=== PATIENT | female | born 1950 | race Caucasian/White ===

== ENCOUNTER → 2018-03-29 10:09 | Outpatient (CLI) | payer MEDICARE, OTHER, SELFPAY ==
--- NOTE | 2018-03-29 10:12 | BD_ITS ---
STUDY: DUAL ENERGY X-RAY ABSORPTIOMETRY / DXA REASON FOR EXAM: Female, 67 years old. The patient is postmenopausal. No loss of height. TECHNIQUE: Bone Mineral Density (BMD) measurements of lumbar spine and bilateral hips were obtained. COMPARISON: Comparison is made with prior study dated January 29, 2015. FINDINGS: Lumbar Spine (L1-L4): g/cm2 (1.207) / T-score (0.2) / Z-score (1.9) Findings are suggestive of normal bone density with a low fracture risk. Left Femur Total: g/cm2 (0.897) / T-score (-0.9) / Z-score (0.4) Left Femoral Neck: g/cm2 (0.870) / T-score (-1.2) / Z-score (0.4) Right Femur Total: g/cm2 (0.878) / T-score (-1.0) / Z-score (0.3) Right Femoral Neck: g/cm2 (0.858) / T-score (-1.3) / Z-score (0.3) The T-Scores on the most recent prior examination were: Lumbar Spine (L1-L4): There has been improvement of bone density since the previous examination. Left Femur Total: which represents a worsening of 10.2%. Right Femur Total: which represents a worsening of 1.1%. BD/Dexa Bone Density Study IMPRESSION: The patient is considered osteopenic as outlined below according to World Rigoberto Organization (WHO) criteria with a moderate fracture risk. There has been worsening of bone density since the previous examination. Reference Information: The T-score is the number of standard deviations above or below the standard which is normal for young adults at their peak bone mineral density. The World Health Organization (WHO) interprets the T-scores as follows: Above -1 Normal bone density Between -1 and -2.5 Osteopenia Equal to / or below -2.5 Osteoporosis As a practical clinical guideline, osteopenia may be graded as follows: Mild -1 through -1.5 Moderate -1.6 through -2.0 Severe -2.1 through -2.4 The Z-score is the number of standard deviations above or below age-matched controls. A Z-score of less than -1.5 would be considered abnormal. References: 1. NIH Osteoporosis and Related Bone Diseases http://www.osteo.org 2. International Society for Clinical Densitometry http://www.iscd.org 3. National Osteoporosis Foundation http://www.nof.org Electronically Signed: Thierry Long MD at 15:48 EDT Tel [phone], Service support ,
--- NOTE | 2018-03-29 10:12 | BI_ITS ---
MAMMOGRAPHY - UNILATERAL SCREENING: LEFT BREAST REASON FOR EXAM: Female, 67 years old. Routine annual screening examination (unilateral). PERTINENT HISTORY: Personal history of breast cancer. Grandmother with breast cancer. Aunt with breast cancer. Prior right mastectomy. TECHNIQUE: Digital unilateral breast sharon (3D mammographic acquisition) in the CC and MLO projections. 2-D mediolateral oblique (MLO) and craniocaudad (CC) views of both breasts were obtained. CAD: Full Field Digital Mammography with Computer Added Detection was performed. COMPARISON: Comparison is made with prior study dated March 22, 2017 and January 29, 2015. FINDINGS: Breast Composition: The breasts are almost entirely fatty. There are no dominant masses or suspicious calcifications. Stable benign-appearing left axillary lymph nodes. No other significant abnormalities are identified. There has been no significant change since the prior study. BI/UNILAT LT SCRN W/CAD IMPRESSION: Stable unilateral screening mammogram. Yearly follow-up mammogram recommended. (A) ASSESSMENT CATEGORY: BIRADS Category 2: Benign. A letter regarding these results will be sent to the patient by the facility within 30 days. Approximately 10% of breast cancers are not detected by mammography. A normal mammogram should not delay biopsy of a clinically suspicious abnormality. [id number] Electronically Signed: Thierry Long MD at 12:24 EDT Tel [phone], Service support ,
== END ==
PROVIDERS: Family Provider Internal Medicine; PCP Internal Medicine; Referring Provider Internal Medicine; Visit Provider Internal Medicine
DX: Z12.31 Encounter for screening mammogram for malignant neoplasm of breast (principal); Z78.0 Asymptomatic menopausal state; Z85.3 Personal history of malignant neoplasm of breast; Z80.3 Family history of malignant neoplasm of breast; Z90.11 Acquired absence of right breast and nipple
CPT/HCPCS: 77061; 77067; 77080; G0279

== ENCOUNTER 2018-05-26 20:54 | Observation (INO) | payer MEDICARE, OTHER, SELFPAY ==
[2018-05-26 20:55] VITALS: BP 156/89; PULSE 91; RESP 23; TEMP 36.8; O2SAT 95; BMI 33.3
[2018-05-26 21:08] VITALS: O2SAT 95
--- NOTE | 2018-05-26 21:08 | EKG12_ITS ---
Test Reason : CP Blood Pressure : / mmHG Vent. Rate : 088 BPM Atrial Rate : 088 BPM P-R Int : 152 ms QRS Dur : 090 ms QT Int : 366 ms P-R-T Axes : 028 002 007 degrees QTc Int : 442 ms Sinus rhythm with occasional Premature ventricular complexes Minimal voltage criteria for LVH, may be normal variant Inferior infarct , age undetermined Abnormal ECG Confirmed by IMELDA BENJAMIN, MATI ([id number]), restaurant expeditor KARISSA DONALDSON ([id number]) on 05/31/2018 3:34:15 PM Referred By: PETE/SILVANA Confirmed By:MATI SEGURA MD
--- NOTE | 2018-05-26 21:15 | RAD_ITS ---
STUDY: X-RAY CHEST REASON FOR EXAM: Female, 67 years old. Chest pain TECHNIQUE: Single frontal view of the chest. COMPARISON: 05/11/2014 FINDINGS: The lungs are clear and expanded. There is no demonstrated pleural abnormality. Normal size heart. Normal mediastinum and rochelle. Normal visualized pulmonary arteries. Normal visualized aortic arch and descending thoracic aorta. Normal visualized thoracic spine. Normal visualized ribs, clavicles, and shoulders. There is no demonstrated abnormality of the visualized soft tissue structures of the upper abdomen. RAD/Chest 1 View (Portable) IMPRESSION: Normal x-ray examination of the chest. Electronically Signed: Anthony Shaver MD at 22:08 EST Tel , Service support ,
--- NOTE | 2018-05-26 21:15 | ED.VISSUMM ---
- ER Visit Summary Date of Service: 05/26/18 Chief Complaint: Right-sided chest discomfort History of Present Illness: The patient is a 67 F past medical history of non-insulin dependent diabetes, hypertension, high cholesterol and known coronary disease. She states about 10 years ago she had a heart cath done at [facility] in [place] and at that time they told her she is about a 50% coronary blockage but she did not need stents at that time. Recently she has not been having chest pain. She denies exertional dyspnea. No history of DVT or PE. No recent travel, surgery or immobilization. No leg pain or swelling. No hemoptysis. She denies any pleuritic chest pain. Patient denies any back pain. At times does radiate to her neck. Physical Examination: 5% on room air. No hypoxia. HEENT exam unremarkable. Neck nontender. No lymphadenopathy. Lungs clear to auscultation bilaterally. Heart regular rate and rhythm no murmur. Patient had a right mastectomy. Chest wall is nontender. Abdomen soft nontender. Normal bowel sounds no peritoneal signs. Patient moving all 4 extremities. Normal slot floorman strength. Normal dorsi plantar flexion. Calves are nontender without edema or cords. Equal symmetrical radial pulses. Neurologically she is awake and alert with no focal motor deficits. Test Results: Patient will undergo cardiac workup and received p.o. aspirin. BC normal. BMP unremarkable. Troponin normal. Portable chest x-ray 1 view read both by myself and radiologist is unremarkable. EKG is a sinus rhythm with PVCs but no signs of acute [place] or ischemia. Emergency Department Course and Treatment: Patient with atypical right-sided chest pain. Has no history of DVT or PE. No DVT or PE risk factors. Pain is not reproducible. She is a known history of coronary disease and also has diabetes and hypertension. Treatment Plan: Patient doing well on repeat exam at 2240. Spoke to the hospitalist about admission. Patient currently symptom-free. Disposition: Admission Impression: Acute chest pain uncertain etiology History of CAD History of [id number] diabetes, hypertension This note was generated with Tactigaation software. It may contain incorrect words, spelling, and punctuation that were not noted in review of the chart prior to signing ED Disposition - Plan for ED Patient: Chief Complaint: Chest Pain
--- NOTE | 2018-05-26 21:19 | ED.DCSUM_ITS ---
- ER Visit Summary Date of Service: 05/26/18 Chief Complaint: Right-sided chest discomfort History of Present Illness: The patient is a 67 F past medical history of non- insulin dependent diabetes, hypertension, high cholesterol and known coronary disease. She states about 10 years ago she had a heart cath done at [facility] in [place] and at that time they told her she is about a 50% coronary blockage but she did not need stents at that time. Recently she has not been having chest pain. She denies exertional dyspnea. No history of DVT or PE. No recent travel, surgery or immobilization. No leg pain or swelling. No hemoptysis. She denies any pleuritic chest pain. Patient denies any back pain. At times does radiate to her neck. Physical Examination: 5% on room air. No hypoxia. HEENT exam unremarkable. Neck nontender. No lymphadenopathy. Lungs clear to auscultation bilaterally. Heart regular rate and rhythm no murmur. Patient had a right mastectomy. Chest wall is nontender. Abdomen soft nontender. Normal bowel sounds no peritoneal signs. Patient moving all 4 extremities. Normal blocker automatic strength. Normal dorsi plantar flexion. Calves are nontender without edema or cords. Equal symmetrical radial pulses. Neurologically she is awake and alert with no focal motor deficits. Test Results: Patient will undergo cardiac workup and received p.o. aspirin. BC normal. BMP unremarkable. Troponin normal. Portable chest x-ray 1 view read both by myself and radiologist is unremarkable. EKG is a sinus rhythm with PVCs but no signs of acute [place] or ischemia. Emergency Department Course and Treatment: Patient with atypical right-sided chest pain. Has no history of DVT or PE. No DVT or PE risk factors. Pain is not reproducible. She is a known history of coronary disease and also has diabetes and hypertension. Treatment Plan: Patient doing well on repeat exam at 2240. Spoke to the hospitalist about admission. Patient currently symptom-free. Disposition: Admission Impression: Acute chest pain uncertain etiology History of CAD History of [id number] diabetes, hypertension This note was generated with [employer] Enduranceation software. It may contain incorrect words, spelling, and punctuation that were not noted in review of the chart prior to signing ED Disposition - Plan for ED Patient: Chief Complaint: Chest Pain
[2018-05-26 21:31] LABS: Absolute Lymphocyte Count 2.13 X10^3/ul (0.83-4.51); Absolute Neutrophil Count 3.8 X10^3/uL (2.0-7.7); Basophil# 0.04 X10^3/uL; Basophil% 0.6 % (0-1); Eosinophil# 0.41 X10^3/uL; Eosinophils% 5.8 % (0-5); Hematocrit 40.6 % (37-47); Hemoglobin 13.7 g/dl (12.0-15.0); Lymphocyte # 2.13 X10^3/ul (4.0); Lymphocyte % 30.3 % (19-41); Mean Corp Hgb Conc 33.7 g/gl (32-36); Mean Corpuscular Hgb 30.9 pg (27.0-32.0); Mean Corpuscular Volume 91.6 fL (81-99); Mean Platelet Vol. 10.4 fl (6.2-12.0); Monocyte# 0.56 X10^3/uL; Neutrophil # 3.84 X10^3/uL (2.7-7.7); Neutrophil % 54.7 % (47-70); Platelet Count 347 K/mm3 (150-450); RBC Distribution Width CV 13.2 % (11.6-14.6); RBC Distribution Width SD 43.1 fl (35.1-43.9); Red Blood Count 4.43 M/mm3 (4.2-5.4)
[2018-05-26 21:33] LABS: POSITIVE COUNT NO; POSITIVE DIFFERENTIAL NO; POSITIVE MORPHOLOGY NO
[2018-05-26 21:43] LABS: BUN 18 mg/dL (7-18); Creatinine, Serum 0.99 mg/dL (0.55-1.02); Glucose 182 mg/dL (74-106)
[2018-05-26 21:44] LABS: Anion Gap 6 (5-15); BUN/Creat Ratio 18.2 RATIO (10-20); Calcium,Total 9.1 mg/dL (8.5-10.1); Chloride 105 mmol/L (98-107); EST Glomerular Filtration Rate 60 mL/min (>60); Est Glom Filt Rate - Afr Amer 72 mL/min (>60); Estimated Creatinine Clearance 43.61 ml/min; Potassium 3.7 mmol/L (3.5-5.1); Sodium Level 140 mmol/L (136-145)
[2018-05-26] MEDS: Aspirin 81 MG TAB.CHEW 324 MG PO (21:53)
[2018-05-26 21:54] VITALS: BP 146/88; PULSE 76; RESP 14; O2SAT 94
--- NOTE | 2018-05-26 22:38 | HP.PCM_ITS ---
Problem List (1) Chest pain Status: Acute (2) HTN (hypertension) Status: Chronic (3) Diabetes Status: Chronic History of Present Illness Date of Admission: 05/26/18 Chief Complaint: chest pain The patient is a 67 year old F with a significant history of right breast cancer status post radiation and chemotherapy; hypertension; diabetes; who presented with 1 day history of episodic right-sided chest pain that radiated to her right neck. She describes a severity as 5-6 on a scale of 1-10. Her pain was heavy in quality. Her chest pain began suddenly while she was a passenger in a car. Associated with her symptoms is belching and flatulence. Also she had warm feeling at her face. At emergency department chest x-ray was unremarkable. Her EKG showed sinus rhythm with PVCs. At emergency department patient was given 324 mg of aspirin. Of note 12-14 years ago patient had chest pain and follow-up cardiac catheter showed 50% lesion in one vessel. She does not remember which vessel had the 50% blockage. Past Medical History Past Medical History (Chronic Problems): Chronic Problems (Last Updated 05/26/18 @ 23:21 by Hoang Newton MD) HTN (hypertension) (Chronic) Diabetes (Chronic) Medical History: Medical History (Last Updated 05/26/18 @ 23:21 by Hoang Newton MD) Diabetes E11.9 HTN (hypertension) I10 Allergies No Known Allergies Allergy (Verified 05/26/18 20:55) Home Medications: Ambulatory Orders Medication Instructions Recorded Aspirin [Aspirin, Baby] 81 mg PO DAILY 05/11/14 Hydrochlorothiazide [Hctz] 25 mg PO DAILY 05/11/14 Lisinopril [Zestril] 20 mg PO DAILY 05/11/14 Metformin HCl [Glucophage] 1,000 mg PO BIDCM 05/11/14 Ubidecarenone [Coq10] 50 mg PO DAILY 05/11/14 Atenolol [Tenormin (beta shay)] 50 mg PO BID 05/26/18 Cholecalciferol (VIT D3) [Vitamin 1,000 unit PO BID 05/26/18 D] Fenofibrate Nanocrystallized 145 mg PO DAILY 05/26/18 [Fenofibrate] Linagliptin [Tradjenta] 5 mg PO DAILY 05/26/18 Vitamin E 400 unit PO DAILY 05/26/18 Surgical History: mastectomy, - - Kidney surgery-type unknown Psychiatric History: No pertinent psych hx 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 Denies: Palpitations Respiratory: Reports: Shortness of Breath - mild and transient. Denies: Cough, Sputum production Gastrointestinal: Denies: Abdominal Pain, Nausea, Vomiting Genitourinary: Denies: Dysuria Musculoskeletal: Denies: Joint Pain, Joint Tenderness Skin: Denies: Rash, Wounds Neurological: Denies: Numbness, Tingling, Focal weakness Psychiatric: Denies: Anxiety, Depression, Homicidal Ideations, Suicidal Ideations Hematologic/ Lymphatic: Denies: Easy Bruising, Easy Bleeding VTE Information - Inpt Only VTE Present on Admission: No VTE Mechan Device Prophylaxis: None VTE Pharm Prophylaxis ordered?: Yes - Physical Exam General: Alert, Oriented x3, Cooperative HEENT: Atraumatic, PERRLA, EOMI, Normocephalic Neck: Supple, No JVD, Negative Carotid Bruits Lungs: Clear to auscultation, Normal air movement, - - With no R breast Cardiovascular: Regular rate, No murmurs Abdomen: Bowel Sounds Present, Soft, Non Tender Extremities: No edema, Capillary Refill Less than 3 Seconds Skin: No rashes, No breakdown Musculoskeletal: No Tenderness to Palpation of Joints or Extremities Neurological: Cranial nerves II-XII grossly intact Psych/Mental Status: Normal Affect, Appropriate Vital Signs Temp Pulse Resp BP Pulse Ox 98.2 F 76 14 146/88 H 94 05/26/18 20:55 05/26/18 21:54 05/26/18 21:54 05/26/18 21:54 05/26/18 21:54 Oxygen Delivery Method Room Air Weight: 82.554 kg Body Mass Index (BMI) 33.3 Laboratory Tests Past 24 Hrs 05/26/18 05/26/18 21:00 21:00 WBC 7.0 RBC 4.43 Hgb 13.7 Hct 40.6 MCV 91.6 MCH 30.9 MCHC 33.7 RDW 13.2 RDW Differential 43.1 Plt Count 347 MPV 10.4 Immature Gran % (Auto) 0.600 Neut % (Auto) 54.7 Lymph % (Auto) 30.3 Gilchrist % (Auto) 8.0 Eos % (Auto) 5.8 H Baso % (Auto) 0.6 Absolute Neuts (auto) 3.8 Absolute Lymphs (auto) 2.13 Total Counted Not Reportable Sodium 140 Potassium 3.7 Chloride 105 Carbon Dioxide 29.0 Anion Gap 6 BUN 18 Creatinine 0.99 Estim Creat Clear Calc 43.61 Est GFR (MDRD) Af Amer 72 Est GFR (MDRD) Non-Af 60 BUN/Creatinine Ratio 18.2 Glucose 182 H Calcium 9.1 Troponin I < 0.015 Assessment/Plan All Active Problems (Last Updated 05/26/18 @ 23:21 by Hoang Newton MD) Chest pain (Acute) The patient is a 67 year old F with a significant history of right breast cancer status post radiation and chemotherapy;hypertension; diabetes; and with 50% blockage in his coronaries presenting with episodic right sided chest pain that had resolved at the time of examination. Chest pain At the time of examination her chest pain; belching and flatulence had resolved. Admit to a monitored bed on PCU CXR independently reviewed confirms no acute cardiopulmonary process EKG independently reviewed confirms sinus rhythm with PVCs Patient received 324 mg aspirin at emergency department. ASA 81 mg p.o. daily SL NTG 0.4 mg prn as needed for chest pain Fasting lipids ordered. High intensity statin ordered. Serial cardiac enzymes Stat EKG as needed for chest pain Although patient reported 50% blockage in a coronary vessel 12 to 14 years ago, her chest pain has resolved and she reports associated GI symptoms. Treadmill stress test in the AM if the cardiac enzymes are negative Diabetes mellitus On admission blood glucose was not within goal. Patient is on home metformin and Tradjenta. Since it is too early in her admission and cardiac cath can not be rule out at this time will hold metformin. Tradjenta continued. Would add a correction scale insulin. Hypertension On admission blood pressure was not within goal but was not excessively high Continue atenolol; lisinopril and hydrochlorothiazide.. Trend blood pressure and adjust blood pressure medication as necessary. Hyperlipidemia Fenofibrate continued. DVT prophylaxis Subcutaneous Lovenox ordered. Code Visit OBSV E&M: [id number] Initial observation care L3
--- NOTE | 2018-05-26 23:13 | EKG12_ITS ---
Test Reason : CP ADMISSION Blood Pressure : / mmHG Vent. Rate : 077 BPM Atrial Rate : 077 BPM P-R Int : 158 ms QRS Dur : 094 ms QT Int : 390 ms P-R-T Axes : 043 001 -02 degrees QTc Int : 441 ms Normal sinus rhythm Minimal voltage criteria for LVH, may be normal variant Inferior infarct , age undetermined, cannot be excluded Abnormal ECG Confirmed by IMELDA BENJAMIN, MATI ([id number]), editorial writer KARISSA DONALDSON ([id number]) on 05/31/2018 3:48:13 PM Referred By: ALBAN Confirmed By:MATI SEGURA MD
[2018-05-26 23:25] VITALS: PULSE 77
[2018-05-26 23:46] VITALS: BMI 32.3
[2018-05-26 23:50] VITALS: BMI 32.3
[2018-05-27] VITALS: BP 147/80; PULSE 89; RESP 16; TEMP 36.8; O2SAT 94
[2018-05-27] LABS: Bedside Glucose 140 mg/dL (70-110)
[2018-05-27 03:00] VITALS: PULSE 77
[2018-05-27 03:34] LABS: Prothrombin Time (Protime)PT. 13.1 SECONDS (11.7-14.9)
[2018-05-27 03:46] LABS: Partial Thromboplast Time 23.6 Seconds (24.1-36.2)
[2018-05-27 04:35] LABS: Cholesterol 212 mg/dL (200); High Density Lipoprotein 43 mg/dL; Triglycerides 122 mg/dL; Very Low Density Lipoprotein 24 mg/dL (5-40)
[2018-05-27 04:39] LABS: Anion Gap 10 (5-15); BUN 15 mg/dL (7-18); BUN/Creat Ratio 19.6 RATIO (10-20); Calcium,Total 8.9 mg/dL (8.5-10.1); Chloride 108 mmol/L (98-107); Creatinine, Serum 0.76 mg/dL (0.55-1.02); EST Glomerular Filtration Rate 80 mL/min (>60); Est Glom Filt Rate - Afr Amer 97 mL/min (>60); Estimated Creatinine Clearance 43.18 ml/min; Glucose 151 mg/dL (74-106); Potassium 3.6 mmol/L (3.5-5.1); Sodium Level 145 mmol/L (136-145)
--- NOTE | 2018-05-27 05:55 | EKG12_ITS ---
Test Reason : AM EKG Blood Pressure : / mmHG Vent. Rate : 080 BPM Atrial Rate : 080 BPM P-R Int : 144 ms QRS Dur : 092 ms QT Int : 372 ms P-R-T Axes : 049 006 002 degrees QTc Int : 429 ms Sinus rhythm with Premature atrial complexes Minimal voltage criteria for LVH, may be normal variant Cannot rule out Inferior infarct , age undetermined Abnormal ECG Confirmed by IMELDA BENJAMIN, MATI ([id number]), video editor KARISSA DONALDSON ([id number]) on 05/31/2018 3:47:08 PM Referred By: ALBAN Confirmed By:MATI SEGURA MD
[2018-05-27 06:00] VITALS: BP 127/75; PULSE 77; RESP 16; TEMP 36.3; O2SAT 95
[2018-05-27] MEDS: Aspirin E.C. 81 MG Tablet PO (06:08)
[2018-05-27] MEDS: Lisinopril 20 MG Tablet PO (06:08)
[2018-05-27 06:19] VITALS: PULSE 76
[2018-05-27 07:00] LABS: Bedside Glucose 149 mg/dL (70-110)
[2018-05-27 10:54] VITALS: PULSE 91
--- NOTE | 2018-05-27 11:27 | STRESSREP ---
Stress Test Report Date: 05/27/2018 Procedure: Exercise tolerance test/imaging study Indications: Chest pain Consent: Per the patient Procedure: The patient exercised on a Hero protocol for 6 minutes completing Stage II achieving a peak heart rate of 166 bpm (108 % predicted maximal heart rate) with a peak blood pressure 220/80 mmHg and a peak MET capacity of 7 METs. The baseline ECG demonstrated normal sinus rhythm. The peak exercise ECG demonstrated no obvious ECG changes. There was a rare PVC during recovery. The functional capacity was considered average. There was no complaint of chest discomfort during exercise or recovery. The examination was discontinued secondary to dyspnea. Impression: 1. Technically adequate (percent predicted maximal heart rate greater than 85%) exercise tolerance test 2. Peak exercise ECG with no obvious ECG changes 3. There was a rare PVC during recovery 4. Nuclear images pending Myocardial perfusion imaging study: Technique: The patient was injected with 11.8 mCi of technetium 99m Cardiolite and subsequently rest SPECT Cardiolite nuclear imaging was obtained in the horizontal long, vertical long, and short axis views. The patient exercised on a Hero protocol for 6 minutes completing Stage II achieving a peak heart rate of 166 bpm (108 % predicted maximal heart rate) with a peak blood pressure 220/80 mmHg and a peak MET capacity of 7 METs. The patient was injected with 33.1 mCi of technetium 99m Cardiolite and subsequently stress SPECT Cardiolite nuclear imaging was obtained in the horizontal long, vertical long, and short axis views. A gated Cardiolite study at peak stress was obtained. Interpretation: Rest and stress SPECT Cardiolite nuclear imaging status post realignment, normalization, and attenuation correction, demonstrates the appearance of relative uniform tracer uptake and myocardial perfusion appearing within normal limits. There is end systolic thickening and brightening. The gated Cardiolite study demonstrates myocardial thickening and inward wall motion. The reported LVEF is 70 %. Impression: 1. Rest and stress SPECT Cardiolite nuclear imaging demonstrate relative uniform tracer uptake and myocardial perfusion appearing within normal limits. 2. The gated Cardiolite study reports an LVEF of 70 %. This note was generated with [employer] software. It may contain incorrect words, spelling, and punctuation that were not noted in checking the note before signing.
[2018-05-27 11:51] VITALS: BP 134/86; PULSE 85; RESP 16; TEMP 36.7; O2SAT 96
[2018-05-27] MEDS: hydroCHLOROthiazide 25 MG Tablet PO (12:13)
[2018-05-27] MEDS: Enoxaparin 40 MG/0.4 ML Syringe SC (12:14)
[2018-05-27] MEDS: Atenolol 50 MG Tablet PO (12:14)
[2018-05-27 12:15] LABS: Bedside Glucose 154 mg/dL (70-110)
--- NOTE | 2018-05-27 12:15 | DCINST_ITS ---
- Discharge Diagnoses Current Active Problems: Current Active and Chronic Problems (Last Updated 05/26/18 @ 23:21 by Hoang Newton MD) HTN (hypertension) (Chronic) Diabetes (Chronic) You will use the following diet at home:: Cardiac Your food should be the consistency of: Regular Your liquids should be the consistency of: Regular/Thin Discharge Activity: No Restrictions Call your doctor if you observe: Shortness of breath, Dizziness, Fainting spells, Chest pain, Increased palpitations (irregular heartbeat) Allergies/Adverse Reactions: Allergies No Known Allergies Allergy (Verified 05/26/18 20:55) Medications to take at Discharge Aspirin [Aspirin, Baby] 81 mg PO DAILY 05/11/14 Hydrochlorothiazide [Hctz] 25 mg PO DAILY 05/11/14 Lisinopril [Zestril] 20 mg PO DAILY 05/11/14 Metformin HCl [Glucophage] 1,000 mg PO BIDCM 05/11/14 Ubidecarenone [Coq10] 50 mg PO DAILY 05/11/14 Atenolol [Tenormin (beta shay)] 50 mg PO BID 05/26/18 Cholecalciferol (VIT D3) [Vitamin D3] 1,000 unit PO BID 05/26/18 Fenofibrate Nanocrystallized [Fenofibrate] 145 mg PO DAILY 05/26/18 Linagliptin [Tradjenta] 5 mg PO DAILY 05/26/18 Vitamin E 400 unit PO DAILY 05/26/18 Primary Care Physician: Annamarie Carvajal DO [Primary Care Provider] - Please follow up with your Primary Care Physician in: In 3-5 days Test Results: Test results from this visit will be discussed in further detail at your follow- up appointment, if applicable.
[2018-05-27] MEDS: LINAGLIPTIN 5 MG TABLET PO (12:16)
[2018-05-27] MEDS: Vitamin E 400 UNITS Capsule PO (12:16)
[2018-05-27] MEDS: Fenofibrate 145 MG Tablet PO (12:16)
--- NOTE | 2018-05-27 12:16 | PCM.DC.SUM ---
Discharge Date and Diagnosis Date of Admission: 05/26/18 Date of Discharge: 05/27/18 - Secondary Discharge Diagnosis Chronic Problems (Last Updated 05/26/18 @ 23:21 by Hoang Newton MD) HTN (hypertension) (Chronic) Diabetes (Chronic) Hospital Course and Treatment Imaging Results: CXR: IMPRESSION: Normal x-ray examination of the chest. Consults: None Operations: None Procedures: Nuclear stress test - Impression: 1. Technically adequate (percent predicted maximal heart rate greater than 85%) exercise tolerance test 2. Peak exercise ECG with no obvious ECG changes 3. There was a rare PVC during recovery 4. Nuclear images pending Interpretation: Rest and stress SPECT Cardiolite nuclear imaging status post realignment, normalization, and attenuation correction, demonstrates the appearance of relative uniform tracer uptake and myocardial perfusion appearing within normal limits. There is end systolic thickening and brightening. The gated Cardiolite study demonstrates myocardial thickening and inward wall motion. The reported LVEF is 70 %. Impression: 1. Rest and stress SPECT Cardiolite nuclear imaging demonstrate relative uniform tracer uptake and myocardial perfusion appearing within normal limits. 2. The gated Cardiolite study reports an LVEF of 70 %. Summary of Care Provided: Per HPI: The patient is a 67 year old F with a significant history of right breast cancer status post radiation and chemotherapy; hypertension; diabetes; who presented with 1 day history of episodic right-sided chest pain that radiated to her right neck. She describes a severity as 5-6 on a scale of 1-10. Her pain was heavy in quality. Her chest pain began suddenly while she was a passenger in a car. Associated with her symptoms is belching and flatulence. Also she had warm feeling at her face. At emergency department chest x-ray was unremarkable. Her EKG showed sinus rhythm with PVCs. At emergency department patient was given 324 mg of aspirin. Of note 12-14 years ago patient had chest pain and follow-up cardiac catheter showed 50% lesion in one vessel. She does not remember which vessel had the 50% blockage. Vital Signs - 24 hr Temp Pulse Resp BP Pulse Ox 05/27/18 11:51 98.1 F 85 16 134/86 H 96 05/27/18 10:54 91 05/27/18 06:19 76 05/27/18 06:00 97.3 F L 77 16 127/75 H 95 05/27/18 03:00 77 05/27/18 00:00 98.2 F 89 16 147/80 H 94 05/26/18 23:25 77 05/26/18 21:54 76 14 146/88 H 94 05/26/18 21:08 95 05/26/18 20:55 98.2 F 91 23 H 156/89 H 95 General: Alert, Oriented x3, Cooperative, No apparent distress, obese HEENT: Atraumatic, EOMI, Normocephalic Oral: Moist Mucosa Neck: Supple, No JVD Lungs: Clear to auscultation, Normal air movement, No rhonchi, No wheeze, No rales Cardiovascular: Regular rate, Regular Rhythm, Normal S1, Normal S2, No murmurs Abdomen: Soft, Non Tender, Non-Distended, No Hepato-splenomegaly Extremities: No edema, Capillary Refill Less than 3 Seconds Skin: No rashes, No breakdown Hospital Course: 1. Chest pain with a h/o CAD based on prior cath with 50% stenosis/HTN/HLD - She presented with right sided chest pain. She was admitted as a chest pain r/o, her troponins remained negative and she had a nuclear stress test on the morning of discharge which was also negative. I discussed with her the necessity of being on a statin since her ASCVD risk is 18%, however she has a significant h/o mylagias and has been tried on multiple different medications. Therefore she is to f/u with her PCP and remain on an aspirin. We discussed that since she cannot tolerate a statin then if she would like to decrease her risk she will need to make modifications to other aspect of her life, mainly diet and exercise. 2. Her other diagnoses were evaluated and her home medications were continued were appropriate - Physical Exam Vital Signs Temp Pulse Resp BP Pulse Ox 98.1 F 85 16 134/86 H 96 05/27/18 11:51 05/27/18 11:51 05/27/18 11:51 05/27/18 11:51 05/27/18 11:51 Oxygen Delivery Method Room Air Weight: 176 lb 9.444 oz Body Mass Index (BMI) 32.3 Laboratory Tests Past 24 Hrs 05/26/18 05/26/18 05/27/18 21:00 21:00 00:22 WBC 7.0 RBC 4.43 Hgb 13.7 Hct 40.6 MCV 91.6 MCH 30.9 MCHC 33.7 RDW 13.2 RDW Differential 43.1 Plt Count 347 MPV 10.4 Immature Gran % (Auto) 0.600 Neut % (Auto) 54.7 Lymph % (Auto) 30.3 [place] % (Auto) 8.0 Eos % (Auto) 5.8 H Baso % (Auto) 0.6 Absolute Neuts (auto) 3.8 Absolute Lymphs (auto) 2.13 Total Counted Not Reportable PT INR APTT Sodium 140 Potassium 3.7 Chloride 105 Carbon Dioxide 29.0 Anion Gap 6 BUN 18 Creatinine 0.99 Estim Creat Clear Calc 43.61 Est GFR (MDRD) Af Amer 72 Est GFR (MDRD) Non-Af 60 BUN/Creatinine Ratio 18.2 Glucose 182 H Calcium 9.1 Troponin I < 0.015 < 0.015 Triglycerides Cholesterol LDL Cholesterol VLDL Cholesterol HDL Cholesterol 05/27/18 05/27/18 05/27/18 03:18 03:18 03:18 WBC RBC Hgb Hct MCV MCH MCHC RDW RDW Differential Plt Count MPV Immature Gran % (Auto) Neut % (Auto) Lymph % (Auto) [place] % (Auto) Eos % (Auto) Baso % (Auto) Absolute Neuts (auto) Absolute Lymphs (auto) Total Counted PT 13.1 INR 1.0 APTT Sodium Potassium Chloride Carbon Dioxide Anion Gap BUN Creatinine Estim Creat Clear Calc Est GFR (MDRD) Af Amer Est GFR (MDRD) Non-Af BUN/Creatinine Ratio Glucose Calcium Troponin I < 0.015 Triglycerides 122 Cholesterol 212 H LDL Cholesterol 145 H VLDL Cholesterol 24 HDL Cholesterol 43 05/27/18 05/27/18 03:18 03:18 WBC RBC Hgb Hct MCV MCH MCHC RDW RDW Differential Plt Count MPV Immature Gran % (Auto) Neut % (Auto) Lymph % (Auto) [place] % (Auto) Eos % (Auto) Baso % (Auto) Absolute Neuts (auto) Absolute Lymphs (auto) Total Counted PT INR APTT 23.6 L Sodium 145 Potassium 3.6 Chloride 108 H Carbon Dioxide 27.0 Anion Gap 10 BUN 15 Creatinine 0.76 Estim Creat Clear Calc 43.18 Est GFR (MDRD) Af Amer 97 Est GFR (MDRD) Non-Af 80 BUN/Creatinine Ratio 19.6 Glucose 151 H Calcium 8.9 Troponin I Triglycerides Cholesterol LDL Cholesterol VLDL Cholesterol HDL Cholesterol POC Glucose 05/27/18 05/27/18 05/26/18 11:53 06:03 23:44 POC Glucose 154 H 149 H 140 H Discharge Activity: No Restrictions Call your doctor if you observe: Shortness of breath, Dizziness, Fainting spells, Chest pain, Increased palpitations (irregular heartbeat) Home Medications: Medications to take at Discharge Aspirin [Aspirin, Baby] 81 mg PO DAILY 05/11/14 Hydrochlorothiazide [Hctz] 25 mg PO DAILY 05/11/14 Lisinopril [Zestril] 20 mg PO DAILY 05/11/14 Metformin HCl [Glucophage] 1,000 mg PO BIDCM 05/11/14 Ubidecarenone [Coq10] 50 mg PO DAILY 05/11/14 Atenolol [Tenormin (beta shay)] 50 mg PO BID 05/26/18 Cholecalciferol (VIT D3) [Vitamin D3] 1,000 unit PO BID 05/26/18 Fenofibrate Nanocrystallized [Fenofibrate] 145 mg PO DAILY 05/26/18 Linagliptin [Tradjenta] 5 mg PO DAILY 05/26/18 Vitamin E 400 unit PO DAILY 05/26/18 Primary Care Physician: Annamarie Carvajal DO [Primary Care Provider] - Please follow up with your Primary Care Physician in: In 3-5 days Disposition: Home Minutes spent on discharge:: 35 Patient Condition:: Good Medical Necessity - Tobacco Use Smoking Status: Never smoker Meaningful Use Info Meaningful Use Diagnoses (Choose all that apply): None applicable Code Visit OBSV E&M: 45011 Observation care discharge
--- OUTSIDE RECORDS SUMMARY | 2018-07-21 23:49 | XMS RPT_ITS | Continuity of Care Document ---
:1950 Author Organization [facility] Address [address] [place] [address] Phone Care Team Providers Name Role Phone Annamarie Carvajal DO Unavailable Bird Boyd DO Unavailable MONICA Govea Unavailable Unavailable Cece Amador Unavailable Unavailable Bhavya Robins Unavailable Unavailable Nolan Tripp Unavailable Unavailable Unavailable Unavailable Problems Name Dates Details Acute chest pain (R07.9, 786.50) Comments: substernal -- went to [facility] and had work up and ef 72% and ecg was good -- troponin unremarkable and cxr wnl Status: Active Allergic reaction, initial encounter (T78.40XA, 995.3) Comments: sting insect -- Status: Active Annual Medicare Phyiscal WITHOUT abnormal findings (Renamed from Encounter for general adult medical examination without abnormal findings) (Z00.00, V70.9) Status: Active Benign essential hypertension (I10, 401.1) Status: Active BMI 31.0-31.9,adult (Z68.31, V85.31) Status: Active BMI 32.0-32.9,adult (Z68.32, V85.32) Status: Active Controlled type 2 diabetes mellitus (E11.9, 250.00) Status: Active Deliveries (Parity) Comments: 4 Status: Active Diabetes mellitus type 2, uncontrolled, without complications (E11.65, 250.02) Comments: up bc of pred so pt doesnt want to chg meds -- will bring down with diet adn acitivity Status: Active Encounter for general adult medical examination w/o abnormal findings (Z00.00, V70.9) Status: Active Encounter for screening for malignant neoplasm of colon (Renamed from Special screening for malignant neoplasms, colon) (Z12.11, V76.51) Comments: ordered cologard 18pt refused scope Status: Active Encounter for screening mammogram for breast cancer (Renamed from Encounter for screening mammogram for malignant neoplasm of breast) (Z12.31, V76.12) Status: Active Essential hypertension, malignant (I10, 401.0) Comments: chronic stable-continue present regimen Status: Active Gastroesophageal reflux disease without esophagitis (K21.9, 530.81) Status: Active Hypercalcemia (E83.52, 275.42) Comments: better stay off calcium and vit d - likely from hctz Status: Active Hypertrophic and atrophic condition of skin (L91.9, 701.9) Comments: irritated Status: Active Hypokalemia (E87.6, 276.8) Comments: recheck Status: Active Influenza vaccination declined (Renamed from Refused influenza vaccine) (Z28.21, V64.06) Status: Active Itching (L29.9, 698.9) Status: Active Malignant neoplasm of breast (female) (C50.919, 174.9) Status: Active Mastectomy Status: Active Mixed hyperlipidemia (E78.2, 272.2) Status: Active Need for prophylactic vaccination and inoculation against influenza (Z23, V04.81) Status: Active Nonsmoker (Z78.9, V49.89) Status: Active Non-smoker (Z78.9, V49.89) Status: Active Nutritional counseling (Z71.3, V65.3) Status: Active Obstructive sleep apnea, adult (G47.33, 327.23) Comments: wears mask Status: Active Osteopenia (M85.80, 733.90) Status: Active Other and unspecified hyperlipidemia (E78.5, 272.4) Comments: on at least 7different statins in lifetime per patient and didnt tolerate them Status: Active Poison staci (L23.7, 692.6) Status: Active Poison staci (L23.7, 692.6) Status: Active Postmenopausal (Renamed from Postmenopausal status) (Z78.0, V49.81) Status: Active Pregnancies () Comments: 4 Status: Active screening Status: Active SOB (shortness of breath) on exertion (R06.02, 786.05) Status: Active Upper Respiratory Infection (J06.9, 465.9) Status: Active Vitamin D deficiency, unspecified (E55.9, 268.9) Status: Active Vitamin D deficiency, unspecified (E55.9, 268.9) Status: Active Medications Name Dates Details ASPIRIN LOW DOSE, 81MG (Oral Tablet) qd for 0 days Refills: 0 Ordered:05-Apr-2009 Gal Khan Atenolol 50 MG Oral Tablet 1 (one) Tablet BID for 0 days Quantity: 60 {Tablet} Refills: 3 Ordered:31-Mar-2018 Kiana Carvajal DO, DO, Kathleen Start : 31-Mar-2018 Active Calamine 8-8 % External Lotion 1 (one) Lotion bid for 0 days Quantity: 1 {Bottle} Refills: 0 Ordered:28-Oct-2017 Christine Hightower Start : 28-Oct-2017 Active CINNAMON, 500MG (Oral Capsule) 2 caps qd for 0 days Refills: 0 Ordered:05-Apr-2009 Gal Khan essiac tea 1 cup qd Active HydroCHLOROthiazide 25 MG Oral Tablet 1 Tablet QD for 0 days Quantity: 30 {Tablet} Refills: 3 Ordered:25-Nov-2017 Kiana Carvajal DO, DO, Kathleen Start : 25-Nov-2017 Active Lisinopril 20 MG Oral Tablet 1 (one) Tablet qd for 0 days Quantity: 30 {Tablet} Refills: 3 Ordered:10-Dec-2017 Kiana Carvajal DO, DO, Kathleen Start : 10-Dec-2017 Active MetFORMIN HCl 500 MG Oral Tablet 2 (two) Tablet bid for 0 days Quantity: 120 {Tablet} Refills: 3 Ordered:31-Mar-2018 Kiana Carvajal DO, DO, Kathleen Start : 31-Mar-2018 Active Tradjenta 5 MG Oral Tablet 1 Tablet qd for 0 days Quantity: 30 {Tablet} Refills: 3 Ordered:07-Apr-2017 Wei Kiana ECHAVARRIA DO Annamarie Start : 07-Apr-2017 Active Comments:4 bx Tricor 145 MG Oral Tablet 1 (one) Tablet qd for 0 days Quantity: 30 {Tablet} Refills: 3 Ordered:31-Mar-2018 WeiKiana allison DO, DO Annamarie Start : 31-Mar-2018 Active VITAMIN C, 1000MG (Oral Tablet) for 0 days Refills: 0 Ordered:05-Apr-2009 Zaina KhanActive VITAMIN D3, 2000UNIT (Oral Tablet Chewable) 1 Tablet Chewable qd for 0 days Quantity: 30 {Tablet_Chewable} Refills: 3 Ordered:25-Mar-2015 Zaina Khan Start : 18-Nov-2011 Active VITAMIN E, 1000UNIT (Oral Capsule) for 0 days Refills: 0 Ordered:05-Apr-2009 Zaina KhanActive ACIPHEX, 20MG (Oral Tablet Delayed Release) 1 (one) Tablet DR qd for 0 days Quantity: 30 {Tablet_DR} Refills: 3 Ordered:20-Aug-2008 Zaina Khan Start : 20-Aug-2008 End : 05-Apr-2009 Inactive Alendronate Sodium 35 MG Oral Tablet 1 (one) Tablet once a week for 0 days Quantity: 4 {Tablet} Refills: 3 Ordered:19-Aug-2017 Christine Govea LPN Start : 16-Mar-2014 End : 19-Aug-2017 Inactive ERGOCALCIFEROL, 47859FARK (Oral Capsule) 1 (one) Capsule q o week for 0 days Quantity: 4 {Capsule} Refills: 3 Ordered:04-Apr-2010 Zaina Khan Start : 05-Apr-2009 End : 04-Apr-2010 Inactive FEMARA, 2.5MG (Oral Tablet) 1 (one) Tablet qd for 0 days Quantity: 30 {Tablet} Refills: 3 Ordered:03-Jan-2008 Zaina Khan Start : 03-Jan-2008 End : 05-Apr-2009 Inactive Garlic 1000 MG Oral Capsule 2 caps qd for 0 days Refills: 0 Ordered:19-Aug-2017 Christine Govea LPN End : 19-Aug-2017 Inactive Jardiance 10 MG Oral Tablet 1 (one) Tablet Tablet qd for 0 days Quantity: 30 {Tablet} Refills: 3 Ordered:02-Dec-2017 Christine Govea LPN Start : 19-Aug-2017 End : 02-Dec-2017 Inactive PredniSONE 10 MG Oral Tablet 3 (three) Tablet daily for 7 days Quantity: 21 {Tablet} Refills: 0 Ordered:28-Oct-2017 Christine Hightower Start : 28-Oct-2017 End : 04-Nov-2017 Inactive Comments:take with food RED YEAST RICE, 600MG (Oral Capsule) 1 cap bid (600 MG) Inactive VITAMIN D, 37716KUUW (Oral Capsule) 1 cap Capsule once weekly for 90 days Quantity: 12 {Capsule} Refills: 0 Ordered:21-Nov-2009 Kash DO, Bird A Start : 21-Nov-2009 End : 19-Feb-2010 Inactive VYTORIN, 10-20MG (Oral Tablet) 1 (one) Tablet Daily for 0 days Quantity: 30 {Tablet} Refills: 3 Ordered:15-Oct-2006 Kash ECHAVARRIA, Bird A Start : 15-Oct-2006 End : 08-Mar-2007 Inactive ZETIA, 10MG (Oral Tablet) 1 (one) Tablet qd for 0 days Quantity: 30 {Tablet} Refills: 3 Ordered:18-Feb-2010 Zaina Khan Start : 21-Nov-2009 Inactive ACTONEL, 150MG (Oral Tablet) 1 Tablet pill once a month for 0 days Quantity: 1 {Tablet} Refills: 4 Ordered:09-Mar-2012 Zaina Khan Start : 09-Mar-2012 End : 09-Mar-2012 Discontinued ATELVIA, 35MG (Oral Tablet Delayed Release) [address] q week for 0 days Quantity: 4 {Tablet_DR} Refills: 3 Ordered:07-Jul-2011 Mast Andreina LOCKHART Start : 07-Jul-2011 End : 07-Jul-2011 Discontinued AUGMENTIN, 875-125MG (Oral Tablet) 1 (one) Tablet Tablet bid for 0 days Quantity: 20 {Tablet} Refills: 0 Ordered:21-Nov-2013 Zaina Khan Start : 26-Jul-2013 End : 21-Nov-2013 Discontinued Crestor 10 MG Oral Tablet 1/2 Tablet qd for 0 days Quantity: 30 {Tablet} Refills: 0 Ordered:25-Mar-2016 Kiana Carvajal DO, DO, Kathleen Start : 25-Mar-2016 End : 25-Mar-2016 Discontinued Comments:muscle aches CRESTOR, 5MG (Oral Tablet) 1 Tablet qod for 0 days Quantity: 42 {Tablet} Refills: 0 Ordered:31-Oct-2012 Bird Boyd DO A Start : 31-Oct-2012 End : 31-Oct-2012 Discontinued DRISDOL, 91827QVCB (Oral Capsule) 1 cap Capsule q o week for 90 days Quantity: 6 {Capsule} Refills: 1 Ordered:18-Nov-2011 Kash ECHAVARRIA Bird A Start : 18-Nov-2011 End : 18-Nov-2011 Discontinued FISH OIL CONCENTRATE, 1000MG (Oral Capsule) 1 cap qd (1000 MG) End : 20-Nov-2015 Discontinued FOSAMAX, 35MG (Oral Tablet) 1 Tablet Weekly for 0 days Quantity: 4 {Tablet} Refills: 3 Ordered:31-Aug-2012 Bird Boyd DO A Start : 31-Aug-2012 End : 19-Dec-2012 Discontinued Comments:This order discontinued per [employer]. LIVALO, 2MG (Oral Tablet) 1 Tablet qd for 0 days Quantity: 30 {Tablet} Refills: 3 Ordered:05-Aug-2012 Bird Boyd DO A Start : 05-Aug-2012 End : 05-Aug-2012 Discontinued PRAVACHOL, 20MG (Oral Tablet) 1 (one) Tablet qd for 0 days Quantity: 30 {Tablet} Refills: 3 Ordered:08-Mar-2007 Zaina Khan Start : 08-Mar-2007 End : 07-Jun-2007 Discontinued RED YEAST RICE EXTRACT, 600MG (Oral Capsule) 1 cap bid for 0 days Refills: 0 Ordered:07-Sep-2007 Zaina Khan End : 07-Sep-2007 Discontinued VYTORIN, 10-40MG (Oral Tablet) 1 Tablet QD for 0 days Refills: 0 Ordered:02-Jul-2006 Bird A Start : 02-Jul-2006 End : 02-Jul-2006 Discontinued WELCHOL, 625MG (Oral Tablet) 3 (three) Tablet bid for 0 days Quantity: 180 {Tablet} Refills: 3 Ordered:31-Dec-2008 Fast DO Bird A Start : 31-Dec-2008 End : 31-Dec-2008 Discontinued Xango End : 15-Oct-2006 Discontinued Allergies and Adverse Reactions Name Dates Details Darvocet-N 100 *ANALGESICS - OPIOID* (Allergy) Status: Active LIPITOR, 10MG (Oral Tablet) (Allergy) Status: Active Comments: myalgia PRAVACHOL, 10MG (Oral Tablet) (Allergy) Status: Active Comments: myalgias RED YEAST RICE (Powder) (Allergy) Status: Active Comments: myalgia Vytorin *ANTIHYPERLIPIDEMICS* (Allergy) Status: Active Comments: myalgias Past Medical History Name Dates Details Abnormal urine (R82.90, 791.9) Status: Inactive as of 20-Apr-2016 BMI 33.0-33.9,adult (Z68.33, V85.33) Status: Inactive as of 12-Oct-2017 Need for prophylactic vaccination with tetanus toxoid alone (Z23, V03.7) Status: Inactive as of 31-Dec-2008 Pain in limb (M79.609, 729.5) Status: Resolved as of 07-Sep-2007 Rash (R21, 782.1) Comments: cleaning leavews Status: Resolved as of 05-Aug-2012 screening Status: Inactive as of 01-Jul-2011 Unspecified Diagnosis Status: Inactive as of 31-Dec-2008 Unspecified Diagnosis Status: Inactive as of 31-Dec-2008 Unspecified Diagnosis Status: Inactive as of 31-Dec-2008 Procedures Date Value Details 29-Mar-2018 Dexa Bone Density Study Result: Comments: See Note; NOTES: [facility] [address] [place] [id number] Dexa Bone Density Study MR#: [id number] Acct: [id number] Name: JAN RODRIGUEZ Rep #: [id number] : 1950 F 67 From: Thierry Dunn MD PCP: Annamarie Carvajal DO Status: REG CLI Study: Dexa Bone Density Study Date of Exam: 03/29/18 Exam# [id number] Ordering Dr: Annamarie Carvajal DO STUDY: DUAL ENERGY X-RAY ABSORPTIOMETRY / DXA REASON FOR EXAM: Female, 67 years old. The patient is postmenopausal. No loss of height. TECHNIQUE: Bone Mineral Density (BMD) measurements of lumbar spin e and bilateral hips were obtained. COMPARISON: Comparison is made with prior study dated January 29, 2015. FINDINGS: Lumbar Spine (L1-L4): g/cm2 (1.207) / T-score ( 0.2) / Z-score (1.9) Findings are suggestive of normal bone density with a low fracture risk. Left Femur Total: g/cm2 (0.897) / T-score (-0.9) / Z-score (0.4) Left Femoral Neck: g/cm2 (0.870) / T-score (-1.2) / Z-score (0.4) Right Femur Total: g/cm2 (0.878) / T-score (-1.0) / Z- score (0.3) Right Femoral Neck: g/cm2 (0.858) / T-score (-1.3) / Z-score (0.3) The T-Scores on the most recent prior examin ation were: Lumbar Spine (L1-L4): There has been improvement of bone density since the previous examination. Left Femur Total: which represents a worsening of 10.2%. Right Femur Total: which represent s a worsening of 1.1%. BD/Dexa Bone Density Study IMPRESSION: The patient is considered osteopenic as outlined below according to World Rigoberto Org anization (WHO) criteria with a moderate fracture risk. There has been worsening of bone density since the previous examination. Reference Information: The T-score is the number of standard deviations above or below the standard which is normal for young adults at their peak bone mineral density. The World Health Organization (WHO) interprets the T-scores as follo ws: Above -1 Normal bone density Between -1 and -2.5 Osteopenia Equal to / or below -2.5 Osteoporosis As a practical clinical guideline, osteopenia may be graded as follows: Mild -1 through -1.5 Moder ate -1.6 through -2.0 Severe -2.1 through -2.4 The Z-score is the number of standard deviations above or below age-matched controls. A Z-score of less than -1.5 would be considered abnormal. Reference s: 1. NIH Osteoporosis and Related Bone Diseases http://www.osteo.org 2. International Society for Clinical Densitometry http://www.iscd.org 3. National Osteoporosis Foundation http://www.nof.org Elect ronically Signed: Thierry Dunn MD at 15:48 EDT Tel [phone], Service support , CC: Annamarie Carvajal DO Log Raft Worker: Signed 29-Mar-2018 UNILAT LT SCRN W/CAD Result: Comments: See Note; NOTES: [facility] [address] [place] [address] UNILAT LT SCRN W/CAD MR#: [id number] Acct: [id number] Name: JAN RODRIGUEZ Rep #: [id number] : 1950 F 67 From: Thierry Dunn MD PCP: Annamarie Carvajal DO Status: REG CLI Study: UNILWENDY QUACH SCRN W/CAD Date of Exam: 03/29/18 Exam# [id number] Ordering Dr: Annamarie Carvajal DO MAMMOG JERI - UNILATERAL SCREENING: LEFT BREAST REASON FOR EXAM: Female, 67 years old. Routine annual screening examination (unilateral). PERTINENT HISTORY: Personal history of breast cancer. Grandmother wi th breast cancer. Aunt with breast cancer. Prior right mastectomy. TECHNIQUE: Digital unilateral breast ted (3D mammographic acquisition) in the CC and MLO projections. 2-D mediolateral oblique (MLO) and craniocaudad (CC) views of both breasts were obtained. CAD: Full Field Digital Mammography with Computer Added Detection was performed. COMPARISON: Comparison is made with prior study dated 2016 and January 29, 2015. FINDINGS: Breast Composition: The breasts are almost entirely fatty. There are no dominant masses or suspicious calcifications. Stab le benign-appearing left axillary lymph nodes. No other significant abnormalities are identified. There has been no significant change since the prior study. BI/UNILAT LT SCRN W/CAD IMPRESSION: Stable unilateral screening mammogram. Yearly follow-up mammogram recommended. (A) ASSESSMENT CATEGORY: BIRADS Cat egory 2: Benign. A letter regarding these results will be sent to the patient by the facility within 30 days. Approximately 10% of breast cancers are not detected by mammography. A normal mammogram satish uld not delay biopsy of a clinically suspicious abnormality. [id number] Electronically Signed: Thierry Dunn MD at 12:24 EDT Tel [phone], Service support , Fax CC: Annamarie Carvajal DO Log Raft Worker: Signed 22-Mar-2017 Lt Brst Unilat Ted Add On Result: Comments: See Note; NOTES: [facility] [address] [place] [address] Lt Brst Unilat Ted Add On MR#: [id number] Acct: [id number] Name: JAN RODRIGUEZ Rep #: [id number] : 1950 F 66 From: Thierry Dunn MD PCP: Annamarie Carvajal DO Status: REG CLI Study: Lt Brst Unilat Ted Add On Date of Exam: 03/22/17 Exam# [id number] Ordering Dr: Amie Munoz MD MAMMOGRAPHY - UNILATERAL SCREENING: LEFT BREAST REASON FOR EXAM: Female, 66 years old. Routine annual screening examination (unilateral). PERTINENT HISTORY: Personal history of breast cancer. Gra ndmother with breast cancer. Prior right mastectomy. TECHNIQUE: Digital unilateral breast ted (3D mammographic acquisition) in the CC and MLO projections. 2-D mediolateral oblique (MLO) and craniocaud ad (CC) views of both breasts were obtained. CAD: Full Field Digital Mammography with Computer Added Detection was performed. COMPARISON: Comparison is made with prior study dated January 29, 2015 and 2013. FINDINGS: Breast Composition: The breasts are almost entirely fatty. There are no dominant masses or suspicious calcifications. Stable benign-appearing left axillary lymph nodes. No other significant abnormalities are identified. There has been no significant change since the prior study. BI/ Lt Brst Unilat Ted Add On IMPRESSION: Stable unilateral screening mammogram. Yearly follow-up mammogram recommended. (A) ASSESSMENT CATEGORY: BIRADS Category 2: Be nign. A letter regarding these results will be sent to the patient by the facility within 30 days. Approximately 10% of breast cancers are not detected by mammography. A normal mammogram should not del ay biopsy of a clinically suspicious abnormality. [id number] Electronically Signed: Thierry Dunn MD at 8:56 EDT Tel [phone], Service support , C C: Amie Munoz MD; Annamarie Carvajal DO Log Raft Worker: Signed 22-Mar-2017 UNILAT LT SCRN W/CAD Result: Comments: See Note; NOTES: [facility] [address] [place] [address] UNILAT LT SCRN W/CAD MR#: [id number] Acct: [id number] Name: JAN RODRIGUEZ Rep #: [id number] : 1950 F 66 From: Thierry Dunn MD PCP: Annamarie Carvajal DO Status: REG CLI Study: UNILAT LT SCRN W/CAD Date of Exam: 03/22/17 Exam# [id number] Ordering Dr: Amie Munoz MD MAMMOGR APHY - UNILATERAL SCREENING: LEFT BREAST REASON FOR EXAM: Female, 66 years old. Routine annual screening examination (unilateral). PERTINENT HISTORY: Personal history of breast cancer. Grandmother wit h breast cancer. Prior right mastectomy. TECHNIQUE: Digital unilateral breast ted (3D mammographic acquisition) in the CC and MLO projections. 2-D mediolateral oblique (MLO) and craniocaudad (CC) view s of both breasts were obtained. CAD: Full Field Digital Mammography with Computer Added Detection was performed. COMPARISON: Comparison is made with prior study dated January 29, 2015 and December 20, 2013. FINDINGS: Breast Composition: The breasts are almost entirely fatty. There are no dominant masses or suspicious calcifications. Stable benign-appearing left axilla ry lymph nodes. No other significant abnormalities are identified. There has been no significant change since the prior study. [facility] RN W/CAD IMPRESSION: Stable unilateral screening mammogram. Yearly follow-up mammogram recommended. (A) ASSESSMENT CATEGORY: BIRADS Category 2: Benign. A letter reg arding these results will be sent to the patient by the facility within 30 days. Approximately 10% of breast cancers are not detected by mammography. A normal mammogram should not delay biopsy of a cli nically suspicious abnormality. [id number] Electronically Signed: Thierry Dunn MD at 8:56 EDT Tel [phone], Service support , CC: Amie Sheldon; Annamarie Carvajal DO Log Raft Worker: Signed 20-Nov-2015 EKG ([id number]) Comments: ekg showed normal sinus rhythym, normal axis, no acute st/t wave changes Result: [MEASUREMENTS ANALYSIS] Date of Test: 11/20/2015 10:33:59; Heart Rate: 65; MO Interval: 138; QRS: 101; QT Interval: 398; Corrected QT Interval (QTc): 406; P Wave [place]: 27; QRS Wave [place]: 17; T Wave [place] : -1; Blood Pressure: 110/76 [ECG DIAGNOSTIC STATEMENTS] Date of Test: 11/20/2015 10:33:59; Summary: Sinus Rhythm WITHIN NORMAL LIMITS 29-Jan-2015 Dexa Bone Density Study (HP) Result: Comments: See Note; NOTES: [facility] [address] [place] [address] Bone Density Report MR#: [id number] Acct: [id number] Name: JAN RODRIGUEZ Rep #: [id number] : 1950 F 64 From: Thierry Dunn MD PCP: Bird Boyd DO Status: [facility] CLI Study: Dexa Bone Density Study (HP) Date of Exam: 01/29/15 Exam# [id number] Ordering Dr: Bird Boyd DO STUDY: DUAL ENERGY X-RAY ABSORPTIOMETRY / DXA REASON FOR EXAM: Female, 64 years old. Early menopause. History of breast cancer. TECHNIQUE: Bone Mineral Density (BMD) measurements of lumbar spi ne and bilateral hips were obtained. COMPARISON: Comparison is made with prior examination dated December 22, 2012. FINDINGS: Lumbar Spine (L1-L4): g/cm2 (1.158) / T-score (-0.2) / Z-score (1.4) Findings are suggestive of normal bone density with a low fracture risk. Left Femur Total: g/cm2 (0.999) / T-score (-0.1) / Z-score (1.1) Left Femoral Neck: g/cm2 ( 0.984) / T-score (-0.4) / Z-score (1.0) Right Femur Total: g/cm2 (0.888) / T- score (-1.0) / Z-score (0.2) Right Femoral Neck: g/cm2 (0.843) / T-score (-1.4) / Z-score (0.0) The T-Scores on the most recent prior examination were: Lumbar Spine (L1-L4): There has been improvement of bone density since the previous examination. Left Femur Total: which represents an improvement of 7.1%. Right Fem ur Total: which represents a worsening of 3.6%. IMPRESSION: The patient is considered osteopenic at the level of the right femoral neck as outlined below accordi ng to World Rigoberto Organization (WHO) criteria with a low fracture risk. There has been improvement of bone density since the previous examination. Reference Inf ormation: The T-score is the number of standard deviations above or below the standard which is normal for young adults at their peak bone mineral density. The World Health Organization (WHO) interpr ets the T-scores as follows: Above -1 Normal bone density Between -1 and - 2.5 Osteopenia Equal to / or below -2.5 Osteoporosis As a practical clinical guideline, osteopenia may be graded as follo ws: Mild -1 through -1.5 Moderate -1.6 through -2.0 Severe -2.1 through -2.4 The Z-score is the number of standard deviations above or below age-matched controls. A Z-score of less than -1.5 would be considered abnormal. References: 1. NIH Osteoporosis and Related Bone Diseases http://www.osteo.org 2. International Society for Clinical Densitometry http://www.iscd.org 3. National Osteoporos is Foundation http://www.nof.org Electronically Signed: Thierry Dunn MD at 9:40 EDT Tel [phone], Service support [phone], CC: Bird Boyd DO Log Raft Worker: Signed 29-Jan-2015 Unilat Lt Scrn Digital AND CAD Result: Comments: See Note; NOTES: [facility] [address] [place] [address] Breast Imaging Report MR#: [id number] Acct: [id number] Name: JAN RODRIGUEZ Rep #: [id number] : 1950 F 64 From: Thierry Dunn MD PCP: Bird Boyd DO Status: REG CLI Study: Unilat Lt Scrn Digital AND CAD Date of Exam: 01/29/15 Exam# [id number] Ordering Dr: Vernon Boyd DO MAMMOGRAPHY - UNILATERAL SCREENING: LEFT BREAST REASON FOR EXAM: Female, 64 years old. Routine annual screening examination (unilateral). PERTINENT HISTORY: Personal history of breast canc er. Grandmother with breast cancer. TECHNIQUE: Digital examination. Mediolateral oblique (MLO) and craniocaudad (CC) views of the breast were obtained. CAD: CAD was performed on this study. UNA RISON: Comparison is made with prior study dated December 20, 2013 and December 13, 2012. FINDINGS: Breast Composition: The breasts are almost entirely fatty. There ar e no dominant masses or suspicious calcifications. No other significant abnormalities are identified. There has been no significant change since the prior study. IMPRESSION: Stable unilateral screening mammogram. Yearly follow-up recommended. (A) ASSESSMENT CATEGORY: BIRADS Category 1: Negative. A letter regarding thes e results will be sent to the patient by the facility within 30 days. Approximately 10% of breast cancers are not detected by mammography. A normal mammogram should not delay biopsy of a clinically suspicious abnormality. Electronically Signed: Thierry Dunn MD at 9:04 EDT Tel [phone], Service support [phone], CC: Bird Boyd DO Log Raft Worker: Signed 01-Aug-2014 Sleep Study Report Result: Comments: See Note; NOTES: [facility] [address] [place] [address] Unattended Sleep Study MR#: [id number] Acct: [id number] Name: JAN RODRIGUEZ Rep #: [id number] : 1950 63 From: Reg Dupont MD PCP: Bird Boyd DO Status: REG CLI Ordering Dr.: Bird Boyd DO Date: 07/11/14 Sex: F C INTRODUCTION: This is a home sleep study. SCORING RULES: Respiratory events were acquired and scored in accordance with the Recommended Standards and Specifications as outlined in the AASM Manual for the Scoring of Sleep and Associated Ev ents (most recent version). Please note that a reference to [facility] AHI in this report is consistent with the current Hypopnea definition according to Medicare Criteria and an AAS AHI reference is consis tent with the current Hypopnea definition according to the AASM criteria. PROCEDURE: The study was unattended in the patient's home setting. Monitored parameters included airflow with nasal pressur e transducer, chest and abdominal plethysmography efforts, and oxygen saturation with heart rate. REPORT: The start time is 10:05. The end time is 5:05. The duration of the study is 7 hours. There is the flow period where recording maybe consistent with sleep was 5 hours and 56 minutes. There were 39 hypopneas and 2 apneas for an AHI of 7. See flow reduction at 2:06 a.m. The average saturation i s 92%. The lowest saturation is 85%. the pulse is recorded at 72. Time below 90% was 47 minutes. CLINICAL INTERPRETATION: The polysomnogram shows evidence of hypoxemia. The patient does have some v ariable flow, which could represent sleep disordered breathing, but an underlying respiratory problem could also be in the differential and further evaluation is warranted. An apnea index of 7 on a si [place] home study is suboptimal for confirmation of diagnosis of obstructive sleep apnea although it conforms hypoxemia. RECOMMENDATIONS: Further clinical evaluation is warranted to assess th is patient's underlying medical condition accurately. Reg Dupont M.D., [place] CC: Reg Dupont MD [phone] <Electronically signed by Reg Dupont MD> STEINER Date Reg Dupont MD Co-signature (if applicable) Date Signed 16-May-2014 Spirometry ([id number]) Comments: good effort and curve normal Result: 20-Dec-2013 [facility] Digital & CAD Result: Comments: See Note; NOTES: [facility] [address] [place] [address] Breast Imaging Report MR#: [id number] Acct: [id number] Name: JAN RODRIGUEZ Rep # : [id number] : 1950 F 63 From: Thierry Dunn MD PCP: Bird Boyd DO Status: REG CLI Exam# [id number] Ordering Dr: Bird Boyd DO MAMMOGRAPHY - UNILATERAL DIAGNOSTIC: LEFT BREAST RE ASON FOR EXAM: Female, 63 years old. Status post right mastectomy. PERTINENT HISTORY: Personal history of breast cancer. Aunt with breast cancer. TECHNIQUE: Digital examination. Mediolateral obliqu e (MLO) and craniocaudad (CC) views of the breast were obtained. CAD: CAD was performed on this study. COMPARISON: Comparison is made with prior study dated December 13, 2012 and December 07, 2011. FINDINGS: The breast composition is almost entirely fatty with glandular tissue comprising less than 25% of the total breast volume. There are no dominant masses or s uspicious calcifications. No other significant abnormalities are identified. There has been no significant change since the prior study. IMPRESSION: Stable uni lateral diagnostic mammogram. One year follow-up recommended. (A) ASSESSMENT CATEGORY: BIRADS Category 2: Benign finding(s). A letter regarding these results wi ll be sent to the patient by the facility within 30 days. Approximately 10% of breast cancers are not detected by mammography. A normal mammogram should not delay biopsy of a clinically suspicious a bnormality. Electronically Signed: Thierry Dunn MD at 8:38 EDT Tel [phone], Service support [phone], CC: Bird Boyd DO [employer] Worker: Signed Immunization Name Dates Details Tetanus on: 02-Dec-2007 Comments: Lot #: [id number] date: 11/03Amount given: 0.5 mlRoute: IMSite given: Left deltoidGiven by: Linh Lopez LPN Family History Unknown Family Member Name Dates Details Brother 1 Comments: Rare Cancer Status: Active Father Comments: HTN, DM, High Chol- deeased age 87- think heart related Status: Active Mother Comments: Brain Cancer Status: Active Social History Name Dates Details Caffeine Use Status: Active Non Drinker/No Alcohol Use Status: Active Non Smoker/No Tobacco Use Status: Active Tobacco use: Never smoker. Status: Active Smoking Status Name Dates Details Never smoker Vital Signs Date Test Result Details [id number] Pulse 66 /min Comments: Pattern: Regular Respiration Rate 18 /min Comments: Pattern: Unlabored O2 SAT 95 % Comments: Room air BP Systolic 130 mm[Hg] Comments: Patient Position: Sitting; Cuff Location: Left Arm; Cuff Size: Large BP Diastolic 78 mm[Hg] Comments: Patient Position: Sitting; Cuff Location: Left Arm; Cuff Size: Large Weight 173.5 lb Height 62 in Body Mass Index Calculated 31.73 kg/m2 Body Surface Area Calculated 1.8 m2 :17 Temperature 97 f Pulse 61 /min Comments: Pattern: Regular Respiration Rate 17 /min Comments: Pattern: Unlabored O2 SAT 96 % Comments: Room air BP Systolic 120 mm[Hg] Comments: Patient Position: Sitting; Cuff Location: Left Arm; Cuff Size: Standard BP Diastolic 76 mm[Hg] Comments: Patient Position: Sitting; Cuff Location: Left Arm; Cuff Size: Standard Weight 178.375 lb Height 62 in Body Mass Index Calculated 32.62 kg/m2 Body Surface Area Calculated 1.82 m2 :57 Temperature 97.7 f Comments: Method: Temporal Pulse 75 /min Comments: Pattern: Regular Respiration Rate 16 /min Comments: Pattern: Unlabored O2 SAT 96 % Comments: Room air BP Systolic 124 mm[Hg] Comments: Patient Position: Sitting; Cuff Location: Left Arm; Cuff Size: Standard BP Diastolic 76 mm[Hg] Comments: Patient Position: Sitting; Cuff Location: Left Arm; Cuff Size: Standard Weight 178.375 lb Height 62 in Body Mass Index Calculated 32.62 kg/m2 Body Surface Area Calculated 1.82 m2 :18 Comments: hearing wnlDrHali Tejeda and had a glaucoma test done Pulse 75 /min Comments: Pattern: Regular Respiration Rate 18 /min Comments: Pattern: Unlabored O2 SAT 97 % Comments: Room air BP Systolic 110 mm[Hg] Comments: Patient Position: Standing; Cuff Location: Left Arm; Cuff Size: Large BP Diastolic 80 mm[Hg] Comments: Patient Position: Standing; Cuff Location: Left Arm; Cuff Size: Large Weight 178.375 lb Height 62 in Body Mass Index Calculated 32.62 kg/m2 Body Surface Area Calculated 1.82 m2 :27 Pulse 65 /min Comments: Pattern: Regular Respiration Rate 18 /min Comments: Pattern: Unlabored O2 SAT 93 % Comments: Room air BP Systolic 118 mm[Hg] Comments: Patient Position: Sitting; Cuff Location: Left Arm; Cuff Size: Large BP Diastolic 74 mm[Hg] Comments: Patient Position: Sitting; Cuff Location: Left Arm; Cuff Size: Large Weight 176.125 lb Height 62 in Body Mass Index Calculated 32.21 kg/m2 Body Surface Area Calculated 1.81 m2 :32 Temperature 97.3 f Comments: Method: Tympanic Pulse 64 /min Comments: Pattern: Regular Respiration Rate 18 /min Comments: Pattern: Unlabored O2 SAT 96 % Comments: Room air BP Systolic 116 mm[Hg] Comments: Patient Position: Sitting; Cuff Location: Left Arm; Cuff Size: Standard BP Diastolic 68 mm[Hg] Comments: Patient Position: Sitting; Cuff Location: Left Arm; Cuff Size: Standard Weight 176.125 lb Height 62 in Body Mass Index Calculated 32.21 kg/m2 Body Surface Area Calculated 1.81 m2 :58 Pulse 72 /min Comments: Pattern: Regular Respiration Rate 16 /min Comments: Pattern: Unlabored O2 SAT 96 % Comments: Room air BP Systolic 122 mm[Hg] Comments: Patient Position: Sitting; Cuff Location: Left Arm; Cuff Size: Standard BP Diastolic 68 mm[Hg] Comments: Patient Position: Sitting; Cuff Location: Left Arm; Cuff Size: Standard Weight 181.125 lb Height 62 in Body Mass Index Calculated 33.13 kg/m2 Body Surface Area Calculated 1.83 m2 :02 Pulse 72 /min Comments: Pattern: Regular Respiration Rate 18 /min Comments: Pattern: Unlabored O2 SAT 95 % Comments: Room air BP Systolic 118 mm[Hg] Comments: Patient Position: Sitting; Cuff Location: Left Arm; Cuff Size: Large BP Diastolic 70 mm[Hg] Comments: Patient Position: Sitting; Cuff Location: Left Arm; Cuff Size: Large Weight 183.125 lb Height 62 in Body Mass Index Calculated 33.49 kg/m2 Body Surface Area Calculated 1.84 m2 :28 Temperature 96.5 f Comments: Method: Tympanic Pulse 75 /min Comments: Pattern: Regular Respiration Rate 18 /min Comments: Pattern: Unlabored O2 SAT 98 % Comments: Room air BP Systolic 124 mm[Hg] Comments: Patient Position: Sitting; Cuff Location: Left Arm; Cuff Size: Standard BP Diastolic 62 mm[Hg] Comments: Patient Position: Sitting; Cuff Location: Left Arm; Cuff Size: Standard Weight 182.125 lb Height 62 in Body Mass Index Calculated 33.31 kg/m2 Body Surface Area Calculated 1.84 m2 :59 Pulse 72 /min Comments: Pattern: Regular Respiration Rate 18 /min Comments: Pattern: Unlabored O2 SAT 96 % Comments: Room air BP Systolic 122 mm[Hg] Comments: Patient Position: Sitting; Cuff Location: Left Arm; Cuff Size: Large BP Diastolic 70 mm[Hg] Comments: Patient Position: Sitting; Cuff Location: Left Arm; Cuff Size: Large Weight 185.125 lb Height 62 in Body Mass Index Calculated 33.86 kg/m2 Body Surface Area Calculated 1.85 m2 :50 Temperature 97 f Comments: Method: Temporal Pulse 68 /min Comments: Pattern: Regular Respiration Rate 15 /min Comments: Pattern: Unlabored O2 SAT 96 % Comments: Room air BP Systolic 110 mm[Hg] Comments: Patient Position: Sitting; Cuff Location: Left Arm; Cuff Size: Standard BP Diastolic 76 mm[Hg] Comments: Patient Position: Sitting; Cuff Location: Left Arm; Cuff Size: Standard Weight 181 lb Height 62 in Body Mass Index Calculated 33.1 kg/m2 Body Surface Area Calculated 1.83 m2 :43 Temperature 98.4 f Comments: Method: Temporal Pulse 68 /min Comments: Pattern: Regular Respiration Rate 16 /min Comments: Pattern: Unlabored O2 SAT 95 % Comments: Room air BP Systolic 122 mm[Hg] Comments: Patient Position: Sitting; Cuff Location: Left Arm; Cuff Size: Large BP Diastolic 72 mm[Hg] Comments: Patient Position: Sitting; Cuff Location: Left Arm; Cuff Size: Large Weight 176 lb Height 62 in Body Mass Index Calculated 32.19 kg/m2 Body Surface Area Calculated 1.81 m2 :28 Temperature 97.8 f Comments: Method: Temporal Pulse 72 /min Comments: Pattern: Regular Respiration Rate 16 /min Comments: Pattern: Unlabored O2 SAT 96 % Comments: Room air BP Systolic 112 mm[Hg] Comments: Patient Position: Sitting; Cuff Location: Left Arm; Cuff Size: Large BP Diastolic 70 mm[Hg] Comments: Patient Position: Sitting; Cuff Location: Left Arm; Cuff Size: Large Weight 178 lb Height 62 in Body Mass Index Calculated 32.56 kg/m2 Body Surface Area Calculated 1.82 m2 :44 Temperature 97.6 f Pulse 72 /min Comments: Pattern: Regular Respiration Rate 16 /min Comments: Pattern: Unlabored BP Systolic 106 mm[Hg] Comments: Patient Position: Sitting; Cuff Location: Left Arm; Cuff Size: Large BP Diastolic 64 mm[Hg] Comments: Patient Position: Sitting; Cuff Location: Left Arm; Cuff Size: Large Weight 175 lb Height 62 in Body Mass Index Calculated 32.01 kg/m2 Body Surface Area Calculated 1.81 m2 :28 Temperature 97.6 f Pulse 68 /min Comments: Pattern: Regular Respiration Rate 16 /min Comments: Pattern: Unlabored BP Systolic 122 mm[Hg] Comments: Patient Position: Sitting; Cuff Location: Left Arm; Cuff Size: Large BP Diastolic 80 mm[Hg] Comments: Patient Position: Sitting; Cuff Location: Left Arm; Cuff Size: Large Weight 179 lb Height 62 in Body Mass Index Calculated 32.74 kg/m2 Body Surface Area Calculated 1.82 m2 :41 Temperature 97.6 f Comments: Method: Oral Pulse 64 /min Comments: Pattern: Regular Respiration Rate 18 /min Comments: Pattern: Unlabored O2 SAT 97 % Comments: Room air BP Systolic 110 mm[Hg] Comments: Patient Position: Sitting; Cuff Location: Left Arm; Cuff Size: Standard BP Diastolic 80 mm[Hg] Comments: Patient Position: Sitting; Cuff Location: Left Arm; Cuff Size: Standard Weight 179 lb Height 62 in Body Mass Index Calculated 32.74 kg/m2 Body Surface Area Calculated 1.82 m2 :32 Temperature 97.4 f Pulse 72 /min Comments: Pattern: Regular Respiration Rate 16 /min Comments: Pattern: Unlabored BP Systolic 134 mm[Hg] Comments: Patient Position: Sitting; Cuff Location: Left Arm; Cuff Size: Large BP Diastolic 80 mm[Hg] Comments: Patient Position: Sitting; Cuff Location: Left Arm; Cuff Size: Large Weight 180 lb Height 62 in Body Mass Index Calculated 32.92 kg/m2 Body Surface Area Calculated 1.83 m2 :00 Temperature 96.9 f Pulse 64 /min Comments: Pattern: Regular Respiration Rate 16 /min Comments: Pattern: Unlabored BP Systolic 126 mm[Hg] Comments: Patient Position: Sitting; Cuff Location: Left Arm; Cuff Size: Large BP Diastolic 76 mm[Hg] Comments: Patient Position: Sitting; Cuff Location: Left Arm; Cuff Size: Large Weight 180 lb Height 62 in Body Mass Index Calculated 32.92 kg/m2 Body Surface Area Calculated 1.83 m2 :15 Temperature 97.3 f Pulse 72 /min Comments: Pattern: Regular Respiration Rate 16 /min Comments: Pattern: Unlabored BP Systolic 122 mm[Hg] Comments: Patient Position: Sitting; Cuff Location: Left Arm; Cuff Size: Large BP Diastolic 78 mm[Hg] Comments: Patient Position: Sitting; Cuff Location: Left Arm; Cuff Size: Large Weight 183 lb Height 62 in Body Mass Index Calculated 33.47 kg/m2 Body Surface Area Calculated 1.84 m2 :04 Temperature 96.7 f Pulse 72 /min Comments: Pattern: Regular Respiration Rate 18 /min Comments: Pattern: Unlabored BP Systolic 118 mm[Hg] Comments: Patient Position: Sitting; Cuff Location: Left Arm; Cuff Size: Large BP Diastolic 80 mm[Hg] Comments: Patient Position: Sitting; Cuff Location: Left Arm; Cuff Size: Large Weight 184 lb Height 62 in Body Mass Index Calculated 33.65 kg/m2 Body Surface Area Calculated 1.85 m2 :00 Temperature 99.6 f Pulse 80 /min Comments: Pattern: Regular Respiration Rate 16 /min Comments: Pattern: Unlabored BP Systolic 112 mm[Hg] Comments: Patient Position: Sitting; Cuff Location: Left Arm; Cuff Size: Large BP Diastolic 70 mm[Hg] Comments: Patient Position: Sitting; Cuff Location: Left Arm; Cuff Size: Large Weight 188 lb Height 62 in Body Mass Index Calculated 34.39 kg/m2 Body Surface Area Calculated 1.86 m2 :00 Temperature 97.8 f Pulse 68 /min Comments: Pattern: Regular Respiration Rate 16 /min Comments: Pattern: Unlabored BP Systolic 118 mm[Hg] Comments: Patient Position: Sitting; Cuff Location: Left Arm; Cuff Size: Large BP Diastolic 86 mm[Hg] Comments: Patient Position: Sitting; Cuff Location: Left Arm; Cuff Size: Large Weight 189 lb Height 62 in Body Mass Index Calculated 34.57 kg/m2 Body Surface Area Calculated 1.87 m2 :02 Temperature 98.7 f Comments: Method: Oral Pulse 70 /min Comments: Pattern: Regular Respiration Rate 16 /min Comments: Pattern: Unlabored O2 SAT 98 % Comments: Room air BP Systolic 128 mm[Hg] Comments: Patient Position: Sitting; Cuff Location: Left Arm; Cuff Size: Standard BP Diastolic 78 mm[Hg] Comments: Patient Position: Sitting; Cuff Location: Left Arm; Cuff Size: Standard Weight 183 lb Height 62 in Body Mass Index Calculated 33.47 kg/m2 Body Surface Area Calculated 1.84 m2 :39 BP Systolic 122 mm[Hg] Comments: Patient Position: Sitting BP Diastolic 76 mm[Hg] Comments: Patient Position: Sitting :04 Temperature 96.6 f Pulse 72 /min Comments: Pattern: Regular Respiration Rate 16 /min Comments: Pattern: Unlabored BP Systolic 128 mm[Hg] Comments: Patient Position: Sitting; Cuff Location: Left Arm; Cuff Size: Standard BP Diastolic 90 mm[Hg] Comments: Patient Position: Sitting; Cuff Location: Left Arm; Cuff Size: Standard Weight 183 lb Height 62 in Body Mass Index Calculated 33.47 kg/m2 Body Surface Area Calculated 1.84 m2 :34 Temperature 97 f Pulse 72 /min Comments: Pattern: Regular Respiration Rate 18 /min Comments: Pattern: Unlabored BP Systolic 110 mm[Hg] Comments: Patient Position: Sitting; Cuff Location: Left Arm; Cuff Size: Large BP Diastolic 78 mm[Hg] Comments: Patient Position: Sitting; Cuff Location: Left Arm; Cuff Size: Large Weight 188 lb Height 62 in Body Mass Index Calculated 34.39 kg/m2 Body Surface Area Calculated 1.86 m2 :22 Temperature 96.9 f Pulse 72 /min Comments: Pattern: Regular Respiration Rate 16 /min Comments: Pattern: Unlabored BP Systolic 122 mm[Hg] Comments: Patient Position: Sitting; Cuff Location: Left Arm; Cuff Size: Large BP Diastolic 76 mm[Hg] Comments: Patient Position: Sitting; Cuff Location: Left Arm; Cuff Size: Large Weight 187 lb Height 62 in Body Mass Index Calculated 34.2 kg/m2 Body Surface Area Calculated 1.86 m2 :09 Temperature 98 f Pulse 68 /min Comments: Pattern: Regular Respiration Rate 16 /min Comments: Pattern: Unlabored BP Systolic 122 mm[Hg] Comments: Patient Position: Sitting; Cuff Location: Left Arm; Cuff Size: Large BP Diastolic 80 mm[Hg] Comments: Patient Position: Sitting; Cuff Location: Left Arm; Cuff Size: Large Weight 188 lb Height 62 in Body Mass Index Calculated 34.39 kg/m2 Body Surface Area Calculated 1.86 m2 :24 Temperature 97.6 f Comments: Method: Oral Pulse 76 /min Comments: Pattern: Regular Respiration Rate 16 /min Comments: Pattern: Unlabored BP Systolic 124 mm[Hg] Comments: Patient Position: Supine; Cuff Location: Left Arm; Cuff Size: Large BP Diastolic 76 mm[Hg] Comments: Patient Position: Supine; Cuff Location: Left Arm; Cuff Size: Large Weight 189.3125 lb Height 62 in Body Mass Index Calculated 34.63 kg/m2 Body Surface Area Calculated 1.87 m2 :08 Temperature 96.4 f Pulse 64 /min Comments: Pattern: Regular Respiration Rate 18 /min Comments: Pattern: Unlabored BP Systolic 116 mm[Hg] Comments: Patient Position: Sitting; Cuff Location: Left Arm; Cuff Size: Large BP Diastolic 84 mm[Hg] Comments: Patient Position: Sitting; Cuff Location: Left Arm; Cuff Size: Large Weight 185 lb :10 Temperature 97.6 f Pulse 76 /min Comments: Pattern: Regular Respiration Rate 18 /min Comments: Pattern: Unlabored BP Systolic 110 mm[Hg] Comments: Patient Position: Sitting; Cuff Location: Left Arm; Cuff Size: Standard BP Diastolic 76 mm[Hg] Comments: Patient Position: Sitting; Cuff Location: Left Arm; Cuff Size: Standard Weight 185 lb :20 Temperature 98.3 f Pulse 72 /min Comments: Pattern: Regular Respiration Rate 18 /min Comments: Pattern: Unlabored BP Systolic 116 mm[Hg] Comments: Patient Position: Sitting; Cuff Location: Left Arm; Cuff Size: Large BP Diastolic 64 mm[Hg] Comments: Patient Position: Sitting; Cuff Location: Left Arm; Cuff Size: Large Weight 187 lb :26 Temperature 97 f Comments: Method: Undefined Pulse 72 /min Comments: Pattern: Regular Respiration Rate 16 /min Comments: Pattern: Undefined BP Systolic 118 mm[Hg] Comments: Patient Position: Sitting; Cuff Location: Left Arm; Cuff Size: Large BP Diastolic 80 mm[Hg] Comments: Patient Position: Sitting; Cuff Location: Left Arm; Cuff Size: Large Weight 192 lb Height 0 in Head Circumference 0.00 cm :29 BP Systolic 134 mm[Hg] Comments: Patient Position: Sitting; Cuff Location: Undefined; Cuff Size: Undefined BP Diastolic 80 mm[Hg] Comments: Patient Position: Sitting; Cuff Location: Undefined; Cuff Size: Undefined Weight 0 lb Height 0 in Head Circumference 0.00 cm :58 Temperature 96.6 f Comments: Method: Undefined Pulse 72 /min Comments: Pattern: Regular Respiration Rate 18 /min Comments: Pattern: Undefined BP Systolic 132 mm[Hg] Comments: Patient Position: Sitting; Cuff Location: Right Arm; Cuff Size: Standard BP Diastolic 90 mm[Hg] Comments: Patient Position: Sitting; Cuff Location: Right Arm; Cuff Size: Standard Weight 193 lb Height 0 in Head Circumference 0.00 cm :08 Pulse 60 /min Comments: Pattern: Regular Respiration Rate 16 /min Comments: Pattern: Unlabored BP Systolic 130 mm[Hg] Comments: Patient Position: Sitting; Cuff Location: Left Arm; Cuff Size: Standard BP Diastolic 80 mm[Hg] Comments: Patient Position: Sitting; Cuff Location: Left Arm; Cuff Size: Standard Weight 193.375 lb Height 63 in Body Mass Index Calculated 34.25 kg/m2 Body Surface Area Calculated 1.91 m2 Head Circumference 0.00 cm :51 Temperature 97.1 f Comments: Method: Undefined Pulse 76 /min Comments: Pattern: Regular Respiration Rate 16 /min Comments: Pattern: Undefined BP Systolic 110 mm[Hg] Comments: Patient Position: Sitting; Cuff Location: Left Arm; Cuff Size: Standard BP Diastolic 82 mm[Hg] Comments: Patient Position: Sitting; Cuff Location: Left Arm; Cuff Size: Standard Weight 0 lb Height 0 in Head Circumference 0.00 cm :20 Temperature 98.1 f Comments: Method: Undefined Pulse 76 /min Comments: Pattern: Regular Respiration Rate 16 /min Comments: Pattern: Undefined BP Systolic 110 mm[Hg] Comments: Patient Position: Sitting; Cuff Location: Right Arm; Cuff Size: Large BP Diastolic 82 mm[Hg] Comments: Patient Position: Sitting; Cuff Location: Right Arm; Cuff Size: Large Weight 192 lb Height 62.25 in Body Mass Index Calculated 34.84 kg/m2 Body Surface Area Calculated 1.88 m2 Head Circumference 0.00 cm :08 Temperature 99.4 f Comments: Method: Undefined Pulse 72 /min Comments: Pattern: Regular Respiration Rate 16 /min Comments: Pattern: Undefined BP Systolic 118 mm[Hg] Comments: Patient Position: Sitting; Cuff Location: Left Arm; Cuff Size: Large BP Diastolic 86 mm[Hg] Comments: Patient Position: Sitting; Cuff Location: Left Arm; Cuff Size: Large Weight 183 lb Height 0 in Head Circumference 0.00 cm :06 Temperature 98 f Comments: Method: Oral Pulse 72 /min Comments: Pattern: Regular Respiration Rate 16 /min Comments: Pattern: Unlabored BP Systolic 108 mm[Hg] Comments: Patient Position: Sitting; Cuff Location: Left Arm; Cuff Size: Standard BP Diastolic 80 mm[Hg] Comments: Patient Position: Sitting; Cuff Location: Left Arm; Cuff Size: Standard Weight 183 lb Height 0 in Head Circumference 0.00 cm :11 Temperature 98.1 f Comments: Method: Oral Pulse 64 /min Comments: Pattern: Regular Respiration Rate 16 /min Comments: Pattern: Unlabored BP Systolic 120 mm[Hg] Comments: Patient Position: Sitting; Cuff Location: Left Arm; Cuff Size: Standard BP Diastolic 84 mm[Hg] Comments: Patient Position: Sitting; Cuff Location: Left Arm; Cuff Size: Standard Weight 185 lb Height 0 in Head Circumference 0.00 cm :24 Temperature 98.1 f Comments: Method: Oral Pulse 64 /min Comments: Pattern: Regular Respiration Rate 16 /min Comments: Pattern: Unlabored BP Systolic 116 mm[Hg] Comments: Patient Position: Sitting; Cuff Location: Left Arm; Cuff Size: Standard BP Diastolic 84 mm[Hg] Comments: Patient Position: Sitting; Cuff Location: Left Arm; Cuff Size: Standard Weight 190 lb Height 0 in Head Circumference 0.00 cm :30 Pulse 72 /min Comments: Pattern: Regular Respiration Rate 16 /min Comments: Pattern: Unlabored BP Systolic 128 mm[Hg] Comments: Patient Position: Sitting; Cuff Location: Left Arm; Cuff Size: Standard BP Diastolic 86 mm[Hg] Comments: Patient Position: Sitting; Cuff Location: Left Arm; Cuff Size: Standard Weight 187.4375 lb Height 62.75 in Body Mass Index Calculated 33.47 kg/m2 Body Surface Area Calculated 1.88 m2 Head Circumference 0.00 cm :13 Temperature 98.3 f Comments: Method: Oral Pulse 72 /min Comments: Pattern: Regular Respiration Rate 16 /min Comments: Pattern: Unlabored BP Systolic 128 mm[Hg] Comments: Patient Position: Sitting; Cuff Location: Left Arm; Cuff Size: Standard BP Diastolic 86 mm[Hg] Comments: Patient Position: Sitting; Cuff Location: Left Arm; Cuff Size: Standard Weight 187.4375 lb Height 62.75 in Body Mass Index Calculated 33.47 kg/m2 Body Surface Area Calculated 1.88 m2 Head Circumference 0.00 cm :00 Temperature 97.9 f Comments: Method: Oral Pulse 72 /min Comments: Pattern: Regular Respiration Rate 16 /min Comments: Pattern: Unlabored BP Systolic 118 mm[Hg] Comments: Patient Position: Sitting; Cuff Location: Right Arm; Cuff Size: Large BP Diastolic 86 mm[Hg] Comments: Patient Position: Sitting; Cuff Location: Right Arm; Cuff Size: Large Weight 190.5 lb Height 62 in Body Mass Index Calculated 34.84 kg/m2 Body Surface Area Calculated 1.87 m2 Head Circumference 0.00 cm :45 Temperature 97.9 f Comments: Method: Oral Pulse 72 /min Comments: Pattern: Regular Respiration Rate 16 /min Comments: Pattern: Unlabored BP Systolic 124 mm[Hg] Comments: Patient Position: Sitting; Cuff Location: Left Arm; Cuff Size: Standard BP Diastolic 84 mm[Hg] Comments: Patient Position: Sitting; Cuff Location: Left Arm; Cuff Size: Standard Weight 192.3125 lb Height 62 in Body Mass Index Calculated 35.17 kg/m2 Body Surface Area Calculated 1.88 m2 Head Circumference 0.00 cm Results Date Description Value Details :20 Microscopic Examination Comments: PATIENT WAS FASTINGPERFORMED BY: The Young TurksRobert Wood Johnson [facility] Hospital at HamiltonVvipai8637 [facility] [id number] Bacteria None seen (Normal) Epithelial Cells (non renal) 0-10 {/hpf} (Normal) Range: 0 - 10 RBC 0-2 {/hpf} (Normal) Range: 0 - 2 WBC 0-5 {/hpf} (Normal) Range: 0 - 5 :20 CALCIFIDIOL (30291) VIT D 25 Comments: PATIENT WAS FASTINGPERFORMED BY: The Young TurksRobert Wood Johnson University Hospital at HamiltonIzaazv5466 [facility] [id number] Vitamin D, 25-Hydroxy 45.4 ng/mL (Normal) Range: 30.0-100.0 Comments: Vitamin D deficiency has been defined by the [place] of[place]icine and an Endocrine Society practice guideline as alevel of serum 25-OH vitamin D less than 20 ng/mL (1,2).The Endocrine Society went on to further define vitamin Dinsufficiency as a level between 21 and 29 ng/mL (2).1. IOM ([place] of Medicine). 2010. Dietary reference intakes for calcium and D. [place]: The National Academies Press.2. Yashira MF, Radha DELGADO, Wally STEINER, et al. Evaluation, treatment, and prevention of vitamin D deficiency: an Endocrine Society clinical practice guideline. JCEM. 2010; 96(7):1911-30. :20 TSH (31943) Comments: PATIENT WAS FASTINGPERFORMED BY: [employer] Jlhbqs6179 [facility] [place] [id number] TSH 2.140 {uIU/mL} (Normal) Range: 0.450-4.500 29-Mar-20189:20 URINALYSIS, W/ MICRO (13079) Comments: PATIENT WAS FASTINGPERFORMED BY: [employer] Kvflng5047 [facility] [id number] Microscopic Examination See below: (Normal) Comments: Microscopic was indicated and was performed. Microscopic Examination MICRON (Normal) Comments: Microscopic follows if indicated. Nitrite, Urine Negative (Normal) Urobilinogen,Semi-Qn 0.2 mg/dL (Normal) Range: 0.2-1.0 Bilirubin Negative (Normal) Occult Blood Negative (Normal) Ketones Negative (Normal) Glucose Negative (Normal) Protein Negative (Normal) WBC Esterase Negative (Normal) Appearance Clear (Normal) Urine-Color Yellow (Normal) pH 6.5 (Normal) Range: 5.0-7.5 Specific Milfay 1.016 (Normal) Range: 1.005-1.030 :20 MICROALBUMIN: CREATININE RATIO Comments: PATIENT WAS FASTINGPERFORMED BY: [employer] Lrgagt1913 [facility] [id number] (59934) AND (08965) Alb/Creat Ratio 5.4 {mg/g_creat} (Normal) Range: 0.0-30.0 Comments: Normal: 0.0 - 30.0 Albuminuria: 31.0 - 300.0 Clinical albuminuria: >300.0 Albumin, Urine 3.8 ug/mL (Normal) Creatinine, Urine 70.3 mg/dL (Normal) :20 METABOLIC PANEL, COMPREHENSIVE Comments: PATIENT WAS FASTINGPERFORMED BY: LabCo Bnaowd0388 [facility] [place] [id number] (69605) ALT (SGPT) 22 [iU]/L (Normal) Range: 0-32 AST (SGOT) 21 [iU]/L (Normal) Range: 0-40 Alkaline Phosphatase 41 [iU]/L (Normal) Range: 39-117 Bilirubin, Total 0.3 mg/dL (Normal) Range: 0.0-1.2 A/G Ratio 1.8 (Normal) Range: 1.2-2.2 Globulin, Total 2.2 g/dL (Normal) Range: 1.5-4.5 Albumin 4.0 g/dL (Normal) Range: 3.6-4.8 Protein, Total 6.2 g/dL (Normal) Range: 6.0-8.5 Calcium 9.3 mg/dL (Normal) Range: 8.7-10.3 Carbon Dioxide, Total 25 mmol/L (Normal) Range: 20-29 Chloride 101 mmol/L (Normal) Range: 96-106 Potassium 4.1 mmol/L (Normal) Range: 3.5-5.2 Sodium 144 mmol/L (Normal) Range: 134-144 BUN/Creatinine Ratio 17 (Normal) Range: 12-28 eGFR If Africn Am 102 mL/min/1.73 (Normal) eGFR If NonAfricn Am 88 mL/min/1.73 (Normal) Creatinine 0.71 mg/dL (Normal) Range: 0.57-1.00 BUN 12 mg/dL (Normal) Range: 8-27 Glucose 149 mg/dL (Abnormal) Range: 65-99 29-Mar-20189:20 LIPID PANEL (62096) Comments: PATIENT WAS FASTINGPERFORMED BY: [facility]6370 [facility] [id number] LDL/HDL Ratio 3.4 {ratio} (Abnormal) Range: 0.0-3.2 Comments: LDL/HDL Ratio Men Women 1/2 Avg.Risk 1.0 1.5 Av g.Risk 3.6 3.2 2X Avg.Risk 6.2 5.0 3X Avg.Risk 8.0 6.1 LDL Cholesterol Calc 163 mg/dL (Abnormal) Range: 0-99 VLDL Cholesterol Jennifer 29 mg/dL (Normal) Range: 5-40 HDL Cholesterol 48 mg/dL (Normal) Triglycerides 145 mg/dL (Normal) Range: 0-149 Cholesterol, Total 240 mg/dL (Abnormal) Range: 100-199 :20 CBC W/AUTO DIFF WBC (13774) Comments: PATIENT WAS FASTINGPERFORMED BY: LabCoRobert Wood Johnson [facility] Hospital at HamiltonKgmjxm3394 [facility] [id number] Immature Grans (Abs) 0.0 {x10E3/uL} (Normal) Range: 0.0-0.1 Immature Granulocytes 0 % (Normal) Baso (Absolute) 0.0 {x10E3/uL} (Normal) Range: 0.0-0.2 Eos (Absolute) 0.1 {x10E3/uL} (Normal) Range: 0.0-0.4 Monocytes(Absolute) 0.4 {x10E3/uL} (Normal) Range: 0.1-0.9 Lymphs (Absolute) 1.6 {x10E3/uL} (Normal) Range: 0.7-3.1 Neutrophils (Absolute) 3.8 {x10E3/uL} (Normal) Range: 1.4-7.0 Basos 0 % (Normal) Eos 2 % (Normal) Monocytes 6 % (Normal) Lymphs 27 % (Normal) Neutrophils 65 % (Normal) Platelets 302 {x10E3/uL} (Normal) Range: 150-379 RDW 14.0 % (Normal) Range: 12.3-15.4 MCHC 34.5 g/dL (Normal) Range: 31.5-35.7 MCH 31.3 pg (Normal) Range: 26.6-33.0 MCV 91 fL (Normal) Range: 79-97 Hematocrit 37.7 % (Normal) Range: 34.0-46.6 Hemoglobin 13.0 g/dL (Normal) Range: 11.1-15.9 RBC 4.16 {x10E6/uL} (Normal) Range: 3.77-5.28 WBC 5.9 {x10E3/uL} (Normal) Range: 3.4-10.8 :17 HgA1C , Office (44129) HgA1C , Office 7.1 % (Normal) Range: 4.6 - 7.1 :17 Blood Glucose , Office (25625) Blood Glucose , Office 124 (Normal) :52 HgA1C , Office (68332) HgA1C , Office 6.6 % (Normal) Range: 4.6 - 7.1 02-Xjv-26435:52 Blood Glucose , Office (01941) Blood Glucose , Office 130 (Normal) 29-Jox-758136:55 Microscopic Examination Comments: PATIENT WAS FASTINGPERFORMED BY: [employer] [facility] [place] [id number] Bacteria Few (Normal) Mucus Threads Present (Normal) Crystal Type Calcium Oxalate (Normal) Crystals Present (Abnormal) Epithelial Cells (non renal) None seen {/hpf} (Normal) Range: 0 - 10 RBC None seen {/hpf} (Normal) Range: 0 - 2 WBC 0-5 {/hpf} (Normal) Range: 0 - 5 :55 CALCIFEDIOL (87440) Comments: PATIENT WAS FASTINGPERFORMED BY: Buzzient6370 Rodriguez [facility] HospitalEventstagr.amAtrium Health [facility] [id number] Vitamin D, 25-Hydroxy 59.4 ng/mL (Normal) Range: 30.0-100.0 Comments: Vitamin D deficiency has been defined by the [place] of[place] and an Endocrine Society practice guideline as alevel of serum 25-OH vitamin D less than 20 ng/mL (1,2).The Endocrine Society went on to further define vitamin Dinsufficiency as a level between 21 and 29 ng/mL (2).1. IOM ([place] of [place]). 2010. Dietary reference intakes for calcium and D. [place]: The National Academies Press.2. Yashira MF, Radha NC, Wally STEINER, et al. Evaluation, treatment, and prevention of vitamin D deficiency: an Endocrine Society clinical practice guideline. JCEM. 2010; 96(7):1911-30. 86-Tlz-861174:55 LIPID PANEL (88418) Comments: PATIENT WAS FASTINGPERFORMED BY: [employer] Knpfur4741 [facility] [id number] LDL/HDL Ratio 3.3 {ratio_units} (Abnormal) Range: 0.0-3.2 Comments: LDL/HDL Ratio Men Women 1/2 Avg.Risk 1.0 1.5 Av g.Risk 3.6 3.2 2X Avg.Risk 6.2 5.0 3X Avg.Risk 8.0 6.1 LDL Cholesterol Calc 163 mg/dL (Abnormal) Range: 0-99 VLDL Cholesterol Jennifer 21 mg/dL (Normal) Range: 5-40 HDL Cholesterol 49 mg/dL (Normal) Triglycerides 106 mg/dL (Normal) Range: 0-149 Cholesterol, Total 233 mg/dL (Abnormal) Range: 100-199 92-Oxy-907650:55 TSH (12337) Comments: PATIENT WAS FASTINGPERFORMED BY: [employer]Track [facility] [id number] TSH 2.190 {uIU/mL} (Normal) Range: 0.450-4.500 39-Fsx-216861:55 URINALYSIS, W/ MICRO (90173) Comments: PATIENT WAS FASTINGPERFORMED BY: [employer] [facility] [id number] Microscopic Examination See below: (Normal) Comments: Microscopic was indicated and was performed. Microscopic Examination MICRON (Normal) Comments: Microscopic follows if indicated. Nitrite, Urine Negative (Normal) Urobilinogen,Semi-Qn 0.2 mg/dL (Normal) Range: 0.2-1.0 Bilirubin Negative (Normal) Occult Blood Negative (Normal) Ketones Negative (Normal) Glucose Negative (Normal) Protein Negative (Normal) WBC Esterase Negative (Normal) Appearance Clear (Normal) Urine-Color Yellow (Normal) pH 5.5 (Normal) Range: 5.0-7.5 Specific Milfay 1.020 (Normal) Range: 1.005-1.030 82-Gqr-303069:55 MICROALBUMIN: CREATININE RATIO Comments: PATIENT WAS FASTINGPERFORMED BY: [employer] Jyjync5139 [facility] [id number] (43311) AND (16948) Alb/Creat Ratio 3.7 {mg/g_creat} (Normal) Range: 0.0-30.0 Albumin, Urine 3.8 ug/mL (Normal) Creatinine, Urine 102.1 mg/dL (Normal) 74-Ibi-990338:55 METABOLIC PANEL, COMPREHENSIVE Comments: PATIENT WAS FASTINGPERFORMED BY: [employer] [facility] [id number] (79942) ALT (SGPT) 13 [iU]/L (Normal) Range: 0-32 AST (SGOT) 15 [iU]/L (Normal) Range: 0-40 Alkaline Phosphatase, S 38 [iU]/L (Abnormal) Range: 39-117 Bilirubin, Total 0.3 mg/dL (Normal) Range: 0.0-1.2 A/G Ratio 1.6 (Normal) Range: 1.2-2.2 Globulin, Total 2.5 g/dL (Normal) Range: 1.5-4.5 Albumin, Serum 4.1 g/dL (Normal) Range: 3.6-4.8 Protein, Total, Serum 6.6 g/dL (Normal) Range: 6.0-8.5 Calcium, Serum 9.6 mg/dL (Normal) Range: 8.7-10.3 Carbon Dioxide, Total 25 mmol/L (Normal) Range: 18-29 Chloride, Serum 102 mmol/L (Normal) Range: 96-106 Potassium, Serum 4.6 mmol/L (Normal) Range: 3.5-5.2 Sodium, Serum 143 mmol/L (Normal) Range: 134-144 BUN/Creatinine Ratio 22 (Normal) Range: 12-28 eGFR If Africn Am 92 mL/min/1.73 (Normal) eGFR If NonAfricn Am 79 mL/min/1.73 (Normal) Creatinine, Serum 0.78 mg/dL (Normal) Range: 0.57-1.00 BUN 17 mg/dL (Normal) Range: 8-27 Glucose, Serum 134 mg/dL (Abnormal) Range: 65-99 95-Aox-109095:55 CBC W/AUTO DIFF WBC (35991) Comments: PATIENT WAS FASTINGPERFORMED BY: LabCoRobert Wood Johnson University Hospital at HamiltonCfxcrm1555 [facility] [id number] Immature Grans (Abs) 0.0 {x10E3/uL} (Normal) Range: 0.0-0.1 Immature Granulocytes 0 % (Normal) Baso (Absolute) 0.0 {x10E3/uL} (Normal) Range: 0.0-0.2 Eos (Absolute) 0.2 {x10E3/uL} (Normal) Range: 0.0-0.4 Monocytes(Absolute) 0.4 {x10E3/uL} (Normal) Range: 0.1-0.9 Lymphs (Absolute) 1.7 {x10E3/uL} (Normal) Range: 0.7-3.1 Neutrophils (Absolute) 3.5 {x10E3/uL} (Normal) Range: 1.4-7.0 Basos 1 % (Normal) Eos 3 % (Normal) Monocytes 7 % (Normal) Lymphs 28 % (Normal) Neutrophils 61 % (Normal) Platelets 348 {x10E3/uL} (Normal) Range: 150-379 RDW 13.8 % (Normal) Range: 12.3-15.4 MCHC 34.4 g/dL (Normal) Range: 31.5-35.7 MCH 30.5 pg (Normal) Range: 26.6-33.0 MCV 89 fL (Normal) Range: 79-97 Hematocrit 38.9 % (Normal) Range: 34.0-46.6 Hemoglobin 13.4 g/dL (Normal) Range: 11.1-15.9 RBC 4.39 {x10E6/uL} (Normal) Range: 3.77-5.28 WBC 5.8 {x10E3/uL} (Normal) Range: 3.4-10.8 :29 HgA1C , Office (22168) HgA1C , Office 6.8 % (Normal) Range: 4.6 - 7.1 :29 Blood Glucose , Office (00814) Blood Glucose , Office 137 (Normal) :11 LIPID PANEL (81376) Comments: PATIENT WAS FASTINGPERFORMED BY: [facility]6370 [facility] [id number] LDL/HDL Ratio 3.2 {ratio_units} (Normal) Range: 0.0-3.2 Comments: LDL/HDL Ratio Men Women 1/2 Avg.Risk 1.0 1.5 Av g.Risk 3.6 3.2 2X Avg.Risk 6.2 5.0 3X Avg.Risk 8.0 6.1 LDL Cholesterol Calc 147 mg/dL (Abnormal) Range: 0-99 VLDL Cholesterol Jennifer 24 mg/dL (Normal) Range: 5-40 HDL Cholesterol 46 mg/dL (Normal) Triglycerides 118 mg/dL (Normal) Range: 0-149 Cholesterol, Total 217 mg/dL (Abnormal) Range: 100-199 :59 HgA1C , Office (71949) HgA1C , Office 6.5 % (Normal) Range: 4.6 - 7.1 :35 Microscopic Examination Comments: PATIENT WAS FASTINGPERFORMED BY: [employer] Xmicru8531 [facility] [place] [id number] Bacteria Few (Normal) Mucus Threads Present (Normal) Epithelial Cells (non renal) 0-10 {/hpf} (Normal) Range: 0 - 10 RBC 0-2 {/hpf} (Normal) Range: 0 - 2 WBC 0-5 {/hpf} (Normal) Range: 0 - 5 :35 CALCIFIDIOL (39760) VIT D 25 Comments: PATIENT WAS FASTINGPERFORMED BY: Buzzient6370 Rodriguez STARFACEblin [place] [id number] Vitamin D, 25-Hydroxy 84.3 ng/mL (Normal) Range: 30.0-100.0 Comments: Vitamin D deficiency has been defined by the [place] of[place] and an Endocrine Society practice guideline as alevel of serum 25-OH vitamin D less than 20 ng/mL (1,2).The Endocrine Society went on to further define vitamin Dinsufficiency as a level between 21 and 29 ng/mL (2).1. IOM ([place] of [place]). 2010. Dietary reference intakes for calcium and D. [place]: The National Academies Press.2. Yashira MF, Radha NC, Wally STEINER, et al. Evaluation, treatment, and prevention of vitamin D deficiency: an Endocrine Society clinical practice guideline. JCEM. 2010; 96(7):1911-30. :35 LIPID PANEL (56700) Comments: PATIENT WAS FASTINGPERFORMED BY: [employer] Czysxp5514 [facility] [id number] LDL/HDL Ratio 3.5 {ratio_units} (Abnormal) Range: 0.0-3.2 Comments: LDL/HDL Ratio Men Women 1/2 Avg.Risk 1.0 1.5 Av g.Risk 3.6 3.2 2X Avg.Risk 6.2 5.0 3X Avg.Risk 8.0 6.1 LDL Cholesterol Calc 166 mg/dL (Abnormal) Range: 0-99 VLDL Cholesterol Jennifer 27 mg/dL (Normal) Range: 5-40 HDL Cholesterol 47 mg/dL (Normal) Triglycerides 137 mg/dL (Normal) Range: 0-149 Cholesterol, Total 240 mg/dL (Abnormal) Range: 100-199 :35 URINALYSIS, W/ MICRO (43227) Comments: PATIENT WAS FASTINGPERFORMED BY: Samba Ads Rodriguez [facility] [id number] Microscopic Examination See below: (Normal) Comments: Microscopic was indicated and was performed. Nitrite, Urine Negative (Normal) Urobilinogen,Semi-Qn 0.2 mg/dL (Normal) Range: 0.2-1.0 Bilirubin Negative (Normal) Occult Blood Negative (Normal) Ketones Negative (Normal) Glucose Negative (Normal) Protein Negative (Normal) WBC Esterase 2+ (Abnormal) Appearance Clear (Normal) Urine-Color Yellow (Normal) pH 7.0 (Normal) Range: 5.0-7.5 Specific Milfay 1.019 (Normal) Range: 1.005-1.030 :35 MICROALBUMIN: CREATININE RATIO Comments: PATIENT WAS FASTINGPERFORMED BY: BeFunky[address] [facility] [id number] (56299) AND (30471) Microalb/Creat Ratio 4.9 {mg/g_creat} (Normal) Range: 0.0-30.0 Microalbumin, Urine 5.8 ug/mL (Normal) Creatinine, Urine 118.5 mg/dL (Normal) :35 METABOLIC PANEL, COMPREHENSIVE Comments: PATIENT WAS FASTINGPERFORMED BY: [employer] [id number] [facility] [id number] (69097) ALT (SGPT) 15 [iU]/L (Normal) Range: 0-32 AST (SGOT) 20 [iU]/L (Normal) Range: 0-40 Alkaline Phosphatase, S 38 [iU]/L (Abnormal) Range: 39-117 Bilirubin, Total 0.4 mg/dL (Normal) Range: 0.0-1.2 A/G Ratio 1.9 (Normal) Range: 1.2-2.2 Globulin, Total 2.2 g/dL (Normal) Range: 1.5-4.5 Albumin, Serum 4.1 g/dL (Normal) Range: 3.6-4.8 Protein, Total, Serum 6.3 g/dL (Normal) Range: 6.0-8.5 Calcium, Serum 9.3 mg/dL (Normal) Range: 8.7-10.3 Carbon Dioxide, Total 25 mmol/L (Normal) Range: 18-29 Chloride, Serum 101 mmol/L (Normal) Range: 96-106 Potassium, Serum 3.8 mmol/L (Normal) Range: 3.5-5.2 Sodium, Serum 144 mmol/L (Normal) Range: 134-144 BUN/Creatinine Ratio 13 (Normal) Range: 12-28 eGFR If Africn Am 93 mL/min/1.73 (Normal) eGFR If NonAfricn Am 81 mL/min/1.73 (Normal) Creatinine, Serum 0.77 mg/dL (Normal) Range: 0.57-1.00 BUN 10 mg/dL (Normal) Range: 8-27 Glucose, Serum 159 mg/dL (Abnormal) Range: 65-99 89-Axg-88969:35 CBC W/AUTO DIFF WBC (77247) Comments: PATIENT WAS FASTINGPERFORMED BY: LabCoRobert Wood Johnson University Hospital at HamiltonXeapuv7527 [facility] [id number] Immature Grans (Abs) 0.0 {x10E3/uL} (Normal) Range: 0.0-0.1 Immature Granulocytes 0 % (Normal) Baso (Absolute) 0.0 {x10E3/uL} (Normal) Range: 0.0-0.2 Eos (Absolute) 0.1 {x10E3/uL} (Normal) Range: 0.0-0.4 Monocytes(Absolute) 0.4 {x10E3/uL} (Normal) Range: 0.1-0.9 Lymphs (Absolute) 1.3 {x10E3/uL} (Normal) Range: 0.7-3.1 Neutrophils (Absolute) 3.4 {x10E3/uL} (Normal) Range: 1.4-7.0 Basos 1 % (Normal) Eos 2 % (Normal) Monocytes 8 % (Normal) Lymphs 24 % (Normal) Neutrophils 65 % (Normal) Platelets 342 {x10E3/uL} (Normal) Range: 150-379 RDW 14.0 % (Normal) Range: 12.3-15.4 MCHC 35.5 g/dL (Normal) Range: 31.5-35.7 MCH 31.3 pg (Normal) Range: 26.6-33.0 MCV 88 fL (Normal) Range: 79-97 Hematocrit 34.9 % (Normal) Range: 34.0-46.6 Hemoglobin 12.4 g/dL (Normal) Range: 11.1-15.9 RBC 3.96 {x10E6/uL} (Normal) Range: 3.77-5.28 WBC 5.3 {x10E3/uL} (Normal) Range: 3.4-10.8 :59 HgA1C , Office (77729) HgA1C , Office 7.3 % (Abnormal) Range: 4.6 - 7.1 :59 Blood Glucose , Office (13806) Blood Glucose , Office 120 (Normal) :57 HgA1C , Office (72153) HgA1C , Office 7.1 % (Normal) Range: 4.6 - 7.1 :57 Blood Glucose , Office (66997) Blood Glucose , Office 137 (Normal) :06 Vitamin D Hydroxy (66866) Comments: PATIENT WAS FASTINGPERFORMED BY: [facility]6370 [facility] [id number] Vitamin D, 25-Hydroxy 79.5 ng/mL (Normal) Range: 30.0-100.0 Comments: Vitamin D deficiency has been defined by the [place] of[place] and an Endocrine Society practice guideline as alevel of serum 25-OH vitamin D less than 20 ng/mL (1,2).The Endocrine Society went on to further define vitamin Dinsufficiency as a level between 21 and 29 ng/mL (2).1. IOM ([place] of [place]). 2010. Dietary reference intakes for calcium and D. [place]: The National Academies Press.2. Yashira MF, Radha NC, Wally STEINER, et al. Evaluation, treatment, and prevention of vitamin D deficiency: an Endocrine Society clinical practice guideline. JCEM. 2010; 96(7):1911-30. :06 LIPID PANEL (20756) Comments: PATIENT WAS FASTINGPERFORMED BY: The Young TurksRobert Wood Johnson University Hospital at HamiltonEvknmk5927 [facility] [id number]; non-emergent till apt tomorrow LDL/HDL Ratio 3.1 {ratio_units} (Normal) Range: 0.0-3.2 Comments: LDL/HDL Ratio Men Women 1/2 Avg.Risk 1.0 1.5 Av g.Risk 3.6 3.2 2X Avg.Risk 6.2 5.0 3X Avg.Risk 8.0 6.1 LDL Cholesterol Calc 147 mg/dL (Abnormal) Range: 0-99 VLDL Cholesterol Jennifer 34 mg/dL (Normal) Range: 5-40 HDL Cholesterol 48 mg/dL (Normal) Comments: According to ATP-III Guidelines, HDL-C >59 mg/dL is considered anegative risk factor for CHD. Triglycerides 172 mg/dL (Abnormal) Range: 0-149 Cholesterol, Total 229 mg/dL (Abnormal) Range: 100-199 :06 CBC with auto diff (88136) Comments: PATIENT WAS FASTINGPERFORMED BY: [employer] Voqmto2578 [facility] [id number] Immature Grans (Abs) 0.0 {x10E3/uL} (Normal) Range: 0.0-0.1 Immature Granulocytes 0 % (Normal) Baso (Absolute) 0.0 {x10E3/uL} (Normal) Range: 0.0-0.2 Eos (Absolute) 0.1 {x10E3/uL} (Normal) Range: 0.0-0.4 Monocytes(Absolute) 0.4 {x10E3/uL} (Normal) Range: 0.1-0.9 Lymphs (Absolute) 1.2 {x10E3/uL} (Normal) Range: 0.7-3.1 Neutrophils (Absolute) 3.4 {x10E3/uL} (Normal) Range: 1.4-7.0 Basos 1 % (Normal) Eos 2 % (Normal) Monocytes 8 % (Normal) Lymphs 23 % (Normal) Neutrophils 66 % (Normal) Platelets 351 {x10E3/uL} (Normal) Range: 150-379 RDW 14.1 % (Normal) Range: 12.3-15.4 MCHC 32.7 g/dL (Normal) Range: 31.5-35.7 MCH 30.0 pg (Normal) Range: 26.6-33.0 MCV 92 fL (Normal) Range: 79-97 Hematocrit 38.8 % (Normal) Range: 34.0-46.6 Hemoglobin 12.7 g/dL (Normal) Range: 11.1-15.9 RBC 4.23 {x10E6/uL} (Normal) Range: 3.77-5.28 WBC 5.1 {x10E3/uL} (Normal) Range: 3.4-10.8 :06 METABOLIC PANEL, COMPREHENSIVE Comments: PATIENT WAS FASTINGPERFORMED BY: LabCoRobert Wood Johnson [facility] Hospital at HamiltonFaqkty1343 [facility] [id number] (60423) ALT (SGPT) 15 [iU]/L (Normal) Range: 0-32 AST (SGOT) 15 [iU]/L (Normal) Range: 0-40 Alkaline Phosphatase, S 42 [iU]/L (Normal) Range: 39-117 Bilirubin, Total 0.3 mg/dL (Normal) Range: 0.0-1.2 A/G Ratio 1.7 (Normal) Range: 1.1-2.5 Globulin, Total 2.4 g/dL (Normal) Range: 1.5-4.5 Albumin, Serum 4.1 g/dL (Normal) Range: 3.6-4.8 Protein, Total, Serum 6.5 g/dL (Normal) Range: 6.0-8.5 Calcium, Serum 9.4 mg/dL (Normal) Range: 8.7-10.3 Carbon Dioxide, Total 26 mmol/L (Normal) Range: 18-29 Chloride, Serum 99 mmol/L (Normal) Range: 97-108 Potassium, Serum 4.0 mmol/L (Normal) Range: 3.5-5.2 Sodium, Serum 145 mmol/L (Abnormal) Range: 134-144 BUN/Creatinine Ratio 15 (Normal) Range: 11-26 eGFR If Africn Am 92 mL/min/1.73 (Normal) eGFR If NonAfricn Am 80 mL/min/1.73 (Normal) Creatinine, Serum 0.78 mg/dL (Normal) Range: 0.57-1.00 BUN 12 mg/dL (Normal) Range: 8-27 Glucose, Serum 168 mg/dL (Abnormal) Range: 65-99 :42 HgA1C , Office (22425) HgA1C , Office 7.0 % (Normal) Range: 4.6 - 7.1 :32 Vitamin D Hydroxy (29642) Comments: PATIENT WAS FASTINGPERFORMED BY: LabShine Technologies CorpRobert Wood Johnson [facility] Hospital at HamiltonQvvdyg8759 [facility] [id number] Vitamin D, 25-Hydroxy 36.6 ng/mL (Normal) Range: 30.0-100.0 Comments: Vitamin D deficiency has been defined by the [place] of[place]icine and an Endocrine Society practice guideline as alevel of serum 25-OH vitamin D less than 20 ng/mL (1,2).The Endocrine Society went on to further define vitamin Dinsufficiency as a level between 21 and 29 ng/mL (2).1. IOM ([place] of [place]). 2010. Dietary reference intakes for calcium and D. [place]: The National Academies Press.2. Yashira MF, Radha NC, Wally STEINER, et al. Evaluation, treatment, and prevention of vitamin D deficiency: an Endocrine Society clinical practice guideline. JCEM. 2010; 96(7):1911-30. :32 LIPID PANEL (30313) Comments: PATIENT WAS FASTINGPERFORMED BY: LabShine Technologies CorpRobert Wood Johnson [facility] Hospital at HamiltonGzevbl8815 [facility] [id number] LDL/HDL Ratio 3.2 {ratio_units} (Normal) Range: 0.0-3.2 Comments: LDL/HDL Ratio Men Women 1/2 Avg.Risk 1.0 1.5 Av g.Risk 3.6 3.2 2X Avg.Risk 6.2 5.0 3X Avg.Risk 8.0 6.1 LDL Cholesterol Calc 165 mg/dL (Abnormal) Range: 0-99 VLDL Cholesterol Jennifer 28 mg/dL (Normal) Range: 5-40 HDL Cholesterol 51 mg/dL (Normal) Comments: According to ATP-III Guidelines, HDL-C >59 mg/dL is considered anegative risk factor for CHD. Triglycerides 142 mg/dL (Normal) Range: 0-149 Cholesterol, Total 244 mg/dL (Abnormal) Range: 100-199 19-Ypj-203521:32 CBC W/AUTO DIFF WBC Comments: PATIENT WAS FASTINGPERFORMED BY: [facility] [id number] Information: [id number] (31003) Immature Grans (Abs) 0.0 {x10E3/uL} (Normal) Range: 0.0-0.1 Immature Granulocytes 0 % (Normal) Baso (Absolute) 0.0 {x10E3/uL} (Normal) Range: 0.0-0.2 Eos (Absolute) 0.1 {x10E3/uL} (Normal) Range: 0.0-0.4 Monocytes(Absolute) 0.4 {x10E3/uL} (Normal) Range: 0.1-0.9 Lymphs (Absolute) 1.7 {x10E3/uL} (Normal) Range: 0.7-3.1 Neutrophils (Absolute) 4.4 {x10E3/uL} (Normal) Range: 1.4-7.0 Basos 1 % (Normal) Eos 2 % (Normal) Monocytes 7 % (Normal) Lymphs 25 % (Normal) Neutrophils 65 % (Normal) Platelets 347 {x10E3/uL} (Normal) Range: 150-379 RDW 14.0 % (Normal) Range: 12.3-15.4 MCHC 32.2 g/dL (Normal) Range: 31.5-35.7 MCH 29.9 pg (Normal) Range: 26.6-33.0 MCV 93 fL (Normal) Range: 79-97 Hematocrit 40.1 % (Normal) Range: 34.0-46.6 Hemoglobin 12.9 g/dL (Normal) Range: 11.1-15.9 RBC 4.31 {x10E6/uL} (Normal) Range: 3.77-5.28 WBC 6.7 {x10E3/uL} (Normal) Range: 3.4-10.8 80-Ekh-[id number]:32 MICROALBUMIN: CREATININE RATIO Comments: PATIENT WAS FASTINGPERFORMED BY: [id number] [facility] [id number] ([id number]) AND ([id number]) Microalb/Creat Ratio 5.8 {mg/g_creat} (Normal) Range: 0.0-30.0 Microalbumin, Urine 3.8 ug/mL (Normal) Comments: Please note reference interval change Creatinine, Urine 65.0 mg/dL (Normal) Comments: Please note reference interval change [id number]-[id number] METABOLIC PANEL, COMPREHENSIVE Comments: PATIENT WAS FASTINGPERFORMED BY: T[facility] [id number] [facility] [id number]; will review on 11/19 ([id number]) ALT (SGPT) 15 [iU]/L (Normal) Range: 0-32 AST (SGOT) 16 [iU]/L (Normal) Range: 0-40 Alkaline Phosphatase, S 39 [iU]/L (Normal) Range: 39-117 Bilirubin, Total 0.4 mg/dL (Normal) Range: 0.0-1.2 A/G Ratio 2.0 (Normal) Range: 1.1-2.5 Globulin, Total 2.1 g/dL (Normal) Range: 1.5-4.5 Albumin, Serum 4.3 g/dL (Normal) Range: 3.6-4.8 Protein, Total, Serum 6.4 g/dL (Normal) Range: 6.0-8.5 Calcium, Serum 9.9 mg/dL (Normal) Range: 8.7-10.3 Carbon Dioxide, Total 25 mmol/L (Normal) Range: 18-29 Chloride, Serum 101 mmol/L (Normal) Range: 97-108 Potassium, Serum 4.5 mmol/L (Normal) Range: 3.5-5.2 Sodium, Serum 144 mmol/L (Normal) Range: 134-144 BUN/Creatinine Ratio 20 (Normal) Range: 11-26 eGFR If Africn Am 91 mL/min/1.73 (Normal) eGFR If NonAfricn Am 79 mL/min/1.73 (Normal) Creatinine, Serum 0.79 mg/dL (Normal) Range: 0.57-1.00 BUN 16 mg/dL (Normal) Range: 8-27 Glucose, Serum 135 mg/dL (Abnormal) Range: 65-99 39-Hok-135105:40 Vitamin D Hydroxy (27063) Comments: PATIENT WAS FASTINGPERFORMED BY: [employer] Rgbtfj9782 [facility] [place] [id number] Vitamin D, 25-Hydroxy 43.0 ng/mL (Normal) Range: 30.0-100.0 Comments: Vitamin D deficiency has been defined by the [place] of[facility] and an Endocrine Society practice guideline as alevel of serum 25-OH vitamin D less than 20 ng/mL (1,2).The Endocrine Society went on to further define vitamin Dinsufficiency as a level between 21 and 29 ng/mL (2).1. IOM ([place] of Medicine). 2010. Dietary reference intakes for calcium and D. [place]: The National Academies Press.2. Yashira MF, Radha DELGADO, Wally STEINER, et al. Evaluation, treatment, and prevention of vitamin D deficiency: an Endocrine Society clinical practice guideline. JCEM. 2010; 96(7):1911-30. [id number]-Pkw-[id number]:40 LIPID PANEL (91693) Comments: PATIENT WAS FASTINGPERFORMED BY: [employer] Ioeymz2635 [facility] [id number] LDL/HDL Ratio 2.8 {ratio_units} (Normal) Range: 0.0-3.2 Comments: LDL/HDL Ratio Men Women 1/2 Avg.Risk 1.0 1.5 Av g.Risk 3.6 3.2 2X Avg.Risk 6.2 5.0 3X Avg.Risk 8.0 6.1 LDL Cholesterol Calc 138 mg/dL (Abnormal) Range: 0-99 VLDL Cholesterol Jennifer 18 mg/dL (Normal) Range: 5-40 HDL Cholesterol 50 mg/dL (Normal) Comments: According to ATP-III Guidelines, HDL-C >59 mg/dL is considered anegative risk factor for CHD. Triglycerides 91 mg/dL (Normal) Range: 0-149 Cholesterol, Total 206 mg/dL (Abnormal) Range: 100-199 34-Cac-584100:40 MICROALBUMIN: CREATININE RATIO Comments: PATIENT WAS FASTINGPERFORMED BY: [employer] [id number] [facility] [id number] (52274) AND (19187) Microalb/Creat Ratio 3.6 {mg/g_creat} (Normal) Range: 0.0-30.0 Microalbumin, Urine 4.8 ug/mL (Normal) Range: 0.0-17.0 Creatinine, Urine 132.8 mg/dL (Normal) Range: 15.0-278.0 :40 Hemoglobin Glyclated (HGB A1C) Comments: PATIENT WAS FASTINGPERFORMED BY: [employer]70 [facility] [id number] (27165) Hemoglobin A1c 6.6 % (Abnormal) Range: 4.8-5.6 Comments: . Pre-diabetes: 5.7 - 6.4 Diabetes: >6.4 Glycemic control for adults with diabetes: <7.0 :40 METABOLIC PANEL, Comments: PATIENT WAS FASTINGPERFORMED BY: [employer]6370 [facility] [id number] Information: [id number] [facility] (58793) ALT (SGPT) 15 [iU]/L (Normal) Range: 0-32 AST (SGOT) 16 [iU]/L (Normal) Range: 0-40 Alkaline Phosphatase, S 40 [iU]/L (Normal) Range: 39-117 Bilirubin, Total 0.4 mg/dL (Normal) Range: 0.0-1.2 A/G Ratio 1.9 (Normal) Range: 1.1-2.5 Globulin, Total 2.2 g/dL (Normal) Range: 1.5-4.5 Albumin, Serum 4.1 g/dL (Normal) Range: 3.6-4.8 Protein, Total, Serum 6.3 g/dL (Normal) Range: 6.0-8.5 Calcium, Serum 9.2 mg/dL (Normal) Range: 8.7-10.3 Carbon Dioxide, Total 25 mmol/L (Normal) Range: 18-29 Chloride, Serum 101 mmol/L (Normal) Range: 97-108 Potassium, Serum 3.8 mmol/L (Normal) Range: 3.5-5.2 Sodium, Serum 142 mmol/L (Normal) Range: 134-144 BUN/Creatinine Ratio 19 (Normal) Range: 11-26 eGFR If Africn Am 101 mL/min/1.73 (Normal) eGFR If NonAfricn Am 87 mL/min/1.73 (Normal) Creatinine, Serum 0.73 mg/dL (Normal) Range: 0.57-1.00 BUN 14 mg/dL (Normal) Range: 8-27 Glucose, Serum 108 mg/dL (Abnormal) Range: 65-99 :45 PAP I-G w/rfx hrHPV Comments: CYTOLOGY INFORMATION:- CLINICAL INFORMATION:- DATE LMP/MENOPAUSE: MENOPAUSE- COLLECTION VIAL: Thin Prep Vial- 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 of containers..01 CYTYC Thin Prep VialTest performed at:[facility] [address] [place] [address] HPV RFLX Comment (Normal) Comments: The HPV DNA reflex criteria were not met with this specimenresult therefore, no HPV testing was performed.Performed at: [address] [id number] Director: Linh Palafox MD, Phone: [phone] PAPSMR Comment (Normal) Comments: The Pap smear is a screening test designed to aid in thedetection of premalignant and malignant conditions of theuterine cervix. It is not a diagnostic procedure andshould not be used as the sole means of detecting cervicalcancer. Both false-positive and false-negative reports dooccur. COMM . (Normal) TEST METHOD Comment (Normal) Comments: This liquid based ThinPrep(R) pap test was screened withthe use of an image guided system. PERFORM Comment (Normal) Comments: Pk Sanchez, Waffle Machine Operator (ASCP) ADEQ Comment (Normal) Comments: Satisfactory for evaluation. Endocervical and/or squamous metaplasticcells (endocervical component) are present. DIAGN Comment (Normal) Comments: NEGATIVE FOR INTRAEPITHELIAL LESION AND MALIGNANCY.CELLULAR CHANGES ASSOCIATED WITH ATROPHY ARE PRESENT. :57 METABOLIC PANEL, Comments: PATIENT WAS FASTINGPERFORMED BY: [facility]6370 [facility] [id number] Information: [id number] COMPREHENSIVE (40806) ALT (SGPT) 16 [iU]/L (Normal) Range: 0-32 AST (SGOT) 13 [iU]/L (Normal) Range: 0-40 Alkaline Phosphatase, S 44 [iU]/L (Normal) Range: 39-117 Bilirubin, Total 0.4 mg/dL (Normal) Range: 0.0-1.2 A/G Ratio 1.8 (Normal) Range: 1.1-2.5 Globulin, Total 2.4 g/dL (Normal) Range: 1.5-4.5 Albumin, Serum 4.2 g/dL (Normal) Range: 3.6-4.8 Protein, Total, Serum 6.6 g/dL (Normal) Range: 6.0-8.5 Calcium, Serum 9.8 mg/dL (Normal) Range: 8.7-10.3 Carbon Dioxide, Total 26 mmol/L (Normal) Range: 18-29 Chloride, Serum 101 mmol/L (Normal) Range: 97-108 Potassium, Serum 4.5 mmol/L (Normal) Range: 3.5-5.2 Sodium, Serum 142 mmol/L (Normal) Range: 134-144 BUN/Creatinine Ratio 18 (Normal) Range: 11-26 eGFR If Africn Am 93 mL/min/1.73 (Normal) eGFR If NonAfricn Am 81 mL/min/1.73 (Normal) Creatinine, Serum 0.78 mg/dL (Normal) Range: 0.57-1.00 BUN 14 mg/dL (Normal) Range: 8-27 Glucose, Serum 177 mg/dL (Abnormal) Range: 65-99 90-Vyj-11312:57 LIPID PANEL (15981) Comments: PATIENT WAS FASTINGPERFORMED BY: [facility] [id number] [facility] [id number]; non-emergent till apt LDL/HDL Ratio 2.6 {ratio_units} (Normal) Range: 0.0-3.2 Comments: LDL/HDL Ratio Men Women 1/2 Avg.Risk 1.0 1.5 Av g.Risk 3.6 3.2 2X Avg.Risk 6.2 5.0 3X Avg.Risk 8.0 6.1 LDL Cholesterol Calc 142 mg/dL (Abnormal) Range: 0-99 VLDL Cholesterol Jennifer 31 mg/dL (Normal) Range: 5-40 HDL Cholesterol 55 mg/dL (Normal) Comments: According to ATP-III Guidelines, HDL-C >59 mg/dL is considered anegative risk factor for CHD. Triglycerides 153 mg/dL (Abnormal) Range: 0-149 Cholesterol, Total 228 mg/dL (Abnormal) Range: 100-199 :57 Vitamin D Hydroxy (42253) Comments: PATIENT WAS FASTINGPERFORMED BY: [employer]later [facility] HospitalEventstagr.amAtrium Health [facility] [id number] Vitamin D, 25-Hydroxy 34.9 ng/mL (Normal) Range: 30.0-100.0 Comments: Vitamin D deficiency has been defined by the [place] ofMedicine and an Endocrine Society practice guideline as alevel of serum 25-OH vitamin D less than 20 ng/mL (1,2).The Endocrine Society went on to further define vitamin Dinsufficiency as a level between 21 and 29 ng/mL (2).1. IOM ([place] of Medicine). 2010. Dietary reference intakes for calcium and D. [place]: The National Academies Press.2. Yashira MF, Radha DELGADO, Wally STEINER, et al. Evaluation, treatment, and prevention of vitamin D deficiency: an Endocrine Society clinical practice guideline. JCEM. 2010; 96(7):1911-30. :44 HgA1C , Office (10669) HgA1C , Office 7.4 % (Abnormal) Range: 4.6 - 7.1 :04 Vitamin D Hydroxy (85690) Comments: PERFORMED BY: [employer]6370 [facility] [id number] Vitamin D, 25-Hydroxy 34.6 ng/mL (Normal) Range: 30.0-100.0 Comments: Vitamin D deficiency has been defined by the [place] ofSpiralcatcine and an Endocrine Society practice guideline as alevel of serum 25-OH vitamin D less than 20 ng/mL (1,2).The Endocrine Society went on to further define vitamin Dinsufficiency as a level between 21 and 29 ng/mL (2).1. IOM ([place] of Medicine). 2010. Dietary reference intakes for calcium and D. [place]: The National Academies Press.2. Yashira MF, Radha NC, Wally STEINER, et al. Evaluation, treatment, and prevention of vitamin D deficiency: an Endocrine Society clinical practice guideline. JCEM. 2010; 96(7):1911-30. :04 CBC W/AUTO DIFF WBC (19350) Comments: PERFORMED BY: [email or web address].com70 [facility]imAtrium [facility] [id number] Immature Grans (Abs) 0.0 {x10E3/uL} (Normal) Range: 0.0-0.1 Immature Granulocytes 0 % (Normal) Baso (Absolute) 0.0 {x10E3/uL} (Normal) Range: 0.0-0.2 Eos (Absolute) 0.1 {x10E3/uL} (Normal) Range: 0.0-0.4 Monocytes(Absolute) 0.4 {x10E3/uL} (Normal) Range: 0.1-0.9 Lymphs (Absolute) 2.1 {x10E3/uL} (Normal) Range: 0.7-3.1 Neutrophils (Absolute) 2.8 {x10E3/uL} (Normal) Range: 1.4-7.0 Basos 1 % (Normal) Eos 2 % (Normal) Monocytes 7 % (Normal) Lymphs 39 % (Normal) Neutrophils 51 % (Normal) Platelets 337 {x10E3/uL} (Normal) Range: 150-379 RDW 14.1 % (Normal) Range: 12.3-15.4 MCHC 34.7 g/dL (Normal) Range: 31.5-35.7 MCH 31.1 pg (Normal) Range: 26.6-33.0 MCV 90 fL (Normal) Range: 79-97 Hematocrit 39.5 % (Normal) Range: 34.0-46.6 Hemoglobin 13.7 g/dL (Normal) Range: 11.1-15.9 RBC 4.40 {x10E6/uL} (Normal) Range: 3.77-5.28 WBC 5.4 {x10E3/uL} (Normal) Range: 3.4-10.8 :04 METABOLIC PANEL, COMPREHENSIVE Comments: PERFORMED BY: [email or web address] [facility] [id number] (29585) ALT (SGPT) 19 [iU]/L (Normal) Range: 0-32 AST (SGOT) 20 [iU]/L (Normal) Range: 0-40 Alkaline Phosphatase, S 47 [iU]/L (Normal) Range: 39-117 Bilirubin, Total 0.4 mg/dL (Normal) Range: 0.0-1.2 A/G Ratio 1.8 (Normal) Range: 1.1-2.5 Globulin, Total 2.4 g/dL (Normal) Range: 1.5-4.5 Albumin, Serum 4.3 g/dL (Normal) Range: 3.6-4.8 Protein, Total, Serum 6.7 g/dL (Normal) Range: 6.0-8.5 Calcium, Serum 9.6 mg/dL (Normal) Range: 8.7-10.3 Carbon Dioxide, Total 23 mmol/L (Normal) Range: 18-29 Chloride, Serum 102 mmol/L (Normal) Range: 97-108 Potassium, Serum 4.1 mmol/L (Normal) Range: 3.5-5.2 Sodium, Serum 142 mmol/L (Normal) Range: 134-144 BUN/Creatinine Ratio 20 (Normal) Range: 11-26 eGFR If Africn Am 89 mL/min/1.73 (Normal) eGFR If NonAfricn Am 77 mL/min/1.73 (Normal) Creatinine, Serum 0.81 mg/dL (Normal) Range: 0.57-1.00 BUN 16 mg/dL (Normal) Range: 8-27 Glucose, Serum 142 mg/dL (Abnormal) Range: 65-99 30-Taj-247575:04 MICROALBUMIN: CREATININE RATIO Comments: PERFORMED BY: TYREE LabCoRobert Wood Johnson [facility] Hospital at HamiltonMywgxp2215 [facility] [id number] (79002) AND (98321) Microalb/Creat Ratio 12.0 {mg/g_creat} (Normal) Range: 0.0-30.0 Microalbumin, Urine 14.3 ug/mL (Normal) Range: 0.0-17.0 Creatinine, Urine 119.0 mg/dL (Normal) Range: 15.0-278.0 :04 LIPID PANEL (43758) Comments: PERFORMED BY: TYREE The Young TurksRobert Wood Johnson University Hospital at HamiltonZniijg7668 [facility] [id number]; non-emergent till apt next week LDL/HDL Ratio 3.6 {ratio_units} (Abnormal) Range: 0.0-3.2 Comments: LDL/HDL Ratio Men Women 1/2 Avg.Risk 1.0 1.5 Av g.Risk 3.6 3.2 2X Avg.Risk 6.2 5.0 3X Avg.Risk 8.0 6.1 LDL Cholesterol Calc 172 mg/dL (Abnormal) Range: 0-99 VLDL Cholesterol Jennifer 35 mg/dL (Normal) Range: 5-40 HDL Cholesterol 48 mg/dL (Normal) Comments: According to ATP-III Guidelines, HDL-C >59 mg/dL is considered anegative risk factor for CHD. Triglycerides 173 mg/dL (Abnormal) Range: 0-149 Cholesterol, Total 255 mg/dL (Abnormal) Range: 100-199 :50 Lipid Panel With LDL/HDL Comments: PATIENT WAS FASTINGPERFORMED BY: The Young TurksRobert Wood Johnson [facility] Hospital at HamiltonXuhiyt8706 [facility] [id number] Information: [id number] Ratio LDL/HDL Ratio 3.0 {ratio_units} Range: 0.0-3.2 (Normal) Comments: LDL/HDL Ratio Men Women 1/2 Avg.Risk 1.0 1.5 Av g.Risk 3.6 3.2 2X Avg.Risk 6.2 5.0 3X Avg.Risk 8.0 6.1 LDL Cholesterol Calc 143 mg/dL (Abnormal) Range: 0-99 VLDL Cholesterol Jennifer 24 mg/dL (Normal) Range: 5-40 HDL Cholesterol 48 mg/dL (Normal) Comments: According to ATP-III Guidelines, HDL-C >59 mg/dL is considered anegative risk factor for CHD. Triglycerides 120 mg/dL (Normal) Range: 0-149 Cholesterol, Total 215 mg/dL (Abnormal) Range: 100-199 Written Authorization WAR (Normal) Comments: PATIENT WAS FASTINGPERFORMED BY: The Young TurksRobert Wood Johnson [facility] Hospital at HamiltonIjpyvg7769 [facility] [id number] :50 Comments: Written Authorization Received.Authorization received from DR. BIRD BOYD [id number] by Katia Mckinney :50 Vitamin D Hydroxy (72081) Comments: PATIENT WAS FASTINGPERFORMED BY: LabCoRobert Wood Johnson [facility] Hospital at HamiltonFmmcxz9103 [facility] [id number] Vitamin D, 25-Hydroxy 49.4 ng/mL (Normal) Range: 30.0-100.0 Comments: Vitamin D deficiency has been defined by the [place] ofMedicine and an Endocrine Society practice guideline as alevel of serum 25-OH vitamin D less than 20 ng/mL (1,2).The Endocrine Society went on to further define vitamin Dinsufficiency as a level between 21 and 29 ng/mL (2).1. IOM ([place] of Medicine). 2010. Dietary reference intakes for calcium and D. [place]: The National Academies Press.2. Yashira MF, Radha DELGADO, Wally STEINER, et al. Evaluation, treatment, and prevention of vitamin D deficiency: an Endocrine Society clinical practice guideline. JCEM. 2010; 96(7):1911-30. :50 METABOLIC PANEL, Comments: PATIENT WAS FASTINGPERFORMED BY: [facility] [id number] [facility] [id number] Information: [id number] COMPREHENSIVE (18434) ALT (SGPT) 14 [iU]/L (Normal) Range: 0-32 AST (SGOT) 12 [iU]/L (Normal) Range: 0-40 Alkaline Phosphatase, S 37 [iU]/L (Abnormal) Range: 39-117 Bilirubin, Total 0.4 mg/dL (Normal) Range: 0.0-1.2 A/G Ratio 2.0 (Normal) Range: 1.1-2.5 Globulin, Total 2.1 g/dL (Normal) Range: 1.5-4.5 Albumin, Serum 4.2 g/dL (Normal) Range: 3.6-4.8 Protein, Total, Serum 6.3 g/dL (Normal) Range: 6.0-8.5 Calcium, Serum 9.3 mg/dL (Normal) Range: 8.6-10.2 Carbon Dioxide, Total 24 mmol/L (Normal) Range: 18-29 Chloride, Serum 102 mmol/L (Normal) Range: 97-108 Potassium, Serum 4.1 mmol/L (Normal) Range: 3.5-5.2 Sodium, Serum 142 mmol/L (Normal) Range: 134-144 BUN/Creatinine Ratio 20 (Normal) Range: 11-26 eGFR If Africn Am 89 mL/min/1.73 (Normal) eGFR If NonAfricn Am 78 mL/min/1.73 (Normal) Creatinine, Serum 0.81 mg/dL (Normal) Range: 0.57-1.00 BUN 16 mg/dL (Normal) Range: 8-27 Glucose, Serum 150 mg/dL (Abnormal) Range: 65-99 :41 Blood Glucose , Office (84108) Blood Glucose , Office 181 (Normal) :41 HgA1C , Office (24741) HgA1C , Office 7.2 % (Abnormal) Range: 4.6 - 7.1 :55 HgA1C , Office (34381) HgA1C , Office 7.7 % (Abnormal) Range: 4.6 - 7.1 :11 CMP GAP 5 (Normal) Range: 5-15 CO2 30.0 mmol/L (Normal) Range: 21.0-32.0 CL 105 mmol/L (Normal) Range: 98-107 K 3.6 mmol/L (Normal) Range: 3.5-5.1 BIT 0.50 mg/dL (Normal) Range: 0.00-1.00 NA 140 mmol/L (Normal) Range: 136-145 ALT 30 U/L (Normal) Range: 12-78 ALK 37 U/L (Abnormal) Range: 45-117 AST 18 U/L (Normal) Range: 15-37 AG 1.2 {RATIO} (Normal) Range: 0.9-2.4 CA 9.0 mg/dL (Normal) Range: 8.5-10.1 ALB 3.8 g/dL (Normal) Range: 3.4-5.0 GLOB 3.2 g/dL (Normal) Range: 2.7-4.2 TPROT 7.0 g/dL (Normal) Range: 6.4-8.2 BC 16.7 {RATIO} (Normal) Range: 10-20 GFRAA 81 mL/min (Normal) CREAT 0.9 mg/dL (Normal) Range: 0.6-1.0 GFR 67 mL/min (Normal) BUN 15 mg/dL (Normal) Range: 7-18 GLU 155 mg/dL (Abnormal) Range: 70-110 Comments: Fasting Glucose result greater than or equal to 126 mg/dLsuggests DIABETES MELLITUS per A.D.A. criteria. :12 CUUR URC See Note (Normal) Comments: [place] Count 1000-10,000MIX CONTAM Mixed Contaminants. Submit new specimen if indicated. :11 LIPID Comments: non-emergent till f/u LDL 136 mg/dL (Abnormal) Range: 0-130 VLDL 31 mg/dL (Normal) Range: 5-40 CHOL 210 mg/dL (Abnormal) Comments: <200 mg/dL [id number] mg/dL Borderline>240 mg/dL High Risk HDL 43 mg/dL (Normal) Comments: Reference RangeHDL <40 mg/dL Low HDL CholesterolHDL >or= 60 mg/dL High HDL Cholesterol TRIG 156 mg/dL (Normal) Range: 0-199 Comments: Serum Triglycerides Reference IntervalNormal <150 mg/dLBorderline high 150 - 199 mg/dLHigh 200 - 499 mg/ dLVery High > or = 500 mg/dL :12 MIACRE MIALB 10.1 mg/L (Normal) tMICROCREAT 8.9 {mg/g_CRE} (Normal) CREU 113.1 mg/dL (Normal) :00 HgA1C , Office (89045) HgA1C , Office 7.9 % (Abnormal) Range: 4.6 - 7.1 :58 URINE KHANG CULTURE (LOGAN COL Comments: PATIENT NOT FASTINGPERFORMED BY: [facility] [id number] [facility] [id number] COUNT) (99425) Result 1 MUG (Normal) Comments: Mixed urogenital [id number] Colonies/mL Urine Culture,Comprehensive Final report (Normal) :57 Urinalysis, Office (35758) UA - LEUKOCYTE ESTERASE Trace (Normal) UA - NITRITE Negative (Normal) URINE UROBILINGN LOGAN TIMED Normal mg/dL (Normal) UA - PROTEIN Negative mg/dL (Normal) UA - PH 7 (Normal) UA - BLOOD Negative (Normal) UA - SPECIFIC GRAVITY 1.030 (Abnormal) UA - KETONES Negative mg/dL (Normal) UA - BILIRUBIN Negative (Normal) UA - GLUCOSE Negative (Normal) :58 MICROALBUMIN: CREATININE Comments: PATIENT NOT FASTINGPERFORMED BY: TYREE [facility] [id number] [facility] [id number] Information: ADD [id number] AND DRAW FEE 99 6660 RATIO (70947) AND (30135) Microalb/Creat Ratio 2.0 {mg/g_creat} (Normal) Range: 0.0-30.0 Microalbumin, Urine 1.5 ug/mL (Normal) Range: 0.0-17.0 Creatinine, Urine 76.1 mg/dL (Normal) Range: 15.0-278.0 :52 CBCD ANC 3.5 {X10_3/uL} (Normal) Range: 2.0-7.7 IG% 0.500 % (Normal) Range: 0.0-0.9 Comments: IG% - Immature Granulocytes (promyelocytes, myelocytes andmetamyelocytes) > 1% indicates that a LEFT SHIFT is Present. B% 0.7 % (Normal) Range: 0-1 E% 1.9 % (Normal) Range: 0-5 M% 8.7 % (Normal) Range: 0-10 L% 28.9 % (Normal) Range: 19-41 N% 59.3 % (Normal) Range: 47-70 MPV 10.3 fL (Normal) Range: 6.2-12.0 PLT 326 K/mm3 (Normal) Range: 150-450 RDWSD 42.3 fL (Normal) Range: 35.1-43.9 RDWCV 13.2 % (Normal) Range: 11.6-14.6 MCHC 34.0 {g/gl} (Normal) Range: 32-36 MCH 30.8 pg (Normal) Range: 27.0-32.0 MCV 90.5 fL (Normal) Range: 81-99 HCT 39.1 % (Normal) Range: 37-47 HGB 13.3 g/dL (Normal) Range: 12.0-15.0 RBC 4.32 {M/mm3} (Normal) Range: 4.2-5.4 WBC 5.8 K/mm3 (Normal) Range: 4.4-11.0 :52 CMP GAP 4 (Abnormal) Range: 5-15 CO2 31.0 mmol/L (Normal) Range: 21.0-32.0 CL 104 mmol/L (Normal) Range: 98-107 K 3.5 mmol/L (Normal) Range: 3.5-5.1 NA 139 mmol/L (Normal) Range: 136-145 BIT 0.50 mg/dL (Normal) Range: 0.00-1.00 ALT 31 U/L (Normal) Range: 12-78 ALK 48 U/L (Abnormal) Range: 50-136 AST 17 U/L (Normal) Range: 15-37 CA 9.8 mg/dL (Normal) Range: 8.5-10.1 AG 1.0 {RATIO} (Normal) Range: 0.9-2.4 GLOB 3.5 g/dL (Normal) Range: 2.7-4.2 ALB 3.6 g/dL (Normal) Range: 3.4-5.0 TPROT 7.1 g/dL (Normal) Range: 6.4-8.2 BC 18.8 {RATIO} (Normal) Range: 10-20 GFRAA 93 mL/min (Normal) GFR 77 mL/min (Normal) CREAT 0.8 mg/dL (Normal) Range: 0.6-1.0 BUN 15 mg/dL (Normal) Range: 7-18 GLU 131 mg/dL (Abnormal) Range: 70-110 Comments: Fasting Glucose result greater than or equal to 126 mg/dLsuggests DIABETES MELLITUS per A.D.A. criteria. :52 LIPID VLDL 32 mg/dL (Normal) Range: 5-40 LDL 135 mg/dL (Abnormal) Range: 0-130 HDL 47 mg/dL (Normal) Comments: Reference RangeHDL <40 mg/dL Low HDL CholesterolHDL >or= 60 mg/dL High HDL Cholesterol TRIG 162 mg/dL (Normal) Range: 0-199 Comments: Serum Triglycerides Reference IntervalNormal <150 mg/dLBorderline high 150 - 199 mg/dLHigh 200 - 499 mg/ dLVery High > or = 500 mg/dL CHOL 214 mg/dL (Abnormal) Comments: <200 mg/dL Fpqyppfpc989-481 mg/dL Borderline>240 mg/dL High Risk :51 UA Comments: How was Urine Obtained? CLEAN CATCH UMUC 0 SEEN {/hpf} (Normal) UBAC 1+ {/hpf} (Normal) UEPIS 0-5 SEEN {/hpf} (Normal) Range: 5-10 URBC 0 SEEN {/hpf} (Normal) Range: 0-5 UWBC 0-5 SEEN {/hpf} (Normal) Range: 0-5 CARLOS 25 /ul (Abnormal) UOB Negative /ul (Normal) BLAISE Negative (Normal) UROBU Normal mg/dL (Normal) uPROTU Negative mg/dL (Normal) VERNELL 7.0 (Normal) Range: 5.0 - 8.0 SGU 1.010 (Normal) Range: 1.002-1.030 KETU Negative mg/dL (Normal) BILIU Negative mg/dL (Normal) GLUR Normal mg/dL (Normal) UCLAR Clear (Normal) UCOL Yellow (Normal) :52 VITD 77.5 mg/mL (Normal) Comments: Vitamin D 25(OH) Status RangeDeficiency <20 ng/mL (50nmol/L)Insuffciency 20 - 30 ng/mL (50 - 75 nmol/L)Sufficiency 30 - 100 ng/mL (75 - 250 nmol/L)Toxicity >100 ng/mL (>250 nmol/L) :37 HgA1C , Office (16864) HgA1C , Office 7.8 % (Abnormal) Range: 4.6 - 7.1 25-Wnd-002492:17 CBCMD ANC 3.3 3/uL (Normal) Range: 2.0-7.7 IG% 0.40 % (Normal) Range: 0.0-0.9 Comments: IG% - Immature Granulocytes (promyelocytes, myelocytes,metamyelocytes) >1.0% indicates that a LEFT SHIFT ispresent. B% 0.5 % (Normal) Range: 0-1 E% 1.8 % (Normal) Range: 0-5 M% 9.0 % (Normal) Range: 0-10 L% 28.8 % (Normal) Range: 19-41 N% 59.5 % (Normal) Range: 47-70 MPV 10.2 fL (Normal) Range: 6.2-12.0 PLT 319 K/mm3 (Normal) Range: 150-450 RDWSD 41.8 fL (Normal) Range: 35.1-43.9 MCHC 34.5 g/dL (Normal) Range: 32-36 RDWCV 12.9 % (Normal) Range: 11.6-14.6 MCH 31.2 pg (Normal) Range: 27.0-32.0 MCV 90.5 fL (Normal) Range: 81-99 HCT 38.0 % (Normal) Range: 37-47 HGB 13.1 g/dL (Normal) Range: 12.0-15.0 RBC 4.20 {M/mm3} (Normal) Range: 4.2-5.4 WBC 5.6 {k/mm3} (Normal) Range: 4.4-11.0 43-Btr-375263:17 CMP CO2 28.0 mmol/L (Normal) Range: 21.0-32.0 GAP 8 (Normal) Range: 5-15 CL 104 mmol/L (Normal) Range: 98-107 K 3.8 mmol/L (Normal) Range: 3.5-5.1 NA 140 mmol/L (Normal) Range: 136-145 BIT 0.40 mg/dL (Normal) Range: 0.00-1.00 ALT 31 U/L (Normal) Range: 12-78 ALK 49 U/L (Abnormal) Range: 50-136 AST 20 U/L (Normal) Range: 15-37 CA 9.3 mg/dL (Normal) Range: 8.5-10.1 AG 1.1 {RATIO} (Normal) Range: 0.9-2.4 GLOB 3.4 g/dL (Normal) Range: 2.7-4.2 ALB 3.6 g/dL (Normal) Range: 3.4-5.0 TPROT 7.0 g/dL (Normal) Range: 6.4-8.2 BC 15.6 {RATIO} (Normal) Range: 10-20 GFRAA 81 mL/min (Normal) GFR 67 mL/min (Normal) CREAT 0.9 mg/dL (Normal) Range: 0.6-1.0 BUN 14 mg/dL (Normal) Range: 7-18 GLU 166 mg/dL (Abnormal) Range: 70-110 Comments: Fasting Glucose result greater than or equal to 126 mg/dLsuggests DIABETES MELLITUS per A.D.A. criteria. [id number] LIPID VLDL 40 mg/dL (Normal) Range: 5-40 LDL 143 mg/dL (Abnormal) Range: 0-130 HDL 45 mg/dL (Normal) Comments: Reference RangeHDL <40 mg/dL Low HDL CholesterolHDL >or= 60 mg/dL High HDL Cholesterol TRIG 199 mg/dL (Normal) Comments: Serum Triglycerides Reference IntervalNormal <150 mg/dLBorderline high 150 - 199 mg/dLHigh 200 - 499 mg/ dLVery High > or = 500 mg/dL CHOL 228 mg/dL (Abnormal) Comments: <200 mg/dL [id number] mg/dL Borderline>240 mg/dL High Risk [id number] MIACRE tMICROCREAT 16.4 {mg/g_CRE} (Normal) MIALB 10.1 mg/L (Normal) CREU 61.4 mg/dL (Normal) [id number] VITD 68.8 ng/mL (Normal) Comments: Vitamin D 25(OH) Status RangeDeficiency <20 ng/mL (50nmol/L)Insufficiency 20 - 30 ng/mL (50 - 75 nmol/L)Sufficiency 30 - 100 ng/mL (75 - 250 nm ol/L)Toxicity >100 ng/mL (250 nmol/L) [id number] DEXA BONE DENSITY STUDY (HP) Radiology Report See Note Comments: PROCEDURE: DUAL ENERGY X-RAY ABSORPTIOMETRY / DXA REASON FOR EXAM: Female, 62 years old. Early menopause. TECHNIQUE: Bone Mineral Density (BMD) measurements of lumbar spine andbilateral hips were (Normal) obtained. COMPARISON: Comparison is made with prior examination dated November. FINDINGS: Lumbar Spine (L1-L4): g/cm2 (1.329) / T-score (1.1) / Z-score (2.4) Findings are suggestive of normal bone density with a low fracture risk. Left Femur Total: g/cm2 (0.933) / T-score (-0.6) / Z-score (0.4)Left Femoral Neck: g/cm2 (0.917) / T-score (-0.9) / Z-s core (0.5)Right Femur Total: g/cm2 (0.921) / T-score (-0.7) / Z-score (0.3)Right Femoral Neck: g/cm2 (0.857) / T-score (-1.3) / Z-score (0.0) The T-Scores on the most recent prior examination were: Lumbar Spine (L1-L4): There has been improvement of bone density sincetheprevious examination. Left Femur Total: which represents an improvement of 2.3%.Right Femur Total: which represe nts an improvement of 0.7%. IMPRESSION:The patient is considered osteopenic as outlined below according to WorldHeath Organization (WHO) criteria with a moderate fract ure risk. Therehasbeen improvement of bone density since the previous examination. Reference Information:The T-score is the number of standard deviations above or be low thestandard which is normal for young adults at their peak bone mineraldensity. The World Health Organization (WHO) interprets the T-scores asfollows: Above - 1 Normal bone densityBetween - 1 and -2.5 OsteopeniaEqual to / or below -2.5 Osteoporosis As a practical clinical guideline, osteopenia may be graded as follows:Mild -1 through - 1.5Moderate -1.6 through -2.0Severe -2.1 through -2.4 The Z-score is the number of standard deviations above or below age- matchedcontrols. A Z-score of less than -1.5 would be considered abnormal. References:1. NIH Osteoporosis and Related Bone Dise ases http://www.osteo.org2. International Society for Clinical Densitometry http://www.iscd.org3. National Osteoporosis Foundation http://www.nof.org Signed:Thierry Dunn M.D.December 22, 2012 at 9: 13:06 AM [id number] Signed GP/GP If you are the referring physician and would like to consult with theradiologist who provided this interpretation, please contact Octavia Kim at [phone]. If this radiologist is unavailable, youwill be directed to another radiologist to assist. If you are a patient with a question regarding this report, pleasecontactyour referring junior vera directly. Professional Interpretation Provided By: [employer], Phone , These documents contain legally protected and confidential healthinformation intended only fo r the use of the individual or entity namedabove. If you are not the intended recipient, you are hereby notifiedthatany disclosure, copying, distribution, or other use of these documents isstrictly proh ibited. If you have received this information in error,pleasenotify the sender immediately and arrange for the return or destructionofthese documents. Dictated on 12/22/12912 by Sanjay Dunn MDbed on 12/22/1215 by ITS IMPORTSign by Thierry Dunn MD on 12/22/1216 Sign by: Thierry Dunn MD [id number]:17 UNILAT LT SCRN DIGITAL & CAD Radiology Report See Note Comments: MAMMOGRAPHY - UNILATERAL SCREENING: LEFT BREAST REASON FOR EXAM: Female, 62 years old. Routine annual screeningexamination (unilateral). PERTINENT HISTORY: Personal history of breast cancer. TECHNI (Normal) QUE: Digital examination. Mediolateral oblique (MLO) andcraniocaudad (CC) views of the breast were obtained. CAD: CAD wasperformed on this study. COMPARISON: 12/07/11 ____ FINDINGS:The breast composition is almost entirely fat. Glandular tissue is lessthan 25%. There are no dominant masses or suspicious calcifications. Tiny nodularasymmetric density in the outer rig ht breast is unchanged. This hasreniform configuration and has appearance of a benign intramammary lymphnode. No other significant abnormalities are identified. IMPRE SSION:Stable unilateral screening mammogram. Yearly follow-up recommended. (A) ASSESSMENT CATEGORY:BIRADS Category 2: Benign finding(s). A letter regarding these resultswill be sent to the patient by the facility within 30 days. Approximately 10% of breast cancers are not detected by mammography. Anormal mammogram should not delay biopsy of a clinically suspici ousabnormality. Signed:King Guzmán M.D.December 14, 2012 at 7:22:24 AM [id number] Signed RU/RU If you are the referring physician and would like to consult with theradiologist who pr ovided this interpretation, please contact Tonya Hernandez at [phone]. If this radiologist is unavailable, youwillbe directed to another radiologist to assist. If you are a patient with a ques tion regarding this report, pleasecontactyour referring physician directly. Professional Interpretation Provided By: [employer], Phone , These documents contain legally pr otected and confidential healthinformation intended only for the use of the individual or entity namedabove. If you are not the intended recipient, you are hereby notifiedthatany disclosure, copying, di stribution, or other use of these documents isstrictly prohibited. If you have received this information in error,pleasenotify the sender immediately and arrange for the return or destructionofthese doc uments. Dictated on 12/14/12721 by King GuzmánTranscribed on 12/14/12723 by ITS IMPORTSign by King Guzmán on 12/14/12 0725 Sign by: King Guzmán :31 LIPID PANEL ([id number]) Comments: PATIENT WAS FASTINGPERFORMED BY: M2G [id number] RoadDublin [place] [id number] LDL/HDL Ratio 2.4 {ratio_units} (Normal) Range: 0.0-3.2 LDL Cholesterol Calc 124 mg/dL (Abnormal) Range: 0-99 VLDL Cholesterol Jennifer 31 mg/dL (Normal) Range: 5-40 HDL Cholesterol 52 mg/dL (Normal) Comments: According to ATP-III Guidelines, HDL-C >59 mg/dL is considered anegative risk factor for CHD. Cholesterol, Total 207 mg/dL (Abnormal) Range: 100-199 Triglycerides 156 mg/dL (Abnormal) Range: 0-149 :31 Vitamin D Hydroxy (48220) Comments: PATIENT WAS FASTINGPERFORMED BY: [employer] Ufteou[address] RoadDublin [place] [id number] Vitamin D, 25-Hydroxy 58.4 ng/mL (Normal) Range: 30.0-100.0 Comments: Vitamin D deficiency has been defined by the [place] ofMedicine and an Endocrine Society practice guideline as alevel of serum 25-OH vitamin D less than 20 ng/mL (1,2).The Endocrine Society went on to further define vitamin Dinsufficiency as a level between 21 and 29 ng/mL (2).1. IOM ([place] of Medicine). 2010. Dietary reference intakes for calcium and D. [place]: The National Academies Press.2. Yashira MF, Radha NC, Wally STEINER, et al. Evaluation, treatment, and prevention of vitamin D deficiency: an Endocrine Society clinical practice guideline. JCEM. 2010; 96(7):1911-30. :31 CBC WITH MANUAL DIFF (97362) Comments: PATIENT WAS FASTINGPERFORMED BY: [employer] [address] [facility] HospitalDublin [place] [id number] Immature Grans (Abs) 0.0 {x10E3/uL} (Normal) Range: 0.0-0.1 Immature Granulocytes 0 % (Normal) Range: 0-2 Baso (Absolute) 0.0 {x10E3/uL} (Normal) Range: 0.0-0.2 Eos (Absolute) 0.2 {x10E3/uL} (Normal) Range: 0.0-0.4 Monocytes(Absolute) 0.3 {x10E3/uL} (Normal) Range: 0.1-1.0 Lymphs (Absolute) 1.7 {x10E3/uL} (Normal) Range: 0.7-4.5 Neutrophils (Absolute) 3.7 {x10E3/uL} (Normal) Range: 1.8-7.8 Basos 1 % (Normal) Range: 0-3 Eos 3 % (Normal) Range: 0-7 Monocytes 5 % (Normal) Range: 4-13 Lymphs 28 % (Normal) Range: 14-46 Neutrophils 63 % (Normal) Range: 40-74 Platelets 337 {x10E3/uL} (Normal) Range: 140-415 RDW 13.8 % (Normal) Range: 12.3-15.4 MCHC 33.5 g/dL (Normal) Range: 31.5-35.7 MCH 30.2 pg (Normal) Range: 26.6-33.0 MCV 90 fL (Normal) Range: 79-97 Hematocrit 38.2 % (Normal) Range: 34.0-46.6 Hemoglobin 12.8 g/dL (Normal) Range: 11.1-15.9 RBC 4.24 {x10E6/uL} (Normal) Range: 3.77-5.28 WBC 6.0 {x10E3/uL} (Normal) Range: 4.0-10.5 [id number]:31 METABOLIC PANEL, COMPREHENSIVE Comments: PATIENT WAS FASTINGPERFORMED BY: [facility] [facility] [id number] ([id number]) ALT (SGPT) 18 [iU]/L (Normal) Range: 0-32 AST (SGOT) 14 [iU]/L (Normal) Range: 0-40 Alkaline Phosphatase, S 41 [iU]/L (Normal) Range: 25-165 Bilirubin, Total 0.4 mg/dL (Normal) Range: 0.0-1.2 A/G Ratio 1.6 (Normal) Range: 1.1-2.5 Globulin, Total 2.5 g/dL (Normal) Range: 1.5-4.5 Albumin, Serum 3.9 g/dL (Normal) Range: 3.6-4.8 Protein, Total, Serum 6.4 g/dL (Normal) Range: 6.0-8.5 Calcium, Serum 9.5 mg/dL (Normal) Range: 8.6-10.2 Carbon Dioxide, Total 24 mmol/L (Normal) Range: 20-32 Chloride, Serum 103 mmol/L (Normal) Range: 97-108 Potassium, Serum 4.3 mmol/L (Normal) Range: 3.5-5.2 Sodium, Serum 142 mmol/L (Normal) Range: 134-144 BUN/Creatinine Ratio 19 (Normal) Range: 11-26 eGFR If Africn Am 102 mL/min/1.73 (Normal) eGFR If NonAfricn Am 89 mL/min/1.73 (Normal) Creatinine, Serum 0.73 mg/dL (Normal) Range: 0.57-1.00 BUN 14 mg/dL (Normal) Range: 8-27 Glucose, Serum 147 mg/dL (Abnormal) Range: 65-99 :30 CMP GAP 9 (Normal) Range: 5-15 CO2 30.0 mmol/L (Normal) Range: 21.0-32.0 CL 102 mmol/L (Normal) Range: 98-107 K 3.8 mmol/L (Normal) Range: 3.5-5.1 NA 141 mmol/L (Normal) Range: 136-145 BIT 0.50 mg/dL (Normal) Range: 0.00-1.00 ALT 34 U/L (Normal) Range: 12-78 ALK 43 U/L (Abnormal) Range: 50-136 AST 26 U/L (Normal) Range: 15-37 CA 9.6 mg/dL (Normal) Range: 8.5-10.1 AG 1.3 {RATIO} (Normal) Range: 0.9-2.4 GLOB 3.0 g/dL (Normal) Range: 2.7-4.2 ALB 3.9 g/dL (Normal) Range: 3.4-5.0 TPROT 6.9 g/dL (Normal) Range: 6.4-8.2 BC 14.4 {RATIO} (Normal) Range: 10-20 GFRAA 82 mL/min (Normal) GFR 68 mL/min (Normal) CREAT 0.9 mg/dL (Normal) Range: 0.6-1.0 BUN 13 mg/dL (Normal) Range: 7-18 GLU 169 mg/dL (Abnormal) Range: 70-110 Comments: Fasting Glucose result greater than or equal to 126 mg/dL suggests DIABETES MELLITUS per A.D.A. criteria. :30 LIPID VLDL 31 mg/dL (Normal) Range: 5-40 LDL 154 mg/dL (Abnormal) Range: 0-130 HDL 45 mg/dL (Normal) Comments: Reference Range HDL <40 mg/dL Low HDL Cholesterol HDL >or= 60 mg/dL High HDL Cholesterol TRIG 157 mg/dL (Normal) Comments: Serum Triglycerides Reference Interval Normal <150 mg/dL Borderline high 150 - 199 mg/dL High 200 - 499 mg/dL Very High > or = 500 mg/dL CHOL 230 mg/dL (Abnormal) Comments: <200 mg/dL Desirable 200-240 mg/dL Borderline >240 mg/dL High Risk :30 VITD 68.3 ng/mL (Normal) Comments: Vitamin D 25(OH) Status Range Deficiency <20 ng/mL (50nmol/L) Insufficiency 20 - 30 ng/mL (50 - 75 nmol/L) Sufficiency 30 - 100 ng/mL (7 5 - 250 nmol/L) Toxicity >100 ng/mL (250 nmol/L)Effective 2012:13 HgA1C , Office (25501) HgA1C , Office 6.4 % (Normal) Range: 4.6 - 7.1 :30 CMP GAP 8 (Normal) Range: 5-15 CO2 29.0 mmol/L (Normal) Range: 21.0-32.0 CL 103 mmol/L (Normal) Range: 98-107 K 3.6 mmol/L (Normal) Range: 3.5-5.1 NA 140 mmol/L (Normal) Range: 136-145 BIT 0.50 mg/dL (Normal) Range: 0.00-1.00 ALT 30 U/L (Normal) Range: 12-78 ALK 43 U/L (Abnormal) Range: 50-136 AST 23 U/L (Normal) Range: 15-37 CA 9.1 mg/dL (Normal) Range: 8.5-10.1 AG 1.1 {RATIO} (Normal) Range: 0.9-2.4 GLOB 3.3 g/dL (Normal) Range: 2.7-4.2 ALB 3.6 g/dL (Normal) Range: 3.4-5.0 TPROT 6.9 g/dL (Normal) Range: 6.4-8.2 BC 11.1 {RATIO} (Normal) Range: 10-20 GFRAA 82 mL/min (Normal) GFR 68 mL/min (Normal) CREAT 0.9 mg/dL (Normal) Range: 0.6-1.0 BUN 10 mg/dL (Normal) Range: 7-18 GLU 117 mg/dL (Abnormal) Range: 70-110 Comments: Fasting Glucose result from 110 to <126 mg/dL suggests IMPAIRED HOMEOSTASIS per A.D.A. criteria. :30 LIPID LDL 86 mg/dL (Normal) Range: 0-130 VLDL 23 mg/dL (Normal) Range: 5-40 HDL 45 mg/dL (Normal) Comments: Reference Range HDL <40 mg/dL Low HDL Cholesterol HDL >or= 60 mg/dL High HDL Cholesterol TRIG 115 mg/dL (Normal) Comments: Serum Triglycerides Reference Interval Normal <150 mg/dL Borderline high 150 - 199 mg/dL High 200 - 499 mg/dL Very High > or = 500 mg/dL CHOL 154 mg/dL (Normal) Comments: <200 mg/dL Desirable 200-240 mg/dL Borderline >240 mg/dL High Risk :30 MIACRE tMICROCREAT 11.8 {mg/g_CRE} (Normal) MIALB 13.0 mg/L (Normal) CREU 109.7 mg/dL (Normal) :30 TSH 1.69 {uIU/mL} (Normal) Range: 0.358-3.74 :02 UNILAT LT SCRN DIGITAL & CAD Radiology Report See Note (Normal) Comments: MAMMOGRAPHY - UNILATERAL SCREENING: LEFT BREAST REASON FOR EXAM: Female, 61 years old. Routine annual screeningexamination (unilateral). PERTINENT HISTORY: Previous right mastectomy. TECHNIQUE: D igital examination. Mediolateral oblique (MLO) andcraniocaudad (CC) views of the breast were obtained. CAD: Yes COMPARISON: December 03, 2010 FINDINGS:The breast composition is almost entirely fatty repl aced. There are no dominant masses or suspicious calcifications. No other significant abnormalities are identified. IMPRESSION:Stable unilateral screening mammogram. Yearly follow-up recommended. (A) ASSESSMENT CATEGORY:BIRADS Category 1: Negative. A letter regarding these results will besent to the patient by the facility within 30 days. Approximately 10% of breast cancers are not detected by ma mmography. Anormal mammogram should not delay biopsy of a clinically suspiciousabnormality. Signed:Mark Salas M.D.December 07, 2011 at 11:40:02 AM EDTElectronically Signed MV/MV Professional Inte rpretation Provided By: [facility], , To consult with a radiologist regarding this report, please call our [id number] line @ Dictated on 12/07/11 0807 by TIERRA BENJAMIN,Rhiannaanscribed on 12/07/11 1144 by ITS IMPORTSign by TIERRA BENJAMIN,MARK on 12/07/11 1146 Sign by: MARK MAYORGA MD [id number]:04 CBCMD PE ADEQUATE (Normal) RBCM NORM C+C {NORMAL} (Normal) EOS 1 % (Normal) Range: 0-5 MON 5 % (Normal) Range: 0-10 LYMPH 15 % (Abnormal) Range: 19-41 BAND 3 % (Normal) Range: 0-5 PMN 76 % (Abnormal) Range: 47-70 BOB 100 (Normal) ANC 5.2 3/uL (Normal) Range: 2.0-7.7 Comments: AMENDED REPORT 11/12/11 0926 PLT 288 K/mm3 (Normal) Range: 150-450 RDW 13.3 % (Normal) Range: 11.6-14.6 MCHC 35.0 g/dL (Normal) Range: 32-36 MCH 32.2 pg (Abnormal) Range: 27.0-32.0 MCV 91.9 fL (Normal) Range: 81-99 HCT 37.0 % (Normal) Range: 37-47 HGB 13.0 g/dL (Normal) Range: 12.0-16.0 RBC 4.03 {M/mm3} (Abnormal) Range: 4.2-5.4 WBC 6.6 K/mm3 (Normal) Range: 4.4-11.0 :04 CMP CO2 32.0 mmol/L (Normal) Range: 21.0-32.0 GAP 7 (Normal) Range: 5-15 CL 102 mmol/L (Normal) Range: 98-107 K 3.7 mmol/L (Normal) Range: 3.5-5.1 NA 141 mmol/L (Normal) Range: 136-145 ALT 30 U/L (Normal) Range: 12-78 BIT 0.50 mg/dL (Normal) Range: 0.00-1.00 ALK 47 U/L (Abnormal) Range: 50-136 AST 18 U/L (Normal) Range: 15-37 CA 9.4 mg/dL (Normal) Range: 8.5-10.1 AG 1.1 {RATIO} (Normal) Range: 0.9-2.4 GLOB 3.4 g/dL (Normal) Range: 2.7-4.2 ALB 3.8 g/dL (Normal) Range: 3.4-5.0 BC 15.0 {RATIO} (Normal) Range: 10-20 TPROT 7.2 g/dL (Normal) Range: 6.4-8.2 GFR 60 mL/min (Normal) GFRAA 73 mL/min (Normal) CREAT 1.0 mg/dL (Normal) Range: 0.6-1.0 BUN 15 mg/dL (Normal) Range: 7-18 GLU 165 mg/dL (Abnormal) Range: 70-110 Comments: Fasting Glucose result greater than or equal to 126 mg/dL suggests DIABETES MELLITUS per A.D.A. criteria. :04 LIPID VLDL 31 mg/dL (Normal) Range: 5-40 HDL 44 mg/dL (Normal) Comments: Reference Range HDL <40 mg/dL Low HDL Cholesterol HDL >or= 60 mg/dL High HDL Cholesterol LDL 102 mg/dL (Normal) Range: 0-130 CHOL 177 mg/dL (Normal) Comments: <200 mg/dL Desirable 200-240 mg/dL Borderline >240 mg/dL High Risk TRIG 156 mg/dL (Normal) Comments: Serum Triglycerides Reference Interval Normal <150 mg/dL Borderline high 150 - 199 mg/dL High 200 - 499 mg/dL Very High > or = 500 mg/dL :04 VITD 62.8 ng/mL (Normal) Range: 30.0-100.0 Comments: Vitamin D deficiency has been defined by the [place] of[place] and an Endocrine Society practice guideline as alevel of serum 25-OH vitamin D less than 20 ng/mL (1,2).The Endocrine Society went on to further define vitamin Dinsufficiency as a level between 21 and 29 ng/mL (2).1. IOM ([place] of [place]). 2010. Dietary reference intakes for calcium and D. [place]: The National Academies Press.2. Yashira MF, Radha NC, Wally STEINER, et al. Evaluation, treatment, and prevention of vitamin D deficiency: an Endocrine Society clinical practice guideline. JCEM. 2010; 96(7): 1911-30.Performed at: - Lab[address] [id number] Director: Hollie Vang MD, Phone: [phone] :[phone] HgA1C , Office (31844) HgA1C , Office 6.3 % (Normal) Range: 4.6 - 7.1 :18 Blood Glucose , Office (23717) Blood Glucose , Office 137 (Normal) :08 Blood Glucose , Office (43476) Blood Glucose , Office 142 (Normal) :37 CBCD,SMEAR DIFF EOS 1 % (Normal) Range: 0-5 MONOCYTE 2 % (Normal) Range: 0-10 PLT EST SeeNote (Normal) Comments: Result: ADEQUATE RED CELL MORPH SeeNote {NORMAL} (Normal) Comments: Result: NORM C+C CELLS COUNTED 100 (Normal) LYMPH 37 % (Normal) Range: 19-41 SEGS 60 % (Normal) Range: 47-70 ABSOLUTE NEUT 3.0 3/uL (Normal) Range: 2.0-7.7 PLT 260 K/mm3 (Normal) Range: 150-450 RDW 13.3 % (Normal) Range: 11.6-14.6 MCH 32.2 pg (Abnormal) Range: 27.0-32.0 MCHC 34.1 g/dL (Normal) Range: 32-36 HCT 37.2 % (Normal) Range: 37-47 MCV 94.3 fL (Normal) Range: 81-99 HGB 12.7 g/dL (Normal) Range: 12.0-16.0 RBC 3.95 {M/mm3} (Abnormal) Range: 4.2-5.4 WBC 4.7 K/mm3 (Normal) Range: 4.4-11.0 :37 COMP METABOLIC GAP 8 (Normal) Range: 5-15 CL 105 mmol/L (Normal) Range: 98-107 CO2 29.0 mmol/L (Normal) Range: 21.0-32.0 K 4.3 mmol/L (Normal) Range: 3.5-5.1 ALT 36 U/L (Normal) Range: 12-78 NA 142 mmol/L (Normal) Range: 136-145 T BILI 0.50 mg/dL (Normal) Range: 0.00-1.00 ALK P 48 U/L (Abnormal) Range: 50-136 A/G 1.2 {RATIO} (Normal) Range: 0.9-2.4 AST 17 U/L (Normal) Range: 15-37 CA 10.1 mg/dL (Normal) Range: 8.5-10.1 ALB 3.8 g/dL (Normal) Range: 3.4-5.0 BUN/CRE 12.7 {RATIO} (Normal) Range: 10-20 GLOB 3.1 g/dL (Normal) Range: 2.7-4.2 T PROT 6.9 g/dL (Normal) Range: 6.4-8.2 EST GFR - AA 65 mL/min (Normal) BUN 14 mg/dL (Normal) Range: 7-18 CREAT,SERUM 1.1 mg/dL (Abnormal) Range: 0.6-1.0 EST GFR 54 mL/min (Abnormal) GLU 101 mg/dL (Normal) Range: 70-110 :37 LIPID LDL 119 mg/dL (Normal) Range: 0-130 VLDL 26 mg/dL (Normal) Range: 5-40 HDL 53 mg/dL (Normal) Comments: Reference Range HDL <40 mg/dL Low HDL Cholesterol HDL >or= 60 mg/dL High HDL Cholesterol TRIG 130 mg/dL (Normal) Comments: Serum Triglycerides Reference Interval Normal <150 mg/dL Borderline high 150 - 199 mg/dL High 200 - 499 mg/dL Very High > or = 500 mg/dL CHOL 198 mg/dL (Normal) Comments: <200 mg/dL Desirable 200-240 mg/dL Borderline >240 mg/dL High Risk :37 MICROALB:CRE UR MALB:CREAT <TEST NOT PERFORMED> {mg/g_CRE} (Normal) MICROALBUMIN,UR < 5.0 mg/L (Normal) UR CREAT 51.9 mg/dL (Normal) :37 VIT D,25 66191 50.9 ng/mL (Normal) Range: 32.0-100.0 Comments: Recent studies consider the lower limit of 32.0 ng/mL to cj threshold for optimal health.Reginald GARDNER. J Nutr. 2004;135(2):317-22.Performed at: [place] [address]Lab Director: Hollie Vang MD, Phone: [phone] :[phone] UNILAT SCRN DIGITAL & CAD Radiology Report See Note (Normal) Comments: MAMMOGRAPHY - UNILATERAL SCREENING: LEFT BREAST INDICATION:Female, 60 years old. Routine annual screening examination. PERTINENT HISTORY:Personal history of breast cancer. Grandmother with breast can cer. TECHNIQUE:Digital examination. Mediolateral oblique (MLO) and craniocaudad (CC)views of the breast were obtained. CAD: CAD was performed on this study.Four mole markers placed on breast. COMPARIS ON: August 07, 2008 December 11 2009 FINDINGS:The breast composition is almost entirely fatty replaced. There are no masses or suspicious microcalcifications. No other significant abnormalities are iden tified. IMPRESSION:Normal unilateral screening mammogram. One year follow- up recommended. (1) ASSESSMENT CATEGORY:BIRADS Category 2: Benign finding(s). A letter regarding these resultswill be sent to the patient by the facility within 30 days. Approximately 10% of breast cancers are not detected by mammography. Anormal mammogram should not delay biopsy of a clinically suspiciousabnormality. Dic tated on 12/03/10 0753 by MARYSOL BENJAMIN,PAMELATranscribed on 12/03/101714 by ITS IMPORTSign by MARSYOL BENJAMIN,ARMANDO on 12/03/101715 Sign by: ____ MARYSOL BENJAMIN,ARMANDO 03-Dec-20108:19 DEXA BONE DENSITY STUDY () Radiology Report See Note (Normal) Comments: CLINICAL:Female, 60 years old. Early menopause at 32 years old. Past use oftamoxifen x 5 years andFemara for 5 years. EXAMINATION:DUAL ENERGY X-RAY ABSORPTIOMETRY / DEXA. TECHNIQUE:Bone Mine ral Density (BMD) measurements of lumbar spine and bilateralhipswere obtained. COMPARISON:May 27, 2006 FINDINGS: Lumbar Spine (L1-L4): g/cm2 (1.123 ) / T-score (-0.5 ) / Z- score (0.0 )Left Femur Total: g/cm2 ( 0.912 ) / T-score (minus 0.8) / Z-score (-0.3)Right Femur Total: g/cm2 (0.915 ) / T-score (-0.7 ) / Z-score (-0.3 ) Additional Abnormal T-Scores: T. Value of the left femoral neck is -1.3which is within the range of osteopenia. T. value of the right femoralneckis -1.4 which is in the range of osteopenia. Changes in bone mineral density compared to the previous study are asfollows Lumbar Spine (L1-L4): increased 4.6 %.Left Femur Total: decreased 11.5 %.Right Femur Total: Not available %. IMPRESSION:Based on femoral neck values and the lumbar spine,The patient is considered osteopenic, as outlined abo ve, according toWorldHealth Organization (WHO) criteria. Fracture risk is moderate. Reference Information:The T-score is the number of standard deviations above or below thestandard which is normal for young adults at their peak bone mineraldensity. The World Health Organization (WHO) interprets the T-scores asfollows: Above -1 Normal bone densityBetween -1 and -2.5 OsteopeniaEqual to / or below -2.5 Osteoporosis As a practical clinical guideline, osteopenia may be graded as follows:Mild -1 through -1.5Moderate -1.6 through -2.0Severe -2.1 through -2.4 The Z-score is the number of standard deviation s above or below age-matchedcontrols. A Z-score of less than -1.5 would be considered abnormal. References:1. NIH Osteoporosis and Related Bone Diseases http://www.osteo.org2. International Society for Clinical Densitometry http://www.iscd.org3. National Osteoporosis Foundation http://www.nof.org Dictated on 12/03/1035 by ARMANDO GREGG MDTranscribed on 12/05/10814 by ITS IMPORTSign by ARMANDO GREGG MD on 12/05/10815 Sign by: ARMANDO GREGG MD :18 HgA1C , Office (59846) HgA1C , Office 6.7 % (Normal) Range: 4.6 - 7.1 :18 Blood Glucose , Office (47779) Blood Glucose , Office 145 (Normal) 82-Prf-[id number]:02 COMP METABOLIC GAP 10 (Normal) Range: 5-15 CL 105 mmol/L (Normal) Range: 98-107 CO2 28.0 mmol/L (Normal) Range: 21.0-32.0 K 3.9 mmol/L (Normal) Range: 3.5-5.1 NA 143 mmol/L (Normal) Range: 136-145 T BILI 0.40 mg/dL (Normal) Range: 0.00-1.00 ALT 35 U/L (Normal) Range: 12-78 ALK P 49 U/L (Abnormal) Range: 50-136 AST 18 U/L (Normal) Range: 15-37 A/G 1.0 {RATIO} (Normal) Range: 0.9-2.4 CA 9.3 mg/dL (Normal) Range: 8.5-10.1 ALB 3.9 g/dL (Normal) Range: 3.4-5.0 GLOB 3.8 g/dL (Normal) Range: 2.7-4.2 T PROT 7.7 g/dL (Normal) Range: 6.4-8.2 BUN/CRE 13.3 {RATIO} (Normal) Range: 10-20 EST GFR - AA 82 mL/min (Normal) EST GFR 68 mL/min (Normal) CREAT,SERUM 0.9 mg/dL (Normal) Range: 0.6-1.0 BUN 12 mg/dL (Normal) Range: 7-18 GLU 99 mg/dL (Normal) Range: 70-110 93-Ohm-233131:02 LIPID LDL 116 mg/dL (Normal) Range: 0-130 VLDL 30 mg/dL (Normal) Range: 5-40 HDL 54 mg/dL (Normal) Comments: Reference Range HDL <40 mg/dL Low HDL Cholesterol HDL >or= 60 mg/dL High HDL Cholesterol TRIG 152 mg/dL (Normal) Comments: Serum Triglycerides Reference Interval Normal <150 mg/dL Borderline high 150 - 199 mg/dL High 200 - 499 mg/dL Very High > or = 500 mg/dL CHOL 200 mg/dL (Normal) Comments: <200 mg/dL Desirable 200-240 mg/dL Borderline >240 mg/dL High Risk :02 VIT D,25 34204 44.8 ng/mL (Normal) Range: 32.0-100.0 Comments: Recent studies consider the lower limit of 32.0 ng/mL to cj threshold for optimal health.Reginald GARDNER. J Nutr. 2004;135(2):317-22.Performed at: [place] [address] Director: Hollie Vang MD, Phone: [phone] [id number]-077677:56 HgA1C , Office (03509) HgA1C , Office 6.2 % (Normal) Range: 4.6 - 7.1 :56 Blood Glucose , Office (14576) Blood Glucose , Office 99 (Normal) :54 UNILAT LT SCRN DIGITAL & CAD Radiology Report See Note (Normal) Comments: Exam Number: [id number] MAMMOGRAPHY - UNILATERAL SCREENING: LEFT BREAST INDICATION:Routine annual screening examination. PERTINENT HISTORY:Personal history of breast cancer. TECHNIQUE:Digital examinatio n. Mediolateral oblique (MLO) and craniocaudad(CC) views of the breast were obtained. CAD was performed on thisstudy. COMPARISON:Comparison is made with prior examination dated August 07, 2008. FINDI NGS:The breast composition is almost entirely fatty replaced. There are no masses or suspicious microcalcifications. No other significant abnormalities are identified. There has beenno significant dasilva ge since the prior study. IMPRESSION:Normal unilateral screening mammogram. Yearly follow-up recommended. 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 (Normal) DIAGN Comment (Normal) Comments: NEGATIVE FOR INTRAEPITHELIAL LESION AND MALIGNANCY.Satisfactory for evaluation. Endocervical and/or squamous metaplasticcells (endocervical component) are present.Lindsay Guajardo Waffle Machine Operator (ASCP )This liquid based ThinPrep(R) pap test was screened withthe use of an image guided system. PAPSMR Comment (Normal) Comments: The Pap smear is a screening test designed to aid in thedetection of premalignant and malignant conditions of theuterine cervix. It is not a diagnostic procedure andshould not be used as the sole means of detecting cervicalcancer. 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 It is not a diagnostic procedure andshould not be used as the sole means of detecting cervicalcancer. Both false-positive and false-negative reports dooccur..The HPV DNA reflex criteria were not met with this specimenresult therefore, no HPV testing was performed..Performe d at: - [facility] [id number] Director: Domo Palafox MD, Phone: [phone] COMM . (Normal) DIAGN Comment (Normal) Comments: NEGATIVE FOR INTRAEPITHELIAL LESION AND MALIGNANCY.Satisfactory for evaluation. Endocervical and/or squamous metaplasticcells (endocervical component) are present.Lindsay Guajardo Waffle Machine Operator (ASCP )This liquid based ThinPrep(R) pap test was screened withthe use of an image guided system. :47 LIPID PANEL ([id number]) Comments: PATIENT WAS FASTINGPERFORMED BY: [id number] [facility]At[facility] [id number] LDL Cholesterol Calc 95 mg/dL (Normal) Range: 0-99 LDL/HDL Ratio 1.8 {ratio_units} (Normal) Range: 0.0-3.2 Cholesterol, Total 170 mg/dL (Normal) Range: 100-199 HDL Cholesterol 54 mg/dL (Normal) Comments: According to ATP-III Guidelines, HDL-C >59 mg/dL is considered anegative risk factor for CHD. Triglycerides 104 mg/dL (Normal) Range: 0-149 VLDL Cholesterol Jennifer 21 mg/dL (Normal) Range: 5-40 :47 METABOLIC PANEL, Comments: PATIENT WAS FASTINGPERFORMED BY: [facility]At[facility] [id number] Information: [id number] COMPREHENSIVE ([id number]) ALT (SGPT) 26 [iU]/L (Normal) Range: 0-40 A/G Ratio 1.8 (Normal) Range: 1.1-2.5 Alkaline Phosphatase, S 47 [iU]/L (Normal) Range: 25-150 AST (SGOT) 24 [iU]/L (Normal) Range: 0-40 Bilirubin, Total 0.4 mg/dL (Normal) Range: 0.0-1.2 Albumin, Serum 4.2 g/dL (Normal) Range: 3.5-5.5 Calcium, Serum 9.5 mg/dL (Normal) Range: 8.7-10.2 Carbon Dioxide, Total 25 mmol/L (Normal) Range: 20-32 Chloride, Serum 103 mmol/L (Normal) Range: 97-108 Globulin, Total 2.3 g/dL (Normal) Range: 1.5-4.5 Potassium, Serum 4.3 mmol/L (Normal) Range: 3.5-5.2 Protein, Total, Serum 6.5 g/dL (Normal) Range: 6.0-8.5 BUN/Creatinine Ratio 15 (Normal) Range: 8-27 Sodium, Serum 142 mmol/L (Normal) Range: 135-145 Creatinine, Serum 0.86 mg/dL (Normal) Range: 0.57-1.00 eGFR >59 mL/min/1.73 (Normal) eGFR AfricanAmerican >59 mL/min/1.73 Comments: Note: Persistent reduction for 3 months or more in an eGFR<60 mL/min/1.73 m2 defines CKD. Patients with eGFR values>/=60 mL/min/1.73 m2 may also have CKD if evidence of persistentproteinuria is (Normal) present. Additional information may be found [email or web address]. BUN 13 mg/dL (Normal) Range: 5-26 Glucose, Serum 102 mg/dL (Abnormal) Range: 65-99 :47 MICROALBUMIN: CREATININE RATIO Comments: PATIENT WAS FASTINGPERFORMED BY: [facility]Robert [facility] HamiltonPpjsgs9899 [facility] [id number] ([id number]) AND (73835) Microalb/Creat Ratio 3.5 {mg/g_creat} (Normal) Range: 0.0-30.0 Microalbumin, Urine 1.8 ug/mL (Normal) Range: 0.0-17.0 Creatinine, Urine 51.1 mg/dL (Normal) Range: 15.0-278.0 :47 Vitamin D Hydroxy (78350) Comments: PATIENT WAS FASTINGPERFORMED BY: [facility]CoRobert [facility] at [id number] [facility] [id number] Vitamin D, 25-Hydroxy 37.3 ng/mL (Normal) Range: 32.0-100.0 Comments: Recent studies consider the lower limit of 32.0 ng/mL to be athreshold for optimal health.Reginald GARDNER. J Nutr. 2004;135(2):317-22. :27 Blood Glucose , Office (40732) Blood Glucose , Office 110 (Normal) :27 HgA1C , Office (35854) HgA1C , Office 6.4 % (Normal) Range: 4.6 - 7.1 :39 COMP METABOLIC ALK P 54 U/L (Normal) Range: 50-136 ALT 36 U/L (Normal) Range: 12-78 AST 25 U/L (Normal) Range: 15-37 CL 103 mmol/L (Normal) Range: 98-107 CO2 30.0 mmol/L (Normal) Range: 21.0-32.0 GAP 11 (Normal) Range: 5-15 K 4.0 mmol/L (Normal) Range: 3.5-5.1 NA 144 mmol/L (Normal) Range: 136-145 T BILI 0.40 mg/dL (Normal) Range: 0.00-1.00 A/G 1.1 {RATIO} (Normal) Range: 0.9-2.4 ALB 3.9 g/dL (Normal) Range: 3.4-5.0 BUN/CRE 14.0 {RATIO} (Normal) Range: 10-20 CA 9.1 mg/dL (Normal) Range: 8.5-10.1 EST GFR 60 mL/min (Normal) EST GFR - AA 73 mL/min (Normal) GLOB 3.6 g/dL (Normal) Range: 2.7-4.2 T PROT 7.5 g/dL (Normal) Range: 6.4-8.2 BUN 14 mg/dL (Normal) Range: 7-18 CREAT,SERUM 1.0 mg/dL (Normal) Range: 0.6-1.0 GLU 100 mg/dL (Normal) Range: 70-110 :39 LIPID CHOL 193 mg/dL (Normal) Comments: <200 mg/dL Wlscvtwpr268-277 mg/dL Borderline>240 mg/dL High Risk HDL 51 mg/dL (Normal) Comments: Reference RangeHDL <40 mg/dL Low HDL CholesterolHDL >or= 60 mg/dL High HDL Cholesterol LDL 117 mg/dL (Normal) Range: 0-130 TRIG 127 mg/dL (Normal) Comments: Serum Triglycerides Reference IntervalNormal <150 mg/dLBorderline high 150 - 199 mg/dLHigh 200 - 499 mg/ dLVery High > or = 500 mg/dL VLDL 25 mg/dL (Normal) Range: 5-40 :39 VIT D,25 68900 40.5 ng/mL (Normal) Range: 32.0-100.0 Comments: Recent studies consider the lower limit of 32.0 ng/mL to cj threshold for optimal health.Reginald GARDNER. J Nutr. 2004;135(2):317-22.Performed at: [facility] [id number] Director: Hollie Vang MD [id number] CA 9.3 mg/dL (Normal) Range: 8.5-10.1 :30 PTH,Intact 23 pg/mL (Normal) Range: 14-72 :26 HgA1C , Office (16195) HgA1C , Office 6.7 % (Normal) Range: 4.6 - 7.1 :26 Blood Glucose , Office (63631) Blood Glucose , Office 141 (Normal) :54 CBCD ABSOLUTE NEUT 3.5 3/uL (Normal) Range: 2.0-7.7 BASO% 0.4 % (Normal) Range: 0-1 EO% 2.1 % (Normal) Range: 0-5 LY% 28.3 % (Normal) Range: 19-41 MONO% 7.3 % (Normal) Range: 0-10 NEUT% 61.9 % (Normal) Range: 47-70 HCT 38.2 % (Normal) Range: 37-47 HGB 13.1 g/dL (Normal) Range: 12.0-16.0 MCH 31.9 pg (Normal) Range: 27.0-32.0 MCHC 34.4 g/dL (Normal) Range: 32-36 MCV 92.9 fL (Normal) Range: 81-99 MPV 7.8 fL (Normal) Range: 6.5-12.0 PLT 285 K/mm3 (Normal) Range: 150-450 RBC 4.11 {M/mm3} (Abnormal) Range: 4.2-5.4 RDW 13.3 % (Normal) Range: 11.6-14.6 WBC 5.6 K/mm3 (Normal) Range: 4.4-11.0 :54 COMP METABOLIC CL 107 mmol/L (Normal) Range: 98-107 CO2 31.0 mmol/L (Normal) Range: 21.0-32.0 GAP 3 (Abnormal) Range: 5-15 K 4.5 mmol/L (Normal) Range: 3.5-5.1 NA 141 mmol/L (Normal) Range: 136-145 T BILI 0.40 mg/dL (Normal) Range: 0.00-1.00 A/G 1.2 {RATIO} (Normal) Range: 0.9-2.4 ALB 3.8 g/dL (Normal) Range: 3.4-5.0 ALK P 48 U/L (Abnormal) Range: 50-136 ALT 29 U/L (Normal) Range: 12-78 AST 16 U/L (Normal) Range: 15-37 BUN 15 mg/dL (Normal) Range: 7-18 BUN/CRE 16.7 {RATIO} (Normal) Range: 10-20 CA 10.3 mg/dL (Abnormal) Range: 8.5-10.1 CREAT,SERUM 0.9 mg/dL (Normal) Range: 0.6-1.0 EST GFR 68 mL/min (Normal) EST GFR - AA 82 mL/min (Normal) GLOB 3.3 g/dL (Normal) Range: 2.7-4.2 GLU 112 mg/dL (Abnormal) Range: 70-110 Comments: Fasting Glucose result from 110 to <126 mg/dLsuggests IMPAIRED HOMEOSTASIS per A.D.A. criteria. T PROT 7.1 g/dL (Normal) Range: 6.4-8.2 :54 LIPID CHOL 193 mg/dL (Normal) Comments: <200 mg/dL Dogmawwum912-131 mg/dL Borderline>240 mg/dL High Risk HDL 53 mg/dL (Normal) Comments: Reference RangeHDL <40 mg/dL Low HDL CholesterolHDL >or= 60 mg/dL High HDL Cholesterol LDL 116 mg/dL (Normal) Range: 0-130 TRIG 118 mg/dL (Normal) Comments: Serum Triglycerides Reference IntervalNormal <150 mg/dLBorderline high 150 - 199 mg/dLHigh 200 - 499 mg/ dLVery High > or = 500 mg/dL VLDL 24 mg/dL (Normal) Range: 5-40 :54 MICROALB:CRE UR MALB:CREAT 7.4 {mg/g_CRE} (Normal) MICROALBUMIN,UR 6.2 mg/L (Normal) UR CREAT 82.7 mg/dL (Normal) :54 VIT D,25 28057 44.5 ng/mL (Normal) Range: 32.0-100.0 Comments: Recent studies consider the lower limit of 32.0 ng/mL to cj threshold for optimal health.Reginald GARDNER. J Nutr. 2004;135(2):317-22.Performed At: [facility] [place], [place] [id number] :31 HgA1C , Office (15306) HgA1C , Office 6.7 % (Normal) Range: 4.6 - 7.1 :31 Blood Glucose , Office (79889) Blood Glucose , Office 127 (Normal) :37 COMP METABOLIC A/G 1.0 {RATIO} (Normal) Range: 0.9-2.4 ALB 3.5 g/dL (Normal) Range: 3.4-5.0 ALK P 76 U/L (Normal) Range: 50-136 ALT 34 U/L (Normal) Range: 30-65 AST 22 U/L (Normal) Range: 15-37 BUN 14 mg/dL (Normal) Range: 7-18 BUN/CRE 15.6 {RATIO} (Normal) Range: 10-20 CA 9.2 mg/dL (Normal) Range: 8.5-10.1 CL 105 mmol/L (Normal) Range: 98-107 CO2 29.0 mmol/L (Normal) Range: 21.0-32.0 CREAT,SERUM 0.9 mg/dL (Normal) Range: 0.6-1.0 EST GFR 68 mL/min (Normal) EST GFR - AA 82 mL/min (Normal) GAP 7 (Normal) Range: 5-15 GLOB 3.5 g/dL (Normal) Range: 2.7-4.2 GLU 118 mg/dL (Abnormal) Range: 70-110 Comments: Fasting Glucose result from 110 to <126 mg/dL suggests IMPAIRED HOMEOSTASIS per A.D.A. criteria. K 3.9 mmol/L (Normal) Range: 3.5-5.1 NA 141 mmol/L (Normal) Range: 136-145 T BILI 0.40 mg/dL (Normal) Range: 0.00-1.00 T PROT 7.0 g/dL (Normal) Range: 6.4-8.2 :37 D BILI 0.11 mg/dL (Normal) Range: 0.00-0.30 :37 LIPID CHOL 198 mg/dL (Normal) Comments: <200 mg/dL Desirable 200-240 mg/dL Borderline >240 mg/dL High Risk HDL 52 mg/dL (Normal) Comments: Reference Range HDL <40 mg/dL Low HDL Cholesterol HDL >or= 60 mg/dL High HDL Cholesterol LDL 118 mg/dL (Normal) Range: 0-130 TRIG 142 mg/dL (Normal) Comments: Serum Triglycerides Reference Interval Normal <150 mg/dL Borderline high 150 - 199 mg/dL High 200 - 499 mg/dL Very High > or = 500 mg/dL VLDL 28 mg/dL (Normal) Range: 5-40 :37 VIT D,25 59729 43.1 ng/mL (Normal) Range: 32.0-100.0 Comments: Recent studies consider the lower limit of 32.0 ng/mL to cj threshold for optimal health.Reginald GARDNER. J Nutr. 2004;135(2):317-22.Performed At: [facility] [place], [place] [id number] :37 HgA1C , Office (19732) HgA1C , Office 6.1 % (Normal) Range: 4.6 - 7.1 :37 Blood Glucose , Office (53432) Blood Glucose , Office 110 (Normal) :53 LIPID CHOL 217 mg/dL (Abnormal) Comments: <200 mg/dL Desirable 200-240 mg/dL Borderline >240 mg/dL High Risk HDL 43 mg/dL (Normal) Comments: Reference Range HDL <40 mg/dL Low HDL Cholesterol HDL >or= 60 mg/dL High HDL Cholesterol LDL 118 mg/dL (Normal) Range: 0-130 TRIG 278 mg/dL (Abnormal) Comments: Serum Triglycerides Reference Interval Normal <150 mg/dL Borderline high 150 - 199 mg/dL High 200 - 499 mg/dL Very High > or = 500 mg/dL VLDL 56 mg/dL (Abnormal) Range: 5-40 :53 LIVER ALB 3.5 g/dL (Normal) Range: 3.4-5.0 ALK P 96 U/L (Normal) Range: 50-136 ALT 58 U/L (Normal) Range: 30-65 AST 36 U/L (Normal) Range: 15-37 D BILI 0.12 mg/dL (Normal) Range: 0.00-0.30 T BILI 0.60 mg/dL (Normal) Range: 0.00-1.00 T PROT 7.0 g/dL (Normal) Range: 6.4-8.2 :53 PROT.[id number] ALBUMIN,UR 30.3 % (Normal) GRRTW-0-KNHX,U 3.4 % (Normal) DHSBW-2-EKFO,U 15.5 % (Normal) BETA GLOB,U 29.8 % (Normal) GAMMA GLOB,U 21.0 % (Normal) M-SPIKE,U SeeNote % (Normal) Comments: Result: Not Observed NOTE Comment (Normal) Comments: Protein electrophoresis scan will follow via computer,mail, or surveillance monitor delivery. PROTEIN,UR 13.2 mg/dL (Normal) Range: 0.0-15.0 :53 PTH,[id number] PTH,Intact 24 pg/mL (Normal) Range: 15-65 Comments: Performed At: [address] [id number] :53 SPE [id number] A/G RATIO 1.3 (Normal) Range: 0.7-2.0 ALBUMIN 3.8 g/dL (Normal) Range: 3.2-5.6 ALPHA-1 GLOBUL 0.2 g/dL (Normal) Range: 0.1-0.4 ALPHA-2 GLOBUL 0.6 g/dL (Normal) Range: 0.4-1.2 BETA GLOBULIN 1.1 g/dL (Normal) Range: 0.6-1.3 GAMMA GLOBULIN 0.9 g/dL (Normal) Range: 0.5-1.6 GLOBULIN, TOTAL 2.9 g/dL (Normal) Range: 2.0-4.5 INTERPRETATION Comment (Normal) Comments: The SPE pattern appears essentially unremarkable. Evidenceof monoclonal protein is not apparent. M-SPIKE SeeNote g/dL (Normal) Comments: Result: Not Observed NOTE: Comment (Normal) Comments: Protein electrophoresis scan will follow via computer,mail, or surveillance monitor delivery. PROTEIN,TOTAL 6.7 g/dL (Normal) Range: 6.0-8.5 :53 TSH 1.57 {uIU/mL} (Normal) Range: 0.358-3.74 :53 VIT D,25 99352 24.6 ng/mL (Abnormal) Range: 32.0-100.0 Comments: Recent studies consider the lower limit of 32.0 ng/mL to cj threshold for optimal health.Reginald GARDNER. J Nutr. 2004;135(2):317-22. :04 HgA1C , Office (60105) HgA1C , Office 5.7 % (Normal) Range: 4.6 - 7.1 :04 Blood Glucose , Office (62689) Blood Glucose , Office 113 (Normal) :07 COMP METABOLIC A/G 1.1 {RATIO} (Normal) Range: 0.9-2.4 ALB 3.5 g/dL (Normal) Range: 3.4-5.0 ALK P 109 U/L (Normal) Range: 50-136 ALT 46 U/L (Normal) Range: 30-65 AST 24 U/L (Normal) Range: 15-37 BUN 12 mg/dL (Normal) Range: 7-18 BUN/CRE 13.3 {RATIO} (Normal) Range: 10-20 CA 8.7 mg/dL (Normal) Range: 8.5-10.1 CL 107 mmol/L (Normal) Range: 98-107 CO2 28.3 mmol/L (Normal) Range: 21.0-32.0 CREAT,SERUM 0.9 mg/dL (Normal) Range: 0.6-1.0 EST GFR 69 mL/min (Normal) EST GFR - AA 84 mL/min (Normal) Comments: ESTIMATED GLOMERULAR FILTRATION RATE The National Kidney Foundation (NKF) guidelines forChronic kidney disease (CKD) recommends all laboratoriesestimate the level of glomerular filtration rate (GFR)in p atients from age 18 - 70 years of age.The eGFR for patient's is the eGFRmultiplied by 1.212. [facility] Laboratory uses the abbreviated Modification of Diet inRenal Disease (MDRD) study equati on to calculate the eGFR.The Estimated GFR equation is not applicable for patients<18 years of age or patients >70 years of age.The following conditions may alter the eGFR calculationresult: extre mes in body size, severe malnutrition orobesity, skeletal muscle disease, paraplegia, quadriplegia,vegetarian diet, , certain drug therapy and rapidlychanging kidney function. Association o f GFR and Staging of Kidney Disease*GFR (mL/min) With Kidney Disease W/O Kidney Disease>/= 90 Stage One Jzyyyk12 - 89 Stage Two Suspect Decreased GFR30 - 59 Stage Three Stage Three15 - 29 Stage Four Stage Four< 15 or Dialysis Stage Five Stage Five *Each stage assumes the associ ated GFR level has been ineffect for at least three months.Additional studies & clinical assessments are indicated toconclude diagnosis of Chronic Kidney Disease (CKD). GAP 8 (Normal) Range: 5-15 GLOB 3.3 g/dL (Normal) Range: 2.7-4.2 GLU 102 mg/dL (Normal) Range: 70-110 K 3.5 mmol/L (Normal) Range: 3.5-5.1 NA 143 mmol/L (Normal) Range: 136-145 T BILI 0.38 mg/dL (Normal) Range: 0.00-1.00 T PROT 6.8 g/dL (Normal) Range: 6.4-8.2 :0 D BILI 0.07 mg/dL (Normal) Range: 0.00-0.30 7 :07 LIPID CHOL 218 mg/dL (Abnormal) Comments: <200 mg/dL Desirable 200-240 mg/dL Borderline >240 mg/dL High Risk HDL 45 mg/dL (Normal) Comments: Reference Range HDL <40 mg/dL Low HDL Cholesterol HDL >or= 60 mg/dL High HDL Cholesterol LDL 122 mg/dL (Normal) Range: 0-130 TRIG 254 mg/dL (Abnormal) Comments: Serum Triglycerides Reference Interval Normal <150 mg/dL Borderline high 150 - 199 mg/dL High 200 - 499 mg/dL Very High > or = 500 mg/dL VLDL 51 mg/dL (Abnormal) Range: 40 :07 MICROALB:CRE UR MALB:CREAT 4.9 {mg/g_CRE} (Normal) MICROALBUMIN,UR 8.3 mg/L (Normal) UR CREAT 168.8 mg/dL (Normal) :56 HgA1C , Office (97801) HgA1C , Office 5.8 % (Normal) Range: 4.6 - 7.1 :56 Blood Glucose , Office (28566) Blood Glucose , Office 103 (Normal) :53 LIPID CHOL 209 mg/dL (Abnormal) Comments: <200 mg/dL Desirable 200-240 mg/dL Borderline >240 mg/dL High Risk HDL 42 mg/dL (Normal) Comments: Reference Range HDL <40 mg/dL Low HDL Cholesterol HDL >or= 60 mg/dL High HDL Cholesterol LDL 121 mg/dL (Normal) Range: 0-130 TRIG 230 mg/dL (Abnormal) Comments: Serum Triglycerides Reference Interval Normal <150 mg/dL Borderline high 150 - 199 mg/dL High 200 - 499 mg/dL Very High > or = 500 mg/dL VLDL 46 mg/dL (Abnormal) Range: 40 :53 LIVER ALB 3.6 g/dL (Normal) Range: 3.4-5.0 ALK P 99 U/L (Normal) Range: 50-136 ALT 48 U/L (Normal) Range: 30-65 AST 21 U/L (Normal) Range: 15-37 D BILI 0.07 mg/dL (Normal) Range: 0.00-0.30 T BILI 0.47 mg/dL (Normal) Range: 0.00-1.00 T PROT 7.2 g/dL (Normal) Range: 6.4-8.2 :32 HgA1C , Office (77816) HgA1C , Office 6.2 % (Normal) Range: 4.6 - 7.1 :32 Blood Glucose , Office (56684) Blood Glucose , Office 131 (Normal) :53 COMP METABOLIC A/G 1.1 {RATIO} (Normal) Range: 0.9-2.4 ALB 3.8 g/dL (Normal) Range: 3.4-5.0 ALK P 101 U/L (Normal) Range: 50-136 ALT 47 U/L (Normal) Range: 30-65 AST 28 U/L (Normal) Range: 15-37 BUN 11 mg/dL (Normal) Range: 7-18 BUN/CRE 13.8 {RATIO} (Normal) Range: 10-20 CA 9.2 mg/dL (Normal) Range: 8.5-10.1 CL 107 mmol/L (Normal) Range: 98-107 CO2 29.3 mmol/L (Normal) Range: 21.0-32.0 CREAT,SERUM 0.8 mg/dL (Normal) Range: 0.6-1.0 GAP 8 (Normal) Range: 5-15 GLOB 3.5 g/dL (Normal) Range: 2.7-4.2 GLU 105 mg/dL (Normal) Range: 70-110 K 3.5 mmol/L (Normal) Range: 3.5-5.1 NA 144 mmol/L (Normal) Range: 136-145 T BILI 0.44 mg/dL (Normal) Range: 0.00-1.00 T PROT 7.3 g/dL (Normal) Range: 6.4-8.2 :53 LIPID HDL 48 mg/dL (Normal) Comments: Reference Range HDL <40 mg/dL Low HDL Cholesterol HDL >or= 60 mg/dL High HDL Cholesterol LDL 156 mg/dL (Abnormal) Range: 0-130 TRIG 184 mg/dL (Normal) Comments: Serum Triglycerides Reference Interval Normal <150 mg/dL Borderline high 150 - 199 mg/dL High 200 - 499 mg/dL Very High > or = 500 mg/dL VLDL 37 mg/dL (Normal) Range: 5-40 CHOL 241 mg/dL (Abnormal) Comments: <200 mg/dL Desirable 200-240 mg/dL Borderline >240 mg/dL High Risk :17 HgA1C , Office (41590) HgA1C , Office 5.9 % (Normal) Range: 4.6 - 7.1 :17 Blood Glucose , Office (18538) Blood Glucose , Office 131 (Normal) :08 LIPID CHOL 278 mg/dL (Abnormal) Comments: <200 mg/dL Desirable 200-240 mg/dL Borderline >240 mg/dL High Risk HDL 46 mg/dL (Normal) Comments: Reference Range HDL <40 mg/dL Low HDL Cholesterol HDL >or= 60 mg/dL High HDL Cholesterol LDL 198 mg/dL (Abnormal) Range: 0-130 TRIG 169 mg/dL (Normal) Comments: Serum Triglycerides Reference Interval Normal <150 mg/dL Borderline high 150 - 199 mg/dL High 200 - 499 mg/dL Very High > or = 500 mg/dL VLDL 34 mg/dL (Normal) Range: 5-40 :08 LIVER ALB 3.4 g/dL (Normal) Range: 3.4-5.0 ALK P 87 U/L (Normal) Range: 50-136 ALT 41 [iU]/L (Normal) Range: 30-65 AST 16 U/L (Normal) Range: 15-37 D BILI 0.07 mg/dL (Normal) Range: 0.00-0.30 T BILI 0.41 mg/dL (Normal) Range: 0.00-1.00 T PROT 6.8 g/dL (Normal) Range: 6.4-8.2 :23 Blood Glucose , Office (15345) Blood Glucose , Office 115 (Normal) :23 HgA1C , Office (65739) HgA1C , Office 5.6 % (Normal) Range: 4.6 - 7.1 :35 COMP METABOLIC A/G 1.0 {RATIO} (Normal) Range: 0.9-2.4 ALB 3.3 g/dL (Abnormal) Range: 3.4-5.0 ALK P 82 U/L (Normal) Range: 50-136 ALT 34 [iU]/L (Normal) Range: 30-65 AST 19 U/L (Normal) Range: 15-37 BUN 11 mg/dL (Normal) Range: 7-18 BUN/CRE 12.2 {RATIO} (Normal) Range: 10-20 CA 9.3 mg/dL (Normal) Range: 8.5-10.1 CL 106 mmol/L (Normal) Range: 98-107 CO2 32.5 mmol/L (Abnormal) Range: 21.0-32.0 Comments: Please Note Reference Interval Change CREAT,SERUM 0.9 mg/dL (Normal) Range: 0.6-1.0 GAP 5 (Normal) Range: 5-15 GLOB 3.2 g/dL (Normal) Range: 2.7-4.2 Comments: Please Note Reference Interval Change GLU 108 mg/dL (Normal) Range: 70-110 K 3.5 mmol/L (Normal) Range: 3.5-5.1 NA 143 mmol/L (Normal) Range: 136-145 T BILI 0.54 mg/dL (Normal) Range: 0.00-1.00 T PROT 6.5 g/dL (Normal) Range: 6.4-8.2 :35 LIPID CHOL 225 mg/dL (Abnormal) Comments: <200 mg/dL Desirable 200-240 mg/dL Borderline >240 mg/dL High Risk HDL 39 mg/dL (Normal) Comments: Reference Range HDL <40 mg/dL Low HDL Cholesterol HDL >or= 60 mg/dL High HDL Cholesterol LDL 132 mg/dL (Abnormal) Range: 0-130 TRIG 268 mg/dL (Abnormal) Comments: Serum Triglycerides Reference Interval Normal <150 mg/dL Borderline high 150 - 199 mg/dL High 200 - 499 mg/dL Very High > or = 500 mg/dL VLDL 54 mg/dL (Abnormal) Range: 5-40 :35 MICROALBUMIN,UR 23.2 mg/L (Normal) :37 Blood Glucose , Office (97184) Comments: [facility] Blood Glucose , Office 123 (Normal) [id number] LIPID CHOL 282 mg/dL (Abnormal) Comments: <200 mg/dL Desirable 200-240 mg/dL Borderline >240 mg/dL High Risk HDL 47 mg/dL (Normal) Comments: Reference Range HDL <40 mg/dL Low HDL Cholesterol HDL >or= 60 mg/dL High HDL Cholesterol LDL 169 mg/dL (Abnormal) Range: 0-130 TRIG 330 mg/dL (Abnormal) Comments: Serum Triglycerides Reference Interval Normal <150 mg/dL Borderline high 150 - 199 mg/dL High 200 - 499 mg/dL Very High > or = 500 mg/dL VLDL 66 mg/dL (Abnormal) Range: 40 :13 LIVER ALB 3.6 g/dL (Normal) Range: 3.4-5.0 ALK P 95 U/L (Normal) Range: 50-136 ALT 40 [iU]/L (Normal) Range: 30-65 AST 18 U/L (Normal) Range: 15-37 D BILI 0.07 mg/dL (Normal) Range: 0.00-0.30 T BILI 0.48 mg/dL (Normal) Range: 0.00-1.00 T PROT 6.9 g/dL (Normal) Range: 6.4-8.2 :21 HgA1C , Office ([id number]) Comments: [facility] HgA1C , Office 5.9 % (Normal) Range: 4.6 - 7.1 :21 Blood Glucose , Office ([id number]) Comments: [facility] Blood Glucose , Office 131 (Normal) :38 LIPID CHOL 158 mg/dL (Normal) Comments: <200 mg/dL Desirable 200-240 mg/dL Borderline >240 mg/dL High Risk HDL 40 mg/dL (Normal) Comments: Reference Range HDL <40 mg/dL Low HDL Cholesterol HDL >or= 60 mg/dL High HDL Cholesterol LDL 88 mg/dL (Normal) Range: 0-130 TRIG 150 mg/dL (Normal) Comments: Serum Triglycerides Reference Interval Normal <150 mg/dL Borderline high 150 - 199 mg/dL High 200 - 499 mg/dL Very High > or = 500 mg/dL VLDL 30 mg/dL (Normal) Range: 40 :38 LIVER ALB 3.7 g/dL (Normal) Range: 3.4-5.0 ALK P 100 U/L (Normal) Range: 50-136 ALT 38 [iU]/L (Normal) Range: 30-65 AST 21 U/L (Normal) Range: 15-37 D BILI 0.12 mg/dL (Normal) Range: 0.00-0.30 T BILI 0.65 mg/dL (Normal) Range: 0.00-1.00 T PROT 7.1 g/dL (Normal) Range: 6.4-8.2 :14 HgA1C , Office ([id number]) HgA1C , Office 5.8 % (Normal) Range: 4.6 - 7.1 :14 Blood Glucose , Office ([id number]) Blood Glucose , Office 134 (Normal) :13 CBCD,SMEAR DIFF BAND 3 % (Normal) Range: 0-5 CELLS COUNTED 100 (Normal) EOS 1 % (Normal) Range: 0-5 HCT 38.1 % (Normal) Range: 37-47 HGB 13.5 g/dL (Normal) Range: 12.0-16.0 LYMPH 35 % (Normal) Range: 19-41 MCH 32.3 pg (Abnormal) Range: 27.0-32.0 MCHC 35.4 g/dL (Normal) Range: 32-36 MCV 91.4 fL (Normal) Range: 81-99 MONOCYTE 7 % (Normal) Range: 0-10 PLT 268 K/mm3 (Normal) Range: 150-450 PLT EST SeeNote (Normal) Comments: Result: ADEQUATE RBC 4.17 {M/mm3} (Abnormal) Range: 4.2-5.4 RDW 13.0 % (Normal) Range: 11.6-14.6 RED CELL MORPH SeeNote {NORMAL} (Normal) Comments: Result: NORM C&C SEGS 54 % (Normal) Range: 47-70 WBC 5.2 K/mm3 (Normal) Range: 4.4-11.0 :13 COMP METABOLIC A/G 1.2 {RATIO} (Normal) Range: 0.9-2.4 ALB 3.8 g/dL (Normal) Range: 3.4-5.0 ALK P 103 U/L (Normal) Range: 50-136 ALT 38 [iU]/L (Normal) Range: 30-65 AST 22 U/L (Normal) Range: 15-37 BUN 16 mg/dL (Normal) Range: 7-18 BUN/CRE 17.8 {RATIO} (Normal) Range: 10-20 CA 9.6 mg/dL (Normal) Range: 8.5-10.1 CL 103 mmol/L (Normal) Range: 98-107 CO2 31.2 mmol/L (Abnormal) Range: 22.0-29.0 CREAT,SERUM 0.9 mg/dL (Normal) Range: 0.6-1.0 GAP 10 (Normal) Range: 5-15 GLOB 3.3 g/dL (Normal) Range: 2.3-3.5 GLU 119 mg/dL (Abnormal) Range: 70-110 Comments: Fasting Glucose result from 110 to <126 mg/dL suggests IMPAIRED HOMEOSTASIS per A.D.A. criteria. K 4.0 mmol/L (Normal) Range: 3.5-5.1 NA 144 mmol/L (Normal) Range: 136-145 T BILI 0.71 mg/dL (Normal) Range: 0.00-1.00 T PROT 7.1 g/dL (Normal) Range: 6.4-8.2 :13 D BILI 0.06 mg/dL (Normal) Range: 0.00-0.30 :13 MICROALB:CRE UR MALB:CREAT 7.9 {mg/g_CRE} (Normal) MICROALBUMIN,UR 20.9 mg/L (Normal) UR CREAT 264.5 mg/dL (Normal) :13 PFLIP CHOL 217 mg/dL (Abnormal) Comments: <200 mg/dL Desirable 200-240 mg/dL Borderline >240 mg/dL High Risk HDL 44 mg/dL (Normal) Comments: Reference Range HDL <40 mg/dL Low HDL Cholesterol HDL >or= 60 mg/dL High HDL Cholesterol LDL 127 mg/dL (Normal) Range: 0-130 TRIG 230 mg/dL (Abnormal) Comments: Serum Triglycerides Reference Interval Normal <150 mg/dL Borderline high 150 - 199 mg/dL High 200 - 499 mg/dL Very High > or = 500 mg/dL VLDL 46 mg/dL (Abnormal) Range: 5-40 :13 TSH 2.13 {uIU/mL} (Normal) Range: 0.34-4.82 :03 HgA1C , Office (83765) HgA1C , Office 5.8 % (Normal) Range: 4.6 - 7.1 :03 Blood Glucose , Office (39591) Blood Glucose , Office 150 (Normal) Plan of Care Name Dates Details Instructions Diabetes mellitus type 2, uncontrolled, without complications : Follow up in 3 months Indication: Diabetes mellitus type 2, uncontrolled, without complications Mixed hyperlipidemia : Cholesterol mgmt Indication: Mixed hyperlipidemia Benign essential hypertension : HTN/CAD Red Flags Indication: Benign essential hypertension Gastroesophageal reflux disease without esophagitis : GERD Education Indication: Gastroesophageal reflux disease without esophagitis Itching : Follow up if no improvement or if symptoms worsen Indication: Itching Poison staci : Poison Staci, [place], and [place]: allergic skin reaction Indication: Poison staci BMI 32.0-32.9,adult : Eprescribed prescriptions (G8553) Indication: BMI 32.0-32.9,adult BMI 32.0-32.9,adult : Follow up if no improvement or if symptoms worsen Indication: BMI 32.0-32.9,adult Poison staci : Poison Staci Education Indication: Poison staci BMI 32.0-32.9,adult : Eprescribed prescriptions (G8553) Indication: BMI 32.0-32.9,adult Encounter for general adult medical examination w/o abnormal findings : fall reduction handout Indication: Encounter for general adult medical examination w/o abnormal findings Encounter for general adult medical examination w/o abnormal findings : elderly packet given Indication: Encounter for general adult medical examination w/o abnormal findings Encounter for general adult medical examination w/o abnormal findings : advance planning information Indication: Encounter for general adult medical examination w/o abnormal findings Encounter for general adult medical examination w/o abnormal findings : *Weight Loss Discussion Indication: Encounter for general adult medical examination w/o abnormal findings Encounter for general adult medical examination w/o abnormal findings : Self breast exam Indication: Encounter for general adult medical examination w/o abnormal findings Encounter for screening for malignant neoplasm of colon (Renamed from Special screening for malignant neoplasms, colon) : *Colon Cancer Screening Indication: Encounter for screening for malignant neoplasm of colon (Renamed from Special screening for malignant neoplasms, colon) Non-smoker : Eprescribed prescriptions (G8553) Indication: Non-smoker Benign essential hypertension : Continue Current Prescription(s) Indication: Benign essential hypertension Diabetes mellitus type 2, uncontrolled, without complications : Reviewed Lab Indication: Diabetes mellitus type 2, uncontrolled, without complications Diabetes mellitus type 2, uncontrolled, without complications : Follow up in 3 months Indication: Diabetes mellitus type 2, uncontrolled, without complications Gastroesophageal reflux disease without esophagitis : GERD Education Indication: Gastroesophageal reflux disease without esophagitis Other and unspecified hyperlipidemia : Cholesterol mgmt Indication: Other and unspecified hyperlipidemia Benign essential hypertension : HTN/CAD Red Flags Indication: Benign essential hypertension Diabetes mellitus type 2, uncontrolled, without complications : Eprescribed prescriptions (G8553) Indication: Diabetes mellitus type 2, uncontrolled, without complications Diabetes mellitus type 2, uncontrolled, without complications : Follow up in 4 months Indication: Diabetes mellitus type 2, uncontrolled, without complications Benign essential hypertension : Diet, Exercise, and Wt loss Indication: Benign essential hypertension Benign essential hypertension : HTN/CAD Red Flags Indication: Benign essential hypertension Other and unspecified hyperlipidemia : Cholesterol mgmt Indication: Other and unspecified hyperlipidemia Other and unspecified hyperlipidemia : *Cholesterol - Nonprescription Treatment Indication: Other and unspecified hyperlipidemia Diabetes mellitus type 2, uncontrolled, without complications : Eprescribed prescriptions (G8553) Indication: Diabetes mellitus type 2, uncontrolled, without complications Controlled type 2 diabetes mellitus : Follow up in 4 months Indication: Controlled type 2 diabetes mellitus Other and unspecified hyperlipidemia : Reviewed Lab Indication: Other and unspecified hyperlipidemia Benign essential hypertension : Diet, Exercise, and Wt loss Indication: Benign essential hypertension Benign essential hypertension : HTN/CAD Red Flags Indication: Benign essential hypertension Controlled type 2 diabetes mellitus : Eprescribed prescriptions (G8553) Indication: Controlled type 2 diabetes mellitus Diabetes mellitus type 2, uncontrolled, without complications : Follow up in 3 months Indication: Diabetes mellitus type 2, uncontrolled, without complications Benign essential hypertension : Continue Current Prescription(s) Indication: Benign essential hypertension Gastroesophageal reflux disease without esophagitis : GERD Education Indication: Gastroesophageal reflux disease without esophagitis Benign essential hypertension : Diet, Exercise, and Wt loss Indication: Benign essential hypertension Benign essential hypertension : HTN/CAD Red Flags Indication: Benign essential hypertension Diabetes mellitus type 2, uncontrolled, without complications : *Diabetes Education Indication: Diabetes mellitus type 2, uncontrolled, without complications Other and unspecified hyperlipidemia : Cholesterol mgmt Indication: Other and unspecified hyperlipidemia Diabetes mellitus type 2, uncontrolled, without complications : Eprescribed prescriptions (G8553) Indication: Diabetes mellitus type 2, uncontrolled, without complications Annual Medicare Phyiscal WITHOUT abnormal findings (Renamed from Encounter for general adult medical examination without abnormal findings) : *Weight Loss Discussion Indication: Annual Medicare Phyiscal WITHOUT abnormal findings (Renamed from Encounter for general adult medical examination without abnormal findings) Annual Medicare Phyiscal WITHOUT abnormal findings (Renamed from Encounter for general adult medical examination without abnormal findings) : fall reduction handout Indication: Annual Medicare Phyiscal WITHOUT abnormal findings (Renamed from Encounter for general adult medical examination without abnormal findings) Annual Medicare Phyiscal WITHOUT abnormal findings (Renamed from Encounter for general adult medical examination without abnormal findings) : elderly packet given Indication: Annual Medicare Phyiscal WITHOUT abnormal findings (Renamed from Encounter for general adult medical examination without abnormal findings) Annual Medicare Phyiscal WITHOUT abnormal findings (Renamed from Encounter for general adult medical examination without abnormal findings) : advance planning information Indication: Annual Medicare Phyiscal WITHOUT abnormal findings (Renamed from Encounter for general adult medical examination without abnormal findings) Annual Medicare Phyiscal WITHOUT abnormal findings (Renamed from Encounter for general adult medical examination without abnormal findings) : Self breast exam Indication: Annual Medicare Phyiscal WITHOUT abnormal findings (Renamed from Encounter for general adult medical examination without abnormal findings) Encounter for screening for malignant neoplasm of colon (Renamed from Special screening for malignant neoplasms, colon) : *Colon Cancer Screening Indication: Encounter for screening for malignant neoplasm of colon (Renamed from Special screening for malignant neoplasms, colon) BMI 33.0-33.9,adult : Eprescribed prescriptions (G8553) Indication: BMI 33.0-33.9,adult Mixed hyperlipidemia : Reviewed Lab Indication: Mixed hyperlipidemia Gastroesophageal reflux disease without esophagitis : GERD Education Indication: Gastroesophageal reflux disease without esophagitis Diabetes mellitus type 2, uncontrolled, without complications : *Diabetes Education Indication: Diabetes mellitus type 2, uncontrolled, without complications Benign essential hypertension : Continue Current Prescription(s) Indication: Benign essential hypertension Benign essential hypertension : Diet, Exercise, and Wt loss Indication: Benign essential hypertension Benign essential hypertension : HTN/CAD Red Flags Indication: Benign essential hypertension Diabetes mellitus type 2, uncontrolled, without complications : Eprescribed prescriptions (G8553) Indication: Diabetes mellitus type 2, uncontrolled, without complications Diabetes mellitus type 2, uncontrolled, without complications : Diabetes and Exercise: Preventing Low Blood Sugar: blood sugar Indication: Diabetes mellitus type 2, uncontrolled, without complications Controlled type 2 diabetes mellitus : Eprescribed prescriptions (G8553) Indication: Controlled type 2 diabetes mellitus Controlled type 2 diabetes mellitus : Eprescribed prescriptions (G8553) Indication: Controlled type 2 diabetes mellitus Other and unspecified hyperlipidemia : Diet, Exercise, and Wt loss Indication: Other and unspecified hyperlipidemia Diabetes mellitus type 2, uncontrolled, without complications : Diet, Exercise, and Wt loss Indication: Diabetes mellitus type 2, uncontrolled, without complications Other and unspecified hyperlipidemia : Eprescribed prescriptions (G8553) Indication: Other and unspecified hyperlipidemia Controlled type 2 diabetes mellitus : Eprescribed prescriptions (G8553) Indication: Controlled type 2 diabetes mellitus Controlled type 2 diabetes mellitus : Diet, Exercise, and Wt loss Indication: Controlled type 2 diabetes mellitus Other and unspecified hyperlipidemia : Diet, Exercise, and Wt loss Indication: Other and unspecified hyperlipidemia Controlled type 2 diabetes mellitus : Eprescribed prescriptions (G8553) Indication: Controlled type 2 diabetes mellitus Other and unspecified hyperlipidemia : Diet, Exercise, and Wt loss Indication: Other and unspecified hyperlipidemia Diabetes mellitus type 2, uncontrolled, without complications : Diet, Exercise, and Wt loss Indication: Diabetes mellitus type 2, uncontrolled, without complications Other and unspecified hyperlipidemia : *Cholesterol - Medication Side Effects Indication: Other and unspecified hyperlipidemia Osteopenia : Osteoporosis in Women *: bone density Indication: Osteopenia Poison staci : Follow up if no improvement or if symptoms worsen Indication: Poison staci Poison staci : Poison Staci Education Indication: Poison staci Mixed hyperlipidemia : Diet, Exercise, and Wt loss Indication: Mixed hyperlipidemia Osteopenia : Osteoporosis in Women *: bone loss Indication: Osteopenia Mixed hyperlipidemia : Diet, Exercise, and Wt loss Indication: Mixed hyperlipidemia Diabetes mellitus type 2, uncontrolled, without complications : Diet, Exercise, and Wt loss Indication: Diabetes mellitus type 2, uncontrolled, without complications Osteopenia : *Bisphosphonate Education Indication: Osteopenia Mixed hyperlipidemia : *Cholesterol - Medication Side Effects Indication: Mixed hyperlipidemia Controlled type 2 diabetes mellitus : Diet, Exercise, and Wt loss Indication: Controlled type 2 diabetes mellitus Osteopenia : *Bisphosphonate Education Indication: Osteopenia Controlled type 2 diabetes mellitus : Diet and Exercise Indication: Controlled type 2 diabetes mellitus Other and unspecified hyperlipidemia : Cholesterol - Medication Side Effects Indication: Other and unspecified hyperlipidemia Other and unspecified hyperlipidemia : Cholesterol - Medication Side Effects Indication: Other and unspecified hyperlipidemia Other and unspecified hyperlipidemia : Diet and Exercise Indication: Other and unspecified hyperlipidemia Other and unspecified hyperlipidemia : Cholesterol - Medication Side Effects Indication: Other and unspecified hyperlipidemia Other and unspecified hyperlipidemia : Cholesterol - Medication Side Effects Indication: Other and unspecified hyperlipidemia Mixed hyperlipidemia : FOLLOW UP IN 3 MONTHS Indication: Mixed hyperlipidemia Other and unspecified hyperlipidemia : FOLLOW UP IN 3 MONTHS Indication: Other and unspecified hyperlipidemia Planned Observations FECAL OCCULT- Tubes sent home ([id number])Indication: Encounter for screening for malignant neoplasm of colon (Renamed from Special screening for malignant neoplasms, colon) On: :44 Request LIPID PANEL ([id number])Indication: Controlled type 2 diabetes mellitus On: 34-Qth-657275:18 Request Vitamin D Hydroxy ([id number])Indication: Osteopenia On: :26 Request CBC WITH MANUAL DIFF ([id number])Indication: Controlled type 2 diabetes mellitus On: :26 Request METABOLIC PANEL, COMPREHENSIVE ([id number])Indication: Controlled type 2 diabetes mellitus On: :26 Request LIPID PANEL ([id number])Indication: Mixed hyperlipidemia On: :26 Request LIPID PANEL ([id number])Indication: Other and unspecified hyperlipidemia On: :45 Request METABOLIC PANEL, COMPREHENSIVE ([id number])Indication: Diabetes mellitus type 2, uncontrolled, without complications On: :45 Request Vitamin D Hydroxy ([id number])Indication: Vitamin D deficiency, unspecified On: :45 Request LIPID PANEL ([id number])Indication: Other and unspecified hyperlipidemia On: :45 Request URINALYSIS, W/ MICRO ([id number])Indication: Benign essential hypertension On: :37 Request Vitamin D Hydroxy ([id number])Indication: Vitamin D deficiency, unspecified On: :36 Request CBC WITH MANUAL DIFF ([id number])Indication: Diabetes mellitus type 2, uncontrolled, without complications On: :36 Request METABOLIC PANEL, COMPREHENSIVE ([id number])Indication: Diabetes mellitus type 2, uncontrolled, without complications On: :36 Request LIPID PANEL ([id number])Indication: Other and unspecified hyperlipidemia On: :26 Request CBC WITH MANUAL DIFF ([id number])Indication: Essential hypertension, malignant On: :26 Request METABOLIC PANEL, COMPREHENSIVE ([id number])Indication: Essential hypertension, malignant On: :26 Request MICROALBUMIN: CREATININE RATIO ([id number]) AND ([id number])Indication: Diabetes mellitus type 2, uncontrolled, without complications On: :25 Request Vitamin D Hydroxy ([id number])Indication: Osteopenia On: :20 Request HgA1C , Office ([id number])Indication: Diabetes mellitus type 2, uncontrolled, without complications On: :57 Request HgA1C , Office (75691)Indication: Diabetes mellitus type 2, uncontrolled, without complications On: :59 Request METABOLIC PANEL, COMPREHENSIVE (79063)Indication: Essential hypertension, malignant On: :25 Request LIPID PANEL ([id number])Indication: Mixed hyperlipidemia On: :25 Request Vitamin D Hydroxy ([id number])Indication: Vitamin D deficiency, unspecified On: :25 Request TSH ([id number])Indication: Osteopenia On: 09-Rfp-071989:01 Request METABOLIC PANEL, COMPREHENSIVE ([id number])Indication: Diabetes mellitus type 2, uncontrolled, without complications On: 25-Kef-526793:01 Request LIPID PANEL ([id number])Indication: Mixed hyperlipidemia On: 78-Wtx-715204:01 Request MICROALBUMIN: CREATININE RATIO ([id number]) AND ([id number])Indication: Diabetes mellitus type 2, uncontrolled, without complications On: 33-Hby-486056:01 Request HgA1C , Office ([id number])Indication: Diabetes mellitus type 2, uncontrolled, without complications On: 91-Aoj-260067:27 Request Vitamin D Hydroxy ([id number])Indication: Vitamin D deficiency, unspecified On: :54 Request LIPID PANEL ([id number])Indication: Mixed hyperlipidemia On: :54 Request CBC WITH MANUAL DIFF ([id number])Indication: Benign essential hypertension On: :54 Request METABOLIC PANEL, COMPREHENSIVE ([id number])Indication: Benign essential hypertension On: :54 Request Vitamin D Hydroxy (87552)Indication: Vitamin D deficiency, unspecified On: :43 Request METABOLIC PANEL, COMPREHENSIVE ([id number])Indication: Benign essential hypertension On: :37 Request LIPID PANEL ([id number])Indication: Other and unspecified hyperlipidemia On: :36 Request HgA1C , Office (76703)Indication: Controlled type 2 diabetes mellitus On: :08 Request CBC WITH MANUAL DIFF ([id number])Indication: Benign essential hypertension On: :45 Request MICROALBUMIN: CREATININE RATIO ([id number]) AND ([id number])Indication: Controlled type 2 diabetes mellitus On: :45 Request METABOLIC PANEL, COMPREHENSIVE ([id number])Indication: Benign essential hypertension On: :45 Request LIPID PANEL ([id number])Indication: Other and unspecified hyperlipidemia On: :44 Request Vitamin D Hydroxy ([id number])Indication: Vitamin D deficiency, unspecified On: :44 Request Vitamin D Hydroxy ([id number])Indication: Vitamin D deficiency, unspecified On: :26 Request METABOLIC PANEL, COMPREHENSIVE ([id number])Indication: Benign essential hypertension On: :26 Request LIPID PANEL ([id number])Indication: Other and unspecified hyperlipidemia On: :26 Request LIPID PANEL ([id number])Indication: Other and unspecified hyperlipidemia On: :57 Request METABOLIC PANEL, COMPREHENSIVE ([id number])Indication: Essential hypertension, malignant On: :57 Request Vitamin D Hydroxy ([id number])Indication: Vitamin D deficiency, unspecified On: :57 Request PARATHORMONE ([id number])Indication: Hypercalcemia On: :56 Request Comments: 3 weeks CALCIUM SERUM ([id number])Indication: Hypercalcemia On: :56 Request Comments: 3 weeks MICROALBUMIN: CREATININE RATIO (37590) AND ([id number])Indication: Controlled type 2 diabetes mellitus On: :24 Request LIPID PANEL ([id number])Indication: Other and unspecified hyperlipidemia On: :24 Request METABOLIC PANEL, COMPREHENSIVE ([id number])Indication: Essential hypertension, malignant On: :24 Request CBC WITH MANUAL DIFF ([id number])Indication: Essential hypertension, malignant On: :24 Request Vitamin D Hydroxy ([id number])Indication: Vitamin D deficiency, unspecified On: :13 Request METABOLIC PANEL, COMPREHENSIVE ([id number])Indication: Benign essential hypertension On: :30 Request HEPATIC FUNCTION PANEL ([id number])Indication: Other and unspecified hyperlipidemia On: :25 Request LIPID PANEL (50261)Indication: Other and unspecified hyperlipidemia On: :25 Request Vitamin D Hydroxy ([id number])Indication: Vitamin D deficiency, unspecified On: :23 Request PARATHORMONE ([id number])Indication: Osteopenia On: :58 Request Vitamin D Hydroxy ([id number])Indication: Osteopenia On: :58 Request UPEP ([id number])Indication: Osteopenia On: :58 Request SPEP ([id number])Indication: Osteopenia On: :58 Request TSH ([id number])Indication: Osteopenia On: :58 Request HEPATIC FUNCTION PANEL ([id number])Indication: Other and unspecified hyperlipidemia On: :55 Request LIPID PANEL ([id number])Indication: Other and unspecified hyperlipidemia On: :55 Request METABOLIC PANEL, COMPREHENSIVE ([id number])Indication: Controlled type 2 diabetes mellitus On: :28 Request MICROALBUMIN: CREATININE RATIO ([id number]) AND ([id number])Indication: Controlled type 2 diabetes mellitus On: :28 Request HEPATIC FUNCTION PANEL ([id number])Indication: Other and unspecified hyperlipidemia On: 1-Hxj-122617:24 Request LIPID PANEL ([id number])Indication: Other and unspecified hyperlipidemia On: :24 Request HEPATIC FUNCTION PANEL (79098)Indication: Other and unspecified hyperlipidemia On: 1-Aml-628120:09 Request LIPID PANEL ([id number])Indication: Other and unspecified hyperlipidemia On: 6-Eoa-557299:09 Request LIPID PANEL ([id number])Indication: Other and unspecified hyperlipidemia On: :42 Request METABOLIC PANEL, COMPREHENSIVE ([id number])Indication: Benign essential hypertension On: :42 Request LIPID PANEL ([id number])Indication: Other and unspecified hyperlipidemia On: :37 Request HEPATIC FUNCTION PANEL ([id number])Indication: Other and unspecified hyperlipidemia On: :37 Request METABOLIC PANEL, COMPREHENSIVE ([id number])Indication: Essential hypertension, malignant On: :55 Request MICROALBUMIN URINE QUANT ([id number])Indication: Controlled type 2 diabetes mellitus On: :55 Request METABOLIC PANEL, COMPREHENSIVE ([id number])Indication: Other and unspecified hyperlipidemia On: :55 Request LIPID PANEL ([id number])Indication: Other and unspecified hyperlipidemia On: :54 Request HgA1C , Office ([id number])Indication: Controlled type 2 diabetes mellitus On: :37 Request Comments: done-jjp LIPID PANEL ([id number])Indication: Mixed hyperlipidemia On: :41 Request HEPATIC FUNCTION PANEL ([id number])Indication: Mixed hyperlipidemia On: :41 Request TSH ([id number])Indication: Benign essential hypertension On: :37 Request MICROALBUMIN: CREATININE RATIO ([id number]) AND ([id number])Indication: Controlled type 2 diabetes mellitus On: 02-Apr-20068:36 Request METABOLIC PANEL, COMPREHENSIVE ([id number])Indication: Controlled type 2 diabetes mellitus On: :36 Request CBC WITH MANUAL DIFF ([id number])Indication: Controlled type 2 diabetes mellitus On: :36 Request HEPATIC FUNCTION PANEL ([id number])Indication: Other and unspecified hyperlipidemia On: :36 Request LIPID PANEL ([id number])Indication: Other and unspecified hyperlipidemia On: :36 Request Planned Encounters Medical; 3 Month FU - On: 06-Apr-2018 8:15 [facility] Annamarie Carvajal DO, DO, Kathleen Planned Procedures ELECTROCARDIOGRAM, COMPLETE (ECG) On: 02-Dec-2017 Intent ([id number])By: Annamarie Carvajal DO Comments: sinus no acute chg -Annamarie strange DO Solu -Medrol Injection, 125 mg On: 28-Oct-2017 Intent ([id number])By: Christine Hightower Comments: solumedrol 125mg injection lot:[id number]:02/2020R GM pt tolerated well 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,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 Solu -Medrol Injection, 125 mg On: 12-Oct-2017 Intent ([id number])By: Lizzeth Winkler CNP Comments: solumedrol 125mg injection lot:[id number]:02/2020R GM pt tolerated well 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,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 WRITER [id number] BEHAVIORAL COUNSELING FOR On: 16-Sep-2017 Intent OBESITY, 15 MINUTES (G0447)By: Annamarie Carvajal DO, DO, Kathleen SCREENING DIGITAL TOMOSYNTHESIS OF On: 16-Sep-2017 Intent BREAST ([id number])By: Annamarie Carvajal DO Comments: due in feb 2018 Annamarie Carvajal DO DEXA SCAN AXIAL SKELETON ([id number])By: On: 16-Sep-2017 Intent Annamarie Carvajal DO, DO, Kathleen ELECTROCARDIOGRAM, COMPLETE (ECG) On: 24-Nov-2016 Intent ([id number])By: Annamarie Carvajal DO Comments: nsr no acute chg Annamarie ECHAVARRIA TACG-CL-GZSH BEHAVIORAL COUNSELING FOR On: 13-May-2016 Intent OBESITY, 15 MINUTES (G0447)By: Annamarie Carvajal DO, DO, Kathleen DEXA SCAN AXIAL SKELETON ([id number])By: On: 24-Oct-2014 Intent Bird Boyd DO Comments: november LEFT MAMMOGRAM ([id number])By: Kash ECHAVARRIA, On: 24-Oct-2014 Intent Bird A Overnight Pulse OX ([id number])By: Jorge Luis On: 31-May-2014 Intent Mary ANDERSON Comments: Not on oxygen at night Overnight Pulse OX ([id number])By: Kash ECHAVARRIA, On: 16-May-2014 Intent Bird Linh Breast Screening - LeftBy: Kash ECHAVARRIA, On: 13-Nov-2013 Intent Bird A EKG ([id number])By: iBrd Boyd DO On: 13-Nov-2013 Intent Comments: ekg showed normal sinus rhythym, normal axis, no acute st/t wave changes IMMUNIZ ADMNIN, 1 VAC, SNGL/COMBO On: 26-Jul-2013 Intent ([id number])By: Bird Boyd DO PNEUM VAC ADLT/IMUMNOSPR, SBC/INTRM On: 26-Jul-2013 Intent ([id number])By: Bird Boyd DO Comments: Lot #[id number]-[id number] arm, dltd, IMDose- prefilled syringegiven by:RAFI Menendez signed Eprescribed prescriptions ([id number])By: On: 26-Jul-2013 Intent Zaina Khan Breast Screening - LeftBy: Kash ECHAVARRIA, On: 31-Oct-2012 Intent Bird Melton Comments: due in november DXA, BONE DENSITY, AXIAL SKELETON On: 31-Oct-2012 Intent ([id number])By: Bird Boyd DO Comments: november EKG ([id number])By: Zaina Khan On: 05-Aug-2012 Intent Comments: ekg showed normal sinus rhythym, normal axis, no acute st/t wave changes Eprescribed prescriptions ([id number])By: On: 05-Aug-2012 Intent Zaina Khan Solu -Medrol Injection, 125 mg On: 27-Apr-2012 Intent ([id number])By: Lizzeth Winkler CNP Comments: Lot #[id number]-[id number] hip, IMDose- prefilled syringegiven by:RAFI Menendez signed Eprescribed prescriptions ([id number])By: On: 09-Mar-2012 Intent Zaina Khan MAMMOGRAM, SCREENING, BOTH BREASTS On: 24-Nov-2011 Intent ([id number])By: Bird Boyd DO EKG ([id number])By: Zaina Khan On: 01-Jul-2011 Intent Comments: ekg showed normal sinus rhythym, normal axis, no acute st/t wave changes FLU VAC, SPLIT, >3 YEARS, INTRAMUSC On: 01-Jul-2011 Intent ([id number])By: Zaina Khan Comments: work Eprescribed prescriptions ([id number])By: On: 14-Jan-2011 Intent Bird Boyd DO Eprescribed prescriptions ([id number])By: On: 01-Oct-2010 Intent Bird Boyd DO DXA, BONE DENSITY, AXIAL SKELETON On: 01-Oct-2010 Intent ([id number])By: Bird Boyd DO Breast Screening - LeftBy: Kash ECHAVARRIA, On: 01-Oct-2010 Intent Bird Melton Comments: november EKG ([id number])By: Zaina Khan On: 04-Apr-2010 Intent Comments: ekg showed normal sinus rhythym, normal axis, no acute st/t wave changes MAMMOGRAM, SCREENING, BOTH BREASTS On: 21-Nov-2009 Intent ([id number])By: Bird Boyd DO EKG ([id number])By: Zaina Khan On: 05-Apr-2009 Intent Comments: ekg showed normal sinus rhythym, normal axis, no acute st/t wave changes EKG ([id number])By: Zaina Khan On: 03-Jan-2008 Intent Comments: ekg showed normal sinus rhythym, normal axis, no acute st/t wave changes TETANUS VAC, ADSORBED, INTRAMUSC On: 02-Dec-2007 Intent ([id number])By: Mast Andreina LOCKHART Comments: Lot #: [id number] date: 11/03Amount given: 0.5 mlRoute: IMSite given: Left deltoidGiven by: Linh Lopez LPN Venous Doppler - BothBy: Kash ECHAVARRIA, On: 17-Aug-2007 Intent Bird Melton Comments: stat - call wet read Bio Z ([id number])By: Bird Boyd DO On: 08-Mar-2007 Intent Comments: bp looks good with this so will make no changes COLLECT VENOUS BLOOD, VENIPUNCTURE On: 06-Dec-2006 Intent ([id number])By: Clarice Tolbert LPN Comments: ABN signedL anticubital fossa used median cubital vein patient tolerated well [facility] EKG ([id number])By: Zaina Khan On: 15-Oct-2006 Intent Comments: done-jjpekg showed normal sinus rhythym, normal axis, no acute st/t wave changes Planned Medications INJECTION, METHYLPREDNISOLONE SODIUM SUCCINATE, UP TO 125 MG Ordered: 27-Apr-2012 Pending Ciesa SHEAR TENDER, [place] INJECTION, METHYLPREDNISOLONE SODIUM SUCCINATE, UP TO 125 MG Ordered: 12-Oct-2017 Pending Ciesa SHEAR TENDER, [place] INJECTION, METHYLPREDNISOLONE SODIUM SUCCINATE, UP TO 125 MG Ordered: 28-Oct-2017 Pending Christine Hightower Instructions Name Dates Details Diabetes mellitus type 2, uncontrolled, without complications : How to access health information online Indication: Diabetes mellitus type 2, uncontrolled, without complications Diabetes mellitus type 2, uncontrolled, without complications : How to access health information online - Detail Indication: Diabetes mellitus type 2, uncontrolled, without complications Diabetes mellitus type 2, uncontrolled, without complications : Patient Instructions Indication: Diabetes mellitus type 2, uncontrolled, without complications BMI 32.0-32.9,adult : How to access health information online Indication: BMI 32.0-32.9,adult BMI 32.0-32.9,adult : How to access health information online - Detail Indication: BMI 32.0-32.9,adult Poison staci : Patient Instructions Indication: Poison staci BMI 32.0-32.9,adult : How to access health information online Indication: BMI 32.0-32.9,adult BMI 32.0-32.9,adult : How to access health information online - Detail Indication: BMI 32.0-32.9,adult Obstructive sleep apnea, adult : obesity counseling Indication: Obstructive sleep apnea, adult Non-smoker : How to access health information online Indication: Non-smoker Non-smoker : How to access health information online - Detail Indication: Non-smoker Non-smoker : Patient Instructions Indication: Non-smoker Diabetes mellitus type 2, uncontrolled, without complications : How to access health information online Indication: Diabetes mellitus type 2, uncontrolled, without complications Diabetes mellitus type 2, uncontrolled, without complications : How to access health information online - Detail Indication: Diabetes mellitus type 2, uncontrolled, without complications Diabetes mellitus type 2, uncontrolled, without complications : Patient Instructions Indication: Diabetes mellitus type 2, uncontrolled, without complications Diabetes mellitus type 2, uncontrolled, without complications : How to access health information online Indication: Diabetes mellitus type 2, uncontrolled, without complications Diabetes mellitus type 2, uncontrolled, without complications : How to access health information online - Detail Indication: Diabetes mellitus type 2, uncontrolled, without complications Diabetes mellitus type 2, uncontrolled, without complications : Patient Instructions Indication: Diabetes mellitus type 2, uncontrolled, without complications Controlled type 2 diabetes mellitus : How to access health information online Indication: Controlled type 2 diabetes mellitus Controlled type 2 diabetes mellitus : How to access health information online - Detail Indication: Controlled type 2 diabetes mellitus Controlled type 2 diabetes mellitus : Patient Instructions Indication: Controlled type 2 diabetes mellitus Diabetes mellitus type 2, uncontrolled, without complications : How to access health information online Indication: Diabetes mellitus type 2, uncontrolled, without complications Diabetes mellitus type 2, uncontrolled, without complications : How to access health information online - Detail Indication: Diabetes mellitus type 2, uncontrolled, without complications Diabetes mellitus type 2, uncontrolled, without complications : Patient Instructions Indication: Diabetes mellitus type 2, uncontrolled, without complications Diabetes mellitus type 2, uncontrolled, without complications : obesity counseling Indication: Diabetes mellitus type 2, uncontrolled, without complications BMI 33.0-33.9,adult : How to access health information online Indication: BMI 33.0-33.9,adult BMI 33.0-33.9,adult : How to access health information online - Detail Indication: BMI 33.0-33.9,adult BMI 33.0-33.9,adult : Patient Instructions Indication: BMI 33.0-33.9,adult Diabetes mellitus type 2, uncontrolled, without complications : How to access health information online Indication: Diabetes mellitus type 2, uncontrolled, without complications Diabetes mellitus type 2, uncontrolled, without complications : How to access health information online - Detail Indication: Diabetes mellitus type 2, uncontrolled, without complications Diabetes mellitus type 2, uncontrolled, without complications : Patient Instructions Indication: Diabetes mellitus type 2, uncontrolled, without complications Controlled type 2 diabetes mellitus : How to access health information online Indication: Controlled type 2 diabetes mellitus Controlled type 2 diabetes mellitus : How to access health information online - Detail Indication: Controlled type 2 diabetes mellitus Controlled type 2 diabetes mellitus : Patient Instructions Indication: Controlled type 2 diabetes mellitus Controlled type 2 diabetes mellitus : How to access health information online Indication: Controlled type 2 diabetes mellitus Controlled type 2 diabetes mellitus : How to access health information online - Detail Indication: Controlled type 2 diabetes mellitus Controlled type 2 diabetes mellitus : Patient Instructions Indication: Controlled type 2 diabetes mellitus Other and unspecified hyperlipidemia : How to access health information online Indication: Other and unspecified hyperlipidemia Other and unspecified hyperlipidemia : How to access health information online - Detail Indication: Other and unspecified hyperlipidemia Other and unspecified hyperlipidemia : Patient Instructions Indication: Other and unspecified hyperlipidemia Controlled type 2 diabetes mellitus : Patient Instructions Indication: Controlled type 2 diabetes mellitus Controlled type 2 diabetes mellitus : Patient Instructions Indication: Controlled type 2 diabetes mellitus Controlled type 2 diabetes mellitus : How to access health information online Indication: Controlled type 2 diabetes mellitus Controlled type 2 diabetes mellitus : How to access health information online - Detail Indication: Controlled type 2 diabetes mellitus Controlled type 2 diabetes mellitus : Patient Instructions Indication: Controlled type 2 diabetes mellitus Hypertrophic and atrophic condition of skin : Patient Instructions Indication: Hypertrophic and atrophic condition of skin Controlled type 2 diabetes mellitus : Patient Instructions Indication: Controlled type 2 diabetes mellitus Diabetes mellitus type 2, uncontrolled, without complications : Patient Instructions Indication: Diabetes mellitus type 2, uncontrolled, without complications Diabetes mellitus type 2, uncontrolled, without complications : Patient Instructions Indication: Diabetes mellitus type 2, uncontrolled, without complications Diabetes mellitus type 2, uncontrolled, without complications : Patient Instructions Indication: Diabetes mellitus type 2, uncontrolled, without complications Osteopenia : Patient Instructions Indication: Osteopenia Osteopenia : Patient Instructions Indication: Osteopenia Encounters Office Visit On: 02-Dec-2017 12:11 Encounter Reason: Follow up for chronic medical issues - The patient feels well with minor complaints, has good energy level and is sleeping well. Patient has been compliant with instructions. Current medication use: no End: 02-Dec-2017 14:20 side effects and compliant with dosing regimen. Patient sleeps 7 hours per night. Nutrition: balanced diet and supplemental vitamins. The medical issues the patient is following up for include All ident ified problems below, blood sugar issues, high blood pressure and high cholesterol. blood pressure range :, fasting blood sugars : and weight :.Encounter Diagnosis: BMI 31.0-31.9,adult, Nonsmoker, Diabetes mellitus type 2, uncontrolled, without complications, Gastroesophageal reflux disease without esophagitis, Benign essential hypertension (401.1), Mixed hyperlipidemia (272.2), Vitamin D deficiency, unspecified, Obstructive sleep apnea, adult [facility] Office Visit On: 28-Oct-2017 8:11 Encounter Reason: Rash - Symptoms include rash. Onset was 4 day(s) ago. Note for Rash: [place] and got poison staci. Poison staci on left eye and eye brow, and both arms. Was just in not to long ago for the same thing. End: 28-Oct-2017 10:02 Encounter Diagnosis: BMI 32.0-32.9,adult, Itching, Poison staci, Nonsmoker [facility] Office Visit On: 12-Oct-2017 7:54 Encounter Reason: Rash - Onset was 4 day(s) ago. Note for Rash: Out [place] and got poison ivyEncounter Diagnosis: Non-smoker, BMI 32.0-32.9,adult, Poison staci, Itching End: 12-Oct-2017 9:37 [facility] Office Visit On: 16-Sep-2017 7:08 Encounter Reason: Annual Medicare Exam - The patient had reviewed and updated the family history, medication/s, past medical history and social history. Yes the patient did have a mini mental status exam done today. The End: 16-Sep-2017 8:09 activities of daily living the patient needs help with are none. The patient has driven in past 6 months and put area rugs through house, but the patient has not had fecal incontinence, had urinary inco ntinence, missed or ran out of medications to soon, fallen in the past 6 months, gotten lost, has a medalert necklace or bracelet or put handrails in bathroom. The patient has completed the following pr eventative measures: PAP smear (2014), mammography (2017) and colonoscopy (never). The patient does have durable power of assistant attorney general and living will. The patient has noticed nothing from the geriatic depr ession scale. 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 and other: (eye tejeda, up to date on eye exam).Encounter Diagnosis: Non-smoker, Encounter for general adult medical examination w/o abnormal findings, BMI 32.0-32.9,adult, Encounter for screening for malignant neoplasm of colon (Renamed from Special screening for malignant neoplasms, colon), Postmenopausal (Renamed from Postmenopausal status), Encounter for screening mammogram for breast cancer (Renamed from Encounter for screening mammogram for malignant neoplasm of breast), Obstructive sleep apnea, adult [facility] Office Visit On: 19-Aug-2017 8:49 Encounter Reason: Follow up for chronic medical issues - The patient feels well with minor complaints, has good energy level and is sleeping well. Patient has been compliant with instructions. Current medication use: no End: 19-Aug-2017 10:10 side effects and compliant with dosing regimen. Patient sleeps 7 hours per night. Nutrition: balanced diet and supplemental vitamins. The medical issues the patient is following up for include All ident ified problems below, blood sugar issues, high blood pressure and high cholesterol. blood pressure range :, fasting blood sugars : and weight :.Encounter Diagnosis: Non-smoker, Diabetes mellitus type 2, uncontrolled, without complications, BMI 32.0-32.9,adult, Nutritional counseling, Vitamin D deficiency, unspecified, Benign essential hypertension (401.1), Other and unspecified hyperlipidemia (272.4), Gastroesophageal reflux disease without esophagitis, Obstructive sleep apnea, adult [facility] Office Visit On: 07-Apr-2017 8:23 Encounter Reason: Follow up for chronic medical issues - The patient feels well with minor complaints, has good energy level and is sleeping well. Patient has been compliant with instructions. Current medication use: no End: 07-Apr-2017 9:08 side effects and compliant with dosing regimen. Patient sleeps 6 hours per night. Nutrition: balanced diet. fasting blood sugars :.Encounter Diagnosis: Diabetes mellitus type 2, uncontrolled, without complications, Influenza vaccination declined (Renamed from Refused influenza vaccine), Other and unspecified hyperlipidemia (272.4), Benign essential hypertension (401.1), Vitamin D deficiency, unspecified, Nutritional counseling, Allergic reaction, initial encounter [facility] Office Visit On: 24-Nov-2016 7:54 Encounter Reason: Follow up tests - Date: (11/19 blood work)., [ADDITIONAL REASON] Follow up for chronic medical issues - The patient feels well with no complaints End: 24-Nov-2016 9:45 , has good energy level and is sleeping well. Patient has been compliant with instructions. Current medication use: no side effects and compliant with dosing regimen. Patient sleeps 6 hours per night. N utrition: balanced diet and supplemental vitamins. The medical issues the patient is following up for include All identified problems below, blood sugar issues, high blood pressure and high cholesterol. blood pressure range :, fasting blood sugars : and weight :. Encounter Diagnosis: BMI 33.0-33.9,adult, Non-smoker, Other and unspecified hyperlipidemia (272.4), Vitamin D deficiency, unspecified, Obstructive sleep apnea, adult, Benign essential hypertension (401.1), Controlled type 2 diabetes mellitus [facility] Office Visit On: 21-Aug-2016 6:58 Encounter Reason: Follow up for chronic medical issues - The patient feels well with minor complaints, has good energy level and is sleeping well. Patient has been compliant with instructions. Current medication use: no End: 21-Aug-2016 15:57 side effects and compliant with dosing regimen. Patient sleeps 6 hours per night. Nutrition: balanced diet and supplemental vitamins. The medical issues the patient is following up for include All ident ified problems below, blood sugar issues, high blood pressure and high cholesterol. blood pressure range :, fasting blood sugars : and weight :.Encounter Diagnosis: Diabetes mellitus type 2, uncontrolled, without complications, BMI 33.0-33.9,adult, Non-smoker, Nutritional counseling, Benign essential hypertension (401.1), Obstructive sleep apnea, adult, Gastroesophageal reflux disease without esophagitis, Vitamin D deficiency, unspecified, Other and unspecified hyperlipidemia (272.4) [facility] Office Visit On: 13-May-2016 8:22 Encounter Reason: Annual Medicare Exam - Yes the patient did have ( wisper 08/28) a mini mental status exam done today. The activities of daily living the patient needs help with are none. The [place] driven in [place] End: 13-May-2016 8:56 st 6 months and put area rugs through house, but the patient has not had fecal incontinence, had urinary incontinence, missed or ran out of medications to soon, fallen in the past 6 months, gotten lost, has a medalert necklace or bracelet or put handrails in bathroom. The patient has completed the following preventative measures: PAP smear and mammography (2015). The patient does have durable power of assistant attorney general and living will. The patient has noticed nothing from the geriatic depression scale. 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's care are other: (eye tejeda, up to date on eye exam).Encounter Diagnosis: Non-smoker, BMI 33.0-33.9,adult, Annual Medicare Phyiscal WITHOUT abnormal findings (Renamed from Encounter for general adult medical examination without abnormal findings), Encounter for screening mammogram for breast cancer (Renamed from Encounter for screening mammogram f or malignant neoplasm of breast), Encounter for screening for malignant neoplasm of colon (Renamed from Special screening for malignant neoplasms, colon), Postmenopausal (Renamed from Postmenopausal status), Diabetes mellitus type 2, uncontrolled, without complications, Nutritional counseling [facility] Office Visit On: 25-Mar-2016 9:53 Encounter Reason: Follow up for chronic medical issues - The patient feels well with minor complaints, has good energy level and is sleeping well. Patient has been compliant with instructions. Current medication use: no End: 25-Mar-2016 11:02 side effects and compliant with dosing regimen. Patient sleeps 6 hours per night. Nutrition: balanced diet and supplemental vitamins. The medical issues the patient is following up for include All ident ified problems below, blood sugar issues, high blood pressure and high cholesterol. blood pressure range :, fasting blood sugars : and weight :., [ADDITIONAL REASON] Follow up tests - Date: (03/23/16). Encounter Diagnosis: Diabetes mellitus type 2, uncontrolled, without complications, Gastroesophageal reflux disease without esophagitis, Mixed hyperlipidemia (272.2), Vitamin D deficiency, unspecified, Non-smoker, Benign essential hypertension (401.1), Obstructive sleep apnea, adult [facility] Office Visit On: 20-Nov-2015 9:41 Encounter Reason: Follow up for chronic medical issues - The patient feels well with no complaints, has good energy level and is sleeping well. Patient has been compliant with instructions. Current medication use: no sara End: 21-Nov-2015 17:52 e effects and compliant with dosing regimen. Patient sleeps 7 hours per night. Nutrition: inappropriate diet and supplemental vitamins. The medical issues the patient is following up for include All farhan ntified problems below, blood sugar issues, high blood pressure, high cholesterol and other (Vit D). Note for Follow up for chronic medical issues: overall doing well sugars up a bit hasnt been watcing diet or ex and no gerd and bp ok - , [ADDITIONAL REASON] Follow up, Laboratory Test Results - Date: (11/18/15). Encounter Diagnosis: Controlled type 2 diabetes mellitus, Benign essential hypertension (401.1), Mixed hyperlipidemia (272.2), BMI 33.0-33.9,adult, Non-smoker, Vitamin D deficiency, unspecified, Gastroesophageal reflux disease without esophagitis, Osteopenia (733.90) [facility] Office Visit On: 22-Jul-2015 10:42 Encounter Reason: Follow up for chronic medical issues - The patient feels well with no complaints, has good energy level and is sleeping well. Patient has been compliant with instructions. Current medication use: no sara End: 22-Jul-2015 23:19 e effects and compliant with dosing regimen. Patient sleeps 7 hours per night. Nutrition: inappropriate diet and supplemental vitamins. The medical issues the patient is following up for include All farhan ntified problems below, blood sugar issues, high blood pressure, high cholesterol and other (Vit D). Note for Follow up for chronic medical issues: feeling well slowly losing weight over time and tole rating tradjenta and really has brought sugars down - no rotuine gerd and bp is good , [ADDITIONAL REASON] Follow up, Laboratory Test Results - Date: (07/18/15). Encounter Diagnosis: Controlled type 2 diabetes mellitus, Benign essential hypertension (401.1), Gastroesophageal reflux disease without esophagitis, Mixed hyperlipidemia (272.2), Vitamin D deficiency, unspecified [facility] Office Visit On: 25-Mar-2015 11:20 Encounter Reason: Follow up for chronic medical issues - The patient feels well with no complaints, has good energy level and is sleeping well. Patient has been compliant with instructions. Current medication use: no sara End: 25-Mar-2015 12:26 e effects and compliant with dosing regimen. Patient sleeps 7 hours per night. Nutrition: inappropriate diet and supplemental vitamins. The medical issues the patient is following up for include All farhan ntified problems below, blood sugar issues, high blood pressure, high cholesterol and other (Vit D)., [ADDITIONAL REASON] Follow up, Laboratory Test Results - Date: (03/23/15). Note for Follow up to dis cuss laboratory test results: and go over bone density Encounter Diagnosis: Other and unspecified hyperlipidemia (272.4), Benign essential hypertension (401.1), GERD (530.81), VITAMIN D DEFICIENCY, NOS (268.9), Diabetes type II,uncontrolled, no comp (250.02), Osteopenia (733.90), Obstructive Sleep Apnea (327.23) [facility] Office Visit On: 24-Oct-2014 14:25 Encounter Reason: Follow up for chronic medical issues - The patient feels well with no complaints, has good energy level and is sleeping well. Patient has been compliant with instructions. Current medication use: no sara End: 24-Oct-2014 22:28 e effects and compliant with dosing regimen. Patient sleeps 7 hours per night. Nutrition: inappropriate diet and supplemental vitamins. The medical issues the patient is following up for include All farhan ntified problems below, blood sugar issues, high blood pressure, high cholesterol and other (Vit D). Note for Follow up for chronic medical issues: bp is good and weight coming down - found ou t dm so now she thinks willhelp her stayon track - she feeling well- she still taking tricor- and is going to get back on exercise- - eating red meat 3 times a week- so cut to once a week, [ADDITIONAL REASON] Follow up, Laboratory Test Results - Date: (10/18/14). Encounter Diagnosis: DIABETES MELLITUS WITHOUT MENTION OF COMPLICATION, TYPE II OR UNSPECIFIED TYPE, NOT STATED UNCONTROLLED (250.00), Benign essential hypertension (401.1) , Other and unspecified hyperlipidemia (272.4), GERD (530.81), VITAMIN D DEFICIENCY, NOS (268.9), Breast Cancer (174.9), Osteopenia (733.90), Obstructive Sleep Apnea (327.23) [facility] Medicine Office Visit On: 06-Jun-2014 10:28 Encounter Reason: Follow up for chronic medical issues - The patient feels well with no complaints, has good energy level and is sleeping well. Patient has been compliant with instructions. Current medication use: no sara End: 07-Jun-2014 22:25 e effects and compliant with dosing regimen. Patient sleeps 7 hours per night. Nutrition: inappropriate diet and supplemental vitamins. The medical issues the patient is following up for include All farhan ntified problems below, blood sugar issues, high blood pressure, high cholesterol and other (Vit D). Note for Follow up for chronic medical issues: trying hard to stay away from potatoes bread and pas ta and sugar coming down- and weight stable- bp is good- not exercisng - so encoruage, [ADDITIONAL REASON] Follow up, Laboratory Test Results - Date: (06/01/14). Encounter Diagnosis: DIABETES MELLITUS WITHOUT MENTION OF COMPLICATION, TYPE II OR UNSPECIFIED TYPE, NOT STATED UNCONTROLLED (250.00), VITAMIN D DEFICIENCY, NOS (268.9), Other and unspecified hyperlipidemia (272.4), Benign essential hypertension (401.1), Hypercalcemia(275.42), GERD (530.81), SOB (786.05) [facility] Office Visit On: 31-May-2014 12:59 Encounter Reason: Nurse procedure visit - Reason for visit: overnight pulse oximetry.Encounter Diagnosis: SOB (786.05) End: 31-May-2014 19:46 [facility] Office Visit On: 16-May-2014 9:29 Encounter Reason: Transition into care - The patient is transitioning into care from a hospital and a summary of care was reviewed . Note for Transition into care: she was playing cards and got chest paina nd arm pain End: 17-May-2014 22:48 radiating into neck/jaw- - went to er and had few days off and on after left none since and this was last week- was sweaty no nausea - no cough routinely or wheezxe -no exertional sx- once in a while ge rd and feels different - enzymes neg - stress test - good at moderate work load- her calcium was high and potassium was low- and taking alendendronate- snoring and waking up not rested - bit sob with the episodes Encounter Diagnosis: DIABETES MELLITUS WITHOUT MENTION OF COMPLICATION, TYPE II OR UNSPECIFIED TYPE, NOT STATED UNCONTROLLED (250.00), Acute chest pain, Osteopenia (733.90), Hypercalcemia(275.42), Hypokalemia [facility] Office Visit On: 21-Nov-2013 8:29 Encounter Reason: Skin Tag Removal - pt has multiple skin tags to remove around neck. None are infected or painful.Encounter Diagnosis: Skin tags (701.9) End: 21-Nov-2013 21:52 [facility] Office Visit On: 13-Nov-2013 8:52 Encounter Reason: Follow up for chronic medical issues - The patient feels well with minor complaints (skin tags on neck), has good energy level and is sleeping well. Patient has been compliant with instructions. Current End: 13-Nov-2013 9:49 medication use: no side effects and compliant with dosing regimen. Patient sleeps 7 hours per night. Nutrition: inappropriate diet and supplemental vitamins. The medical issues the patient is following up for include All identified problems below, blood sugar issues, high blood pressure, high cholesterol and other (Vit D). Note for Follow up for chronic medical issues: No routine labs done for toda ys visit.- she feels better than has in long time and weight down 3 pounds on plexus- her bp is great and weight down almost 10 pounds and she is going to start bike - riding and no gerd or dysphagia tolerating medsEncounter Diagnosis: DIABETES MELLITUS WITHOUT MENTION OF COMPLICATION, TYPE II OR UNSPECIFIED TYPE, NOT STATED UNCONTROLLED (250.00), Osteopenia (733.90), Benign essential hypertension (401.1), Mixed hyperlipidemia (272.2), Breast Cancer (174.9), GERD (530.81) [facility] Office Visit On: 26-Jul-2013 8:57 Encounter Reason: Follow up for chronic medical issues - The patient feels well with minor complaints (nasal congestion), has good energy level and is sleeping well. Patient has been compliant with instructions. Current End: 26-Jul-2013 13:27 medication use: no side effects and compliant with dosing regimen. Patient sleeps 7 hours per night. Nutrition: inappropriate diet and supplemental vitamins. The medical issues the patient is following up for include All identified problems below, blood sugar issues, high blood pressure, high cholesterol and other (Vit D). Note for Follow up for chronic medical issues: weight stable and bp is good- sugar no better but decided to just start tragjenta a week and half ago -no issues feels quite well -she is going to get eye exam done , [ADDITIONAL REASON] Follow up, Laboratory Test Results - Date: (07/21/13). , [ADDITIONAL REASON] Nasal Congestion - The onset of the nasal congestion has been sudden and has been occurring in a persistent pattern for weeks. The course has been increasing. The congestion is loca cachorro in both sides. The nasal discharge is described as clear and bloody. There has been associated ear pain, facial pain and headache, while there has been no cough, dizziness, fever, hoarseness, nausea, runny nose or sore throat. Encounter Diagnosis: Diabetes type II,uncontrolled, no comp (250.02), Benign essential hypertension (401.1), Osteopenia (733.90), GERD (530.81), Other and unspecified hyperlipidemia (272.4), DEFICIENCY, VITAMIN D NOS (268.9), Upper Respiratory Infection (465.9), Urine, Abnormal (791.9) [facility] Office Visit On: 03-Mar-2013 8:58 Encounter Reason: Follow up for chronic medical issues - The patient feels well with no complaints, has good energy level and is sleeping well. Patient has been compliant with instructions. Current medication use: no sara End: 03-Mar-2013 9:49 e effects and compliant with dosing regimen. Patient sleeps 7 hours per night. Nutrition: inappropriate diet and supplemental vitamins. The medical issues the patient is following up for include All farhan ntified problems below, blood sugar issues, high blood pressure, high cholesterol and other (Vit D). Note for Follow up for chronic medical issues: feels well- still not exercising - encourage- and bp is good and wieght down 4 pounds vit d good- - no gerd - all the cholmeds she tried made her ache- - takign the tricor, [ADDITIONAL REASON] Follow up, Laboratory Test Results - Date: (02/23/13). Encounter Diagnosis: Diabetes type II,uncontrolled, no comp (250.02), GERD (530.81), Osteopenia (733.90), Other and unspecified hyperlipidemia (272.4), DEFICIENCY, VITAMIN D NOS (268.9), Benign essential hypertension (401.1) [facility] Phone Encounter On: 20-Dec-2012 12:47 Encounter Diagnosis: Osteopenia (733.90) End: 20-Dec-2012 12:49 [facility] Office Visit On: 31-Oct-2012 8:53 Encounter Reason: Follow up for chronic medical issues - The patient feels well with minor complaints (couldnt tolerate the crestor d/t muscle aches- taking red yeast rice instead), has good energy level and is sleeping End: 31-Oct-2012 9:30 well. Patient has been compliant with instructions. Current medication use: no side effects (other than crestor but has stopped it) and compliant with dosing regimen. Patient sleeps 7 hours per night. N utrition: inappropriate diet and supplemental vitamins. The medical issues the patient is following up for include All identified problems below, blood sugar issues, high blood pressure, high cholestero l and other (Vit D). Note for Follow up for chronic medical issues: she is feeling well in general- occ tired when overdoes it but doesnt feel pathologic- think after discussing her sugars up donta chandra carbs at night before bed so discussed alternatives weight down a pound- she is trying to cut potatoes pasta and bread - she is riding bike- 2-3 times a week, [ADDITIONAL REASON] Follow up, Laboratory Test Results - Date: (10/24/12). Encounter Diagnosis: Diabetes type II,uncontrolled, no comp (250.02), DEFICIENCY, VITAMIN D NOS (268.9), GERD (530.81), Unspecified essential hypertension (401.9), Osteopenia (733.90), screening, Other and unspecified hyperlipidemia (272.4) [facility] Office Visit On: 05-Aug-2012 7:48 Encounter Reason: Follow up for chronic medical issues - The patient feels well with minor complaints (nasal congestion), has good energy level and is sleeping well. Patient has been compliant with instructions. Current End: 05-Aug-2012 8:50 medication use: no side effects and compliant with dosing regimen. Patient sleeps 7 hours per night. Impact of disease: no overall impact. Nutrition: inappropriate diet and supplemental vitamins. The me dical issues the patient is following up for include All identified problems below, blood sugar issues, high blood pressure, high cholesterol and other (Vit D). Note for Follow up for chronic medical i ssues: darrell made her achey too - weight up and sugar up, [ADDITIONAL REASON] Follow up, Laboratory Test Results - Date: (07/28/12). , [ADDITIONAL REASON] Cold Symptoms - Symptoms include nasal congestion, runny nose, scratchy throat, hoarseness, dry cough, facial pressure, facial pain and headache, while symptoms do not include sore throat or productive cough. Onset was sudden 3 day(s) ago. The patient describes this as unchanged. A ssociated symptoms include plugged ear(s), while associated symptoms do not include ear pain, swollen lymph nodes, wheezing, shortness of breath, nausea, vomiting, diarrhea, fever or chills. The patient is not currently being treated for this problem. Note for Cold symptoms: clear no fever 3 days no sob Encounter Diagnosis: Diabetes type II,uncontrolled, no comp (250.02), Osteopenia (733.90), Benign essential hypertension (401.1), Other and unspecified hyperlipidemia (272.4), GERD (530.81), DEFICIENCY, VITAMIN D NOS (268.9), Upper Respiratory Infection (465.9) [facility] Office Visit On: 27-Apr-2012 9:53 Encounter Reason: Skin Problems - The onset of the skin problems has been sudden and they have been occurring in a persistent pattern for 5 days. The course has been increasing. The problem is characterized as a rash, it End: 27-Apr-2012 13:23 felipe and a change in skin color. Lesions are described as red and raised above the skin. The spots were first seen on the upper extremity. It spread to the upper extremity, the lower extremity and the groin. There has been associated itching, while there has been no fever or pain.Encounter Diagnosis: Rash (782.1), Poison staci (692.6) [facility] Office Visit On: 09-Mar-2012 8:59 Encounter Reason: Follow up for chronic medical issues - The patient feels well with minor complaints (muscle aches from statin), has good energy level and is sleeping well. Patient has been compliant with instructions. End: 09-Mar-2012 9:40 Current medication use: experiencing side effects (muscle aches from statin?) and compliant with dosing regimen. Patient sleeps 7 hours per night. Impact of disease: no overall impact. Nutrition: inappr opriate diet and supplemental vitamins. The medical issues the patient is following up for include All identified problems below, blood sugar issues, high blood pressure, high cholesterol and other (Vit D). Note for Follow up for chronic medical issues: weight down 5 pounds and been trying and sugar way down and cutdown on pop and pasta- no gerd or dysphagia, [ADDITIONAL REASON] Follow up, Laboratory Test Results - Date: (03/04/12). Encounter Diagnosis: Osteopenia (733.90), Mixed hyperlipidemia (272.2), Unspecified essential hypertension (401.9), VITAMIN D DEFICIENCY, NOS (268.9), DIABETES MELLITUS WITHOUT MENTION OF COMPLICATION, TYPE II OR UNSPECIFIED TYPE, NOT STATED UNCONTROLLED (250.00) [facility] Lab Order On: 24-Nov-2011 10:37 Encounter Diagnosis: Breast Cancer (174.9) End: 24-Nov-2011 10:39 [facility] Office Visit On: 18-Nov-2011 10:21 Encounter Reason: Follow up for chronic medical issues - The patient feels well with no complaints, has good energy level and is sleeping well. Patient has been compliant with instructions. Current medication use: no sara End: 18-Nov-2011 11:06 e effects and compliant with dosing regimen. Patient sleeps 7 hours per night. Impact of disease: no overall impact. Nutrition: inappropriate diet (eats alot of pasta, potatoes, breads, ect..). The medi jennifer issues the patient is following up for include All identified problems below, blood sugar issues, high blood pressure, high cholesterol and other (Vit D). Note for Follow up for chronic medical iss ues: she had to take fosamax her insurance wouldnt cover actonel- no gerd or dysphagia- her blood sugar is higher eating toomany fruit carbs- tolerating livalo- she is going to aggressively work on diet and exerxcise doesnt want to take more meds, [ADDITIONAL REASON] Follow up, Laboratory Test Results - Date: (11/12/11). Encounter Diagnosis: Mixed hyperlipidemia (272.2), DEFICIENCY, VITAMIN D NOS (268.9), Diabetes type II,uncontrolled, no comp (250.02), GERD (530.81), Hypercalcemia(275.42), Osteopenia (733.90) [facility] Phone Encounter On: 07-Jul-2011 17:27 Encounter Diagnosis: Osteopenia (733.90) End: 07-Jul-2011 17:30 [facility] Office Visit On: 01-Jul-2011 8:12 Encounter Reason: Follow up for chronic medical issues - The patient feels well with no complaints, has good energy level and is sleeping well. Patient has been compliant with instructions. Current medication use: no sara End: 01-Jul-2011 9:26 e effects and compliant with dosing regimen. Patient sleeps 7 hours per night. Impact of disease: no overall impact. Nutrition: inappropriate diet (eats alot of pasta, potatoes, breads, ect..). The medi jennifer issues the patient is following up for include All identified problems below, blood sugar issues, high blood pressure, high cholesterol and other (Vit D). Note for Follow up for chronic medical iss ues: hsnt been taking atelvia becuase insurance wont cover- feels well- bp good sugar better and start taking vit d oqoweek, [ADDITIONAL REASON] Follow up, Laboratory Test Results - Date: (06/26/11 and 06/30/11- in scanned documents). Encounter Diagnosis: DIABETES MELLITUS WITHOUT MENTION OF COMPLICATION, TYPE II OR UNSPECIFIED TYPE, NOT STATED UNCONTROLLED (250.00), Need for prophylactic vaccination and inoculation against influenza (V04.81), DEFICIENCY, VITAMIN D NOS (268.9) , Benign essential hypertension (401.1), Osteopenia (733.90), Mixed hyperlipidemia (272.2) [facility] Office Visit On: 14-Jan-2011 9:02 Encounter Reason: Follow up for chronic medical issues - The patient feels well with no complaints, has good energy level and is sleeping well. Patient has been compliant with instructions. Current medication use: no sara End: 14-Jan-2011 9:43 e effects and compliant with dosing regimen. Patient sleeps 7 hours per night. Impact of disease: no overall impact. Nutrition: inappropriate diet (eats alot of pasta, potatoes, breads, ect..). The medi jennifer issues the patient is following up for include All identified problems below, blood sugar issues, high blood pressure, high cholesterol and other (Vit D)., [ADDITIONAL REASON] Follow up, Laboratory Test Results - Date: (12/24/10). Encounter Diagnosis: DIABETES MELLITUS WITHOUT MENTION OF COMPLICATION, TYPE II OR UNSPECIFIED TYPE, NOT STATED UNCONTROLLED (250.00), Benign essential hypertension (401.1), DEFICIENCY, VITAMIN D NOS (268.9), Other and unspecified hyperlipidemia (272.4), Osteopenia (733.90) [facility] Office Visit On: 01-Oct-2010 8:16 Encounter Reason: Follow up for chronic medical issues - The patient feels well with no complaints, has good energy level and is sleeping well. Patient has been compliant with instructions. Current medication use: no sara End: 01-Oct-2010 8:57 e effects. Impact of disease: no overall impact. Nutrition: balanced diet. The medical issues the patient is following up for include All identified problems below, blood sugar issues, high blood pressu re, high cholesterol and other (Vit D). Note for Follow up for chronic medical issues: weight up 4 pounds just back from vaccation- bp is good and and she is feeling wellEncounter Diagnosis: DIABETES MELLITUS WITHOUT MENTION OF COMPLICATION, TYPE II OR UNSPECIFIED TYPE, NOT STATED UNCONTROLLED (250.00), Other and unspecified hyperlipidemia (272.4), Benign essential hypertension (401.1), DEFICIENCY, VITAMIN D NOS (268.9), Breast Cancer (174.9), Osteopenia (733.90) [facility] Office Visit On: 04-Apr-2010 10:55 Encounter Reason: Follow up for chronic medical issues - The patient feels well with no complaints, has good energy level and is sleeping well. Patient has been compliant with instructions. Current medication use: no sara End: 04-Apr-2010 13:12 e effects and compliant with dosing regimen. Patient sleeps 7 hours per night. Nutrition: inappropriate diet and supplemental vitamins. The medical issues the patient is following up for include All farhan ntified problems below, blood sugar issues, gastric reflux, high blood pressure, high cholesterol, osteoporosis/osteopenia and other (Vitamin d deficient). weight : (180's). 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 Encounter Diagnosis: DIABETES MELLITUS WITHOUT MENTION OF COMPLICATION, TYPE II OR UNSPECIFIED TYPE, NOT STATED UNCONTROLLED (250.00), DEFICIENCY, VITAMIN D NOS (268.9), Benign essential hypertension (401.1), Other and unspecified hyperlipidemia (272.4) [facility] Office Visit On: 21-Nov-2009 8:06 Encounter Reason: Follow up for chronic medical issues - The patient feels well with no complaints ,has good energy level and is sleeping well. Patient has been compliant with instructions. Current medication use: no sara End: 21-Nov-2009 8:41 e effects and compliant with dosing regimen. Patient sleeps 7 hours per night. Nutrition: inappropriate diet and supplemental vitamins. The medical issues the patient is following up for include All farhan ntified problems below ,blood sugar issues ,gastric reflux ,high blood pressure ,high cholesterol ,osteoporosis/osteopenia and other (Vitamin d deficient). weight : (180's). , [ADDITIONAL REASON] Follow up, Laboratory Test Results - Date: (11/13/09). Encounter Diagnosis: Mixed hyperlipidemia (272.2), Benign essential hypertension (401.1), DIABETES MELLITUS WITHOUT MENTION OF COMPLICATION, TYPE II OR UNSPECIFIED TYPE, NOT STATED UNCONTROLLED (250.00), VITAMIN D DEFICIENCY, NOS (268.9), screening [facility] Office Visit On: 31-Jul-2009 8:16 Encounter Reason: Follow up for chronic medical issues - The patient feels well with no complaints ,has good energy level and is sleeping well. Patient has been compliant with instructions. Current medication use: no sara End: 31-Jul-2009 9:02 e effects and compliant with dosing regimen. Patient sleeps 7 hours per night. Nutrition: inappropriate diet and supplemental vitamins. The medical issues the patient is following up for include All farhan ntified problems below ,blood sugar issues ,gastric reflux ,high blood pressure ,high cholesterol ,osteoporosis/osteopenia and other (Vitamin d deficient). weight :. Note for Follow up for chronic medi jennifer issues: she is down 5 pounds and trying and her bp is better- no issues with the metformin dose, [ADDITIONAL REASON] Follow up, Laboratory Test Results - Date: (07/25/09). Encounter Diagnosis: DIABETES MELLITUS WITHOUT MENTION OF COMPLICATION, TYPE II OR UNSPECIFIED TYPE, NOT STATED UNCONTROLLED (250.00), Other and unspecified hyperlipidemia (272.4), Unspecified essential hypertension (401.9), VITAMIN D DEFICIENCY, NOS (268.9), Hypercalcemia(275.42), GERD (530.81) [facility] Office Visit On: 05-Apr-2009 8:26 Encounter Reason: Follow up for chronic medical issues - The patient feels well with no complaints ,has good energy level and is sleeping well. Patient has been compliant with instructions. Current medication use: no sara End: 05-Apr-2009 9:55 e effects and compliant with dosing regimen. Patient sleeps 7 hours per night. Nutrition: balanced diet and supplemental vitamins. The medical issues the patient is following up for include All identifi ed problems below ,blood sugar issues ,gastric reflux ,high blood pressure ,high cholesterol ,osteoporosis/osteopenia and other (Vitamin d deficient). Note for Follow up for chronic medical issues: he r bps at home have been great- running 70s diastolic at home- she is feeling well- got her flu shot already, [ADDITIONAL REASON] Follow up, Laboratory Test Results - Date: (03/28/09). Encounter Diagnosis: DIABETES MELLITUS WITHOUT MENTION OF COMPLICATION, TYPE II OR UNSPECIFIED TYPE, NOT STATED UNCONTROLLED (250.00), VITAMIN D DEFICIENCY, NOS (268.9), Other and unspecified hyperlipidemia (272.4), Unspecified essential hypertension (401.9) [facility] Office Visit On: 31-Dec-2008 11:34 Encounter Reason: Follow up for chronic medical issues - The patient feels well with no complaints ,has good energy level and is sleeping poorly. Patient has been compliant with instructions. Current medication use: no s End: 31-Dec-2008 22:26 farhan effects and compliant with dosing regimen. Patient sleeps 7 hours per night. Nutrition: inappropriate diet and supplemental vitamins. The medical issues the patient is following up for include All i dentified problems below ,blood sugar issues ,gastric reflux ,high blood pressure ,high cholesterol and osteoporosis/osteopenia. Note for Follow up for chronic medical issues: - she is doing alot of f ruit and likely why her blood sugars are up- she is exercising a lot - bike riding- her bp has not been this high when check outside of here- almost no reflux- she will try to wean off the meds and see how she does, [ADDITIONAL REASON] Follow up, Laboratory Test Results - Date: (11/20/08). Encounter Diagnosis: DIABETES MELLITUS WITHOUT MENTION OF COMPLICATION, TYPE II OR UNSPECIFIED TYPE, NOT STATED UNCONTROLLED (250.00), Benign essential hypertension (401.1), Other and unspecified hyperlipidemia (272.4), VITAMIN D DEFICIENCY, NOS (268.9) [facility] Office Visit On: 20-Aug-2008 10:06 Encounter Diagnosis: Unspecified Diagnosis End: 20-Aug-2008 10:08 [facility] Office Visit On: 20-Aug-2008 9:03 Encounter Reason: Follow up for chronic medical issues - The patient feels well with minor complaints ,has good energy level and is sleeping well. Patient has been compliant with instructions. Current medication use: no End: 20-Aug-2008 10:05 side effects. Patient sleeps 7 hours per night. Impact of disease: no overall impact. Nutrition: balanced diet. The medical issues the patient is following up for include All identified problems below , asthma ,blood sugar issues ,cardiac issues ,COPD ,depression ,fibromyalgia ,gastric reflux ,high blood pressure ,high cholesterol ,hypothyroid ,kidney problems ,osteoarthritis ,osteoporosis/osteopenia , other and peripheral vascular disease. Note for Follow up for chronic medical issues: weight stable - and bp stable -- watch the salt- she started exercising 6 weeks ago- 20min 4 times a week- encorua ge increse to 40min a day- -eventually- saw knowledge manager-- put her on calcium and vit d for bonesEncounter Diagnosis: DIABETES MELLITUS WITHOUT MENTION OF COMPLICATION, TYPE II OR UNSPECIFIED TYPE, NOT STATED UNCONTROLLED (250.00), Unspecified essential hypertension (401.9), GERD (530.81), Other and unspecified hyperlipidemia (272.4), Breast Cancer (174.9), Osteopenia (733.90) [facility] Office Visit On: 01-May-2008 10:42 Encounter Reason: Follow up for chronic medical issues - The patient feels well with no complaints ,has good energy level and is sleeping well. Patient has been compliant with instructions. Current medication use: no sara End: 01-May-2008 11:34 e effects and compliant with dosing regimen. Patient sleeps 8 hours per night. Nutrition: balanced diet and supplemental vitamins. The medical issues the patient is following up for include All identifi ed problems below ,blood sugar issues ,gastric reflux ,high blood pressure ,high cholesterol and other (breast cancer). Note for Follow up for chronic medical issues: has flu shot set up -- her bp at home has been pretty good- 106/72--very little reflex-- she is doing fine on the welchol, [ADDITIONAL REASON] Follow up, Laboratory Test Results - Date: (04/24/08). Encounter Diagnosis: DIABETES MELLITUS WITHOUT MENTION OF COMPLICATION, TYPE II OR UNSPECIFIED TYPE, NOT STATED UNCONTROLLED (250.00), Other and unspecified hyperlipidemia (272.4), GERD (530.81), Benign essential hypertension (401.1) [facility] Office Visit On: 03-Jan-2008 13:20 Encounter Reason: Follow up for chronic medical issues - The patient feels well with no complaints ,has good energy level and is sleeping well. Patient has been compliant with instructions. Current medication use: no sara End: 03-Jan-2008 14:09 e effects and compliant with dosing regimen. The medical issues the patient is following up for include All identified problems below ,blood sugar issues ,gastric reflux ,high blood pressure and high ch olesterol. blood pressure range : (110's/70's to 120's/80's) and weight :. Note for Follow up for chronic medical issues: zetia is only drug not making her ache like the statins- she is not exercising ---she has appt with james in the near future, [ADDITIONAL REASON] Follow up, Laboratory Test Results - Date: (12/28/07). Encounter Diagnosis: DIABETES MELLITUS WITHOUT MENTION OF COMPLICATION, TYPE II OR UNSPECIFIED TYPE, NOT STATED UNCONTR OLLED (250.00), Other and unspecified hyperlipidemia (272.4), Benign essential hypertension (401.1), Breast Cancer (174.9), GERD (530.81) [facility] Office Visit On: 02-Dec-2007 11:20 Encounter Reason: Injections - The medication the patient is here to receive is tetnus vaccine IM. Encounter Diagnosis: Need for prophylactic vaccination with tetanus toxoid alone (V03.7) End: 02-Dec-2007 11:37 [facility] Office Visit On: 07-Sep-2007 9:08 Encounter Reason: Follow up for chronic medical issues - The patient feels well with no complaints ,has good energy level and is sleeping well. Patient has been compliant with instructions. Current medication use: no sara End: 07-Sep-2007 9:44 e effects and compliant with dosing regimen. Nutrition: balanced diet and supplemental vitamins. The medical issues the patient is following up for include All identified problems below ,blood sugar iss ues ,gastric reflux ,high blood pressure and high cholesterol. weight :. Note for Follow up for chronic medical issues: her bps at home have been running under the 80s in diastolic-- willhave do checks for next week and call in, [ADDITIONAL REASON] Follow up, Laboratory Test Results - Date: (09/01/07). Encounter Diagnosis: DIABETES MELLITUS WITHOUT MENTION OF COMPLICATION, TYPE II OR UNSPECIFIED TYPE, NOT STATED UNCONTROLLED (250.00), Pain in limb (729.5), Other and unspecified hyperlipidemia (272.4), Benign essential hypertension (401.1) [facility] Office Visit On: 17-Aug-2007 14:55 Encounter Reason: Follow up ER - Reason for hospitalization note: (groin pain, right). Patient has been compliant with instructions. Current medication use: no side effects and compliant with dosing regimen. The patient End: 17-Aug-2007 15:31 feels well with minor complaints (better, but still feels it.) ,has good energy level and is sleeping well. Note for Follow up ER: pains on and off for a while- pain medial thigh and burning-- then ra diates--into right groin- no leg swelling or chest pain or sob-- -- no change in bowels Encounter Diagnosis: Pain in limb (729.5) [facility] Office Visit On: 07-Jun-2007 9:00 Encounter Reason: Follow up for chronic medical issues - The patient feels well with no complaints ,has good energy level and is sleeping well. Patient has been compliant with instructions. Current medication use: no sara End: 07-Jun-2007 9:46 e effects and compliant with dosing regimen. Nutrition: inappropriate diet and supplemental vitamins. The medical issues the patient is following up for include All identified problems below ,blood suga r issues ,gastric reflux ,high blood pressure and high cholesterol. blood pressure range : (120's/80's and lower) and weight :. , [ADDITIONAL REASON] Follow up, Laboratory Test Results - Date: (05/31/07). Encounter Diagnosis: DIABETES MELLITUS WITHOUT MENTION OF COMPLICATION, TYPE II OR UNSPECIFIED TYPE, NOT STATED UNCONTROLLED (250.00), Benign essential hypertension (401.1), GERD (530.81), Other and unspecified hyperlipidemia (272.4) [facility] Office Visit On: 08-Mar-2007 11:17 Encounter Reason: Follow up for chronic medical issues - The patient feels well with no complaints ,has good energy level and is sleeping well (some nights). Patient has been compliant with instructions. Current medicati End: 08-Mar-2007 12:17 on use: no side effects and compliant with dosing regimen. Nutrition: balanced diet and supplemental vitamins. The medical issues the patient is following up for include All identified problems below ,b lood sugar issues ,gastric reflux ,high blood pressure and high cholesterol. weight :. Note for Follow up for chronic medical issues: vytorin made legs ache so had to stop and went away, [ADDITIONAL REASON] Follow up, Laboratory Test Results - Date: (02/25/07). Encounter Diagnosis: DIABETES MELLITUS WITHOUT MENTION OF COMPLICATION, TYPE II OR UNSPECIFIED TYPE, NOT STATED UNCONTROLLED (250.00), Other and unspecified hyperlipidemia (272.4), Unspecified essential hypertension (401.9), GERD (530.81) [facility] Nurse Visit On: 06-Dec-2006 9:15 Encounter Diagnosis: Unspecified Diagnosis End: 06-Dec-2006 9:32 [facility] Office Visit On: 15-Oct-2006 7:13 Encounter Reason: Follow up for chronic medical issues - The patient feels well with no complaints ,has good energy level ,is sleeping poorly and is sleeping well. Patient has been compliant with instructions. Current me End: 15-Oct-2006 7:55 dication use: no side effects and compliant with dosing regimen. Nutrition: balanced diet and supplemental vitamins. The medical issues the patient is following up for include All identified problems be low ,blood sugar issues ,gastric reflux ,high blood pressure and high cholesterol. blood pressure range : ,fasting blood sugars : and weight :. Note for Follow up for chronic medical issues: [place] se[facility] [place] bp checks at home- 120/70 - feeling well- has ab lounger - and lost 2 pounds- had mammo, pap in jul- bone density- refuses colonoscopy, [ADDITIONAL REASON] Follow up, Laboratory Test Results - Date: (10/07/06- on face sheet). Encounter Diagnosis: Mixed hyperlipidemia (272.2), DIABETES MELLITUS WITHOUT MENTION OF COMPLICATION, TYPE II OR UNSPECIFIED TYPE, NOT STATED UNCONTROLLED (250.00), Benign essential hypertension (401.1), GERD (530.81) [facility] Office Visit On: 02-Jul-2006 7:00 Encounter Reason: Follow up for chronic medical issues - The patient feels well with no complaints ,has good energy level and is sleeping well (some nights). Patient has been compliant with instructions. Current medicati End: 02-Jul-2006 7:44 on use: experiencing side effects (occasionally gets leg cramps from vytorin, not as much as used too.) and compliant with dosing regimen. Patient sleeps 7 hours per night. Nutrition: balanced diet and supplemental vitamins. The medical issues the patient is following up for include blood sugar issues ,gastric reflux ,high blood pressure and high cholesterol. blood pressure range : ,fasting blood suga rs : and weight :. Note for Follow up for chronic medical issues: vytorin very tolerable with qod- no check sugars routinely at home- really watching diet and doing ab lounger- -at home- 112/70- she d oes check bp at home - has been taking vytorin qod- less myalgias but chol went up, [ADDITIONAL REASON] Follow up, Laboratory Test Results - Date: (06/24/06- on face sheet.). Encounter Diagnosis: DIABETES MELLITUS WITHOUT MENTION OF COMPLICATION, TYPE II OR UNSPECIFIED TYPE, NOT STATED UNCONTROLLED (250.00), GERD (530.81), Benign essential hypertension (401.1), Mixed hyperlipidemia (272.2) [facility] Historical Summary On: 16-Jun-2006 14:57 [facility] End: 16-Jun-2006 15:05 Phone Encounter On: 04-Jun-2006 8:10 Encounter Diagnosis: Unspecified Diagnosis End: 04-Jun-2006 8:12 [facility] Office Visit On: 02-Apr-2006 7:46 Encounter Reason: Follow up for chronic medical issues - The patient feels well with no complaints ,has good energy level and is sleeping well. Patient has been compliant with instructions. Current medication use: experi End: 02-Apr-2006 8:38 encing side effects (recently decreased vytorin and the myalgia's are very mild now.). Patient sleeps 7 hours per night. Nutrition: balanced diet. The medical issues the patient is following up for incl ude blood sugar issues ,gastric reflux ,high blood pressure and high cholesterol. blood pressure range : ,fasting blood sugars : and weight :. Note for Follow up for chronic medical issues: wt down 3 pounds and saw the hub inventory specialist - discussed carbs and calories- is reading labels more at the grocery-eye 10/01, ekg - is utd and urine 08/31- not exercising routinely- would like to get back on her treadmil l- had to go to vytorin qod because of leg pain and that got alot better with just taking qod but her cholesterol went up as well-, [ADDITIONAL REASON] Follow up, Laboratory Test Results - Date: (03/26/06-flp,liver). Encounter Diagnosis: DIABETES MELLITUS WITHOUT MENTION OF COMPLICATION, TYPE II OR UNSPECIFIED TYPE, NOT STATED UNCONTROLLED (250.00), Benign essential hypertension (401.1), Other and unspecified hyperlipidemia (272.4) [facility] Historical Summary On: 30-Mar-2006 22:01 [facility] End: 30-Mar-2006 22:52 Payers MedicareAETNAElsie Hostetler; linh guarantor
--- OUTSIDE RECORDS SUMMARY | 2018-07-21 23:51 | XMS RPT_ITS | Continuity of Care Document ---
:1950 Author Organization [facility] Address [address] [place] [address] Phone Care Team Providers Name Role Phone Annamarie Carvajal DO Unavailable Bird Boyd DO Unavailable MONICA Govea Unavailable Unavailable Cece Amador Unavailable Unavailable Bhavya Robins Unavailable Unavailable Nolan Tripp Unavailable Unavailable Unavailable Unavailable Problems Name Dates Details Acute chest pain (R07.9, 786.50) Comments: substernal -- went to [facility] and had work up and ef 72% and ecg was good -- troponin unremarkable and cxr wnl Status: Active Annual Medicare Phyiscal WITHOUT abnormal [...] pt doesnt want to chg meds -- ordered dm cook book and will really do diet more diliegently w/o chg in meds Status: Active Encounter for general adult medical [...] Refused influenza vaccine) (Z28.21, V64.06) Status: Active Malignant neoplasm of breast (female) (C50.919, 174.9) Status: Active Mastectomy Status: Active Mixed hyperlipidemia (E78.2, 272.2) Comments: was on a slew of meds statins and ddnt tolerate them-- had leg pain - willing to chg diet finally for sugar and chol and will fllow lab ( she may be willing to try simvastatin since its one she hasnt tried) Status: Active Need for prophylactic vaccination and [...] Active Vitamin D deficiency, unspecified (E55.9, 268.9) Comments: pt will take daily now Status: Active Vitamin D deficiency, unspecified (E55.9, [...] 0 days Quantity: 30 {Tablet} Refills: 3 Ordered:06-Apr-2018 Kiana Carvajal DO, DO, Kathleen Start : 06-Apr-2018 Active Lisinopril 20 MG Oral Tablet 1 (one) Tablet qd for 0 days Quantity: 30 {Tablet} Refills: 3 Ordered:06-Apr-2018 Kiana Carvajal DO, DO, Kathleen Start : 06-Apr-2018 Active MetFORMIN HCl 500 MG Oral Tablet 2 (two) Tablet bid for 0 days Quantity: 120 {Tablet} Refills: 3 Ordered:31-Mar-2018 Kiana Carvajal DO, DO, Kathleen Start : 31-Mar-2018 Active Tradjenta 5 MG Oral Tablet 1 Tablet qd for 0 days Quantity: 30 {Tablet} Refills: 3 Ordered:07-Apr-2017 Kiana Carvajal DO, DO, Kathleen Start : 07-Apr-2017 Active Comments:4 bx Tricor 145 MG Oral Tablet 1 (one) Tablet qd for 0 days Quantity: 30 {Tablet} Refills: 3 Ordered:31-Mar-2018 Kiana Carvajal DO, DO, Kathleen Start : 31-Mar-2018 Active VITAMIN C, 1000MG [...] : 16-Mar-2014 End : 19-Aug-2017 Inactive ERGOCALCIFEROL, 25851BDZI (Oral Capsule) 1 (one) Capsule q o [...] days Quantity: 30 {Tablet} Refills: 3 Ordered:02-Dec-2017 Chrsitine Govea LPN Start : 19-Aug-2017 End : 02-Dec-2017 Inactive PredniSONE 10 MG Oral Tablet 3 (three) Tablet daily for 7 days Quantity: 21 {Tablet} Refills: 0 Ordered:28-Oct-2017 Christine Hightower Start : 28-Oct-2017 End : 04-Nov-2017 Inactive Comments:take with food RED YEAST RICE, 600MG (Oral Capsule) 1 cap bid (600 MG) Inactive VITAMIN D, 30044PGJM (Oral Capsule) 1 cap Capsule once weekly for 90 days Quantity: 12 {Capsule} Refills: 0 Ordered:21-Nov-2009 Kash Bird ECHAVARRIA Start : 21-Nov-2009 End : 19-Feb-2010 Inactive VYTORIN, 10-20MG (Oral Tablet) 1 (one) Tablet Daily for 0 days Quantity: 30 {Tablet} Refills: 3 Ordered:15-Oct-2006 Kash Bird ECHAVARRIA Start : 15-Oct-2006 End : 08-Mar-2007 Inactive [...] {Tablet} Refills: 0 Ordered:31-Oct-2012 Bird Boyd DO Start : 31-Oct-2012 End : 31-Oct-2012 Discontinued DRISDOL, 09043IJRB (Oral Capsule) 1 cap Capsule q o week for 90 days Quantity: 6 {Capsule} Refills: 1 Ordered:18-Nov-2011 Kash ECHAVARRIA Bird A Start : 18-Nov-2011 End : 18-Nov-2011 Discontinued FISH OIL CONCENTRATE, 1000MG (Oral Capsule) 1 cap qd (1000 MG) End : 20-Nov-2015 Discontinued FOSAMAX, 35MG (Oral Tablet) 1 Tablet Weekly for 0 days Quantity: 4 {Tablet} Refills: 3 Ordered:31-Aug-2012 Kash ECHAVARRIA Bird Melton Start : 31-Aug-2012 End : 19-Dec-2012 Discontinued Comments:This order discontinued per [facility]. LIVALO, 2MG (Oral Tablet) 1 Tablet qd for 0 days Quantity: 30 {Tablet} Refills: 3 Ordered:05-Aug-2012 Kash ECHAVARRIA Bird Melton Start : 05-Aug-2012 End : 05-Aug-2012 Discontinued [...] QD for 0 days Refills: 0 Ordered:02-Jul-2006 Kash ECHAVARRIA Bird A Start : 02-Jul-2006 End : 02-Jul-2006 Discontinued WELCHOL, 625MG (Oral Tablet) 3 (three) Tablet bid for 0 days Quantity: 180 {Tablet} Refills: 3 Ordered:31-Dec-2008 Kash ECHAVARRIA Bird Melton Start : 31-Dec-2008 End : 31-Dec-2008 Discontinued [...] (R82.90, 791.9) Status: Inactive as of 20-Apr-2016 Allergic reaction, initial encounter (T78.40XA, 995.3) Comments: sting insect -- Status: Resolved as of 06-Apr-2018 BMI 33.0-33.9,adult (Z68.33, V85.33) Status: Inactive as of 12-Oct-2017 Itching (L29.9, 698.9) Status: Resolved as of 06-Apr-2018 Need for prophylactic vaccination with tetanus toxoid alone (Z23, V03.7) Status: Inactive as of 31-Dec-2008 Pain in limb (M79.609, 729.5) Status: Resolved as of 07-Sep-2007 Poison staci (L23.7, 692.6) Status: Resolved as of 06-Apr-2018 Rash (R21, 782.1) Comments: cleaning leavews Status: Resolved as of 05-Aug-2012 screening Status: Inactive as of 01-Jul-2011 Unspecified Diagnosis Status: Inactive as of 31-Dec-2008 Unspecified Diagnosis Status: Inactive as of 31-Dec-2008 Unspecified Diagnosis Status: Inactive as of 31-Dec-2008 Procedures Date Value Details 29-Mar-2018 Dexa Bone Density Study Result: Comments: See Note; NOTES: [facility] Imaging Services [address] [place] [address] Dexa Bone Density Study MR#: [id number] Acct: [id number] Name: JAN RODRIGUEZ Rep #: [id number] : 1950 F 67 From: Thierry Dunn MD PCP: Annamarie Carvajal DO Status: REG CLI Study: Dexa Bone Density Study Date of Exam: 03/29/18 Exam# [id number] Ordering Dr: Annamarie Carvajal DO STUDY: DUAL [...] Thierry Dunn MD at 15:48 EDT Tel [phone], Service support , CC: Annamarie Carvajal DO Copy Preparer: Signed 29-Mar-2018 UNILAT LT SCRN W/CAD Result: Comments: See Note; NOTES: [facility] Imaging Services [address] [place] [address] UNILAT LT SCRN W/CAD MR#: [id number] Acct: [id number] Name: JAN RODRIGUEZ Rep #: [id number] : 1950 F 67 From: Thierry Dunn MD PCP: Annamarie Carvajal DO Status: REG CLI Study: UNILAT LT SCRN W/CAD Date of Exam: 03/29/18 Exam# [id number] Ordering Dr: Annamarie Carvajal DO MAMMOG JERI [...] delay biopsy of a clinically suspicious abnormality. [id number] Electronically Signed: Thierry Dunn MD at 12:24 EDT Tel [phone], Service support , Fax CC: Annamarie Carvajal DO Copy Preparer: Signed 22-Mar-2017 Lt Brst Unilat Ted Add On Result: Comments: See Note; NOTES: [facility] Imaging Services [address] [place] [address] Lt Brst Unilat Ted Add On MR#: [id number] Acct: [id number] Name: JAN RODRIGUEZ Rep #: [id number] : 1950 F 66 From: Thierry Dunn MD PCP: Annamarie Carvajal DO Status: REG CLI Study: Lt Brst Unilat Ted Add On Date of Exam: 03/22/17 Exam# [id number] Ordering Dr: Amie Munoz MD MAMMOGRAPHY - [...] no significant change since the prior study. HPBI/ Lt Brst Unilat Ted Add On IMPRESSION: Stable unilateral screening mammogram. Yearly follow-up mammogram recommended. (A) ASSESSMENT CATEGORY: BIRADS Category 2: Be nign. A letter regarding these results will be sent to the patient by the facility within 30 days. Approximately 10% of breast cancers are not detected by mammography. A normal mammogram should not del ay biopsy of a clinically suspicious abnormality. [id number] Electronically Signed: Thierry Dunn MD at 8:56 EDT Tel [phone], Service support , C C: Amie Munoz MD; Annamarie Carvajal DO Copy Preparer: Signed 22-Mar-2017 UNILAT LT SCRN W/CAD Result: Comments: See Note; NOTES: [facility] Imaging Services [address] [place] [address] PARAS LT SCRN W/CAD MR#: [id number] Acct: [id number] Name: JAN RODRIGUEZ Rep #: [id number] : 1950 F 66 From: Thierry Dunn MD PCP: Annamarie Carvajal DO Status: REG CLI Study: PARAS TOVARN W/CAD Date of Exam: 03/22/17 Exam# [id number] Ordering Dr: Amie Munoz MD MAMMOGR APHY [...] no significant change since the prior study. [facility] RN W/CAD IMPRESSION: Stable unilateral screening mammogram. Yearly follow-up mammogram recommended. (A) ASSESSMENT CATEGORY: BIRADS Category 2: Benign. A letter reg arding these results will be sent to the patient by the facility within 30 days. Approximately 10% of breast cancers are not detected by mammography. A normal mammogram should not delay biopsy of a cli nically suspicious abnormality. [id number] Electronically Signed: Thierry Dunn MD at 8:56 EDT Tel [phone], Service support , CC: Amie Sheldon; Annamarie Carvajal DO Copy Preparer: Signed 20-Nov-2015 EKG (32852) Comments: ekg showed normal sinus rhythym, normal axis, no acute st/t wave changes Result: [MEASUREMENTS ANALYSIS] Date of Test: 11/20/2015 10:33:59; Heart Rate: 65; TX Interval: 138; QRS: 101; QT Interval: 398; Corrected QT Interval (QTc): 406; P Wave [place]: 27; QRS Wave [place]: 17; T Wave [place] : -1; Blood Pressure: 110/76 [ECG DIAGNOSTIC STATEMENTS] Date of Test: 11/20/2015 10:33:59; Summary: Sinus Rhythm WITHIN NORMAL LIMITS 29-Jan-2015 Dexa Bone Density Study (HP) Result: Comments: See Note; NOTES: [facility] Imaging Services [address] [place] [address] Bone Density Report MR#: [id number] Acct: [id number] Name: JAN RODRIGUEZ Rep #: [id number] : 1950 F 64 From: Thierry Dunn MD PCP: Bird Boyd DO Status: REG CLI Study: Dexa Bone Density Study (HP) Date of Exam: 01/29/15 Exam# [id number] Ordering Dr: Bird Boyd DO STUDY: DUAL [...] Thierry Dunn MD at 9:40 EDT Tel [phone], Service support [phone], CC: Bird Boyd DO Copy Preparer: Signed 29-Jan-2015 Unilat Lt Scrn Digital AND CAD Result: Comments: See Note; NOTES: [facility] Imaging Services [address] [place] [address] Breast Imaging Report MR#: [id number] Acct: [id number] Name: JAN RODRIGUEZ Rep #: [id number] : 1950 F 64 From: Thierry Dunn MD PCP: Bird Boyd DO Status: REG CLI Study: Unilat Lt Scrn Digital AND CAD Date of Exam: 01/29/15 Exam# [id number] Ordering Dr: Vernon Boyd DO MAMMOGRAPHY - [...] Thierry Dunn MD at 9:04 EDT Tel [phone], Service support [phone], CC: Bird Boyd DO Copy Preparer: Signed 01-Aug-2014 Sleep Study Report Result: Comments: See Note; NOTES: [facility] [address] [place] [address] Unattended Sleep Study MR#: [id number] Acct: [id number] Name: JAN RODRIGUEZ Rep #: [id number] : 1950 63 From: Reg Dupont MD [...] version). Please note that a reference to [facility] in this report is consistent with [...] condition accurately. Reg Dupont M.D., Justin [place] ABSOctavia CC: Reg Dupont MD [phone] <Electronically signed by Reg Dupont MD> STEINER Date Reg Dupont MD Co-signature (if applicable) Date Signed 16-May-2014 Spirometry (95373) Comments: good effort and curve normal Result: 20-Dec-2013 Unilat Lt Scrn Digital & CAD Result: Comments: See Note; NOTES: [facility] Imaging Services [address] [place] [address] Breast Imaging Report MR#: [id number] Acct: [id number] Name: JAN RODRIGUEZ Rep # : [id number] : 1950 F 63 From: Thierry uDnn MD PCP: Bird Boyd DO Status: REG CLI Exam# [id number] Ordering Dr: Bird Boyd DO MAMMOGRAPHY - [...] Thierry Dunn MD at 8:38 EDT Tel [phone], Service support [phone], CC: Bird Boyd DO Copy Preparer: Signed Immunization Name Dates Details Tetanus on: 02-Dec-2007 Comments: Lot #: [id number] date: 11/03Amount given: 0.5 mlRoute: IMSite given: [...] smoker Vital Signs Date Test Result Details 01-Pwa-43023:17 Pulse 68 /min Comments: Pattern: Regular Respiration Rate 18 /min Comments: Pattern: Unlabored O2 SAT 97 % Comments: Room air BP Systolic 128 mm[Hg] Comments: Patient Position: Sitting; Cuff Location: Left Arm; Cuff Size: Large BP Diastolic 78 mm[Hg] Comments: Patient Position: Sitting; Cuff Location: Left Arm; Cuff Size: Large Weight 178.125 lb Height 62 in Body Mass Index Calculated 32.58 kg/m2 Body Surface Area Calculated 1.82 m2 :14 Pulse 66 /min Comments: Pattern: Regular Respiration [...] Area Calculated 1.82 m2 :18 Comments: hearing sailDrHali Tejeda and had a glaucoma test done [...] cm Results Date Description Value Details :20 HgA1C , Office (23673) HgA1C , Office 6.9 % (Normal) Range: 4.6 - 7.1 :20 Blood Glucose , Office (33306) Blood Glucose , Office 148 (Normal) :20 Microscopic Examination Comments: PATIENT WAS FASTINGPERFORMED BY: [facility] Nljlpk3354 [facility] [place] [id number] Bacteria None seen (Normal) Epithelial Cells (non renal) 0-10 {/hpf} (Normal) Range: 0 - 10 RBC 0-2 {/hpf} (Normal) Range: 0 - 2 WBC 0-5 {/hpf} (Normal) Range: 0 - 5 :20 CALCIFIDIOL (10166) VIT D 25 Comments: PATIENT WAS FASTINGPERFORMED BY: [facility] [id number] [facility] [id number] Vitamin D, 25-Hydroxy 45.4 ng/mL (Normal) Range: 30.0-100.0 Comments: Vitamin D deficiency has been defined by the [place] and an Endocrine Society practice guideline as alevel of serum 25-OH vitamin D less than 20 ng/mL (1,2).The Endocrine Society went on to further define vitamin Dinsufficiency as a level between 21 and 29 ng/mL (2).1. IOM ([place]). 2010. Dietary reference intakes for calcium and D. [place]: The National Academies Press.2. Yashira MF, Radha [place], Wally STEINER, et al. Evaluation, treatment, and prevention of vitamin D deficiency: an Endocrine Society clinical practice guideline. JCEM. 2010; 96(7):1911-30. :20 TSH (54616) Comments: PATIENT WAS FASTINGPERFORMED BY: [facility] [id number] [facility] [id number] TSH 2.140 {uIU/mL} (Normal) Range: 0.450-4.500 29-Mar-20189:20 URINALYSIS, W/ MICRO (06689) Comments: PATIENT WAS FASTINGPERFORMED BY: [facility] [id number] [facility] [id number] Microscopic Examination See below: (Normal) Comments: Microscopic was indicated and was performed. Microscopic Examination MICRON (Normal) Comments: Microscopic follows if indicated. Nitrite, Urine Negative (Normal) Urobilinogen,Semi-Qn 0.2 mg/dL (Normal) Range: 0.2-1.0 Bilirubin Negative (Normal) Occult Blood Negative (Normal) Ketones Negative (Normal) Glucose Negative (Normal) Protein Negative (Normal) WBC Esterase Negative (Normal) Appearance Clear (Normal) Urine-Color Yellow (Normal) pH 6.5 (Normal) Range: 5.0-7.5 Specific [place] 1.016 (Normal) Range: 1.005-1.030 :20 MICROALBUMIN: CREATININE RATIO Comments: PATIENT WAS FASTINGPERFORMED BY: [employer] [id number] (58641) AND (38670) Alb/Creat Ratio 5.4 {mg/g_creat} (Normal) Range: 0.0-30.0 Comments: Normal: 0.0 - 30.0 Albuminuria: 31.0 - 300.0 Clinical albuminuria: >300.0 Albumin, Urine 3.8 ug/mL (Normal) Creatinine, Urine 70.3 mg/dL (Normal) :20 METABOLIC PANEL, COMPREHENSIVE Comments: PATIENT WAS FASTINGPERFORMED BY: [employer] [id number] (85251) ALT (SGPT) 22 [iU]/L (Normal) Range: 0-32 [...] 8-27 Glucose 149 mg/dL (Abnormal) Range: 65-99 :20 LIPID PANEL (07991) Comments: PATIENT WAS FASTINGPERFORMED BY: [employer] [facility] [id number] LDL/HDL Ratio 3.4 {ratio} (Abnormal) Range: 0.0-3.2 [...] Range: 100-199 :20 CBC W/AUTO DIFF WBC (30318) Comments: PATIENT WAS FASTINGPERFORMED BY: [facility] [id number] [facility] [id number] Immature Grans (Abs) 0.0 {x10E3/uL} (Normal) Range: [...] (Normal) Range: 3.4-10.8 :17 HgA1C , Office (75076) HgA1C , Office 7.1 % (Normal) Range: 4.6 - 7.1 :17 Blood Glucose , Office (30006) Blood Glucose , Office 124 (Normal) :52 HgA1C , Office (76404) HgA1C , Office 6.6 % (Normal) Range: 4.6 - 7.1 :52 Blood Glucose , Office (45819) Blood Glucose , Office 130 (Normal) 59-Ria-309096:55 Microscopic Examination Comments: PATIENT WAS FASTINGPERFORMED BY: [employer] [place] [id number] Bacteria Few (Normal) Mucus Threads Present (Normal) Crystal Type Calcium Oxalate (Normal) Crystals Present (Abnormal) Epithelial Cells (non renal) None seen {/hpf} (Normal) Range: 0 - 10 RBC None seen {/hpf} (Normal) Range: 0 - 2 WBC 0-5 {/hpf} (Normal) Range: 0 - 5 :55 CALCIFEDIOL (68422) Comments: PATIENT WAS FASTINGPERFORMED BY: [employer] [place] [id number] Vitamin D, 25-Hydroxy 59.4 ng/mL (Normal) Range: 30.0-100.0 Comments: Vitamin D deficiency has been defined by the [place] and an Endocrine Society practice guideline as alevel of serum 25-OH vitamin D less than 20 ng/mL (1,2).The Endocrine Society went on to further define vitamin Dinsufficiency as a level between 21 and 29 ng/mL (2).1. IOM ([place]). 2010. Dietary reference intakes for calcium and D. [place]: The National Academies Press.2. Yashira MF, Radha DELGADO, Wally STEINER, et al. Evaluation, treatment, and prevention of vitamin D deficiency: an Endocrine Society clinical practice guideline. JCEM. 2010; 96(7):1911-30. 29-Lvq-912634:55 LIPID PANEL (15667) Comments: PATIENT WAS FASTINGPERFORMED BY: [facility] [id number] LDL/HDL Ratio 3.3 {ratio_units} (Abnormal) Range: 0.0-3.2 Comments: LDL/HDL Ratio Men Women 1/2 Avg.Risk 1.0 1.5 Av g.Risk 3.6 3.2 2X Avg.Risk 6.2 5.0 3X Avg.Risk 8.0 6.1 LDL Cholesterol Calc 163 mg/dL (Abnormal) Range: 0-99 VLDL Cholesterol Jennifer 21 mg/dL (Normal) Range: 5-40 HDL Cholesterol 49 mg/dL (Normal) Triglycerides 106 mg/dL (Normal) Range: 0-149 Cholesterol, Total 233 mg/dL (Abnormal) Range: 100-199 19-Axy-405193:55 TSH (71479) Comments: PATIENT WAS FASTINGPERFORMED BY: [employer] [id number] TSH 2.190 {uIU/mL} (Normal) Range: 0.450-4.500 40-Tfp-013434:55 URINALYSIS, W/ MICRO (49385) Comments: PATIENT WAS FASTINGPERFORMED BY: [facility] [facility] [id number] Microscopic Examination See below: (Normal) Comments: Microscopic was indicated and was performed. Microscopic Examination MICRON (Normal) Comments: Microscopic follows if indicated. Nitrite, Urine Negative (Normal) Urobilinogen,Semi-Qn 0.2 mg/dL (Normal) Range: 0.2-1.0 Bilirubin Negative (Normal) Occult Blood Negative (Normal) Ketones Negative (Normal) Glucose Negative (Normal) Protein Negative (Normal) WBC Esterase Negative (Normal) Appearance Clear (Normal) Urine-Color Yellow (Normal) pH 5.5 (Normal) Range: 5.0-7.5 Specific [place] 1.020 (Normal) Range: 1.005-1.030 11-Emz-771250:55 MICROALBUMIN: CREATININE RATIO Comments: PATIENT WAS FASTINGPERFORMED BY: [facility] HospitalNwfpet3953 [facility] [id number] (31199) AND (84146) Alb/Creat Ratio 3.7 {mg/g_creat} (Normal) Range: 0.0-30.0 Albumin, Urine 3.8 ug/mL (Normal) Creatinine, Urine 102.1 mg/dL (Normal) 68-Htt-010011:55 METABOLIC PANEL, COMPREHENSIVE Comments: PATIENT WAS FASTINGPERFORMED BY: [employer] [id number] (92914) ALT (SGPT) 13 [iU]/L (Normal) Range: 0-32 [...] Glucose, Serum 134 mg/dL (Abnormal) Range: 65-99 95-Vss-497392:55 CBC W/AUTO DIFF WBC (70559) Comments: PATIENT WAS FASTINGPERFORMED BY: [facility] Scjsal4467 [facility] [id number] Immature Grans (Abs) 0.0 {x10E3/uL} (Normal) Range: [...] (Normal) Range: 3.4-10.8 :29 HgA1C , Office (20736) HgA1C , Office 6.8 % (Normal) Range: 4.6 - 7.1 :29 Blood Glucose , Office (39976) Blood Glucose , Office 137 (Normal) :11 LIPID PANEL (17671) Comments: PATIENT WAS FASTINGPERFORMED BY: [employer] [facility] [id number] LDL/HDL Ratio 3.2 {ratio_units} (Normal) Range: 0.0-3.2 [...] (Abnormal) Range: 100-199 :59 HgA1C , Office (77693) HgA1C , Office 6.5 % (Normal) Range: 4.6 - 7.1 :35 Microscopic Examination Comments: PATIENT WAS FASTINGPERFORMED BY: [employer]Reg[employer] [facility] [id number] Bacteria Few (Normal) Mucus Threads Present (Normal) Epithelial Cells (non renal) 0-10 {/hpf} (Normal) Range: 0 - 10 RBC 0-2 {/hpf} (Normal) Range: 0 - 2 WBC 0-5 {/hpf} (Normal) Range: 0 - 5 :35 CALCIFIDIOL (31011) VIT D 25 Comments: PATIENT WAS FASTINGPERFORMED BY: [employer] [facility] [id number] Vitamin D, 25-Hydroxy 84.3 ng/mL (Normal) Range: 30.0-100.0 Comments: Vitamin D deficiency has been defined by the [place] and an Endocrine Society practice guideline as alevel of serum 25-OH vitamin D less than 20 ng/mL (1,2).The Endocrine Society went on to further define vitamin Dinsufficiency as a level between 21 and 29 ng/mL (2).1. IOM ([place]). 2010. Dietary reference intakes for calcium and D. [place]: The National Academies Press.2. Yashira MF, Radha DELGADO, Wally STEINER, et al. Evaluation, treatment, and prevention of vitamin D deficiency: an Endocrine Society clinical practice guideline. JCEM. 2010; 96(7):1911-30. :35 LIPID PANEL (78264) Comments: PATIENT WAS FASTINGPERFORMED BY: [employer] [employer] [place] [id number] LDL/HDL Ratio 3.5 {ratio_units} (Abnormal) Range: 0.0-3.2 [...] (Abnormal) Range: 100-199 :35 URINALYSIS, W/ MICRO (94301) Comments: PATIENT WAS FASTINGPERFORMED BY: [employer]6[facility] [id number] Microscopic Examination See below: (Normal) Comments: Microscopic was indicated and was performed. Nitrite, Urine Negative (Normal) Urobilinogen,Semi-Qn 0.2 mg/dL (Normal) Range: 0.2-1.0 Bilirubin Negative (Normal) Occult Blood Negative (Normal) Ketones Negative (Normal) Glucose Negative (Normal) Protein Negative (Normal) WBC Esterase 2+ (Abnormal) Appearance Clear (Normal) Urine-Color Yellow (Normal) pH 7.0 (Normal) Range: 5.0-7.5 Specific [place] 1.019 (Normal) Range: 1.005-1.030 :35 MICROALBUMIN: CREATININE RATIO Comments: PATIENT WAS FASTINGPERFORMED BY: RepRegenHudson [facility] Meadowview HospitalTqpdwa7089 [facility] [id number] (22092) AND (27289) Microalb/Creat Ratio 4.9 {mg/g_creat} (Normal) Range: 0.0-30.0 Microalbumin, Urine 5.8 ug/mL (Normal) Creatinine, Urine 118.5 mg/dL (Normal) :35 METABOLIC PANEL, COMPREHENSIVE Comments: PATIENT WAS FASTINGPERFORMED BY: [employer] Gwipmm1221 [facility] [id number] (74863) ALT (SGPT) 15 [iU]/L (Normal) Range: 0-32 [...] Glucose, Serum 159 mg/dL (Abnormal) Range: 65-99 :35 CBC W/AUTO DIFF WBC (01667) Comments: PATIENT WAS FASTINGPERFORMED BY: [facility] [id number] [facility] [id number] Immature Grans (Abs) 0.0 {x10E3/uL} (Normal) Range: [...] (Normal) Range: 3.4-10.8 :59 HgA1C , Office (74345) HgA1C , Office 7.3 % (Abnormal) Range: 4.6 - 7.1 :59 Blood Glucose , Office (09821) Blood Glucose , Office 120 (Normal) :57 HgA1C , Office (14990) HgA1C , Office 7.1 % (Normal) Range: 4.6 - 7.1 :57 Blood Glucose , Office (68652) Blood Glucose , Office 137 (Normal) :06 Vitamin D Hydroxy (68691) Comments: PATIENT WAS FASTINGPERFORMED BY: [facility] Dousuy4255 [facility] [id number] Vitamin D, 25-Hydroxy 79.5 ng/mL (Normal) Range: 30.0-100.0 Comments: Vitamin D deficiency has been defined by the [place] and an Endocrine Society practice guideline as alevel of serum 25-OH vitamin D less than 20 ng/mL (1,2).The Endocrine Society went on to further define vitamin Dinsufficiency as a level between 21 and 29 ng/mL (2).1. IOM ([place]). 2010. Dietary reference intakes for calcium and D. [place]: The National Academies Press.2. Yashira MF, Radha DELGADO, Wally STEINER, et al. Evaluation, treatment, and prevention of vitamin D deficiency: an Endocrine Society clinical practice guideline. JCEM. 2010; 96(7):1911-30. :06 LIPID PANEL (72862) Comments: PATIENT WAS FASTINGPERFORMED BY: [facility] Gnonpr3938 [facility] [id number]; non-emergent till apt tomorrow LDL/HDL Ratio 3.1 [...] Range: 100-199 :06 CBC with auto diff (13414) Comments: PATIENT WAS FASTINGPERFORMED BY: RepRegen Boursorama Bank [facility] [id number] Immature Grans (Abs) 0.0 {x10E3/uL} (Normal) Range: [...] PANEL, COMPREHENSIVE Comments: PATIENT WAS FASTINGPERFORMED BY: RepRegenHudson County Meadowview HospitalYvhuok0007 [facility] [id number] (99168) ALT (SGPT) 15 [iU]/L (Normal) Range: 0-32 [...] (Abnormal) Range: 65-99 :42 HgA1C , Office (05064) HgA1C , Office 7.0 % (Normal) Range: 4.6 - 7.1 25-Iqn-102305:32 Vitamin D Hydroxy (45945) Comments: PATIENT WAS FASTINGPERFORMED BY: LabHenry Ford [facility] Hospital6370 [facility] [id number] Vitamin D, 25-Hydroxy 36.6 ng/mL (Normal) Range: 30.0-100.0 Comments: Vitamin D deficiency has been defined by the [place] and an Endocrine Society practice guideline as alevel of serum 25-OH vitamin D less than 20 ng/mL (1,2).The Endocrine Society went on to further define vitamin Dinsufficiency as a level between 21 and 29 ng/mL (2).1. IOM ([place] [employer]). 2010. Dietary reference intakes for calcium and D. [place]: The National Academies Press.2. Yashira MF, Radha DELGADO, Wally STEINER, et al. Evaluation, treatment, and prevention of vitamin D deficiency: an Endocrine Society clinical practice guideline. JCEM. 2010; 96(7):1911-30. 66-Rju-283570:32 LIPID PANEL (43061) Comments: PATIENT WAS FASTINGPERFORMED BY: RepRegenHudson County Meadowview HospitalXbjzsv5556 [facility] [id number] LDL/HDL Ratio 3.2 {ratio_units} (Normal) Range: 0.0-3.2 [...] Cholesterol, Total 244 mg/dL (Abnormal) Range: 100-199 94-Ahk-713627:32 CBC W/AUTO DIFF WBC Comments: PATIENT WAS FASTINGPERFORMED BY: LabHenry Ford [facility] Bloomfield Hospital6370 [facility] [id number] Information: [id number] (34163) Immature Grans (Abs) 0.0 {x10E3/uL} (Normal) Range: [...] 3.77-5.28 WBC 6.7 {x10E3/uL} (Normal) Range: 3.4-10.8 73-Zxg-121127:32 MICROALBUMIN: CREATININE RATIO Comments: PATIENT WAS FASTINGPERFORMED BY: Disqus70 RodriguezFi.ttSelect Specialty Hospital [facility] [id number] (72621) AND (13513) Microalb/Creat Ratio 5.8 {mg/g_creat} (Normal) Range: 0.0-30.0 Microalbumin, Urine 3.8 ug/mL (Normal) Comments: Please note reference interval change Creatinine, Urine 65.0 mg/dL (Normal) Comments: Please note reference interval change :32 METABOLIC PANEL, COMPREHENSIVE Comments: PATIENT WAS FASTINGPERFORMED BY: Disqus70 RodriguezFi.ttSelect Specialty Hospital [facility] [id number]; will review on 11/19 (81688) ALT (SGPT) 15 [iU]/L (Normal) Range: 0-32 [...] Glucose, Serum 135 mg/dL (Abnormal) Range: 65-99 :40 Vitamin D Hydroxy (82868) Comments: PATIENT WAS FASTINGPERFORMED BY: LabHenry [facility] Hospital6370 [facility] [id number] Vitamin D, 25-Hydroxy 43.0 ng/mL (Normal) Range: 30.0-100.0 Comments: Vitamin D deficiency has been defined by the [place] of[facility] and an Endocrine Society practice guideline as alevel of serum 25-OH vitamin D less than 20 ng/mL (1,2).The Endocrine Society went on to further define vitamin Dinsufficiency as a level between 21 and 29 ng/mL (2).1. IOM ([place] [employer]). 2010. Dietary reference intakes for calcium and D. [place]: The National Academies Press.2. Yashira MF, Radha DELGADO, Wally STEINER, et al. Evaluation, treatment, and prevention of vitamin D deficiency: an Endocrine Society clinical practice guideline. JCEM. 2010; 96(7):1911-30. 31-Sle-396773:40 LIPID PANEL (38285) Comments: PATIENT WAS FASTINGPERFORMED BY: [facility]6370 [facility] [id number] LDL/HDL Ratio 2.8 {ratio_units} (Normal) Range: 0.0-3.2 [...] Cholesterol, Total 206 mg/dL (Abnormal) Range: 100-199 67-Tdt-633140:40 MICROALBUMIN: CREATININE RATIO Comments: PATIENT WAS FASTINGPERFORMED BY: [place] 1454370 [facility] [id number] (97311) AND (49888) Microalb/Creat Ratio 3.6 {mg/g_creat} (Normal) Range: 0.0-30.0 Microalbumin, Urine 4.8 ug/mL (Normal) Range: 0.0-17.0 Creatinine, Urine 132.8 mg/dL (Normal) Range: 15.0-278.0 02-Caf-172107:40 Hemoglobin Glyclated (HGB A1C) Comments: PATIENT WAS FASTINGPERFORMED BY: [place] 1454370 [facility] [id number] (68627) Hemoglobin A1c 6.6 % (Abnormal) Range: 4.8-5.6 Comments: . 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 of containers..01 CYTYC Thin Prep VialTest performed at:[facility] Auctflovkb[address] [place], [place] [id number] HPV RFLX Comment (Normal) Comments: The HPV DNA reflex criteria were not met with this specimenresult therefore, no HPV testing was performed.Performed at: [address] [place] [id number] Director: Linh Palafox MD, Phone: [phone] PAPR Comment (Normal) Comments: The Pap smear is [...] system. PERFORM Comment (Normal) Comments: Pk Sanchez, Metal Storage Worker (ASCP) ADEQ Comment (Normal) Comments: Satisfactory for evaluation. Endocervical and/or squamous metaplasticcells (endocervical component) are present. DIAGN Comment (Normal) Comments: NEGATIVE FOR INTRAEPITHELIAL LESION AND MALIGNANCY.CELLULAR CHANGES ASSOCIATED WITH ATROPHY ARE PRESENT. 96-Cim-65877:57 METABOLIC PANEL, Comments: PATIENT WAS FASTINGPERFORMED BY: [facility] Sibgpr7561 [facility] [id number] Information: [id number] COMPREHENSIVE (05769) ALT (SGPT) 16 [iU]/L (Normal) Range: 0-32 [...] Glucose, Serum 177 mg/dL (Abnormal) Range: 65-99 :57 LIPID PANEL (22216) Comments: PATIENT WAS FASTINGPERFORMED BY: Disqus70 UniqueduSelect Specialty Hospital [facility] [id number]; non-emergent till apt LDL/HDL Ratio 2.6 {ratio_units} [...] (Abnormal) Range: 100-199 :57 Vitamin D Hydroxy (39005) Comments: PATIENT WAS FASTINGPERFORMED BY: [employer]6370 [address] [facility] [id number] Vitamin D, 25-Hydroxy 34.9 ng/mL (Normal) Range: 30.0-100.0 Comments: Vitamin D deficiency has been defined by the [place] and an Endocrine Society practice guideline as alevel of serum 25-OH vitamin D less than 20 ng/mL (1,2).The Endocrine Society went on to further define vitamin Dinsufficiency as a level between 21 and 29 ng/mL (2).1. IOM ([place] [employer]). 2010. Dietary reference intakes for calcium and D. [place]: The National Academies Press.2. Radha Mars, Wally STEINER, et al. Evaluation, treatment, and prevention of vitamin D deficiency: an Endocrine Society clinical practice guideline. JCEM. 2010; 96(7):1911-30. 29-Qov-146613:44 HgA1C , Office (00426) HgA1C , Office 7.4 % (Abnormal) Range: 4.6 - 7.1 :04 Vitamin D Hydroxy (31582) Comments: PERFORMED BY: Disqus70 FitzealFormerly [facility], [facility] [id number] Vitamin D, 25-Hydroxy 34.6 ng/mL (Normal) Range: 30.0-100.0 Comments: Vitamin D deficiency has been defined by the [place] [employer] and an Endocrine Society practice guideline as alevel of serum 25-OH vitamin D less than 20 ng/mL (1,2).The Endocrine Society went on to further define vitamin Dinsufficiency as a level between 21 and 29 ng/mL (2).1. IOM ([place] [employer]). 2010. Dietary reference intakes for calcium and D. [place]: The National Academies Press.2. Yashira CERVANTES, Radha DELGADO, Wally STEINER, et al. Evaluation, treatment, and prevention of vitamin D deficiency: an Endocrine Society clinical practice guideline. JCEM. 2010; 96(7):1911-30. :04 CBC W/AUTO DIFF WBC (26825) Comments: PERFORMED BY: [employer]6370 [address] [facility] [id number] Immature Grans (Abs) 0.0 {x10E3/uL} (Normal) Range: [...] 3.77-5.28 WBC 5.4 {x10E3/uL} (Normal) Range: 3.4-10.8 99-Lxi-005616:04 METABOLIC PANEL, COMPREHENSIVE Comments: PERFORMED BY: LabCoHudson County Meadowview HospitalQchdln6428 [facility] [id number] (24126) ALT (SGPT) 19 [iU]/L (Normal) Range: 0-32 [...] Glucose, Serum 142 mg/dL (Abnormal) Range: 65-99 41-Rpi-738446:04 MICROALBUMIN: CREATININE RATIO Comments: PERFORMED BY: Vensun PharmaceuticalsSelect Specialty Hospital [facility] [id number] (25150) AND (49979) Microalb/Creat Ratio 12.0 {mg/g_creat} (Normal) Range: 0.0-30.0 Microalbumin, Urine 14.3 ug/mL (Normal) Range: 0.0-17.0 Creatinine, Urine 119.0 mg/dL (Normal) Range: 15.0-278.0 75-Tup-910904:04 LIPID PANEL (93076) Comments: PERFORMED BY: [facility]ensun PharmaceuticalsSelect [facility]ty Hospital [facility] [id number]; non-emergent till apt next week LDL/HDL Ratio [...] With LDL/HDL Comments: PATIENT WAS FASTINGPERFORMED BY: WhatsNexxox RoadDublin [place] [id number] Information: [id number] Ratio LDL/HDL Ratio 3.0 {ratio_units} Range: 0.0-3.2 [...] WAR (Normal) Comments: PATIENT WAS FASTINGPERFORMED BY: [facility]6370 [facility] [id number] :50 Comments: Written Authorization Received.Authorization received from DR. BIRD BOYD [id number] by Katia Mckinney :50 Vitamin D Hydroxy (63421) Comments: PATIENT WAS FASTINGPERFORMED BY: [facility]6370 [facility] [id number] Vitamin D, 25-Hydroxy 49.4 ng/mL (Normal) Range: 30.0-100.0 Comments: Vitamin D deficiency has been defined by the [place] of[place] and an Endocrine Society practice guideline as alevel of serum 25-OH vitamin D less than 20 ng/mL (1,2).The Endocrine Society went on to further define vitamin Dinsufficiency as a level between 21 and 29 ng/mL (2).1. IOM ([place] [employer]). 2010. Dietary reference intakes for calcium and D. [place]: The National Academies Press.2. Yashira MF, Radha DELGADO, Wally STEINER, et al. Evaluation, treatment, and prevention of vitamin D deficiency: an Endocrine Society clinical practice guideline. JCEM. 2010; 96(7):1911-30. 5-Dec-51558:50 METABOLIC PANEL, Comments: PATIENT WAS FASTINGPERFORMED BY: [facility]Co Nnsrdu2551 Michael RobertoSelect Specialty Hospital [facility] [id number] Information: [id number] COMPREHENSIVE (06397) ALT (SGPT) 14 [iU]/L (Normal) Range: 0-32 [...] Range: 65-99 :41 Blood Glucose , Office (84395) Blood Glucose , Office 181 (Normal) :41 HgA1C , Office (27870) HgA1C , Office 7.2 % (Abnormal) Range: 4.6 - 7.1 :55 HgA1C , Office (01494) HgA1C , Office 7.7 % (Abnormal) Range: [...] DIABETES MELLITUS per A.D.A. criteria. :12 [facility] See Note (Normal) Comments: [place] Count 1000-10,000MIX CONTAM Mixed Contaminants. Submit new specimen if indicated. :11 LIPID Comments: non-emergent till f/u LDL 136 mg/dL (Abnormal) Range: 0-130 VLDL 31 mg/dL (Normal) Range: 5-40 CHOL 210 mg/dL (Abnormal) Comments: <200 mg/dL Xyqwhcykd417-046 mg/dL Borderline>240 mg/dL High Risk HDL 43 [...] 113.1 mg/dL (Normal) :00 HgA1C , Office (35259) HgA1C , Office 7.9 % (Abnormal) Range: 4.6 - 7.1 :58 URINE KHANG CULTURE (LOGAN COL Comments: PATIENT NOT FASTINGPERFORMED BY: Vensun PharmaceuticalsSelect Specialty Hospital [facility] [id number] COUNT) (99277) Result 1 MUG (Normal) Comments: Mixed urogenital Colonies/mL Urine Culture,Comprehensive Final report (Normal) :57 Urinalysis, Office (41412) UA - LEUKOCYTE ESTERASE Trace (Normal) UA [...] MICROALBUMIN: CREATININE Comments: PATIENT NOT FASTINGPERFORMED BY: Disqus70 UniqueduSelect Specialty Hospital - [facility] [id number] Information: ADD [id number] AND DRAW FEE 99 7460 RATIO (90685) AND (65425) Microalb/Creat Ratio 2.0 {mg/g_creat} (Normal) Range: 0.0-30.0 [...] 4.2-5.4 WBC 5.8 K/mm3 (Normal) Range: 4.4-11.0 54-Opw-39876:52 CMP GAP 4 (Abnormal) Range: 5-15 CO2 [...] CHOL 214 mg/dL (Abnormal) Comments: <200 mg/dL Hewytmtut741-317 mg/dL Borderline>240 mg/dL High Risk :51 UAC Comments: How was Urine Obtained? CLEAN CATCH [...] ng/mL (>250 nmol/L) :37 HgA1C , Office (71121) HgA1C , Office 7.8 % (Abnormal) Range: 4.6 - 7.1 :17 CBCMD ANC 3.3 3/uL (Normal) Range: 2.0-7.7 [...] 4.2-5.4 WBC 5.6 {k/mm3} (Normal) Range: 4.4-11.0 :17 CMP CO2 28.0 mmol/L (Normal) Range: 21.0-32.0 [...] 126 mg/dLsuggests DIABETES MELLITUS per A.D.A. criteria. 36-Vrd-839774:17 LIPID VLDL 40 mg/dL (Normal) Range: 5-40 [...] CHOL 228 mg/dL (Abnormal) Comments: <200 mg/dL Vjmudqmuq502-182 mg/dL Borderline>240 mg/dL High Risk 91-Bjk-664497:17 MIACRE tMICROCREAT 16.4 {mg/g_CRE} (Normal) MIALB 10.1 mg/L (Normal) CREU 61.4 mg/dL (Normal) 49-Sgs-334725:17 VITD 68.8 ng/mL (Normal) Comments: Vitamin D 25(OH) Status RangeDeficiency <20 ng/mL (50nmol/L)Insufficiency 20 - 30 ng/mL (50 - 75 nmol/L)Sufficiency 30 - 100 ng/mL (75 - 250 nm ol/L)Toxicity >100 ng/mL (250 nmol/L) 67-Nhd-94057:18 DEXA BONE DENSITY STUDY (HP) Radiology Report [...] M.D.December 22, 2012 at 9: 13:06 AM [id number] Signed GP/GP If you are the referring physician and would like to consult with theradiologist who provided this interpretation, please contact Octavia Kim at [phone]. If this radiologist is unavailable, youwill be directed to another radiologist to assist. If you are a patient with a question regarding this report, pleasecontactyour referring junior vera directly. Professional Interpretation Provided By: [email or web address], Phone , These documents contain legally protected [...] documents. Dictated on 12/22/12912 by Sanjay Dunn MDribed on 12/22/12914 by ITS IMPORTSign by Thierry Dunn MD on 12/22/12915 Sign by: Thierry Dunn MD 96-Hht-995884:17 UNILAT LT SCRN DIGITAL & CAD Radiology [...] Guzmán M.D.December 14, 2012 at 7:22:24 AM [id number] Signed RU/RU If you are the referring physician and would like to consult with theradiologist who pr ovided this interpretation, please contact Tonya Hernandez at [phone]. If this radiologist is unavailable, youwillbe directed to another radiologist to assist. If you are a patient with a ques tion regarding this report, pleasecontactyour referring physician directly. Professional Interpretation Provided By: [email or web address], Phone , These documents contain legally pr [...] GuzmánTranscribed on 12/14/12723 by ITS IMPORTSign by [facility] HospitalKing on 12/14/12724 Sign by: King Guzmán 52-Gue-871495:31 LIPID PANEL (51266) Comments: PATIENT WAS FASTINGPERFORMED BY: Disqus70 RodriguezR[facility] Center [id number] LDL/HDL Ratio 2.4 {ratio_units} (Normal) Range: 0.0-3.2 LDL Cholesterol Calc 124 mg/dL (Abnormal) Range: 0-99 VLDL Cholesterol Jennifer 31 mg/dL (Normal) Range: 5-40 HDL Cholesterol 52 mg/dL (Normal) Comments: According to ATP-III Guidelines, HDL-C >59 mg/dL is considered anegative risk factor for CHD. Cholesterol, Total 207 mg/dL (Abnormal) Range: 100-199 Triglycerides 156 mg/dL (Abnormal) Range: 0-149 23-Che-940195:31 Vitamin D Hydroxy (94590) Comments: PATIENT WAS FASTINGPERFORMED BY: Nitrous.IO RoadDublin [place] [id number] Vitamin D, 25-Hydroxy 58.4 ng/mL (Normal) Range: 30.0-100.0 Comments: Vitamin D deficiency has been defined by the [place] of[place] and an Endocrine Society practice guideline as alevel of serum 25-OH vitamin D less than 20 ng/mL (1,2).The Endocrine Society went on to further define vitamin Dinsufficiency as a level between 21 and 29 ng/mL (2).1. IOM ([place] [employer]). 2010. Dietary reference intakes for calcium and D. [place]: The National Academies Press.2. Yashira MF, Radha NC, Wally STEINER, et al. Evaluation, treatment, and prevention of vitamin D deficiency: an Endocrine Society clinical practice guideline. JCEM. 2010; 96(7):1911-30. 00-Hpu-830075:31 CBC WITH MANUAL DIFF (50442) Comments: PATIENT WAS FASTINGPERFORMED BY: [facility] Zktrvn8854 [facility] [id number] Immature Grans (Abs) 0.0 {x10E3/uL} (Normal) Range: [...] 3.77-5.28 WBC 6.0 {x10E3/uL} (Normal) Range: 4.0-10.5 86-Quc-877117:31 METABOLIC PANEL, COMPREHENSIVE Comments: PATIENT WAS FASTINGPERFORMED BY: LabCoHudson County Meadowview HospitalJavhto0544 [facility] [id number] (98487) ALT (SGPT) 18 [iU]/L (Normal) Range: 0-32 [...] 200-240 mg/dL Borderline >240 mg/dL High Risk 35-Rhu-88092:30 VITD 68.3 ng/mL (Normal) Comments: Vitamin D 25(OH) Status Range Deficiency <20 ng/mL (50nmol/L) Insufficiency 20 - 30 ng/mL (50 - 75 nmol/L) Sufficiency 30 - 100 ng/mL (7 5 - 250 nmol/L) Toxicity >100 ng/mL (250 nmol/L)Effective 2012:13 HgA1C , Office (10925) HgA1C , Office 6.4 % (Normal) Range: [...] 13.0 mg/L (Normal) CREU 109.7 mg/dL (Normal) : TSH 1.69 {uIU/mL} (Normal) Range: 0.358-3.74 :02 [...] Signed MV/MV Professional Inte rpretation Provided By: [facility], , To consult with a radiologist regarding this report, please call our 52L1qddaxln line @ Dictated on 12/07/11 0807 by TIERRA BENJAMIN,Rhiannaanscribed on 12/07/11 1144 by ITS IMPORTSign by TIERRA BENJAMIN,MARK on 12/07/11 1146 Sign by: TIERRA BENJAMIN,MARK :04 CBCMD PE ADEQUATE (Normal) RBCM NORM C+C [...] D deficiency has been defined by the [place] of[place] and an Endocrine Society practice guideline as alevel of serum 25-OH vitamin D less than 20 ng/mL (1,2).The Endocrine Society went on to further define vitamin Dinsufficiency as a level between 21 and 29 ng/mL (2).1. IOM ([place]). 2010. Dietary reference intakes for calcium and D. [place]: The National Academies Press.2. Yashira MF, Radha NC, Wally STEINER, et al. Evaluation, treatment, and prevention of vitamin D deficiency: an Endocrine Society clinical practice guideline. JCEM. 2010; 96(): 1911-30.Performed at: - [facility] [id number] Director: Hollie Vang MD, Phone: [phone] :18 HgA1C , Office (31497) HgA1C , Office 6.3 % (Normal) Range: 4.6 - 7.1 :18 Blood Glucose , Office (59297) Blood Glucose , Office 137 (Normal) :08 Blood Glucose , Office (02400) Blood Glucose , Office 142 (Normal) :37 [...] CREAT 51.9 mg/dL (Normal) :37 VIT D,25 37758 50.9 ng/mL (Normal) Range: 32.0-100.0 Comments: Recent studies consider the lower limit of 32.0 ng/mL to cj threshold for optimal health.Reginald GARDNER. J Nutr. 2004;135(2):317-22.Performed at: [place] [address] Director: Hollie Vang MD, Phone: [phone] 03-Dec-20108:20 UNILAT LT SCRN DIGITAL & CAD Radiology [...] suspiciousabnormality. Dic tated on 12/03/10 0753 by ARMANDO GREGG MDTranscribed on 12/03/10 1715 by ITS IMPORTSign by ARMANDO GREGG MD on 12/03/10 1716 Sign by: ____ ARMANDO GREGG MD 03-Dec-20108:19 DEXA BONE DENSITY STUDY (HP) Radiology Report See Note (Normal) Comments: CLINICAL:Female, [...] on 12/05/10815 Sign by: ARMANDO GREGG MD 01-Oct-20108:18 HgA1C , Office (26041) HgA1C , Office 6.7 % (Normal) Range: 4.6 - 7.1 :18 Blood Glucose , Office (34396) Blood Glucose , Office 145 (Normal) :02 COMP METABOLIC GAP 10 (Normal) Range: 5-15 [...] 7-18 GLU 99 mg/dL (Normal) Range: 70-110 :02 LIPID LDL 116 mg/dL (Normal) Range: 0-130 [...] 200-240 mg/dL Borderline >240 mg/dL High Risk 00-Wyl-035408:02 VIT D,25 55034 44.8 ng/mL (Normal) Range: 32.0-100.0 Comments: Recent studies consider the lower limit of 32.0 ng/mL to cj threshold for optimal health.Reginald GARDNER. J Nutr. 2004;135(2):317-22.Performed at: [facility] LabNoah Ville [address]Lab Director: Hollie Vang MD, Phone: [phone] 4-Riv-433875:56 HgA1C , Office (38658) HgA1C , Office 6.2 % (Normal) Range: 4.6 - 7.1 9-Pvb-293193:56 Blood Glucose , Office (28055) Blood Glucose , Office 99 (Normal) :54 UNILAT LT SCRN DIGITAL & CAD Radiology Report See Note (Normal) Comments: Exam Number: [id number] MAMMOGRAPHY - UNILATERAL SCREENING: LEFT BREAST INDICATION:Routine [...] of attaching a ResultCode to this exam.ADDENDUM: [id number] BI/MUSCL Reported By: THIERRY DUNN 31-Xsh-60783:45 LQDPAP [id number] Comments: CYTOLOGY INFORMATION:- CLINICAL INFORMATION:- DATE LMP/MENOPAUSE: MENOPAUSE- COLLECTION VIAL: Thin Prep Vial- 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 (Normal) DIAGN Comment (Normal) Comments: NEGATIVE FOR INTRAEPITHELIAL LESION AND MALIGNANCY.Satisfactory for evaluation. 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 [facility]Waters[address] [id number] Director: Domo Palafox MD, Phone: [phone] COMM . (Normal) DIAGN Comment (Normal) Comments: NEGATIVE FOR INTRAEPITHELIAL LESION AND MALIGNANCY.Satisfactory for evaluation. Endocervical and/or squamous metaplasticcells (endocervical component) are present.Lindsay Guajardo Metal Storage Worker (ASCP )This liquid based ThinPrep(R) pap test was screened withthe use of an image guided system. :47 LIPID PANEL (92648) Comments: PATIENT WAS FASTINGPERFORMED BY: RepRegen Dsgfld3389 [facility] [id number] LDL Cholesterol Calc 95 mg/dL (Normal) Range: [...] METABOLIC PANEL, Comments: PATIENT WAS FASTINGPERFORMED BY: [employer]6370 [facility] [id number] Information: [id number] COMPREHENSIVE (96814) ALT (SGPT) 26 [iU]/L (Normal) Range: 0-40 [...] CREATININE RATIO Comments: PATIENT WAS FASTINGPERFORMED BY: [place] [id number] (21410) AND (14206) Microalb/Creat Ratio 3.5 {mg/g_creat} (Normal) Range: 0.0-30.0 Microalbumin, Urine 1.8 ug/mL (Normal) Range: 0.0-17.0 Creatinine, Urine 51.1 mg/dL (Normal) Range: 15.0-278.0 :47 Vitamin D Hydroxy (96272) Comments: PATIENT WAS FASTINGPERFORMED BY: [employer]6370 [facility]iqueduSelect [facility]ty Hospital [facility] [id number] Vitamin D, 25-Hydroxy 37.3 ng/mL (Normal) Range: 32.0-100.0 Comments: Recent studies consider the lower limit of 32.0 ng/mL to be athreshold for optimal health.Reginald GARDNER. J Nutr. 2004;135(2):317-22. :27 Blood Glucose , Office (94818) Blood Glucose , Office 110 (Normal) :27 HgA1C , Office (71645) HgA1C , Office 6.4 % (Normal) Range: [...] CHOL 193 mg/dL (Normal) Comments: <200 mg/dL Ocivmhpce225-785 mg/dL Borderline>240 mg/dL High Risk HDL 51 [...] mg/dL (Normal) Range: 5-40 :39 VIT D,25 82301 40.5 ng/mL (Normal) Range: 32.0-100.0 Comments: Recent studies consider the lower limit of 32.0 ng/mL to cj threshold for optimal health.Reginald GARDNER. J Nutr. 2004;135(2):317-22.Performed at: [facility] [place], [place] [id number] Director: Hollie Vang MD :30 CA 9.3 mg/dL (Normal) Range: 8.5-10.1 :30 PTH,Intact 23 pg/mL (Normal) Range: 14-72 :26 HgA1C , Office (99664) HgA1C , Office 6.7 % (Normal) Range: 4.6 - 7.1 :26 Blood Glucose , Office (15148) Blood Glucose , Office 141 (Normal) :54 [...] CHOL 193 mg/dL (Normal) Comments: <200 mg/dL Hoyvkvrkb980-979 mg/dL Borderline>240 mg/dL High Risk HDL 53 [...] CREAT 82.7 mg/dL (Normal) :54 VIT D,25 47336 44.5 ng/mL (Normal) Range: 32.0-100.0 Comments: Recent studies consider the lower limit of 32.0 ng/mL to cj threshold for optimal health.Reginald GARDNER. J Nutr. 2004;135(2):317-22.Performed At: [facility] [place], [place] [id number] :31 HgA1C , Office (51629) HgA1C , Office 6.7 % (Normal) Range: 4.6 - 7.1 :31 Blood Glucose , Office (84146) Blood Glucose , Office 127 (Normal) :37 [...] 500 mg/dL VLDL 28 mg/dL (Normal) Range: :37 VIT D,25 06707 43.1 ng/mL (Normal) Range: 32.0-100.0 Comments: Recent studies consider the lower limit of 32.0 ng/mL to cj threshold for optimal health.Reginald GARDNER. J Nutr. 2004;135(2):317-22.Performed At: [facility] [place], [place] [id number] 1-Efp-190209:37 HgA1C , Office (15949) HgA1C , Office 6.1 % (Normal) Range: 4.6 - 7.1 :37 Blood Glucose , Office (63563) Blood Glucose , Office 110 (Normal) :53 [...] 500 mg/dL VLDL 56 mg/dL (Abnormal) Range: -40 :53 LIVER ALB 3.5 g/dL (Normal) Range: 3.4-5.0 ALK P 96 U/L (Normal) Range: 50-136 ALT 58 U/L (Normal) Range: 30-65 AST 36 U/L (Normal) Range: 15-37 D BILI 0.12 mg/dL (Normal) Range: 0.00-0.30 T BILI 0.60 mg/dL (Normal) Range: 0.00-1.00 T PROT 7.0 g/dL (Normal) Range: 6.4-8.2 :53 PROT.[id number] ALBUMIN,UR 30.3 % (Normal) VPSDN-9-MEMS,U 3.4 % (Normal) HJFZC-7-YGBH,U 15.5 % (Normal) BETA GLOB,U 29.8 % (Normal) GAMMA GLOB,U 21.0 % (Normal) M-SPIKE,U SeeNote % (Normal) Comments: Result: Not Observed NOTE Comment (Normal) Comments: Protein electrophoresis scan will follow via computer,mail, or bellows filler delivery. PROTEIN,UR 13.2 mg/dL (Normal) Range: 0.0-15.0 :53 PTH,[id number] PTH,Intact 24 pg/mL (Normal) Range: 15-65 Comments: Performed At: [address] [id number] :53 SPE [id number] A/G RATIO 1.3 (Normal) Range: 0.7-2.0 ALBUMIN [...] electrophoresis scan will follow via computer,mail, or bellows filler delivery. PROTEIN,TOTAL 6.7 g/dL (Normal) Range: 6.0-8.5 :53 TSH 1.57 {uIU/mL} (Normal) Range: 0.358-3.74 :53 VIT D,25 49123 24.6 ng/mL (Abnormal) Range: 32.0-100.0 Comments: Recent studies consider the lower limit of 32.0 ng/mL to cj threshold for optimal health.Reginald GARDNER. J Nutr. 2004;135(2):317-22. :04 HgA1C , Office (22695) HgA1C , Office 5.7 % (Normal) Range: 4.6 - 7.1 :04 Blood Glucose , Office (18768) Blood Glucose , Office 113 (Normal) :07 [...] for patient's is the eGFRmultiplied by 1.212. [facility] Laboratory uses the abbreviated Modification of [...] Disease W/O Kidney Disease>/= 90 Stage One Tyopkx10 - 89 Stage Two Suspect Decreased GFR30 [...] BILI 0.07 mg/dL (Normal) Range: 0.00-0.30 7 22-Znj-110120:07 LIPID CHOL 218 mg/dL (Abnormal) Comments: <200 [...] 500 mg/dL VLDL 51 mg/dL (Abnormal) Range: 5-40 21-Kjm-816968:07 MICROALB:CRE UR MALB:CREAT 4.9 {mg/g_CRE} (Normal) MICROALBUMIN,UR 8.3 mg/L (Normal) UR CREAT 168.8 mg/dL (Normal) :56 HgA1C , Office (08177) HgA1C , Office 5.8 % (Normal) Range: 4.6 - 7.1 :56 Blood Glucose , Office (86261) Blood Glucose , Office 103 (Normal) :53 [...] mg/dL VLDL 46 mg/dL (Abnormal) Range: 5-40 :53 LIVER ALB 3.6 g/dL (Normal) Range: 3.4-5.0 ALK P 99 U/L (Normal) Range: 50-136 ALT 48 U/L (Normal) Range: 30-65 AST 21 U/L (Normal) Range: 15-37 D BILI 0.07 mg/dL (Normal) Range: 0.00-0.30 T BILI 0.47 mg/dL (Normal) Range: 0.00-1.00 T PROT 7.2 g/dL (Normal) Range: 6.4-8.2 :32 HgA1C , Office (66524) HgA1C , Office 6.2 % (Normal) Range: 4.6 - 7.1 :32 Blood Glucose , Office (45776) Blood Glucose , Office 131 (Normal) :53 [...] mg/dL High Risk :17 HgA1C , Office (48915) HgA1C , Office 5.9 % (Normal) Range: 4.6 - 7.1 :17 Blood Glucose , Office (57150) Blood Glucose , Office 131 (Normal) :08 [...] Range: 6.4-8.2 :23 Blood Glucose , Office (61368) Blood Glucose , Office 115 (Normal) :23 HgA1C , Office (36982) HgA1C , Office 5.6 % (Normal) Range: [...] 500 mg/dL VLDL 54 mg/dL (Abnormal) Range: -40 :35 MICROALBUMIN,UR 23.2 mg/L (Normal) 61-Evz-221605:37 Blood Glucose , Office (58759) Comments: [facility] Blood Glucose , Office 123 (Normal) 24-Mbp-401724:13 LIPID CHOL 282 mg/dL (Abnormal) Comments: <200 [...] 500 mg/dL VLDL 66 mg/dL (Abnormal) Range: -40 :13 LIVER ALB 3.6 g/dL (Normal) Range: 3.4-5.0 ALK P 95 U/L (Normal) Range: 50-136 ALT 40 [iU]/L (Normal) Range: 30-65 AST 18 U/L (Normal) Range: 15-37 D BILI 0.07 mg/dL (Normal) Range: 0.00-0.30 T BILI 0.48 mg/dL (Normal) Range: 0.00-1.00 T PROT 6.9 g/dL (Normal) Range: 6.4-8.2 :21 HgA1C , Office (94636) Comments: [facility] HgA1C , Office 5.9 % (Normal) Range: 4.6 - 7.1 :21 Blood Glucose , Office (71640) Comments: [facility] Blood Glucose , Office 131 (Normal) :38 [...] 500 mg/dL VLDL 30 mg/dL (Normal) Range: 5-40 :38 LIVER ALB 3.7 g/dL (Normal) Range: 3.4-5.0 ALK P 100 U/L (Normal) Range: 50-136 ALT 38 [iU]/L (Normal) Range: 30-65 AST 21 U/L (Normal) Range: 15-37 D BILI 0.12 mg/dL (Normal) Range: 0.00-0.30 T BILI 0.65 mg/dL (Normal) Range: 0.00-1.00 T PROT 7.1 g/dL (Normal) Range: 6.4-8.2 :14 HgA1C , Office (00334) HgA1C , Office 5.8 % (Normal) Range: 4.6 - 7.1 :14 Blood Glucose , Office (42629) Blood Glucose , Office 134 (Normal) :13 [...] 47-70 WBC 5.2 K/mm3 (Normal) Range: 4.4-11.0 20-Bgh-25734:13 COMP METABOLIC A/G 1.2 {RATIO} (Normal) Range: [...] (Normal) Range: 0.34-4.82 :03 HgA1C , Office (93689) HgA1C , Office 5.8 % (Normal) Range: 4.6 - 7.1 :03 Blood Glucose , Office (26173) Blood Glucose , Office 150 (Normal) Plan of Care Name Dates Details Instructions Gastroesophageal reflux disease without esophagitis : GERD Education Indication: Gastroesophageal reflux disease without esophagitis Osteopenia : Reviewed Diagnostic Tests Indication: Osteopenia Diabetes mellitus type 2, uncontrolled, without complications [...] HTN/CAD Red Flags Indication: Benign essential hypertension Mixed hyperlipidemia : Cholesterol mgmt Indication: Mixed hyperlipidemia Diabetes mellitus type 2, [...] Poison staci : Poison Staci, [place], and [place]: allergic skin reaction Indication: Poison staci BMI [...] Indication: Other and unspecified hyperlipidemia Planned Observations DENISE GONZALEZ, BY NMR ([id number])Indication: Mixed hyperlipidemia On: 65-Mlt-70763:52 Request FECAL OCCULT- Tubes sent home (45712)Indication: Encounter for screening for malignant neoplasm of colon (Renamed from Special screening for malignant neoplasms, colon) On: :44 Request LIPID PANEL ([id number])Indication: Controlled type 2 diabetes mellitus On: 87-Xsc-632125:18 Request Vitamin D Hydroxy (76203)Indication: Osteopenia On: :26 Request CBC WITH MANUAL DIFF (73703)Indication: Controlled type 2 diabetes mellitus On: : Request METABOLIC PANEL, COMPREHENSIVE (45105)Indication: Controlled type 2 diabetes mellitus On: :26 Request LIPID PANEL ([id number])Indication: Mixed hyperlipidemia On: :26 Request LIPID PANEL (39976)Indication: Other and unspecified hyperlipidemia On: :45 Request METABOLIC PANEL, COMPREHENSIVE (80649)Indication: Diabetes mellitus type 2, uncontrolled, without complications On: :45 Request Vitamin D Hydroxy (71826)Indication: Vitamin D deficiency, unspecified On: :45 Request LIPID PANEL (50398)Indication: Other and unspecified hyperlipidemia On: :45 Request URINALYSIS, W/ MICRO (48750)Indication: Benign essential hypertension On: :37 Request Vitamin D Hydroxy (26139)Indication: Vitamin D deficiency, unspecified On: :36 Request CBC WITH MANUAL DIFF (03075)Indication: Diabetes mellitus type 2, uncontrolled, without complications On: :36 Request METABOLIC PANEL, COMPREHENSIVE (51853)Indication: Diabetes mellitus type 2, uncontrolled, without complications On: :36 Request LIPID PANEL (36323)Indication: Other and unspecified hyperlipidemia On: :26 Request CBC WITH MANUAL DIFF ([id number])Indication: Essential hypertension, malignant On: :26 Request METABOLIC PANEL, COMPREHENSIVE ([id number])Indication: Essential hypertension, malignant On: 31-Oct-20129:26 Request MICROALBUMIN: CREATININE RATIO (74891) AND (88679)Indication: Diabetes mellitus type 2, uncontrolled, without complications On: 31-Oct-20129:25 Request Vitamin D Hydroxy (30569)Indication: Osteopenia On: 31-Oct-20129:20 Request HgA1C , Office (12856)Indication: Diabetes mellitus type 2, uncontrolled, without complications On: :57 Request HgA1C , Office (63868)Indication: Diabetes mellitus type 2, uncontrolled, without complications On: :59 Request METABOLIC PANEL, COMPREHENSIVE (94653)Indication: Essential hypertension, malignant On: :25 Request LIPID PANEL (61887)Indication: Mixed hyperlipidemia On: :25 Request Vitamin D Hydroxy (26737)Indication: Vitamin D deficiency, unspecified On: :25 Request TSH ([id number])Indication: Osteopenia On: 90-Aho-321732:01 Request METABOLIC PANEL, COMPREHENSIVE (67836)Indication: Diabetes mellitus type 2, uncontrolled, without complications On: 98-Mwv-718640:01 Request LIPID PANEL (73597)Indication: Mixed hyperlipidemia On: 01-Pth-793920:01 Request MICROALBUMIN: CREATININE RATIO (65871) AND (23074)Indication: Diabetes mellitus type 2, uncontrolled, without complications On: 30-Gzc-445212:01 Request HgA1C , Office (12293)Indication: Diabetes mellitus type 2, uncontrolled, without complications On: 57-Qcu-992812:27 Request Vitamin D Hydroxy (10038)Indication: Vitamin D deficiency, unspecified On: :54 Request LIPID PANEL (05071)Indication: Mixed hyperlipidemia On: :54 Request CBC WITH MANUAL DIFF ([id number])Indication: Benign essential hypertension On: :54 Request METABOLIC PANEL, COMPREHENSIVE (86089)Indication: Benign essential hypertension On: :54 Request Vitamin D Hydroxy (04336)Indication: Vitamin D deficiency, unspecified On: :43 Request METABOLIC PANEL, COMPREHENSIVE ([id number])Indication: Benign essential hypertension On: :37 Request LIPID PANEL ([id number])Indication: Other and unspecified hyperlipidemia On: :36 Request HgA1C , Office (52024)Indication: Controlled type 2 diabetes mellitus On: :08 Request CBC WITH MANUAL DIFF ([id number])Indication: Benign essential hypertension On: :45 Request MICROALBUMIN: CREATININE RATIO ([id number]) AND (75727)Indication: Controlled type 2 diabetes mellitus On: :45 Request METABOLIC PANEL, COMPREHENSIVE (30146)Indication: Benign essential hypertension On: :45 Request LIPID PANEL ([id number])Indication: Other and unspecified hyperlipidemia On: :44 Request Vitamin D Hydroxy (51740)Indication: Vitamin D deficiency, unspecified On: :44 Request Vitamin D Hydroxy (49206)Indication: Vitamin D deficiency, unspecified On: :26 Request METABOLIC PANEL, COMPREHENSIVE (80348)Indication: Benign essential hypertension On: :26 Request LIPID PANEL (09620)Indication: Other and unspecified hyperlipidemia On: 2-Sho-075354:26 Request LIPID PANEL (69294)Indication: Other and unspecified hyperlipidemia On: :57 Request METABOLIC PANEL, COMPREHENSIVE (46193)Indication: Essential hypertension, malignant On: :57 Request Vitamin D Hydroxy (86353)Indication: Vitamin D deficiency, unspecified On: :57 Request PARATHORMONE ([id number])Indication: Hypercalcemia On: :56 Request Comments: 3 weeks CALCIUM SERUM (41745)Indication: Hypercalcemia On: :56 Request Comments: 3 weeks MICROALBUMIN: CREATININE RATIO (63651) AND ([id number])Indication: Controlled type 2 diabetes mellitus On: :24 Request LIPID PANEL ([id number])Indication: Other and unspecified hyperlipidemia On: :24 Request METABOLIC PANEL, COMPREHENSIVE ([id number])Indication: Essential hypertension, malignant On: :24 Request CBC WITH MANUAL DIFF ([id number])Indication: Essential hypertension, malignant On: :24 Request Vitamin D Hydroxy (90876)Indication: Vitamin D deficiency, unspecified On: :13 Request METABOLIC PANEL, COMPREHENSIVE (46804)Indication: Benign essential hypertension On: :30 Request HEPATIC FUNCTION PANEL (62613)Indication: Other and unspecified hyperlipidemia On: :25 Request LIPID PANEL ([id number])Indication: Other and unspecified hyperlipidemia On: :25 Request Vitamin D Hydroxy ([id number])Indication: Vitamin D deficiency, unspecified On: :23 Request PARATHORMONE ([id number])Indication: Osteopenia On: :58 Request Vitamin D Hydroxy ([id number])Indication: Osteopenia On: :58 Request UPEP ([id number])Indication: Osteopenia On: :58 Request SPEP ([id number])Indication: Osteopenia On: :58 Request TSH ([id number])Indication: Osteopenia On: :58 Request HEPATIC FUNCTION PANEL (23615)Indication: Other and unspecified hyperlipidemia On: :55 Request LIPID PANEL (48550)Indication: Other and unspecified hyperlipidemia On: :55 Request METABOLIC PANEL, COMPREHENSIVE ([id number])Indication: Controlled type 2 diabetes mellitus On: 6-Btz-473301:28 Request MICROALBUMIN: CREATININE RATIO ([id number]) AND ([id number])Indication: Controlled type 2 diabetes mellitus On: :28 Request HEPATIC FUNCTION PANEL (12514)Indication: Other and unspecified hyperlipidemia On: 5-Ywc-943302:24 Request LIPID PANEL ([id number])Indication: Other and unspecified hyperlipidemia On: 9-Cok-039472:24 Request HEPATIC FUNCTION PANEL (66511)Indication: Other and unspecified hyperlipidemia On: :09 Request LIPID PANEL ([id number])Indication: Other and unspecified hyperlipidemia On: 1-Xhi-957165:09 Request LIPID PANEL (09087)Indication: Other and unspecified hyperlipidemia On: :42 Request METABOLIC PANEL, COMPREHENSIVE (56573)Indication: Benign essential hypertension On: :42 Request LIPID PANEL ([id number])Indication: Other and unspecified hyperlipidemia On: :37 Request HEPATIC FUNCTION PANEL ([id number])Indication: Other and unspecified hyperlipidemia On: :37 Request METABOLIC PANEL, COMPREHENSIVE ([id number])Indication: Essential hypertension, malignant On: :55 Request MICROALBUMIN URINE QUANT (21925)Indication: Controlled type 2 diabetes mellitus On: :55 Request METABOLIC PANEL, COMPREHENSIVE (36448)Indication: Other and unspecified hyperlipidemia On: :55 Request LIPID PANEL ([id number])Indication: Other and unspecified hyperlipidemia On: :54 Request HgA1C , Office ([id number])Indication: Controlled type 2 diabetes mellitus On: :37 Request Comments: done-jp LIPID PANEL ([id number])Indication: Mixed hyperlipidemia On: :41 Request HEPATIC FUNCTION PANEL ([id number])Indication: Mixed hyperlipidemia On: :41 Request TSH ([id number])Indication: Benign essential hypertension On: :37 Request MICROALBUMIN: CREATININE RATIO (57076) AND (71670)Indication: Controlled type 2 diabetes mellitus On: :36 Request METABOLIC PANEL, COMPREHENSIVE ([id number])Indication: Controlled type 2 diabetes mellitus On: :36 Request CBC WITH MANUAL DIFF ([id number])Indication: Controlled type 2 diabetes mellitus On: :36 Request HEPATIC FUNCTION PANEL ([id number])Indication: Other and unspecified hyperlipidemia On: :36 Request LIPID PANEL ([id number])Indication: Other and unspecified hyperlipidemia On: :36 Request Planned Encounters Medical; 3 Month FU - On: 07-Jul-2018 7:00 [facility] Annamarie Carvajal DO, DO, Kathleen Planned Procedures ELECTROCARDIOGRAM, COMPLETE (ECG) On: 02-Dec-2017 Intent (88557)By: Annamarie Carvajal DO Comments: sinus no acute chg -Annamarie strange DO Solu -Medrol Injection, 125 mg On: 28-Oct-2017 Intent (J2930)By: Christine Hightower Comments: solumedrol 125mg injection lot:[id number]: GM pt tolerated well 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,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 Solu -Medrol Injection, 125 mg On: 12-Oct-2017 Intent (J2930)By: Lizzteh Winkler CNP Comments: solumedrol 125mg injection lot:[id number]: GM pt tolerated well MSMITH,GOLF 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 LKZB-JA-[facility]EL[facility] BEHAVIOR[facility] COUNSELING FOR On: 16-Sep-2017 Intent OBESITY, 15 MINUTES (G0447)By: Annamarie Carvajal DO, DO, Kathleen SCREENING DIGITAL TOMOSYNTHESIS OF On: 16-Sep-2017 Intent BREAST ([id number])By: Annamarie Carvajal DO Comments: due in feb 2018 Annamarie Carvajal DO DEXA SCAN AXIAL SKELETON (76353)By: On: 16-Sep-2017 Intent Annamarie Carvajal DO, DO, Kathleen ELECTROCARDIOGRAM, COMPLETE (ECG) On: 24-Nov-2016 Intent (90626)By: Annamarie Carvajal DO Comments: nsr no acute chg Annamarie ECHAVARRIA DVZB-UZ-KEZV BEHAVIORAL COUNSELING FOR On: 13-May-2016 Intent OBESITY, 15 MINUTES (G0447)By: Annamarie Carvajal DO, DO, Kathleen DEXA SCAN AXIAL SKELETON (93021)By: On: 24-Oct-2014 Intent Bird Boyd DO Comments: november LEFT MAMMOGRAM (76177)By: Kash ECHAVARRIA, On: 24-Oct-2014 Intent Bird A Overnight Pulse OX (21951)By: Jorge Luis On: 31-May-2014 Intent Mary ANDERSON Comments: Not on oxygen at night Overnight Pulse OX ([id number])By: Kash ECHAVARRIA, On: 16-May-2014 Intent Bird Linh Breast Screening - LeftBy: Kash ECHAVARRIA, On: 13-Nov-2013 Intent Bird A EKG (69265)By: Bird Boyd DO On: 13-Nov-2013 Intent Comments: ekg showed normal sinus rhythym, normal axis, no acute st/t wave changes IMMUNIZ ADMNIN, 1 VAC, SNGL/COMBO On: 26-Jul-2013 Intent (26116)By: Bird Boyd DO PNEUM VAC ADLT/IMUMNOSPR, SBC/INTRM On: 26-Jul-2013 Intent (52084)By: Bird Boyd DO Comments: Lot #[id number]-[id number] arm, dltd, IMDose- prefilled syringegiven by:RAFI Menendez signed Eprescribed prescriptions ([id number])By: On: 26-Jul-2013 Intent Zaina Khan Breast Screening - LeftBy: Kash ECHAVARRIA, On: 31-Oct-2012 Intent Bird Melton Comments: due in november DXA, BONE DENSITY, AXIAL SKELETON On: 31-Oct-2012 Intent (66055)By: Bird Boyd DO Comments: november EKG (47733)By: Zaina Khan On: 05-Aug-2012 Intent Comments: ekg showed normal sinus rhythym, normal axis, no acute st/t wave changes Eprescribed prescriptions ([id number])By: On: 05-Aug-2012 Intent Zaina Khan Solu -Medrol Injection, 125 mg On: 27-Apr-2012 Intent (J2930)By: Lizzeth Winkler CNP Comments: Lot #[id number]-[id number] hip, IMDose- prefilled syringegiven by:RAFI Menendez signed Eprescribed prescriptions ([id number])By: On: 09-Mar-2012 Intent Zaina Khan MAMMOGRAM, SCREENING, BOTH BREASTS On: 24-Nov-2011 Intent ([id number])By: Bird Boyd DO EKG (16538)By: Zaina Khan On: 01-Jul-2011 Intent Comments: ekg showed normal sinus rhythym, normal axis, no acute st/t wave changes FLU VAC, SPLIT, >3 YEARS, INTRAMUSC On: 01-Jul-2011 Intent (58065)By: Zaina Khan Comments: work Eprescribed prescriptions ([id number])By: On: 14-Jan-2011 Intent Bird Boyd DO Eprescribed prescriptions ([id number])By: On: 01-Oct-2010 Intent Bird Boyd DO DXA, BONE DENSITY, AXIAL SKELETON On: 01-Oct-2010 Intent ([id number])By: Bird Boyd DO Breast Screening - LeftBy: Kash ECHAVARRIA, On: 01-Oct-2010 Intent Bird A Comments: november EKG (94022)By: Zaina Khan On: 04-Apr-2010 Intent Comments: ekg showed normal sinus rhythym, normal axis, no acute st/t wave changes MAMMOGRAM, SCREENING, BOTH BREASTS On: 21-Nov-2009 Intent (72647)By: Bird Boyd DO EKG (73463)By: Zaina Khan On: 05-Apr-2009 Intent Comments: ekg showed normal sinus rhythym, normal axis, no acute st/t wave changes EKG (33089)By: Zaina Khan On: 03-Jan-2008 Intent Comments: ekg showed normal sinus rhythym, normal axis, no acute st/t wave changes TETANUS VAC, ADSORBED, INTRAMUSC On: 02-Dec-2007 Intent (59082)By: Andreina Puente RN Comments: Lot #: [id number] date: 11/03Amount given: 0.5 mlRoute: IMSite given: Left deltoidGiven by: Linh Lopez LPN Venous Doppler - BothBy: Kash ECHAVARRIA, On: 17-Aug-2007 Intent Bird Melton Comments: stat - call wet read Bio Z ([id number])By: Bird Boyd DO On: 08-Mar-2007 Intent Comments: bp looks good with this so will make no changes COLLECT VENOUS BLOOD, VENIPUNCTURE On: 06-Dec-2006 Intent (49189)By: Clarice Tolbert LPN Comments: ABN signedL anticubital fossa used median cubital vein patient tolerated well CH EKG (42162)By: Zaina Khan On: 15-Oct-2006 Intent Comments: done-jjpekg showed normal sinus rhythym, normal axis, no acute st/t wave changes Planned Medications INJECTION, METHYLPREDNISOLONE SODIUM SUCCINATE, UP TO 125 MG Ordered: 27-Apr-2012 Pending [employer]ETING [employer] PUBLIC RELATIONS MANAGER, Rosalia INJECTION, METHYLPREDNISOLONE SODIUM SUCCINATE, UP TO 125 MG Ordered: 12-Oct-2017 Pending [employer]ET[employer] PUBLIC RELATIONS MANAGER, Rosalia INJECTION, METHYLPREDNISOLONE SODIUM SUCCINATE, UP TO 125 MG Ordered: 28-Oct-2017 Pending Christine Hightower Instructions Name Dates Details Nonsmoker : How to access health information online - Detail Indication: Nonsmoker Nonsmoker : How to access health information online Indication: Nonsmoker Nonsmoker : Patient Instructions Indication: Nonsmoker Diabetes mellitus type 2, uncontrolled, without complications [...] Instructions Indication: Osteopenia Encounters Office Visit On: 06-Apr-2018 8:16 Encounter Reason: Follow up tests - Date: (03/29/18)., [ADDITIONAL REASON] Follow up for chronic medical issues - The patient feels well with minor complai End: 06-Apr-2018 9:04 nts, has good energy level and is sleeping poorly. Patient has been compliant with instructions. Current medication use: no side effects and compliant with dosing regimen. Patient sleeps 6 hours per nig ht. Nutrition: balanced diet and supplemental vitamins. The medical issues the patient is following up for include All identified problems below, blood sugar issues, high blood pressure and high cholest jeff. blood pressure range :, fasting blood sugars : and weight :. Encounter Diagnosis: BMI 32.0-32.9,adult, Nonsmoker, Mixed hyperlipidemia (272.2), Vitamin D deficiency, unspecified, Benign essential hypertension (401.1), Influenza vaccination declined (Renamed from Refused influenza vaccine), Nutritional counseling, Osteopenia (733.90), Gastroesophageal reflux disease without esophagitis, Diabetes mellitus type 2, uncontrolled, without complications [facility] Office Visit On: 02-Dec-2017 12:11 Encounter Reason: [...] ago. Note for Rash: Was out in [place] again clearing brush and got poison staci. [...] the following pr eventative measures: PAP smear (2015), mammography (2017) and colonoscopy (never). The patient does have durable power of estate attorney and living will. The patient has noticed nothing from the geriatic depr ession scale. 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's care are granite polisher and other: (eye tejeda, up to date [...] The patient does have durable power of estate attorney and living will. The patient has noticed nothing from the geriatic depression scale. 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's care are other: (eye ileana, up to date on eye exam).Encounter Diagnosis: [...] think after discussing her sugars up donta real g carbs at night before bed so discussed [...] Nutrition: inappropriate diet and supplemental vitamins. The ct dical issues the patient is following up for include All identified problems below, blood sugar issues, high blood pressure, high cholesterol and other (Vit D). Note for Follow up for chronic medical i ssues: livalo made her achey too - weight up [...] : (180's). 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
--- OUTSIDE RECORDS SUMMARY | 2018-07-21 23:51 | XMS RPT_ITS ---
:1950 Author Organization OHIP Care Team Providers Name Role Phone ImeldaPk Attending Unavailable Hoang Newton Referring Unavailable WeiAnnamarie allison Attending Unavailable Annamarie Carvajal Referring Unavailable Wei, Annamarie Primary Care Unavailable Wei, Annamarie Primary Care Unavailable Hoang Newton Admitting Unavailable Reji Kam Attending Unavailable Hoang Newton Admitting Unavailable Hoang Newton Attending Unavailable Wei, Annamarie Primary Care Unavailable Hoang Newton Consulting Unavailable Hoang Newton Admitting Unavailable Reji Kam Attending Unavailable Annamarie Carvajal Primary Care Unavailable Reji Kam Consulting Unavailable PROBLEMS PROBLEMS DATE TYPE CONDITION / CODE ATTENDING STATUS SOURCE 06/14/2018 Unknown R94.31 - Abnormal [place], Active [place] electrocardiogram [facility] [ECG] [EKG] / Hospital R94.31(ICD-10) Repository 03/29/2018 Unknown N95.9 - Unspecified Wei, Active [place] menopausal and [facility] disorder / Repository N95.9(ICD-10) 03/29/2018 Unknown Z12.31 - Encounter for Wei Active [place] screening mammogram [facility] Hospital of breast / Repository Z12.31(ICD-10) PROCEDURES PROCEDURES No Procedure Records FoundRESULTS RESULTS 12 LEAD ELECTROCARDIOGRAM Observed: 05/31/2018 Status: F Source: [place] 3:48 PM [facility] REPOSITORY [facility] Cardiovascular Services [address] [place] [address] 12 Lead EKG 05/26/18 2318 MR#: [id number] Acct: [id number] Name: JAN FELIPE Rep #: [id number] : 1950 67 From: Pk Segura MD Attending Dr: Reji Kam MD Status: DIS ANANTH Ordering Dr: Hoang Newton MD Date: 05/26/18 Location: [facility] Sex: F C Admitted: 05/26/18 Test Reason : CP ADMISSION Blood Pressure : / mmHG Vent. Rate : 077 BPM Atrial Rate : 077 BPM P-R Int : 158 ms QRS Dur : 094 ms QT Int : 390 ms P-R-T Axes : 043 001 -02 degrees QTc Int : 441 ms Normal sinus rhythm Minimal voltage criteria for LVH, may be normal variant Inferior infarct , age undetermined, cannot be excluded Abnormal ECG Confirmed by IMELDA BENJAMIN, PK ([id number]), editor index KARISSA DONALDSON ([id number]) on 05/31/2018 3:48:13 PM Referred By: ALBAN Confirmed By:PK SEGURA MD 05/31/18 1548 Date Pk Segura MD CC: Hoang Newton MD; Annamarie Carvajal DO; Reji Kam MD Signed 12 LEAD ELECTROCARDIOGRAM Observed: 05/31/2018 Status: F Source: [place] 3:47 PM [facility] REPOSITORY [facility] Cardiovascular Services [address] [place] [address] 12 Lead EKG 05/27/18 0602 MR#: [id number] Acct: [id number] Name: JAN FELIPE Rep #: [id number] : 1950 67 From: Pk Segura MD Attending Dr: Reji Kam MD Status: DIS ANANTH Ordering Dr: Hoang Newton MD Date: 05/27/18 Location: [facility] Sex: F C Admitted: 05/26/18 Test Reason : AM EKG Blood Pressure : / mmHG Vent. Rate : 080 BPM Atrial Rate : 080 BPM P-R Int : 144 ms QRS Dur : 092 ms QT Int : 372 ms P-R-T Axes : 049 006 002 degrees QTc Int : 429 ms Sinus rhythm with Premature atrial complexes Minimal voltage criteria for LVH, may be normal variant Cannot rule out Inferior infarct , age undetermined Abnormal ECG Confirmed by IMELDA BENJAMIN, PK ([id number]), editor index KARISSA DONALDSON ([id number]) on 05/31/2018 3:47:08 PM Referred By: ALBAN Confirmed By:PK SEGURA MD 05/31/18 1547 Date Pk Segura MD CC: Hoang Newton MD; Annamarie Carvajal DO; Reji Kam MD Signed 12 LEAD ELECTROCARDIOGRAM Observed: 05/31/2018 Status: F Source: [place] 3:34 PM [facility] REPOSITORY [facility] Cardiovascular Services [address] [place] [address] 12 Lead EKG 05/26/18 2101 MR#: [id number] Acct: [id number] Name: JAN FELIPE Rep #: [id number] : 1950 67 From: Pk Segura MD Attending Dr: Reji Kam MD Status: DIS ANANTH Ordering Dr: Dennys Mejia MD Date: 05/26/18 Location: [facility] Sex: F C Admitted: 05/26/18 Test Reason : CP Blood Pressure : / mmHG Vent. Rate : 088 BPM Atrial Rate : 088 BPM P-R Int : 152 ms QRS Dur : 090 ms QT Int : 366 ms P-R-T Axes : 028 002 007 degrees QTc Int : 442 ms Sinus rhythm with occasional Premature ventricular complexes Minimal voltage criteria for LVH, may be normal variant Inferior infarct , age undetermined Abnormal ECG Confirmed by IMELDA BENJAMIN, PK ([id number]), editor index KARISSA DONALDSON ([id number]) on 05/31/2018 3:34:15 PM Referred By: PETE/SILVANA Confirmed By:PK SEGURA MD 05/31/18 1534 Date Pk Segura MD CC: Dennys Mejia MD; Annamarie Carvajal DO; Reji Kam MD Signed DISCHARGE SUMMARY Observed: 05/27/2018 Status: F Source: [place] 12:26 PM [facility] REPOSITORY [facility] Medical Records Department [address] [place] [address] Discharge Summary 05/27/18 1216 MR#: [id number] Acct: [id number] Name: JAN FELIPE Rep #: [id number] : 1950 67 From: Reji Kam MD PCP: Annamarie Carvajal DO Status: ADM ANANTH Y Location: [place] [address] Discharge Date and Diagnosis Date of Admission: 05/26/18 Date of Discharge: 05/27/18 - Secondary Discharge Diagnosis Chronic Problems (Last Updated 05/26/18 @ 23:21 by Hoang Newton MD) HTN (hypertension) (Chronic) Diabetes (Chronic) Hospital Course and Treatment Imaging Results: CXR: IMPRESSION: Normal x-ray examination of the chest. Consults: None Operations: None Procedures: Nuclear stress test - Impression: 1. Technically adequate (percent predicted maximal heart rate greater than 85%) exercise tolerance test 2. Peak exercise ECG with no obvious ECG changes 3. There was a rare PVC during recovery 4. Nuclear images pending Interpretation: Rest and stress SPECT Cardiolite nuclear imaging status post realignment, normalization, and attenuation correction, demonstrates the appearance of relative uniform tracer uptake and myocardial perfusion appearing within normal limits. There is end systolic thickening and brightening. The gated Cardiolite study demonstrates myocardial thickening and inward wall motion. The reported LVEF is 70 %. Impression: 1. Rest and stress SPECT Cardiolite nuclear imaging demonstrate relative uniform tracer uptake and myocardial perfusion appearing within normal limits. 2. The gated Cardiolite study reports an LVEF of 70 %. Summary of Care Provided: Per HPI: The patient is a 67 year old F with a significant history of right breast cancer status post radiation and chemotherapy; hypertension; diabetes; who presented with 1 day history of episodic right-sided chest pain that radiated to her right neck. She describes a severity as 5-6 on a scale of 1-10. Her pain was heavy in quality. Her chest pain began suddenly while she was a passenger in a car. Associated with her symptoms is belching and flatulence. Also she had warm feeling at her face. At emergency department chest x-ray was unremarkable. Her EKG showed sinus rhythm with PVCs. At emergency department patient was given 324 mg of aspirin. Of note 12-14 years ago patient had chest pain and follow- up cardiac catheter showed 50% lesion in one vessel. She does not remember which vessel had the 50% blockage. Vital Signs - 24 hr 05/27/18 11:51 98.1 F 85 16 134/86 H 96 05/27/18 10:54 91 05/27/18 06:19 76 05/27/18 06:00 97.3 F L 77 16 127/75 H 95 05/27/18 03:00 77 General: Alert, Oriented x3, Cooperative, No apparent distress, obese HEENT: Atraumatic, EOMI, Normocephalic Oral: Moist Mucosa Neck: Supple, No JVD Lungs: Clear to auscultation, Normal air movement, No rhonchi, No wheeze, No rales Cardiovascular: Regular rate, Regular Rhythm, Normal S1, Normal S2, No murmurs Abdomen: Soft, Non Tender, Non-Distended, No Hepato-splenomegaly Extremities: No edema, Capillary Refill Less than 3 Seconds Skin: No rashes, No breakdown Hospital Course: 1. Chest pain with a h/o CAD based on prior cath with 50% stenosis/HTN/HLD - She presented with right sided chest pain. She was admitted as a chest pain r/o, her troponins remained negative and she had a nuclear stress test on the morning of discharge which was also negative. I discussed with her the necessity of being on a statin since her ASCVD risk is 18%, however she has a significant h/o mylagias and has been tried on multiple different medications. Therefore she is to f/u with her PCP and remain on an aspirin. We discussed that since she cannot tolerate a statin then if she would like to decrease her risk she will need to make modifications to other aspect of her life, mainly diet and exercise. 2. Her other diagnoses were evaluated and her home medications were continued were appropriate - Physical Exam Vital Signs Temp Pulse Resp BP Pulse Ox 98.1 F 85 16 134/86 H 96 05/27/18 11:51 05/27/18 11:51 05/27/18 11:51 05/27/18 11:51 05/27/18 11:51 Oxygen Delivery Method Room Air Weight: 176 lb 9.444 oz Body Mass Index (BMI) 32.3 Laboratory Tests Past 24 Hrs WBC 7.0 RBC 4.43 Hgb 13.7 Hct 40.6 MCV 91.6 MCH 30.9 WBC RBC Hgb Hct MCV MCH MCHC RDW RDW Differential Plt Count MPV Immature Gran % (Auto) WBC RBC Hgb Hct MCV MCH MCHC RDW RDW Differential Plt Count MPV Immature Gran % (Auto) POC Glucose POC Glucose 154 H 149 H 140 H Discharge Activity: No Restrictions Call your doctor if you observe: Shortness of breath, Dizziness, Fainting spells, Chest pain, Increased palpitations (irregular heartbeat) Home Medications: Medications to take at Discharge Aspirin [Aspirin, Baby] 81 mg PO DAILY 05/11/14 Hydrochlorothiazide [Hctz] 25 mg PO DAILY 05/11/14 Lisinopril [Zestril] 20 mg PO DAILY 05/11/14 Metformin HCl [Glucophage] 1,000 mg PO BIDCM 05/11/14 Ubidecarenone [Coq10] 50 mg PO DAILY 05/11/14 Atenolol [Tenormin (beta shay)] 50 mg PO BID 05/26/18 Cholecalciferol (VIT D3) [Vitamin D3] 1,000 unit PO BID 05/26/18 Fenofibrate Nanocrystallized [Fenofibrate] 145 mg PO DAILY 05/26/18 Linagliptin [Tradjenta] 5 mg PO DAILY 05/26/18 Vitamin E 400 unit PO DAILY 05/26/18 Primary Care Physician: Annamarie Carvajal DO [Primary Care Provider] - Please follow up with your Primary Care Physician in: In 3- 5 days Disposition: Home Minutes spent on discharge:: 35 Patient Condition:: Good Medical Necessity - Tobacco Use Smoking Status: Never smoker Meaningful Use Info Meaningful Use Diagnoses (Choose all that apply): None applicable Code Visit OBSV E AND M: 20261 Observation care discharge 05/27/18 1226 <Electronically signed by Reji Kam MD> Date Reji Kam MD Cosigner Signature (if applicable): Date CC: Annamarie Carvajal DO; Reji Kam MD Signed DISCHARGE INSTRUCTION Observed: 05/27/2018 Status: F Source: [place] 12:15 PM [facility] REPOSITORY [facility] Medical Records Department [address] [place] [address] Instructions for Home/Discharge Instructions 05/27/18 1215 MR#: [id number] Acct: [id number] Name: JAN FELIPE Rep #: [id number] : 1950 67 From: Reji Kam MD PCP: Annamarie Carvajal DO Status: ADM ANANTH - Discharge Diagnoses Current Active Problems: Current Active and Chronic Problems (Last Updated 05/26/18 @ 23:21 by Hoang Newton MD) HTN (hypertension) (Chronic) Diabetes (Chronic) You will use the following diet at home:: Cardiac Your food should be the consistency of: Regular Your liquids should be the consistency of: Regular/Thin Discharge Activity: No Restrictions Call your doctor if you observe: Shortness of breath, Dizziness, Fainting spells, Chest pain, Increased palpitations (irregular heartbeat) Allergies/Adverse Reactions: Allergies No Known Allergies Allergy (Verified 05/26/18 20:55) Medications to take at Discharge Aspirin [Aspirin, Baby] 81 mg PO DAILY 05/11/14 Hydrochlorothiazide [Hctz] 25 mg PO DAILY 05/11/14 Lisinopril [Zestril] 20 mg PO DAILY 05/11/14 Metformin HCl [Glucophage] 1,000 mg PO BIDCM 05/11/14 Ubidecarenone [Coq10] 50 mg PO DAILY 05/11/14 Atenolol [Tenormin (beta shay)] 50 mg PO BID 05/26/18 Cholecalciferol (VIT D3) [Vitamin D3] 1,000 unit PO BID 05/26/18 Fenofibrate Nanocrystallized [Fenofibrate] 145 mg PO DAILY 05/26/18 Linagliptin [Tradjenta] 5 mg PO DAILY 05/26/18 Vitamin E 400 unit PO DAILY 05/26/18 Primary Care Physician: Annamarie Carvajal DO [Primary Care Provider] - Please follow up with your Primary Care Physician in: In 3- 5 days Test Results: Test results from this visit will be discussed in further detail at your follow-up appointment, if applicable. 05/27/18 1215 <Electronically signed by Reji Kam MD> Date Reji Kam MD CC: Annamarie Carvajal DO BEDSIDE GLUCOSE Collected: 05/27/2018 Status: F Source: [place] 11:53 AM [facility] REPOSITORY TYPE CODE TESTS RESULT OUT OF REFERENCE UNITS RANGE LAB L501.080 70-110 mg/dL High BEDSIDE GLU 154 Result Comment: MANAGEMENT OF PATIENT CARE PER NURSING PROTOCOL Performed By: #### L501.080 #### [facility] Laboratory Point of Care [address] [facility] [place] [address] STRESS REPORT Observed: 05/27/2018 Status: F Source: [place] 11:30 AM [facility] REPOSITORY [facility] Cardiovascular Services [address] [place] [address] MR#: [id number] Acct: [id number] Name: JAN FELIPE Rep #: [id number] : 1950 67 From: Pk Segura MD Primary Care: Annamarie Carvajal DO Status: ADM ANANTH Ordering Dr: Sex: F C Stress Test Report Date: 05/27/2018 Procedure: Exercise tolerance test/imaging study Indications: Chest pain Consent: Per the patient Procedure: The patient exercised on a Hero protocol for 6 minutes completing Stage II achieving a peak heart rate of 166 bpm (108 % predicted maximal heart rate) with a peak blood pressure 220/80 mmHg and a peak MET capacity of 7 METs. The baseline ECG demonstrated normal sinus rhythm. The peak exercise ECG demonstrated no obvious ECG changes. There was a rare PVC during recovery. The functional capacity was considered average. There was no complaint of chest discomfort during exercise or recovery. The examination was discontinued secondary to dyspnea. Impression: 1. Technically adequate (percent predicted maximal heart rate greater than 85%) exercise tolerance test 2. Peak exercise ECG with no obvious ECG changes 3. There was a rare PVC during recovery 4. Nuclear images pending Myocardial perfusion imaging study: Technique: The patient was injected with 11.8 mCi of technetium 99m Cardiolite and subsequently rest SPECT Cardiolite nuclear imaging was obtained in the horizontal long, vertical long, and short axis views. The patient exercised on a Hero protocol for 6 minutes completing Stage II achieving a peak heart rate of 166 bpm (108 % predicted maximal heart rate) with a peak blood pressure 220/80 mmHg and a peak MET capacity of 7 METs. The patient was injected with 33.1 mCi of technetium 99m Cardiolite and subsequently stress SPECT Cardiolite nuclear imaging was obtained in the horizontal long, vertical long, and short axis views. A gated Cardiolite study at peak stress was obtained. Interpretation: Rest and stress SPECT Cardiolite nuclear imaging status post realignment, normalization, and attenuation correction, demonstrates the appearance of relative uniform tracer uptake and myocardial perfusion appearing within normal limits. There is end systolic thickening and brightening. The gated Cardiolite study demonstrates myocardial thickening and inward wall motion. The reported LVEF is 70 %. Impression: 1. Rest and stress SPECT Cardiolite nuclear imaging demonstrate relative uniform tracer uptake and myocardial perfusion appearing within normal limits. 2. The gated Cardiolite study reports an LVEF of 70 %. This note was generated with [employer] dictation software. It may contain incorrect words, spelling, and punctuation that were not noted in checking the note before signing. 05/27/18 1130 <Electronically signed by Pk Segura MD> Date Pk Segura MD CC: Annamarie Carvajal DO; Reji Kam MD Date Dictated: 05/27/181126 Date Transcribed: 05/27/181126 Car Lubricator: PM Signed HISTORY AND PHYSICAL Observed: 05/27/2018 Status: F Source: [place] EXAM 6:40 AM [facility] REPOSITORY [facility] Medical Records Department [address] [facility] [place] [address] History and Physical 05/26/182236 MR#: [id number] Acct: [id number] Name: JAN FELIPE Rep #: [id number] : 1950 67 From: Hoang Newton MD PCP: Annamarie Carvajal DO Status: ADM ANANTH Y Location: [place] [address] Problem List (1) Chest pain Status: Acute (2) HTN (hypertension) Status: Chronic (3) Diabetes Status: Chronic History of Present Illness Date of Admission: 05/26/18 Chief Complaint: chest pain The patient is a 67 year old F with a significant history of right breast cancer status post radiation and chemotherapy; hypertension; diabetes; who presented with 1 day history of episodic right-sided chest pain that radiated to her right neck. She describes a severity as 5-6 on a scale of 1-10. Her pain was heavy in quality. Her chest pain began suddenly while she was a passenger in a car. Associated with her symptoms is belching and flatulence. Also she had warm feeling at her face. At emergency department chest x-ray was unremarkable. Her EKG showed sinus rhythm with PVCs. At emergency department patient was given 324 mg of aspirin. Of note 12-14 years ago patient had chest pain and follow- up cardiac catheter showed 50% lesion in one vessel. She does not remember which vessel had the 50% blockage. Past Medical History Past Medical History (Chronic Problems): Chronic Problems (Last Updated 05/26/18 @ 23:21 by Hoang Newton MD) HTN (hypertension) (Chronic) Diabetes (Chronic) Medical History: Medical History (Last Updated 05/26/18 @ 23:21 by Hoang Newton MD) Diabetes E11.9 HTN (hypertension) I10 Allergies No Known Allergies Allergy (Verified 05/26/18 20:55) Home Medications: Ambulatory Orders Medication Instructions Recorded Aspirin [Aspirin, Baby] 81 mg PO DAILY 05/11/14 Hydrochlorothiazide [Hctz] 25 mg PO DAILY 05/11/14 Lisinopril [Zestril] 20 mg PO DAILY 05/11/14 Surgical History: mastectomy, - - Kidney surgery-type unknown Psychiatric History: No pertinent psych hx [employer]ATOR 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 Denies: Palpitations Respiratory: Reports: Shortness of Breath - mild and transient. Denies: Cough, Sputum production Gastrointestinal: Denies: Abdominal Pain, Nausea, Vomiting Genitourinary: Denies: Dysuria Musculoskeletal: Denies: Joint Pain, Joint Tenderness Skin: Denies: Rash, Wounds Neurological: Denies: Numbness, Tingling, Focal weakness Psychiatric: Denies: Anxiety, Depression, Homicidal Ideations, Suicidal Ideations Hematologic/ Lymphatic: Denies: Easy Bruising, Easy Bleeding VTE Information - Inpt Only VTE Present on Admission: No VTE Mechan Device Prophylaxis: None VTE Pharm Prophylaxis ordered?: Yes - Physical Exam General: Alert, Oriented x3, Cooperative HEENT: Atraumatic, PERRLA, EOMI, Normocephalic Neck: Supple, No JVD, Negative Carotid Bruits Lungs: Clear to auscultation, Normal air movement, - - With no R breast Cardiovascular: Regular rate, No murmurs Abdomen: Bowel Sounds Present, Soft, Non Tender Extremities: No edema, Capillary Refill Less than 3 Seconds Skin: No rashes, No breakdown Musculoskeletal: No Tenderness to Palpation of Joints or Extremities Neurological: Cranial nerves II-XII grossly intact Psych/Mental Status: Normal Affect, Appropriate Vital Signs Temp Pulse Resp BP Pulse Ox 98.2 F 76 14 146/88 H 94 05/26/18 20:55 05/26/18 21:54 05/26/18 21:54 05/26/18 21:54 05/26/18 21:54 Oxygen Delivery Method Room Air Weight: 82.554 kg Body Mass Index (BMI) 33.3 Laboratory Tests Past 24 Hrs WBC 7.0 RBC 4.43 Hgb 13.7 Hct 40.6 MCV 91.6 MCH 30.9 MCHC 33.7 RDW 13.2 Assessment/Plan All Active Problems (Last Updated 05/26/18 @ 23:21 by Hoang Newton MD) Chest pain (Acute) The patient is a 67 year old F with a significant history of right breast cancer status post radiation and chemotherapy;hypertension; diabetes; and with 50% blockage in his coronaries presenting with episodic right sided chest pain that had resolved at the time of examination. Chest pain At the time of examination her chest pain; belching and flatulence had resolved. Admit to a monitored bed on PCU CXR independently reviewed confirms no acute cardiopulmonary process EKG independently reviewed confirms sinus rhythm with PVCs Patient received 324 mg aspirin at emergency department. ASA 81 mg p.o. daily SL NTG 0.4 mg prn as needed for chest pain Fasting lipids ordered. High intensity statin ordered. Serial cardiac enzymes Stat EKG as needed for chest pain Although patient reported 50% blockage in a coronary vessel 12 to 14 years ago, her chest pain has resolved and she reports associated GI symptoms. Treadmill stress test in the AM if the cardiac enzymes are negative Diabetes mellitus On admission blood glucose was not within goal. Patient is on home metformin and Tradjenta. Since it is too early in her admission and cardiac cath can not be rule out at this time will hold metformin. Tradjenta continued. Would add a correction scale insulin. Hypertension On admission blood pressure was not within goal but was not excessively high Continue atenolol; lisinopril and hydrochlorothiazide.. Trend blood pressure and adjust blood pressure medication as necessary. Hyperlipidemia Fenofibrate continued. DVT prophylaxis Subcutaneous Lovenox ordered. Code Visit OBSV E AND M: 91098 Initial observation care L3 05/27/18 0640 <Electronically signed by Hoang Newton MD> Date Hoang Newton MD Cosigner Signature: Date (if applicable) CC: Hoang Newton MD; Annamarie Carvajal DO Signed BEDSIDE GLUCOSE Collected: 05/27/2018 Status: F Source: [place] 6:03 AM [facility] REPOSITORY TYPE CODE TESTS RESULT OUT OF REFERENCE UNITS RANGE LAB L501.080 70-110 mg/dL High BEDSIDE GLU 149 Result Comment: MANAGEMENT OF PATIENT CARE PER NURSING PROTOCOL Performed By: #### L501.080 #### [facility] Laboratory Point of Care [address] [place], [place] [id number] PROTHROMBIN TIME W/INR Collected: 05/27/2018 Status: F Source: [place] 3:18 AM [facility] REPOSITORY TYPE CODE TESTS RESULT OUT OF RANGE REFERENCE UNITS LAB L300.4150 11.7-14.9 SECONDS Normal PROTIME 13.1 LAB L300.4200 Normal INR 1.0 Performed By: #### L300.3900 #### [facility] [address] [place], [place], [address] PARTIAL THROMBOPLAST Collected: 05/27/2018 Status: F Source: [place] TIME 3:18 AM [facility] REPOSITORY TYPE CODE TESTS RESULT OUT OF REFERENCE UNITS RANGE LAB L300.4310 24.1-36.2 Seconds Low PTT 23.6 Performed By: #### L300.4310 #### [facility] [address] [place], [place], [address] TROPONIN-I Collected: 05/27/2018 Status: F Source: [place] 3:18 AM [facility] REPOSITORY Order Comment: 'TROP' Serial specimen #1, #2 or #3: 3 TYPE CODE TESTS RESULT OUT OF RANGE REFERENCE UNITS LAB L501.4010 <0.045 ng/mL Normal < 0.015 TROPONIN-I Result Comment: TROPONIN-I EXPECTED VALUES <0.045 Negative 0.045 - 0.590 Consistent with Cardiac Damage > OR = 0.600 Critical Value Not every elevated troponin is indicative of [place]. These values should be used with clinical judgement in examining the patient's clinical picture for diagnosis. To establish a diagnosis of [place] versus myocardial injury, there must be a demonstrated rise and/or fall in the troponin values, in addition to ischemic symptoms, EKG changes, new regional wall motion abnormality, and/or angiographical evidence. PLEASE NOTE: REFERENCE RANGES EDITED 17 Performed By: #### L501.4010 #### [facility] [address] [facility] [place], [address] LIPID PROFILE Collected: 05/27/2018 Status: F Source: [place] 3:18 AM [facility] REPOSITORY TYPE CODE TESTS RESULT OUT OF RANGE REFERENCE UNITS LAB L501.4900 200 mg/dL High CHOL 212 Result Comment: <200 mg/dL Desirable 200-240 mg/dL Borderline >240 mg/dL High Risk LAB L501.5000 mg/dL Normal TRIG 122 Result Comment: The drugs N-Acetylcysteine and Metamizole may falsely depress this assay. Serum Triglycerides Reference Interval Normal <150 mg/dL Borderline high 150 - 199 mg/dL High 200 - 499 mg/dL Very High > or = 500 mg/dL LAB L501.6400 mg/dL Normal HDL 43 Result Comment: The drugs N-Acetylcysteine and Metamizole may falsely depress this assay. Reference Range HDL <40 mg/dL Low HDL Cholesterol HDL >or= 60 mg/dL High HDL Cholesterol LAB L501.6500 0-130 mg/dL High LDL 145 LAB L501.6600 5-40 mg/dL Normal VLDL 24 Performed By: #### L500.4100 #### [facility] [address] [place], [address] BASIC METABOLIC Collected: 05/27/2018 Status: F Source: PALMER PROFILE (BMP) 3:18 AM [facility] REPOSITORY TYPE CODE TESTS RESULT OUT OF RANGE REFERENCE UNITS LAB L501.0100 74-106 mg/dL High GLU 151 Result Comment: Fasting Glucose result greater than or equal to 126 mg/dL suggests DIABETES MELLITUS per A.D.A. criteria. Please note revised GLUCOSE reference range effective 2017. LAB L501.1000 7-18 mg/dL Normal BUN 15 LAB L501.1100 0.55-1.02 mg/dL Normal CREAT,SERUM 0.76 Result Comment: The validity of the calculated GFR AND GFRAA in patients over 70 years has not been determined. Clinical correlation is essential. LAB L501.1110 >60 mL/min Normal EST GFR 80 Result Comment: Non- GFR Calc LAB L501.1115 >60 mL/min Normal EST GFR - AA 97 Result Comment: GFR Calc LAB L501.1255 ml/min Normal Estimated CRCL 43.18 LAB L501.1300 10-20 RATIO Normal BUN/CRE 19.6 LAB L501.2200 8.5-10 mg/dL Normal .1 CA 8.9 LAB L501.5300 136-14 mmol/L Normal 5 NA 145 LAB L501.5600 3.5-5. mmol/L Normal 1 K 3.6 LAB L501.5900 98-107 mmol/L High CL 108 LAB L501.6100 21.0-3 mmol/L Normal 2.0 CO2 27.0 LAB L501.6200 5-15 Normal GAP 10 Performed By: #### L500.2500 #### [facility] [address] [place], [place], [address] TROPONIN-I Collected: 05/27/2018 Status: F Source: SOFIA 12:22 AM [facility] REPOSITORY Order Comment: 'TROP' Serial specimen #1, #2 or #3: 2 TYPE CODE TESTS RESULT OUT OF RANGE REFERENCE UNITS LAB L501.4010 <0.045 ng/mL Normal < 0.015 TROPONIN-I Result Comment: TROPONIN-I EXPECTED VALUES <0.045 Negative 0.045 - 0.590 Consistent with Cardiac Damage > OR = 0.600 Critical Value Not every elevated troponin is indicative of [place]. These values should be used with clinical judgement in examining the patient's clinical picture for diagnosis. To establish a diagnosis of KY versus myocardial injury, there must be a demonstrated rise and/or fall in the troponin values, in addition to ischemic symptoms, EKG changes, new regional wall motion abnormality, and/or angiographical evidence. PLEASE NOTE: REFERENCE RANGES EDITED 17 Performed By: #### L501.4010 #### [facility] [address] [place], [address] EMERGENCY DEPARTMENT Observed: 05/26/2018 Status: F Source: PALMER SUMMARY 11:54 PM [facility] REPOSITORY [facility] Medical Records Department [address] [place] [address] Emergency Department Summary 05/26/18 2115 MR#: [id number] Acct: [id number] Name: JAN FELIPE Rep #: [id number] : 1950 67 From: Dennys Mejia MD PCP: Annamarie Carvajal DO Status: ADM ANANTH - ER Visit Summary Date of Service: 05/26/18 Chief Complaint: Right-sided chest discomfort History of Present Illness: The patient is a 67 F past medical history of non-insulin dependent diabetes, hypertension, high cholesterol and known coronary disease. She states about 10 years ago she had a heart cath done at [facility] in [place] and at that time they told her she is about a 50% coronary blockage but she did not need stents at that time. Recently she has not been having chest pain. She denies exertional dyspnea. No history of DVT or PE. No recent travel, surgery or immobilization. No leg pain or swelling. No hemoptysis. She denies any pleuritic chest pain. Patient denies any back pain. At times does radiate to her neck. Physical Examination: 5% on room air. No hypoxia. HEENT exam unremarkable. Neck nontender. No lymphadenopathy. Lungs clear to auscultation bilaterally. Heart regular rate and rhythm no murmur. Patient had a right mastectomy. Chest wall is nontender. Abdomen soft nontender. Normal bowel sounds no peritoneal signs. Patient moving all 4 extremities. 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 Normal dorsi plantar flexion. Calves are nontender without edema or cords. Equal symmetrical radial pulses. Neurologically she is awake and alert with no focal motor deficits. Test Results: Patient will undergo cardiac workup and received p.o. aspirin. BC normal. BMP unremarkable. Troponin normal. Portable chest x-ray 1 view read both by myself and radiologist is unremarkable. EKG is a sinus rhythm with PVCs but no signs of acute KY or ischemia. Emergency Department Course and Treatment: Patient with atypical right-sided chest pain. Has no history of DVT or PE. No DVT or PE risk factors. Pain is not reproducible. She is a known history of coronary disease and also has diabetes and hypertension. Treatment Plan: Patient doing well on repeat exam at 2240. Spoke to the hospitalist about admission. Patient currently symptom-free. Disposition: Admission Impression: Acute chest pain uncertain etiology History of CAD History of jbr-ulfakjz-cmeaiegot diabetes, hypertension This note was generated with [employer] software. It may contain incorrect words, spelling, and punctuation that were not noted in review of the chart prior to signing ED Disposition - Plan for ED Patient: Chief Complaint: Chest Pain What to do if you have Problems For any increased pain, shortness of breath, bleeding, nausea or vomiting, chest pain, or any unexpected problems, contact your Primary Care Provider. Call [facility] ([phone]) or report to the closest Emergency Room. Call 911 if necessary. 05/26/18 6774 <Electronically signed by Dennys Mejia MD> Date Dennys Mejia MD Cosigner Signature (If Indicated): Date CC: Annamarie Carvajal DO BEDSIDE GLUCOSE Collected: 05/26/2018 Status: F Source: SOFIA 11:44 PM [facility] REPOSITORY TYPE CODE TESTS RESULT OUT OF REFERENCE UNITS RANGE LAB L501.080 70-110 mg/dL High BEDSIDE GLU 140 Result Comment: MANAGEMENT OF PATIENT CARE PER NURSING PROTOCOL Performed By: #### L501.080 #### [facility] Point [address] [place] [address] CHEST 1 VIEW Observed: 05/26/2018 Status: F Source: SOFIA (PORTABLE) 9:09 PM [facility] REPOSITORY [facility] Imaging Services [address] [place] [address] Chest 1 View (Portable) MR#: [id number] Acct: [id number] Name: JAN FELIPE Rep #: [id number] : 1950 F 67 From: Anthony Shaver MD PCP: Annamarie Carvajal DO Status: REG ER Study: Chest 1 View (Portable) Date of Exam: 05/26/18 Exam# [id number] Ordering Dr: Dennys Mejia MD STUDY: X-RAY CHEST REASON FOR EXAM: Female, 67 years old. Chest pain TECHNIQUE: Single frontal view of the chest. COMPARISON: 05/11/2014 FINDINGS: The lungs are clear and expanded. There is no demonstrated pleural abnormality. Normal size heart. Normal mediastinum and rochelle. Normal visualized pulmonary arteries. Normal visualized aortic arch and descending thoracic aorta. Normal visualized thoracic spine. Normal visualized ribs, clavicles, and shoulders. There is no demonstrated abnormality of the visualized soft tissue structures of the upper abdomen. RAD/Chest 1 View (Portable) IMPRESSION: Normal x-ray examination of the chest. Electronically Signed: Anthony Shaver MD at 22:08 EST Tel , Service support , CC: Dennys Mejia MD; Annamarie Carvajal DO Car Lubricator: Signed CBC W/DIFF, AUTOMATED Collected: 05/26/2018 Status: F Source: SOFIA 9:00 PM [facility] REPOSITORY TYPE CODE TESTS RESULT OUT OF RANGE REFERENCE UNITS LAB L100.1000 4.4-11.0 K/mm3 Normal WBC 7.0 LAB L100.1200 4.2-5.4 M/mm3 Normal RBC 4.43 LAB L100.1300 12.0-15.0 g/dl Normal HGB 13.7 LAB L100.1400 37-47 % Normal HCT 40.6 LAB L100.1500 81-99 fL Normal MCV 91.6 LAB L100.1600 27.0-32.0 pg Normal MCH 30.9 LAB L100.1700 32-36 g/gl Normal MCHC 33.7 LAB L100.1810 11.6-14.6 % Normal RDW CV 13.2 LAB L100.1820 35.1-43.9 fl Normal RDW SD 43.1 LAB L100.1900 150-450 K/mm3 Normal PLT 347 LAB L100.2000 6.2-12.0 fl Normal MPV 10.4 LAB L100.2100 47-70 % Normal NEUT% 54.7 LAB L100.2200 19-41 % Normal LY% 30.3 LAB L100.2300 0-10 % Normal MONO% 8.0 LAB L100.2400 0-5 % High EO% 5.8 LAB L100.2500 0-1 % Normal BASO% 0.6 LAB L100.2550 0.0-0.9 % Normal IM GRAN % 0.600 Result Comment: IG% - Immature Granulocytes (promyelocytes, myelocytes and metamyelocytes) > 1% indicates that a LEFT SHIFT is Present. LAB L100.2620 2.0-7.7 X10 3/uL Normal Absolute Neut 3.8 LAB L100.2720 0.83-4.51 X10 3/ul Normal Absolute Lymph 2.13 Performed By: #### L100.0100 #### [facility] [address] [place] [address]. [place], [place], [address] BASIC METABOLIC Collected: 05/26/2018 Status: F Source: PALMER PROFILE (BMP) 9:00 PM [facility] REPOSITORY TYPE CODE TESTS RESULT OUT OF RANGE REFERENCE UNITS LAB L501.0100 74-106 mg/dL High GLU 182 Result Comment: Fasting Glucose result greater than or equal to 126 mg/dL suggests DIABETES MELLITUS per A.D.A. criteria. Please note revised GLUCOSE reference range effective 2017. LAB L501.1000 7-18 mg/dL Normal BUN 18 LAB L501.1100 0.55-1.02 mg/dL Normal CREAT,SERUM 0.99 Result Comment: The validity of the calculated GFR AND GFRAA in patients over 70 years has not been determined. Clinical correlation is essential. LAB L501.1110 >60 mL/min Normal EST GFR 60 Result Comment: Non- GFR Calc LAB L501.1115 >60 mL/min Normal EST GFR - AA 72 Result Comment: GFR Calc LAB L501.1255 ml/min Normal Estimated CRCL 43.61 LAB L501.1300 10-20 RATIO Normal BUN/CRE 18.2 LAB L501.2200 8.5-10 mg/dL Normal .1 CA 9.1 LAB L501.5300 136-14 mmol/L Normal 5 NA 140 LAB L501.5600 3.5-5. mmol/L Normal 1 K 3.7 LAB L501.5900 98-107 mmol/L Normal CL 105 LAB L501.6100 21.0-3 mmol/L Normal 2.0 CO2 29.0 LAB L501.6200 5-15 Normal GAP 6 Performed By: #### L500.2500, L501.4010 #### [facility] [address] [place], [address] TROPONIN-I Collected: 05/26/2018 Status: F Source: SOFIA 9:00 PM [facility] REPOSITORY TYPE CODE TESTS RESULT OUT OF RANGE REFERENCE UNITS LAB L501.4010 <0.045 ng/mL Normal < 0.015 TROPONIN-I Result Comment: TROPONIN-I EXPECTED VALUES <0.045 Negative 0.045 - 0.590 Consistent with Cardiac Damage > OR = 0.600 Critical Value Not every elevated troponin is indicative of [place]. These values should be used with clinical judgement in examining the patient's clinical picture for diagnosis. To establish a diagnosis of KY versus myocardial injury, there must be a demonstrated rise and/or fall in the troponin values, in addition to ischemic symptoms, EKG changes, new regional wall motion abnormality, and/or angiographical evidence. PLEASE NOTE: REFERENCE RANGES EDITED 17 Performed By: #### L500.2500, L501.4010 #### [facility] [address] [place], [address] UNILAT LT SCRN Observed: 03/29/2018 Status: F Source: SOFIA W/CAD 10:13 AM [facility] REPOSITORY [facility] Imaging Services [address] [place] [address] UNILAT LT SCRN W/CAD MR#: [id number] Acct: [id number] Name: JAN FELIPE Rep #: [id number] : 1950 F 67 From: Thierry Long MD PCP: Annamarie Carvajal DO Status: REG CLI Study: UNILAT LT SCRN W/CAD Date of Exam: 03/29/18 Exam# [id number] Ordering Dr: Annamarie Carvajal DO MAMMOGRAPHY - UNILATERAL SCREENING: LEFT BREAST REASON FOR EXAM: Female, 67 years old. Routine annual screening examination (unilateral). PERTINENT HISTORY: Personal history of breast cancer. Grandmother with breast cancer. Aunt with breast cancer. Prior right mastectomy. TECHNIQUE: Digital unilateral breast sharon (3D mammographic acquisition) in the CC and MLO projections. 2-D mediolateral oblique (MLO) and craniocaudad (CC) views of both breasts were obtained. CAD: Full Field Digital Mammography with Computer Added Detection was performed. COMPARISON: Comparison is made with prior study dated March 22, 2017 and January 29, 2015. FINDINGS: Breast Composition: [...] CATEGORY: BIRADS Category 2: Benign. A letter regarding these results will be sent to the patient by the facility within 30 days. Approximately 10% of breast cancers are not detected by mammography. A normal mammogram should not delay biopsy of a clinically suspicious abnormality. [id number] Electronically Signed: Thierry Long MD at 12:24 EDT Tel [phone], Service support , CC: Annamarie Carvajal DO Car Lubricator: Signed DEXA BONE DENSITY Observed: 03/29/2018 Status: F Source: PALMER STUDY 10:13 AM [facility] REPOSITORY [facility] Imaging Services [address] [place] [address] Dexa Bone Density Study MR#: [id number] Acct: [id number] Name: JAN FELIPE Rep #: [id number] : 1950 F 67 From: Thierry Long MD PCP: Annamarie Carvajal DO Status: REG CLI Study: Dexa Bone Density Study Date of Exam: 03/29/18 Exam# [id number] Ordering Dr: Annamarie Carvajal DO STUDY: DUAL ENERGY X-RAY ABSORPTIOMETRY / DXA REASON FOR EXAM: Female, 67 years old. The patient is postmenopausal. No loss of height. TECHNIQUE: Bone Mineral Density (BMD) measurements of lumbar spine and bilateral hips were obtained. COMPARISON: Comparison is made with prior study dated January 29, 2015. FINDINGS: Lumbar Spine (L1-L4): g/cm2 (1.207) / T-score (0.2) / Z-score (1.9) Findings are suggestive of normal bone density with a low fracture risk. Left Femur Total: g/cm2 (0.897) / T-score (-0.9) / Z- score (0.4) Left Femoral Neck: g/cm2 (0.870) / T-score (-1.2) / Z- score (0.4) Right Femur Total: g/cm2 (0.878) / T-score (-1.0) / Z- score (0.3) Right Femoral Neck: g/cm2 (0.858) / T-score (-1.3) / Z-score (0.3) The T-Scores on the most recent prior examination were: Lumbar Spine (L1-L4): There has been improvement of bone density since the previous examination. Left Femur Total: which represents a worsening of 10.2%. Right Femur Total: which represents a worsening of 1.1%. BD/Dexa Bone Density Study IMPRESSION: The patient is considered osteopenic as outlined below according to World Rigoberto Organization (WHO) criteria with a moderate fracture risk. There has been worsening of bone density since the previous examination. Reference Information: The T-score is the number of standard deviations above or below the standard which is normal for young adults at their peak bone mineral density. The World Health Organization (WHO) interprets the T-scores as follows: Above -1 Normal bone density Between -1 and -2.5 Osteopenia Equal to / or below -2.5 Osteoporosis As a practical clinical guideline, osteopenia may be graded as follows: Mild -1 through -1.5 Moderate -1.6 through -2.0 Severe -2.1 through -2.4 The Z-score is the number of standard deviations above or below age-matched controls. A Z-score of less than -1.5 would be considered abnormal. References: 1. NIH Osteoporosis and Related Bone Diseases http://www.osteo.org 2. International Society for Clinical Densitometry http://www.iscd.org 3. National Osteoporosis Foundation http://www.nof.org Electronically Signed: Thierry Long MD at 15:48 EDT Tel [phone], Service support , CC: Annamarie Carvajal DO Car Lubricator: Signed ALLERGIES ALLERGIES DATE TYPE / CODE NAME / CODE REACTION SEVERITY SOURCE 05/26/2018 Drug No Known Unknown [facility] Allergy/4160 Allergies/F00 Hospital 21706(SNOMED 2857786(RXNOR Repository CT) M) ENCOUNTERS ENCOUNTERS ADMIT/DISCHARGE ACCOUNT ADMITTING ENCOUNTER LOCATION SOURCE NUMBER CLASS 05/26/2018 [id number] Ambulatory BMSBuilding:W [place] 9 [facility] Repository 05/26/2018/ [id number] [place], Ambulatory [place] 8 [facility] ing:PCURoom: Repository [id number]: 1 05/26/2018 [id number] [place], Ambulatory BMSBuilding:B [place] [address] [facility] Repository 05/26/2018 [id number] [place], Ambulatory BMSBuilding:B [place] [address] [facility] hospital Repository 03/29/2018 [id number] Ambulatory [place] 9 [facility] ing:OPBD Repository PAYERS PAYERS ENCOUNTER GUARANTOR PAYER SUBSCRIBER SOURCE 05/26/2018 ATLEE J Primary JAN F [place] [id number] CR Insurance:MEDICARE HOSTET[address]ERDOB[address] [id number], [place] [address]Ycd: Number: Repository [id number] (HP) Date:2018-05-26 05/26/2018 Secondary JAN F [place] Insurance:AETNA HOSTETLERDOB: [facility] [id number] Hospital Number: Repository [id number] Date:6405-46-15VDGVS SENIOR SUPPLEMENT [address] [place] [id number]: 05/26/2018 Tertiary NOT GIVENUNK [place] Insurance:SELF PAY [facility] Number: Effective Repository Date:2018-05-26 05/26/2018 ATLEE J Primary JAN F [place] [id number] CR Insurance:MEDICARE HOSTETLERDOB: [facility] [address] [facility] [id number], [place] [address]Znq: Number: Repository [id number] (HP) Date:2018-05-26 05/26/2018 Secondary JAN F [place] Insurance:AETNA SR HOSTETLERDOB: [facility] [id number] Hospital Number: Repository [id number] Date:9949-24-68GIXXD SENIOR SUPPLEMENT [address] [address], [place] [address]BG: 05/26/2018 Tertiary NOT GIVENUNK [place] Insurance:SELF [facility]Y [facility] Number: Effective Repository Date:2018-05-26 05/26/2018 ATLEE J Primary JAN F [place] [id number] CR Insurance:MEDICARE HOSTETLERDOB: Community [address] [facility] [id number], [place] [address]Sby: Number: Repository [id number] (HP) Date:2018-05-26 05/26/2018 Secondary JAN F [place] Insurance:AETNA SR HOSTETLERDOB: Community SUPPLEMENT [facility] [id number] Hospital Number: Repository [id number] Date:2003-62-17BFRDW SENIOR SUPPLEMENT [address] [address], [place] [address]DR: 05/26/2018 Tertiary NOT GIVENUNK [place] Insurance:SELF PAY [facility] Number: Effective Repository Date:2018-05-26 05/26/2018 ATLEE J Primary JAN F [place] [id number] CR Insurance:MEDICARE HOSTETLERDOB: Community [address] [facility] [id number], [place] [address]Aaq: Number: Repository [id number] (HP) Date:2018-05-26 05/26/2018 Secondary JAN F [place] Insurance:AETNA SR HOSTETLERDOB: Community SUPPLEMENT [facility] [id number] Hospital Number: Repository [id number] Date:0124-42-30BEGDD SENIOR SUPPLEMENT [address] [address], [place] [address]PK: 05/26/2018 Tertiary NOT GIVENUNK [place] Insurance:SELF PAY [facility] Number: Effective Repository Date:2018-05-26 03/29/2018 ATLEE J Primary JAN F [place] [id number] CR Insurance:MEDICARE HOSTETLERDOB: Community [address] BPolicy [id number], [place] [address]Phf: Number: Repository [id number] (HP) Date:2017-09-24 03/29/2018 Secondary JAN F [place] Insurance:AETNA SR HOSTETLERDOB: [facility] [id number] Hospital Number: Repository [id number] Date:[id number] SENIOR SUPPLEMENT [address] [address], [place] [address]IF: 03/29/2018 Tertiary NOT GIVENUNK [place] Insurance:SELF PAY [facility] Number: Effective Repository Date:2017-09-24
== END 2018-05-27 12:15 | disposition home or self-care (01) ==
LOC: ED 21:19 → PCU 22:34
PROVIDERS: Admitting Provider Hospitalist; Emergency Provider Emergency Medicine; Family Provider Internal Medicine; PCP Internal Medicine; Visit Provider Family Medicine
DX: R07.89 Other chest pain (principal); E11.9 Type 2 diabetes mellitus without complications; I10 Essential (primary) hypertension; Z85.3 Personal history of malignant neoplasm of breast; Z92.3 Personal history of irradiation; Z92.21 Personal history of antineoplastic chemotherapy; Z79.82 Long term (current) use of aspirin; Z79.84 Long term (current) use of oral hypoglycemic drugs; Z79.899 Other long term (current) drug therapy; E78.5 Hyperlipidemia, unspecified
CPT/HCPCS: 36415; 71045; 78452; 80048; 80061; 82962; 84484; 85025; 85610; 85730; 93005; 93017; 96372; 99218; 99283; A9500; A4216; G0378

== ENCOUNTER → 2019-04-11 | Outpatient (CLI) | payer MEDICARE, OTHER, SELFPAY ==
--- NOTE | 2019-04-11 08:16 | BI_ITS ---
MAMMOGRAPHY - UNILATERAL SCREENING: LEFT BREAST REASON FOR EXAM: Female, 68 years old. Routine annual screening examination (unilateral). PERTINENT HISTORY: Personal history of breast cancer. Prior right mastectomy. Aunt with breast cancer. TECHNIQUE: Digital unilateral breast beatriz (3D mammographic acquisition) in the CC and MLO projections. 2-D mediolateral oblique (MLO) and craniocaudad (CC) views of both breasts were obtained. CAD: Full Field Digital Mammography with Computer Added Detection was performed. COMPARISON: Comparison is made with prior study dated March 29, 2018 and March 22, 2017. FINDINGS: Breast Composition: The breasts are almost entirely fatty. There are no dominant masses or suspicious calcifications. No other significant abnormalities are identified. There has been no significant change since the prior study. BI/SCREEN MAMM (CAD) W/BEATRIZ UNI L IMPRESSION: Stable unilateral screening mammogram. Yearly follow-up mammogram recommended. (A) ASSESSMENT CATEGORY: BIRADS Category 1: Negative. A letter regarding these results will be sent to the patient by the facility within 30 days. Approximately 10% of breast cancers are not detected by mammography. A normal mammogram should not delay biopsy of a clinically suspicious abnormality. [id number] Electronically Signed: Thierry Long, at 9:41 EDT , Service support ,
== END | disposition home or self-care (01) ==
LOC: OPBI 08:14
PROVIDERS: Family Provider Internal Medicine; PCP Internal Medicine; Referring Provider Internal Medicine; Visit Provider Internal Medicine
DX: Z12.31 Encounter for screening mammogram for malignant neoplasm of breast (principal); Z85.3 Personal history of malignant neoplasm of breast
CPT/HCPCS: 77061; 77067; G0279

== ENCOUNTER 2019-07-10 07:39 | Emergency (ER) | payer MEDICARE, OTHER, SELFPAY ==
[2019-07-10 07:40] VITALS: BP 155/79; PULSE 76; RESP 20; TEMP 36.8; O2SAT 98; BMI 33.0
--- NOTE | 2019-07-10 07:55 | EKG12_ITS ---
Test Reason : CP Blood Pressure : / mmHG Vent. Rate : 073 BPM Atrial Rate : 073 BPM P-R Int : 168 ms QRS Dur : 090 ms QT Int : 384 ms P-R-T Axes : 055 -02 012 degrees QTc Int : 423 ms Normal sinus rhythm Minimal voltage criteria for LVH, may be normal variant Inferior infarct (cited on or before 12-MAY-2014) Abnormal ECG Confirmed by SONIDO BENJAMIN, BRYAN ([id number]), rewrite editor VALDEZ BEAVERS ([id number]) on 07/11/2019 10:12:38 AM Referred By: EM Confirmed By:BRYAN HEAD MD
--- NOTE | 2019-07-10 07:56 | RAD_ITS ---
STUDY: X-RAY CHEST REASON FOR EXAM: Female, 68 years old. CP, ACUTE ONSET SINCE 0300AM TECHNIQUE: PA and lateral views of the chest. COMPARISON: Comparison is made with prior examination dated May 26, 2018. FINDINGS: EKG electrodes are seen. The lungs are clear and expanded. There is no demonstrated pleural abnormality. There is mild cardiac enlargement. Normal mediastinum and rochelle. Normal visualized pulmonary arteries. There is atherosclerotic tortuosity of the aortic arch and descending thoracic aorta. There are mild degenerative changes of the visualized thoracic spine. Normal visualized ribs, clavicles, and shoulders. There is no demonstrated abnormality of the visualized soft tissue structures of the upper abdomen. RAD/Chest PA and Lateral IMPRESSION: Mild cardiomegaly. Electronically Signed: Thierry Long, at 8:50 EST , Service support ,
[2019-07-10] MEDS: Aspirin 81 MG TAB.CHEW 324 MG PO (08:01)
[2019-07-10 08:03] VITALS: O2SAT 97
[2019-07-10 08:11] LABS: Absolute Lymphocyte Count 1.53 X10^3/uL (0.83-4.51); Basophil# 0.03 X10^3/uL; Basophil% 0.5 % (0-1); Eosinophil# 0.09 X10^3/uL; Eosinophils% 1.4 % (0-5); Hematocrit 39.3 % (37-47); Hemoglobin 13.4 g/dL (12.0-15.0); Lymphocyte # 1.53 X10^3/ul (4.0); Lymphocyte % 24.6 % (19-41); Mean Corp Hgb Conc 34.1 g/dL (32-36); Mean Corpuscular Hgb 31.2 pg (27.0-32.0); Mean Corpuscular Volume 91.4 fL (81-99); Mean Platelet Vol. 10.4 fl (6.2-12.0); Monocyte# 0.49 X10^3/uL; Monocyte% 7.9 % (0-10); NRBC Flagged by Analyzer 0 % (0-5); Neutrophil # 4.02 X10^3/uL (2.7-7.7); Neutrophil % 64.8 % (47-70); Platelet Count 310 K/mm3 (150-450); RBC Distribution Width CV 12.7 % (11.6-14.6); RBC Distribution Width SD 41.9 fl (35.1-43.9); White Blood Count 6.2 K/mm3 (4.4-11.0)
[2019-07-10 08:15] LABS: Anion Gap 7 (5-15); BUN 15 mg/dL (7-18); BUN/Creat Ratio 16.4 RATIO (10-20); Calcium,Total 9.6 mg/dL (8.5-10.1); Chloride 104 mmol/L (98-107); Creatinine, Serum 0.91 mg/dL (0.55-1.02); EST Glomerular Filtration Rate 65 mL/min (>60); Est Glom Filt Rate - Afr Amer 79 mL/min (>60); Glucose 200 mg/dL (74-106); Potassium 3.9 mmol/L (3.5-5.1); Sodium Level 141 mmol/L (136-145)
--- NOTE | 2019-07-10 08:16 | ED.VISSUMM ---
- ER Visit Summary Date of Service: 07/10/19 Chief Complaint: Chest pain History of Present Illness: The patient is a 68 F who presents with right-sided chest pain that began today. Patient states it woke her up out of her sleep at approximately 3 AM. Patient states the pain is over the right side of her chest and radiates into her back. Patient states nothing makes it better or worse. Patient admits to some nausea but denies any vomiting. Patient admits to some shortness of breath but denies any cough. Patient denies any fevers or diaphoresis. Patient states she did have an episode of lightheadedness today. Patient denies any heartburn or reflux. Patient denies any palpitations. Cardiac risk factors include hypertension, diabetes, and hypercholesterolemia. Physical Examination: Vital signs are stable. Patient is afebrile. Patient is in no acute distress. Oral mucosa is pink and moist. Neck is supple. Trachea is midline. There is no JVD noted. Heart was regular rate and rhythm. Lungs are clear and equal bilaterally. There is no reproducible tenderness over the chest. Abdomen is soft. Bowel sounds are normal. There is no tenderness. There is no rebound or guarding noted. Skin is warm dry. Cranial nerves II through XII are intact. There are no focal motor or sensory deficits noted. Extremities are intact. There is no calf tenderness or edema. Test Results: EKG showed normal sinus rhythm with a rate of 73. There are no acute ST or T wave changes. This was unchanged compared to previous EKG dated 05/27/2018. CBC, basic metabolic profile, and troponin were obtained and were within normal limits. PA and lateral chest x-ray was obtained. There is no acute cardiopulmonary process. This was interpreted by the radiologist and myself. Emergency Department Course and Treatment: Patient was given aspirin here. Patient was feeling better on reevaluation. Patient was advised of her findings. I do not feel this is cardiac in nature. Patient was advised to follow-up with her primary care physician in 3 to 5 days for further evaluation. Patient understood and was agreeable with the plan. All questions were answered. Disposition: Discharge home Impression: 1. Chest pain of uncertain etiology This note was generated with [employer] software. It may contain incorrect words, spelling, and punctuation that were not noted in review of the chart prior to signing ED Disposition - Plan for ED Patient: Disposition: Home or Assisted Living Diagnosis: Chest pain of uncertain etiology Instructions: CHEST PAIN, Uncertain Cause Referrals: Annamarie Carvajal DO [Primary Care Provider] - 3-5 Days
[2019-07-10 08:47] VITALS: BP 149/86; PULSE 71; RESP 16; O2SAT 99
[2019-07-10 09:28] VITALS: BP 157/91; PULSE 67; RESP 16; O2SAT 98
--- NOTE | 2019-07-10 09:29 | ED.RN ---
pt hs family hx of blood clots. added blood work prior to dc
[2019-07-10 10:07] LABS: D-Dimer Quantitative (DVT/PE) 0.55 FEU/ug/m (0.27-0.49)
[2019-07-10 10:27] VITALS: BP 118/63; PULSE 76; RESP 15; O2SAT 98
== END 2019-07-10 10:28 | disposition home or self-care (01) ==
PROVIDERS: Emergency Provider Emergency Medicine; Family Provider Internal Medicine; PCP Internal Medicine
DX: R07.9 Chest pain, unspecified (principal); R42 Dizziness and giddiness; R06.02 Shortness of breath; R11.0 Nausea; E11.9 Type 2 diabetes mellitus without complications; I10 Essential (primary) hypertension; E78.00 Pure hypercholesterolemia, unspecified; E66.9 Obesity, unspecified; Z79.84 Long term (current) use of oral hypoglycemic drugs; Z79.82 Long term (current) use of aspirin; Z79.899 Other long term (current) drug therapy; Z85.3 Personal history of malignant neoplasm of breast; Z90.11 Acquired absence of right breast and nipple
CPT/HCPCS: 71046; 80048; 84484; 85025; 85379; 93005; 99285; A4216

== ENCOUNTER → 2019-07-11 11:24 | Outpatient (CLI) | payer MEDICARE, OTHER, SELFPAY ==
[2019-07-10 07:40] VITALS: BMI 33.0
--- NOTE | 2019-07-11 11:26 | US_ITS ---
STUDY: ABDOMINAL ULTRASOUND - RIGHT UPPER QUADRANT REASON FOR VISIT: Female, 68 years old CHEST PAIN TECHNIQUE: Ultrasound evaluation of the right upper quadrant was performed with real-time and static dumont-scale imaging. TECHNICAL QUALITY: Limited. Examination limited by bowel gas. COMPARISON: None. FINDINGS: Liver: The liver measures 15.5 cm. There is increased echogenicity consistent with fatty infiltration. The bile ducts are within normal limits. There is hepatic color flow. The direction of portal flow is hepatopetal. There is no demonstrated mass lesion. Gallbladder: Normal distended gallbladder. The gallbladder wall measures 2.6 mm. There is a negative sonographic Coats''s sign. There is no pericholecystic fluid. There are multiple echogenic structures within the gallbladder, consistent with multiple gallstones and measuring 0.8 x 0.7 cm and 0.9 x 1.0 x 0.5 cm. Common Bile Duct (C.B.D.): The common bile duct measures 4.1 mm. Pancreas: Normal size of the head, body and tail of the pancreas. There is normal echogenicity of the pancreas. There is no demonstrated pancreatic mass or cyst. Right Kidney: Normal size of the right kidney. The right kidney measures 12.7 x 5.2 x 5.4 cm. Normal renal cortex. The right cortex measures 1.3 cm. There is no demonstrated renal mass or cyst. There is mild fullness of the renal pelvis with no hydronephrosis. US/Abdomen Limited IMPRESSION: Multiple small gallstones with no signs of acute cholecystitis. Diffuse fatty liver. Remainder of the right upper quadrant ultrasound unremarkable. Electronically Signed: Eloisa Pederson MD at 0:42 EST , Service support ,
== END ==
PROVIDERS: Family Provider Internal Medicine; PCP Internal Medicine; Referring Provider Nurse Practitioner; Visit Provider Nurse Practitioner
DX: R07.9 Chest pain, unspecified (principal)
CPT/HCPCS: 76705

== ENCOUNTER 2019-07-18 13:27 | Observation (INO) | payer MEDICARE, OTHER, SELFPAY ==
[2019-07-13 14:41] VITALS: BMI 33.0
--- NOTE | 2019-07-14 05:23 | HP_ITS ---
Intake Vital Signs 07/13/19 BMI 33.0 07/13/19 Height 5 ft 2 in 07/13/19 Weight: 174 lb 07/13/19 BP 135/82 H 07/13/19 Blood Pressure Location Lt brachial 07/13/19 Position Sitting 07/13/19 Respiration 16 07/13/19 Pulse 77 07/13/19 Pulse Source Monitor 07/13/19 Temp 98.5 F 07/13/19 Temp Source Oral 07/13/19 Pulse Oximetry (%) 95 07/13/19 Oxygen Delivery Method room air Intake Visit Reasons: Gall Stones/US 07/11 [facility] Chief Complaint: Chest Pain Flat Drier Required: No Is patient in pain?: Yes (RUQ) Pain scale (1-10): 4 Allergies No Known Allergies Allergy (Verified 07/13/19 14:27) Medications Aspirin [Aspirin, Baby] 81 mg PO DAILY 05/11/14 [History Confirmed 07/13/19] Hydrochlorothiazide [Hctz] 25 mg PO DAILY 05/11/14 [History Confirmed 07/13/19] Lisinopril [Zestril] 20 mg PO DAILY 05/11/14 [History Confirmed 07/13/19] metFORMIN HCl [Glucophage] 1,000 mg PO BIDCM 05/11/14 [History Confirmed 07/13/19] Atenolol [Tenormin (beta shay)] 50 mg PO BID 05/26/18 [History Confirmed 07/13/19] Cholecalciferol (VIT D3) [Vitamin D3] 1,000 unit PO BID 05/26/18 [History Confirmed 07/13/19] Fenofibrate Nanocrystallized [Fenofibrate] 145 mg PO DAILY 05/26/18 [History Confirmed 07/13/19] sitagliptin 100 mg tablet 100 mg PO DAILY 07/13/19 [History Confirmed 07/13/19] [facility] Medical History Nausea (Acute) RUQ pain (Acute) Sleep apnea (Acute) Hx of breast cancer (Acute) Chest pain (Acute) HTN (hypertension) (Chronic) Diabetes (Chronic) Diabetes (Acute) HTN (hypertension) (Chronic) Surgical History History of kidney surgery (Acute) Hx of right mastectomy (Acute) Family History Father Arthritis Diabetes Hypertension Brother T-cell lymphoma Hypertension Mother Brain cancer Sister High cholesterol Social History (Updated 07/14/19 @ 17:23 by Roger Mera MD) Smoking Status: Never smoker second hand exposure: No alcohol intake: never substance use type: does not use caffeine: Yes what type of physical activity do you participate in: none frequency: does not exercise seatbelt use: always HPI HPI HPI: JAN FELIPE, is a 68 F who presents to the office today for HPI HPI Surgical H&P: Yes HPI: JAN FELIPE, is a 68 F who presents to the office today for Right upper quadrant pain. The patient has had a few episodes of right upper quadrant pain. She was recently in the emergency room and then had a subsequent ultrasound which showed gallstones in the gallbladder. She says the pain happens especially when she eats. It is in the right upper quadrant and radiates to the right back. ROS General General: Yes breast cancer; no weight change, appetite, fatigue or colon cancer HEENT HEENT: No difficulty swallowing, eye injury, eye surgery, swollen glands or hoarseness Endo Endocrine: Yes diabetes mellitus Skin Skin: No rash or changing moles Breast Breast: No left breast lump, right breast lump, nipple discharge, breast pain, abnormal mammogram, abnormal US or breast enlargement Musc Musculoskeletal: No back problems, arthritis, rheumatoid arthritis, gout or joint pain Cardio Cardiovascular: Yes high blood pressure; no murmur, pacemaker, heart disease, atrial fibrillation, heart attack, heart stent, palpitations, shortness of breat with exertion or chest pain Psych Psychiatric: No depression, anxiety or hearing voices Resp Respiratory: No shortness of breath, Yes sleep apnea, No cough, No COPD, No asthma, No emphysema, No wheezing Gastro Gastrointestinal: Yes abdominal pain, Yes nausea or vomiting, No diarrhea, No constipation, No blood in stool, No acid reflux, No hemorrhoids, No ulcers, Yes gallbladder problem, No black,tarry stools Dony Hematologic: No blood thinners, No blood disorders, No bleeding, No anemia, No blood clots Exam Const General: cooperative Orientation: alert, oriented x3 Chest Breast Palpation: No nipple discharge Resp Effort & Inspection: normal respiratory effort Auscultation: clear to auscultation bilaterally Cardio Rate: regular rate Rhythm: regular rhythm Heart Sounds: no murmurs GI Inspection: non-distended Palpation: soft, nontender Assessment & Plan Problems 1. Calculus of gallbladder without cholecystitis without obstruction K80.20 Plan The patient has cholelithiasis and right upper quadrant pain especially with eating. This is suggestive of biliary colic. She is currently having no pain and I will schedule her for elective laparoscopic cholecystectomy. I discussed the procedure in detail with the patient. I discussed the risks, benefits, and alternatives of the procedure. I discussed the risks including but not limited to bleeding, infection, injury to surrounding organs such as the liver, bile duct, bowels. I did discuss the possibility of having to convert to an open procedure as well as the possibility that if any injuries occurred this may necessitate further surgery at a tertiary care center. Roger Mera MD Pager: [facility] [address] [place] [address], [address] [place] [address] Office: Coding Level of Care Code Off vis,new,level 3 Diagnoses Calculus of gallbladder without cholecystitis without obstruction K80.20 ??Cholelithiasis location: gallbladder ??Cholecystitis presence: without cholecystitis ??Biliary obstruction: without biliary obstruction 07/14/19 1723 <Electronically signed by Roger quiroz MD> Date _ Roger Mera MD I have re-examined the patient. There are no clinical changes since date of exam.
[2019-07-18] VITALS (13 sets, daily range): BP systolic 106–127; BP diastolic 59–76; PULSE 57–77; RESP 15–18; TEMP 36.3–37.1; O2SAT 93–98; BMI 31.8
[2019-07-18] MEDS: Lactated Ringers 1,000 ML 100 ML IV ×4 (10:15→23:49)
[2019-07-18 10:25] LABS: Bedside Glucose 158 mg/dL (70-110)
--- NOTE | 2019-07-18 11:00 | GALL_PTH ---
PATIENT: JAN FELIPE LOC: MS3 U#:[id number] AGE/SX: 68/F ROOM: GA325 RE07/18/[address]: Dr. Roger Mera MD : 1950 BED: 1 DIS: 07/19/2019 SPEC #: [id number] RECD: 07/18/19 13:24 STATUS: CELESTINO CARMEN #: [id number] PAULA: 07/18/19 11:[address]: Roger Mera DEPT: SURGICAL PATHOLOGY RECD BY: Oral You ENTERED: 07/18/19 14:04 SP TYPE: JUNO VELÁZQUEZ DR: Dr. Annamarie Carvajal DO Tissues: Gallbladder, NOS Procedures: Surgery Specimen Level III HEADER OPERATION: Laparoscopic cholecystectomy with IOC; umbilical hernia repair PRE-OP DIAGNOSIS: Calculus of gallbladder TISSUE SUBMITTED: Gallbladder MICROSCOPIC DIAGNOSIS Gallbladder, cholecystectomy: Mild chronic cholecystitis, cholelithiasis and cholesterolosis. SJ:moiz 07/19/19 MICROSCOPIC DESCRIPTION Slides are reviewed. GROSS DESCRIPTION Received is one container labeled with the patient's name and designated gallbladder. The specimen consists of a gallbladder measuring 6.5 cm in length and 3.5 cm in diameter. The external surface is pink-christianson, smooth and glistening for the most part. Focally it is granular, hemorrhagic and contains cautery artifact. The gallbladder contains green-yellow mucoid bile and one irregular brown stone measuring 0.3 cm in greatest dimension. The mucosa also shows several yellowish streaks consistent with cholesterolosis. The mucosa is bile-stained and without any mass lesions. The gallbladder wall measures 0.2 cm in thickness. Platinumsmith sections from the gallbladder and the cystic duct are submitted in one cassette. / ENRICO:moiz 07/18/19 TC:3 [facility]: [id number]
--- NOTE | 2019-07-18 11:15 | RAD_ITS ---
STUDY: INTRAOPERATIVE CHOLANGIOGRAM. REASON FOR EXAM: Female, 68 years old. LAP MARCIA -- 2 CINE RUNS, 25.5 FLUORO SEC, 10.05mGy FLUOROSCOPY TIME (if supplied): ( 25 seconds ) minutes/seconds TECHNIQUE: An intraoperative cholangiogram was performed by the surgeon. Imaging was submitted. COMPARISON: None. FINDINGS: The intra and extrahepatic biliary ducts are unremarkable. No intraluminal filling defect is seen. There is free flow of contrast into the duodenum. RAD/Cholangiogram/ O R,Initial IMPRESSION: Unremarkable intraoperative cholangiogram. Electronically Signed: Thierry Long, at 13:00 EST , Service support ,
[2019-07-18] MEDS: Bupiv/Epi 0.25% 30 ML Vial (12:32)
--- NOTE | 2019-07-18 13:30 | OP.PCM_ITS ---
Problem List (1) Cholelithiasis Status: Acute Qualifiers: Cholelithiasis location: gallbladder Cholecystitis presence: without cholecystitis Biliary obstruction: without biliary obstruction Qualified Code(s): K80.20 - Calculus of gallbladder without cholecystitis without obstruction (2) RUQ pain Status: Acute Report of Operation Date of Procedure: 07/18/19 Pre-Operative Diagnosis: Cholelithiasis and umbilical hernia Post-Operative Diagnosis: Cholelithiasis, umbilical hernia and extensive adhesions Surgery/Procedure Performed:: Laparoscopic cholecystectomy with cholangiogram and extensive lysis of adhesions. Umbilical hernia repair Specimen's removed: Gallbladder and contents Description of Procedure: After obtaining informed consent patient was brought back to the operating room. General anesthesia was induced. The abdomen was prepped and draped in usual sterile fashion. A small midline incision was made superior to the umbilicus and deepened to the level of fascia. The umbilical hernia was identified. The hernia was dissected free and the peritoneum was entered. Finger sweep was performed. There were dense adhesions. A 12 mm port was placed and the abdomen was insufflated 15 mmHg. The camera was inserted into the abdomen. There were dense adhesions surrounding the port site. The camera was used to go around the adhesions and find a spot in the right upper quadrant for a 5 mm port to be placed under direct visualization. Next the camera was placed through the right upper quadrant incision and an epigastric 5 mm port was placed under direct visualization. A second right upper quadrant port was placed under direct visualization as well. Next using a combination of Enseal for the omentum and the sharp dissection for the bowel the dense adhesions to the anterior abdominal wall were all taken down. There were also two hernias in the midline superior to the umbilicus that contain bowel that were reduced. Once all of the adhesions were cleared for the anterior abdominal wall attention was paid to the gallbladder. Next the gallbladder was elevated and retracted toward the right shoulder. The peritoneum was stripped from the gallbladder. The infundibulum was located and retracted laterally. Next the triangle of Calot was dissected and the cystic duct and cystic artery were identified. Cholangiograms were performed. The Wu clamp was used to clamp across the infundibulum and the catheter needle was inserted into the gallbladder. Under fluoroscopy contrast was instilled into the gallbladder and the common duct, cystic duct as well as proximal hepatic ducts were identified. There was good filling of the duodenum. There were no filling defects noted in the common bile duct. The clamp was removed as well as the needle and the infundibulum was grasped once more. Three hemolock clips were placed across the cystic duct. The cystic duct was then divided leaving 2 clips on the stump. The cystic artery was clipped and divided in the same fashion. The hook cautery was then used to take the gallbladder off of the gallbladder bed. Hemostasis was obtained. Gallbladder fossa was irrigated and no active bleeding or bile leakage was noted. Next the camera switched to a 5 mm camera and introduced in the subxiphoid port. An Endopouch bag was placed through the umbilical port and the gallbladder was placed into it. The gallbladder was then removed through the umbilical incision. The camera was then reinserted through the umbilical port. The gallbladder fossa was inspected once more and noted to be hemostatic with no leaking bile. The abdomen was suctioned dry. The umbilical port was removed and the fascia at the umbilical hernia was closed with a [id number] suture of 0 Vicryl. Next the abdomen was reinsufflated and a Jovany Szymanski needle was used to close the 2 superior hernias using [id number] sutures and 0 Vicryl. The 5 mm ports were removed under direct visualization. The umbilical port site was irrigated l ocal anesthetic was administered to all the incisions. All the incisions were closed with interrupted subcuticular 4-0 Monocryl sutures followed by Steri- Strips and dressings. The patient was awoken and taken to PACU in stable condition. - Admit VTE Documentation VTE Mechan Device Prophylaxis: SCD's
[2019-07-18] MEDS: Acetaminophen 325 MG Tablet 650 MG PO (17:50)
[2019-07-18] MEDS: Ondansetron 4 MG/2 ML Vial IV (18:39)
[2019-07-18] MEDS: oxyCODONE 5 MG Tablet PO (20:16)
[2019-07-18] MEDS: Docusate Sodium 100 MG Capsule PO (21:45)
[2019-07-18] MEDS: Atorvastatin Calcium 10 MG Tablet PO (21:45)
[2019-07-18] MEDS: Lisinopril 20 MG Tablet PO (21:46)
[2019-07-19 02:42] VITALS: BP 101/57; PULSE 68; RESP 18; TEMP 36.9; O2SAT 95
[2019-07-19] MEDS: oxyCODONE 5 MG Tablet PO ×3 (02:49→13:27)
[2019-07-19 04:28] VITALS: BP 108/62; PULSE 70
[2019-07-19 05:16] LABS: Absolute Lymphocyte Count 1.95 X10^3/uL (0.83-4.51); Absolute Neutrophil Count 6.3 X10^3/uL (2.0-7.7); Basophil# 0.02 X10^3/uL; Basophil% 0.2 % (0-1); Eosinophil# 0.01 X10^3/uL; Eosinophils% 0.1 % (0-5); Hematocrit 31.3 % (37-47); Hemoglobin 10.7 g/dL (12.0-15.0); Lymphocyte # 1.95 X10^3/ul (4.0); Lymphocyte % 21.3 % (19-41); Mean Corp Hgb Conc 34.2 g/dL (32-36); Mean Corpuscular Hgb 31.3 pg (27.0-32.0); Mean Corpuscular Volume 91.5 fL (81-99); Mean Platelet Vol. 9.8 fl (6.2-12.0); Monocyte# 0.87 X10^3/uL; Monocyte% 9.5 % (0-10); NRBC Flagged by Analyzer 0 % (0-5); Neutrophil # 6.28 X10^3/uL (2.7-7.7); Neutrophil % 68.6 % (47-70); Platelet Count 265 K/mm3 (150-450); RBC Distribution Width CV 12.9 % (11.6-14.6); RBC Distribution Width SD 42.8 fl (35.1-43.9); Red Blood Count 3.42 M/mm3 (4.2-5.4); White Blood Count 9.2 K/mm3 (4.4-11.0)
[2019-07-19 05:32] LABS: Anion Gap 6 (5-15); BUN 13 mg/dL (7-18); BUN/Creat Ratio 14.3 RATIO (10-20); Calcium,Total 8.2 mg/dL (8.5-10.1); Chloride 102 mmol/L (98-107); Creatinine, Serum 0.91 mg/dL (0.55-1.02); EST Glomerular Filtration Rate 65 mL/min (>60); Est Glom Filt Rate - Afr Amer 79 mL/min (>60); Glucose 176 mg/dL (74-106); Potassium 3.5 mmol/L (3.5-5.1); Sodium Level 138 mmol/L (136-145)
[2019-07-19 07:57] VITALS: BP 108/55; PULSE 65; RESP 16; TEMP 36.5; O2SAT 95
[2019-07-19] MEDS: Aspirin 81 MG TAB.CHEW PO (08:14)
[2019-07-19] MEDS: metFORMIN HCl 1,000 MG Tablet 1000 MG PO (08:14)
[2019-07-19] MEDS: Docusate Sodium 100 MG Capsule PO (08:14)
[2019-07-19] MEDS: LINAGLIPTIN 5 MG TABLET PO (08:15)
[2019-07-19] MEDS: Fenofibrate 145 MG Tablet PO (08:15)
--- NOTE | 2019-07-19 09:19 | PN.SURG_ITS ---
Patient Problems: Active and Suspected Problems (Last Reviewed 07/13/19 @ 14:40 by Kacey Stuart) Cholelithiasis (Acute) Subjective: Patient evaluated resting comfortably in bed. She denies abdominal pain. She notes minimal amount of discomfort. She denies nausea, vomiting. She has tolerated liquids. She is urinating well. Negative flatus. - Physical Exam Vitals/I&O's: Vital Signs Temp Pulse Resp BP Pulse Ox 97.7 F L 65 16 108/55 L 95 07/19/19 07:57 07/19/19 07:57 07/19/19 07:57 07/19/19 07:57 07/19/19 07:57 Oxygen Flow Rate (L/min) 3 Oxygen Delivery Method Room Air Weight: 174 lb 2.643 oz Body Mass Index (BMI) 31.8 Intake and Output for Last 24 Hours 07/17/19 07/18/19 07/19/19 23:59 23:59 23:59 Intake Total 2953.34 / 2953.34 1320 / 1320 Output Total 100 / 100 Balance 2953.34 / 2953.34 1220 / 1220 General: Alert, Oriented x3, Cooperative Abdomen: Soft, Non Tender, Distended, - - Incisions c/d/i. No erythema or infection noted. Laboratory Results 07/18/19 10:03: POC Glucose 158 H 07/19/19 05:03: WBC 9.2, RBC 3.42 L, Hgb 10.7 L, Hct 31.3 L, MCV 91.5, MCH 31.3, MCHC 34.2, RDW Std Deviation 42.8, RDW Coeff of Zahida 12.9, Plt Count 265, MPV 9.8, Immature Gran % (Auto) 0.300, Neut % (Auto) 68.6, Lymph % (Auto) 21.3, [place] % (Auto) 9.5, Eos % (Auto) 0.1, Baso % (Auto) 0.2, Absolute Neuts (auto) 6.3, Absolute Lymphs (auto) 1.95, Nucleated RBC % 0 07/19/19 05:03: Sodium 138, Potassium 3.5, Chloride 102, Carbon Dioxide 30.0, Anion Gap 6, BUN 13, Creatinine 0.91, Estim Creat Clear Calc 46.80, Est GFR (MDRD) Af Amer 79, Est GFR (MDRD) Non-Af 65, BUN/Creatinine Ratio 14.3, Glucose 176 H, Calcium 8.2 L Current Medications Acetaminophen (Tylenol) 650 mg PO Q4H PRN PRN PRN Reason: Pain 1-10 or Fever Last Admin: 07/18/19 17:50 Dose: 650 mg Documented by: Aspirin (Aspirin, Baby) 81 mg PO DAILY@0800 [facility] Last Admin: 07/19/19 08:14 Dose: 81 mg Documented by: Atenolol (Tenormin (Beta Catherine)) 50 mg PO BID [facility] Last Admin: 07/19/19 08:08 Dose: Not Given Documented by: Atorvastatin Calcium (Lipitor) 10 mg PO QHS [facility] Last Admin: 07/18/19 21:45 Dose: 10 mg Documented by: Cholecalcifer[facility] ([facility]itamin [facility]) [facility] Last Admin: 07/19/19 08:14 Dose: 1,000 unit Documented by: Docusate Sodium (Colace) 100 mg PO BID [facility] Last Admin: 07/19/19 08:14 Dose: 100 mg Documented by: Fenofibrate (Tricor) 145 mg PO DAILY@0800 [facility] Last Admin: 07/19/19 08:15 Dose: 145 mg Documented by: Hydrochlorothiazide (Hctz) 25 mg PO DAILY [facility] Last Admin: 07/19/19 08:08 Dose: Not Given Documented by: Sodium Chloride () 250 mls @ 15 mls/hr IV .[id number] PRN PRN Reason: Saline Flush Linagliptin (Tradjenta) 5 mg PO DAILY [facility] Last Admin: 07/19/19 08:15 Dose: 5 mg Documented by: Lisinopril (Zestril) 20 mg PO QHS [facility] Last Admin: 07/18/19 21:46 Dose: 20 mg Documented by: Metformin HCl (Glucophage) [facility] Last Admin: 07/19/19 08:14 Dose: 1,000 mg Documented by: Morphine Sulfate () 2 - 4 mg IV Q2H PRN PRN PRN Reason: Pain Score 4-10/10 Ondansetron HCl (Zofran) 4 mg IV Q6H PRN PRN PRN Reason: NAUSEA Last Admin: 07/18/19 18:39 Dose: 4 mg Documented by: Oxycodone HCl (Oxyir) 5 - 10 mg PO Q4H PRN PRN PRN Reason: Pain Score 4-10/10 Last Admin: 07/19/19 09:04 Dose: 5 mg Documented by: Sodium Chloride () 10 - 40 ml IV UD PRN PRN Reason: SALINE FLUSH Medical Necessity - Tobacco Use Smoking Status: Never smoker Tobacco Use: Non-smoker Assessment/Plan All Active Problems (Last Reviewed 07/13/19 @ 14:40 by Kacey Stuart) Cholelithiasis (Acute) History of kidney surgery (Acute) Hx of right mastectomy (Acute) Nausea (Acute) RUQ pain (Acute) Sleep apnea (Acute) Hx of breast cancer (Acute) Chest pain (Acute) I am following this patient in conjunction with Dr. Mera S/p laparoscopic cholecystectomy Await GI function Progressing well Probable discharge later today Code Visit Inpatient E&M: 95587 Subs Hosp L1 - Post-op/ No charge
--- NOTE | 2019-07-19 10:01 | PCM.DC.GB ---
Discharge Diet: Light diet - advance as tolerated Discharge Activity: Return to Normal Activity, May Not Drive - for 3-5 days or while taking narcotic pain medicataions., - - Do not drive, work heavy equipment or sign legal documents for 24 hours. May shower in (days): 1 - with the bandage in place. Additional Activity Instructions:: Pain medication may cause nausea. You should typically eat light foods as you take your pain medications. Pain medication may also cause constipation. If this is a problem for you, please try over the counter Miralax or Dulcolax. Call your doctor if your incision/area has: Continuous Slow Oozing, Sudden Increased Bleeding, Increased Pain/ Swelling, Increased Redness, Foul Smelling Discharge, Fever of 101 or Higher Call your doctor if you observe: Fever of 101 or Higher Suture Line Care: Avoid Pulling/Pushing, Avoid Pinching/Bending Cleanse incision/area with: Soap & Water Additional Dressing/Incision Instructions:: Leave operative bandaids on for 2 days. When you remove dressing, leave Steri-Strips on until your follow-up appointment, or until the Steri-Strips fall off on their own. Allergies/Adverse Reactions: Allergies No Known Allergies Allergy (Verified 07/18/19 09:57) Medications to take at Discharge Aspirin [Aspirin, Baby] 81 mg PO DAILY 05/11/14 Hydrochlorothiazide [Hctz] 25 mg PO DAILY 05/11/14 Lisinopril [Zestril] 20 mg PO QHS 05/11/14 metFORMIN HCl [Glucophage] 1,000 mg PO BIDCM 05/11/14 Atenolol [Tenormin (beta shay)] 50 mg PO BID 05/26/18 Cholecalciferol (VIT D3) [Vitamin D3] 1,000 unit PO BID 05/26/18 Fenofibrate Nanocrystallized [Fenofibrate] 145 mg PO DAILY 05/26/18 sitagliptin 100 mg tablet 100 mg PO DAILY 07/13/19 Simvastatin [Zocor] 20 mg PO QHS 07/17/19 Oxycodone [Oxyir] 5 mg PO Q6H PRN PRN 3 Days #9 tablet 07/19/19 The following prescriptions were given: Oxycodone [Oxyir] 5 mg PO Q6H PRN PRN 3 Days #9 tablet PRN Reason: Pain Score 4-10/10 Transmission Status: Sent to [facility] Primary Care Physician: Annamarie Carvajal DO [Primary Care Provider] - Test Results: Test results from this visit will be discussed in further detail at your follow-up appointment, if applicable. Please Follow Up With: Roger Mera MD - [phone] When: 2 weeks Proposed Discharge Date: 07/19/19
--- NOTE | 2019-07-19 10:53 | CASEMGMT ---
As per preadmission assessment, pt has LW/POA but is unable to bring in the documents. Pt had stated her spouse is POA. MACY Tinoco
[2019-07-19 13:35] VITALS: BP 115/65; PULSE 67; RESP 18; TEMP 36.6; O2SAT 95
== END 2019-07-19 14:05 | disposition home or self-care (01) ==
LOC: SDC 13:39 → MS3 13:41
PROVIDERS: Admitting Provider Surgery; PCP Internal Medicine; Referring Provider Surgery; Visit Provider Surgery
PROC: (CPT 47610; principal; 2019-07-18 10:40)
DX: K80.10 Calculus of gallbladder with chronic cholecystitis without obstruction (principal); K42.9 Umbilical hernia without obstruction or gangrene; K66.0 Peritoneal adhesions (postprocedural) (postinfection); G47.30 Sleep apnea, unspecified; E11.9 Type 2 diabetes mellitus without complications; I10 Essential (primary) hypertension; Z85.3 Personal history of malignant neoplasm of breast; Z79.899 Other long term (current) drug therapy; Z79.82 Long term (current) use of aspirin; Z79.84 Long term (current) use of oral hypoglycemic drugs
CPT/HCPCS: 00790; 47563; 49652; 36415; 74300; 76000; 80048; 82962; 85025; 88304; 96361; 96374; 99218; 99251; J7120; C1760; G0378; G0379; G0463; J2405

== ENCOUNTER → 2020-07-26 12:42 | Outpatient (CLI) | payer MEDICARE, OTHER, SELFPAY ==
[2019-07-18 14:38] VITALS: BMI 31.8
--- NOTE | 2020-07-26 12:55 | BI_ITS ---
MAMMOGRAPHY - UNILATERAL SCREENING: LEFT BREAST REASON FOR EXAM: Female, 69 years old. Routine annual screening examination (unilateral). PERTINENT HISTORY: Personal history of breast cancer. Prior right mastectomy with chemotherapy and radiation therapy. Aunt with breast cancer. TECHNIQUE: Digital unilateral breast beatriz (3D mammographic acquisition) in the CC and MLO projections. 2-D mediolateral oblique (MLO) and craniocaudad (CC) views of both breasts were obtained. CAD: Full Field Digital Mammography with Computer Added Detection was performed. COMPARISON: Comparison is made with prior study 04/11/2019 and 03/29/2018. FINDINGS: Breast Composition: The breasts are almost entirely fatty. There are no dominant masses or suspicious calcifications. Stable benign-appearing left axillary lymph nodes. No other significant abnormalities are identified. There has been no significant change since the prior study. BI/SCREEN MAMM (CAD) W/BEATRIZ UNI L IMPRESSION: Stable unilateral screening mammogram. Yearly follow-up mammogram recommended. (A) ASSESSMENT CATEGORY: BIRADS Category 2: Benign. A letter regarding these results will be sent to the patient by the facility within 30 days. Approximately 10% of breast cancers are not detected by mammography. A normal mammogram should not delay biopsy of a clinically suspicious abnormality. [id number] Electronically Signed: Thierry Long MD at 13:33 EST , Service support ,
== END ==
PROVIDERS: PCP Internal Medicine; Referring Provider Internal Medicine; Visit Provider Internal Medicine
DX: Z12.31 Encounter for screening mammogram for malignant neoplasm of breast (principal)
CPT/HCPCS: 77063; 77067

== ENCOUNTER → 2021-12-18 | Outpatient (CLI) | payer MEDICARE, OTHER, SELFPAY ==
--- NOTE | 2021-12-18 12:59 | BI_ITS ---
MAMMOGRAPHY - UNILATERAL SCREENING: LEFT BREAST REASON FOR EXAM: Female, 71 years old. Routine annual screening examination (unilateral). PERTINENT HISTORY: Personal history of breast cancer status post right mastectomy and chemoradiation in 1997. Aunt with breast cancer. TECHNIQUE: Digital unilateral breast beatriz (3D mammographic acquisition) in the CC and MLO projections. 2-D mediolateral oblique (MLO) and craniocaudad (CC) views of both breasts were obtained. CAD: Full Field Digital Mammography with Computer Added Detection was performed. COMPARISON: Left breast mammogram from 07/26/2020, 04/11/2019, 03/29/2018, 03/12/2017. FINDINGS: Breast Composition: The breasts are almost entirely fatty. There are no dominant masses or suspicious calcifications. Stable benign-appearing axillary lymph nodes. No other significant abnormalities are identified. There has been no significant change since the prior study. BI/SCREEN MAMM (CAD) W/BEATRIZ UNI L IMPRESSION: Stable unilateral screening mammogram. Yearly follow-up mammogram recommended. (A) ASSESSMENT CATEGORY: BIRADS Category 2: Benign. A letter regarding these results will be sent to the patient by the facility within 30 days. Approximately 10% of breast cancers are not detected by mammography. A normal mammogram should not delay biopsy of a clinically suspicious abnormality. [id number] Electronically Signed: Ruddy Villegas, at 16:20 EDT ,
--- NOTE | 2021-12-18 13:38 | BD_ITS ---
EXAM: XR DEXA BONE DENSITY AXIAL CLINICAL INDICATION: [id number] TECHNIQUE: Dual energy x-ray absorptiometry performed. Bone mineral density measurements were obtained of the lumbar spine and (optionally) the proximal femurs. Values are compared with gender matched average of normal, and with age, weight and ethnic origin (Z-score) and with healthy young adults (T-score). This report was created using [employer] technology. COMPARISON: None. FINDINGS: LUMBAR SPINE BONE MINERAL DENSITY: In the lumbar spine the bone mineralization density measured 1.031 g/sq cm which gave a T score of -0.2. LUMBAR SPINE T-SCORE: See above. RIGHT FEMORAL NECK BONE MINERAL DENSITY: In the right femoral neck the bone mineralization density measured 0.712 g/sq cm which gave a T score of -1.2. LEFT FEMORAL NECK BONE MINERAL DENSITY: The left femoral neck the bone mineralization density measured 0.742 g/sq cm which gave a T score of -1.0. UNITS OF MEASURE: Bone mineral density is measured in g/cm2. Z-score is the number of standard deviations above age-matched controls. T-score is the number of standard deviations above healthy young adults. WORLD HEALTH ORGANIZATION GUIDELINES: T-score at or above -1 is normal bone mineral density. T-score between -1 and -2.5 is osteopenia. T-score at or below -2.5 is osteoporosis. BD/Dexa Bone Density Study IMPRESSION: Bone mineralization density within normal limits in the lumbar spine and left femoral neck compatible with osteopenia in the right femoral neck. Electronically Signed: Kameron Delgado MD at 2:40 EDT ,
== END | disposition home or self-care (01) ==
LOC: OPBD 12:57
PROVIDERS: PCP Internal Medicine; Referring Provider Internal Medicine; Visit Provider Internal Medicine
DX: Z78.0 Asymptomatic menopausal state (principal); Z12.31 Encounter for screening mammogram for malignant neoplasm of breast
CPT/HCPCS: 77063; 77067; 77080

== ENCOUNTER → 2023-04-22 | Outpatient (CLI) | payer MEDICARE, OTHER, SELFPAY ==
--- NOTE | 2023-04-22 13:25 | BI_ITS ---
MAMMOGRAPHY - UNILATERAL SCREENING: LEFT BREAST REASON FOR EXAM: Female, 72 years old. Routine annual screening examination (unilateral). PERTINENT HISTORY: Personal history of breast cancer. Prior right mastectomy with radiation and chemotherapy. Aunt with breast cancer. TECHNIQUE: Digital unilateral breast beatriz (3D mammographic acquisition) in the CC and MLO projections. 2-D mediolateral oblique (MLO) and craniocaudad (CC) views of both breasts were obtained. CAD: Full Field Digital Mammography with Computer Added Detection was performed. COMPARISON: Comparison is made with prior study dated December 18, 2021 and July 26, 2019. FINDINGS: Breast Composition: The breasts are almost entirely fatty. There are no dominant masses or suspicious calcifications. Stable benign-appearing bilateral axillary lymph nodes. No other significant abnormalities are identified. There has been no significant change since the prior study. BI/SCREEN MAMM (CAD) W/BEATRIZ UNI L IMPRESSION: Stable unilateral screening mammogram. Yearly follow-up mammogram recommended. (A) ASSESSMENT CATEGORY: BIRADS Category 2: Benign. A letter regarding these results will be sent to the patient by the facility within 30 days. Approximately 10% of breast cancers are not detected by mammography. A normal mammogram should not delay biopsy of a clinically suspicious abnormality. [id number] Electronically Signed: Thierry Long MD at 14:20 EDT ,
== END | disposition home or self-care (01) ==
LOC: OPBD 13:24
PROVIDERS: PCP Internal Medicine; Referring Provider Internal Medicine; Visit Provider Internal Medicine
DX: Z12.31 Encounter for screening mammogram for malignant neoplasm of breast (principal)
CPT/HCPCS: 77063; 77067

== ENCOUNTER → 2024-03-01 | Outpatient (CLI) | payer MEDICARE, OTHER, SELFPAY ==
--- NOTE | 2024-03-01 08:46 | ECHOD_ITS ---
Reason For Study: ABNORMAL EKG Procedure This was a 2D Doppler, Color Flow transthoracic echocardiogram. Myocardial strain analysis was performed in this exam to aid in the assessment of cardiac function. Exam performed in department. Left Ventricle Normal LV size. Left ventricular systolic function is normal. The left ventricular ejection fraction is 60 %. No regional wall motion abnormalities noted. Right Ventricle Normal RV size. Normal systolic function. Atria Normal left atrium. Normal right atrium. Mitral Valve Normal mitral valve. Tricuspid Valve Normal tricuspid valve. Aortic Valve Trisinus/trileaflet aortic valve. Pulmonic Valve Normal pulmonic valve. Great Vessels Normal aortic root. The pulmonary artery is normal size. Normal inferior vena cava. Pericardium/Pleural No pericardial effusion. MMode/2D Measurements & Calculations LVIDd: 5.0 cm IVSd: 1.2 cm LVOT diam: 1.9 cm LVIDs: 3.0 cm LVPWd: 0.95 cm LVOT area: 3.0 cm2 RVDd: 3.2 cm FS: 39.1 % Ao root diam: 3.1 cm LAV(MOD-bp): 51.6 ml LVAd ap4: 24.9 cm2 LAV(MOD-bp) Indexed: 28.4 ml/m2 LVLd ap4: 7.7 cm LAV(MOD-sp2): 60.4 ml EDV(MOD-sp4): 65.6 ml LAV(MOD-sp4): 44.5 ml EDV(sp4-el): 68.3 ml LVAs ap4: 13.8 cm2 LVLs ap4: 6.2 cm ESV(MOD-sp4): 25.8 ml ESV(sp4-el): 25.8 ml EF(MOD-sp4): 60.6 % EF(sp4-el): 62.2 % LVAd ap2: 18.5 cm2 SV(MOD-sp4): 39.8 ml SV(MOD-sp2): 25.7 ml LVLd ap2: 6.7 cm EDV(MOD-sp2): 44.0 ml EDV(sp2-el): 43.3 ml LVAs ap2: 11.0 cm2 LVLs ap2: 5.8 cm ESV(MOD-sp2): 18.3 ml ESV(sp2-el): 17.7 ml EF(MOD-sp2): 58.4 % SV(sp4-el): 42.5 ml LA dimension(2D): 4.3 cm LA A4 area: 18.1 cm2 RA A4 area: 15.8 cm2 TAPSE: 2.3 cm Time Measurements MV dec time: 0.18 sec Doppler Measurements & Calculations MV E max thai: 90.2 cm/sec Lat Peak E' Thai: 9.0 cm/sec Med Peak E' Thai: 8.5 cm/sec MV A max thai: 88.7 cm/sec E/E' lat: 10.0 E/E' med: 10.6 MV E/A: 1.0 Ao V2 max: 142.2 cm/sec LV V1 max: 98.8 cm/sec MV dec slope: 491.0 cm/sec2 Ao max P.1 mmHg LV V1 max P.9 mmHg Ao V2 mean: 103.1 cm/sec LV V1 mean P.1 mmHg Ao mean P.6 mmHg LV V1 mean: 66.6 cm/sec Ao V2 VTI: 31.2 cm LV V1 VTI: 22.4 cm AV (velocity ratio): 0.72 BLANCHE(I,D): 2.1 cm2 BLANCHE(V,D): 2.1 cm2 SV(LVOT): 66.6 ml PA V2 max: 94.0 cm/sec PA max PG (full): 2.0 mmHg ECHO/Echo Complete Interpretation Summary Normal LV size. Left ventricular systolic function is normal. The left ventricular ejection fraction is 60 %. The global longitudinal strain is normal. The global longitudinal strain = -17. 8 % (normal). Ordering Physician: Annamarie Carvajal Referring Physician: Annamarie Carvajal Performed By: Erica Kim RDCS
== END | disposition home or self-care (01) ==
LOC: CVS 08:43
PROVIDERS: PCP Internal Medicine; Referring Provider Internal Medicine; Visit Provider Internal Medicine
DX: R94.31 Abnormal electrocardiogram [ECG] [EKG] (principal)
CPT/HCPCS: 93306

== ENCOUNTER → 2024-05-18 | Outpatient (CLI) | payer MEDICARE, OTHER, SELFPAY ==
--- NOTE | 2024-05-18 14:13 | BI_ITS ---
MAMMOGRAPHY - UNILATERAL SCREENING: LEFT BREAST REASON FOR EXAM: Female, 73 years old. Routine annual screening examination (unilateral). PERTINENT HISTORY: Personal history of breast cancer. History of prior right mastectomy with radiation and chemotherapy. TECHNIQUE: Digital unilateral breast beatriz (3D mammographic acquisition) in the CC and MLO projections. 2-D mediolateral oblique (MLO) and craniocaudad (CC) views of both breasts were obtained. CAD: Full Field Digital Mammography with Computer Added Detection was performed. COMPARISON: Comparison is made with prior study April 22, 2023 and December 18, 2021. FINDINGS: Breast Composition: The breasts are almost entirely fatty. There are no dominant masses or suspicious calcifications. Stable benign-appearing left axillary lymph nodes. No other significant abnormalities are identified. There has been no significant change since the prior study. BI/SCREEN MAMM (CAD) W/BEATRIZ UNI L IMPRESSION: Stable unilateral screening mammogram. Yearly follow-up mammogram recommended. (A) ASSESSMENT CATEGORY: BIRADS Category 2: Benign. A letter regarding these results will be sent to the patient by the facility within 30 days. Approximately 10% of breast cancers are not detected by mammography. A normal mammogram should not delay biopsy of a clinically suspicious abnormality. [id number] Electronically Signed: Thierry Long MD at 8:39 EST ,
== END | disposition home or self-care (01) ==
LOC: OPBI 14:13
PROVIDERS: PCP Internal Medicine; Referring Provider Internal Medicine; Visit Provider Internal Medicine
DX: Z12.31 Encounter for screening mammogram for malignant neoplasm of breast (principal)
CPT/HCPCS: 77063; 77067